=== PATIENT | male | born 1985 | race American Indian/Alaskan Native ===

== ENCOUNTER 2020-06-02 11:04 | Emergency (ER) | payer OTHER, SELFPAY ==
[2020-06-02 11:43] VITALS: BP 115/83; PULSE 83; RESP 14; O2SAT 99; BMI 23.5
[2020-06-02 12:34] VITALS: O2SAT 98
--- NOTE | 2020-06-02 12:40 | PC.NURSE ---
pt refusing manager monitoring, iv, labs, and iv medication. pt states why cant i just drink some charcoal and leave. 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
[2020-06-02] MEDS: Magnesium Hydrox/Alum Hydrox 30 ML ORAL.SUSP PO (12:46)
[2020-06-02] MEDS: Lidocaine HCl Viscous 2 % 15 ML SOLUTION 10 ML MUCOUS MEM (12:46)
--- NOTE | 2020-06-02 13:08 | ED_ITS ---
HPI - Abdominal Pain General Chief Complaint: Abdominal Pain Stated Complaint: VOMITING Time Seen by Provider: 06/02/20 12:30 Source: patient Limitations: no limitations History of Present Illness HPI narrative: 35-year-old male who denies significant past medical history presents today with complaint of upper abdominal burning like pain and nausea vomiting after he reports he drank coffee on empty stomach that had coffee- ground in it. States he does not regularly drink coffee so was unsure why it was so granular. He still developed cramping abdominal pain and vomited up afterwards to the point where had to stop his work for a day. States he checked his coffee afterwards and had coffee-grounds in it. And that is when he vomited up. Denies any recent illness. No diarrhea. No signs symptoms of bleeding. Occasional alcohol drinker. does not smoke. No prior history of gastric ulcers or GI bleed. MD elicited complaint: abdominal pain Location: epigastric Severity: moderate Quality: cramping Radiation: none Migration to: no migration Related Data Previous Rx's Medication Instructions Recorded omeprazole magnesium [Prilosec OTC] 20 mg PO BID #14 tab 06/02/20 ondansetron HCl [Zofran] 4 mg PO Q8H PRN #10 tab 06/02/20 Allergies Allergy/AdvReac Type Severity Reaction Status Date / Time No Known Allergies Allergy Unverified 05/18/20 15:43 [No Known Allergies*] Review of Systems Review of Systems Constitutional: No Weight loss, No Fever, No Chills, No Night Sweats, No Fatigue, No Malaise ENT/Mouth: No Hearing loss, No Ear Pain, No Nasal Congestion, No Sinus Pain, No Hoarseness, No sore throat, No Rhinorrhea, No Swallowing Difficulty Eyes: No Eye Pain, No Swelling, No Redness, No Foreign Body, No Discharge, No Vision Changes Cardiovascular: No Chest Pain, No SOB, No Dyspnea on Exertion, No Orthopnea, No Edema, No Palpitations Respiratory: No Cough, No Sputum, No Wheezing, No Smoke Exposure, No Dyspnea Gastrointestinal: + Nausea, + Vomiting, No Diarrhea, No Constipation, + cramping like abdominal Pain, No Hematochezia, No Melena Genitourinary: no irregular bleeding, No Dysuria, No Urinary Frequency, No Hematuria, No Urinary Incontinence, No Urgency, No Flank Pain, No Urinary Flow Changes, No Hesitancy Musculoskeletal: No joint pain, No Myalgias, No Joint Swelling Skin: No Skin Lesions, No rash Neuro: No Weakness, No Numbness, No Paresthesias, No Loss of Consciousness, No Dizziness, No Headache Psych: No Anxiety/Panic, No Depression, No SI/HI/AH/VH, No Social Issues, Heme/Lymph: No Bruising, No Bleeding,No Lymphadenopathy Endocrine: No Polyuria, No Polydipsia, No Temperature Intolerance Physical Exam Vital Signs and I&O and Narrative: Vital Signs and I&O: Vital Signs Pulse 83 06/02/20 11:43 Resp 14 06/02/20 11:43 BP 115/83 06/02/20 11:43 Pulse Ox 98 06/02/20 12:34 Intake & Output 06/01/20 06/02/20 06/02/20 18:59 06:59 18:59 Weight 83.007 kg Body Mass Index 23.5 Const: General: cooperative and healthy appearing; No acute distress or intoxicated appearing Nutritional Appearance: average body habitus Orientation/consciousness: patient oriented x3 HENMT: Head: Yes normal to inspection Ears: hearing grossly normal bilaterally Eyes: General: appearance normal, both eyes and all related structures Visual Serrato: normal visual serrato by confrontation Neck: Neck: Yes normal visual inspection, No positive Brudzinski's sign, No positive Kernig's sign and No tender Thyroid: Thyroid normal Chest: Chest palpation & inspection: normal inspection of the chest Resp: Effort & Inspection: normal respiratory effort Cardio: Jugular venous distension: no JVD GI: Inspection: Yes normal to inspection and No distended Percussion: Yes normal to percussion Auscultation: normal bowel sounds : General: Yes no CVA tenderness Back/Spine/Pelvis: Back: no CVA tenderness Skin: General skin exam: no rashes or lesions noted Neuro: General: patient oriented x3 Extrem: General: Yes normal to inspection MDM - Abdominal Pain MDM Narrative Medical decision making narrative: initially agreeable to blood work soon after left room states he does not really need any of the blood work or IV. States he feels fine just would like the stomach drink referring to GI cocktail. States he went to school the medical doctor within next complete. States he knows that his symptoms are primarily caused by the coffee and nothing else serious right now and would like the GI cocktail and be discharged home and will return if any concerns or worsening symptoms. Differential Diagnosis Differential diagnosis: Likely abdominal pain, diverticulitis, gastroenteritis and gastritis; Unlikely aortic dissection, acute appendicitis, bowel perforation, calculus of kidney, constipation, mesenteric ischemia, ovarian cyst, pancreatitis and peptic ulcer disease Differential diagnosis narrative:: Gastric ulcer, GI bleed Discharge Plan Discharge Clinical Impression: Abdominal pain Qualifiers: Abdominal location: epigastric Qualified Code(s): R10.13 - Epigastric pain Patient Disposition: Home, Self-Care Instructions: Acute Nausea and Vomiting (ED) Prescriptions: New ondansetron HCl [Zofran] 4 mg tablet 4 mg PO Q8H PRN (Reason: nausea and vomiting) Qty: 10 RF: 0 omeprazole magnesium [Prilosec OTC] 20 mg tablet,delayed release (DR/EC) 20 mg PO BID Qty: 14 RF: 0 Stand Alone Forms: Against Medical Advice PMFSH Past Medical History Medical History (Updated 06/02/20 @ 13:11 by Yasir Ashby NP) Inguinal hernia Surgical History (Updated 06/02/20 @ 11:57 by Dakota Draper) History of appendectomy Social History Social History Alcohol intake: current Alcohol intake frequency: a few times a week Alcohol type: wine and hard liquor Smoking Status: Current every day smoker Smoked in Last 30 Days: Yes Use of substances other than those prescribed or required for medical reasons: Yes Substance Use Type: Crack/Cocaine Substance Use Frequency: Chronic Longstanding Last Used Substance: Days (ago) Any prior treatment program specific to substance use: No Advance Directives: No Advance Directives Information Provided: Yes
== END 2020-06-02 13:46 | disposition left against medical advice (07) ==
PROVIDERS: Emergency Provider Emergency Medicine; PCP Nurse Practitioner Family
DX: R10.13 Epigastric pain (principal); R11.2 Nausea with vomiting, unspecified; F17.200 Nicotine dependence, unspecified, uncomplicated; F14.90 Cocaine use, unspecified, uncomplicated
CPT/HCPCS: 96360; 99284

== ENCOUNTER 2021-08-09 12:54 | Outpatient (REF) | payer OTHER, SELFPAY ==
[2021-08-09 13:19] LABS: COVID-19 Test Positive (Negative)
== END 2021-08-09 12:55 | disposition home or self-care (01) ==
LOC: HO.LAB 12:54
PROVIDERS: Visit Provider Internal Medicine
DX: Z20.822 Contact with and (suspected) exposure to COVID-19 (principal)
CPT/HCPCS: 36415; 87635; C9803

== ENCOUNTER 2021-09-27 11:52 | Outpatient (REF) | payer OTHER, SELFPAY ==
[2021-09-27 14:03] LABS: Alanine Aminotransferase 24 U/L (0-40); Albumin Level 4.7 g/dL (3.5-5.0); Alkaline Phosphatase 79 U/L (39-117); Anion Gap 11 (12-20); Aspartate Amino Transferase 22 U/L (5-37); Bilirubin Total 0.8 mg/dL (0.0-1.0); Blood Urea Nitrogen 12 mg/dL (9-16); Calcium 10.3 mg/dL (8.4-10.2); Carbon Dioxide 33 mmol/L (22-29); Chloride 99 mmol/L (96-108); Cholesterol 169 mg/dL; Estimated Glomerular Filt Rate > 60; Glucose Fasting 80 mg/dL (60-99); HDL Cholesterol 68 mg/dL; Potassium 4.7 mmol/L (3.3-5.1); Sodium 138 mmol/L (135-145); Total Protein 7.9 g/dL (6.5-8.0)
[2021-09-27 14:04] LABS: LDL Cholesterol Calculated 72 mg/dl; Triglycerides 149 mg/dL
[2021-09-27 14:24] LABS: TSH reflex Free T4 0.95 uIU/mL (0.32-4.0)
[2021-09-29 07:01] LABS: Transglutaminase IgA <1.0 U/mL
[2021-10-02 22:13] LABS: Endomysial IgA Antibody Negative (Negative)
== END 2021-09-27 11:53 | disposition home or self-care (01) ==
LOC: HO.HMGCLDS 11:52
PROVIDERS: Visit Provider Nurse Practitioner Family
DX: Z00.00 Encounter for general adult medical examination without abnormal findings (principal); R19.7 Diarrhea, unspecified
CPT/HCPCS: 36415; 80053; 80061; 84443; 86231; 86364

== ENCOUNTER 2021-09-28 15:18 | Outpatient (REF) | payer OTHER, SELFPAY ==
[2021-09-28 16:27] LABS: Appearance Urine CLEAR; Color Urine YELLOW; Glucose Urine UA NEG (NEG); Leukocyte Esterase Urine NEG (NEG); Nitrite Urine NEG (NEG); PH 5.5 (5.0-8.0); Specific Gravity - Urine >= 1.030 (1.005-1.025); UACC Culture Trigger NO; Urine Blood TRACE (NEG); Urine Ketones NEG (NEG); Urine Protein NEG (NEG-TRACE)
[2021-09-28 16:38] LABS: Bacteria Urine TRACE /LPF; RBC Urine 0-2 /HPF (0); Squamous Epithelial Cell Urine TRACE /LPF; WBC Urine 0 /HPF (0-4)
== END 2021-09-28 15:19 | disposition home or self-care (01) ==
LOC: HO.HMGCLNP 15:18
PROVIDERS: PCP Nurse Practitioner Family; Visit Provider Nurse Practitioner Family
DX: Z00.00 Encounter for general adult medical examination without abnormal findings (principal)
CPT/HCPCS: 81001

== ENCOUNTER 2021-10-12 14:23 | Outpatient (REF) | payer OTHER, SELFPAY ==
[2021-10-12 16:38] LABS: Urine Cytology See Pathology rpt
[2021-10-12 16:45] LABS: Appearance Urine CLOUDY; Color Urine YELLOW; Glucose Urine UA NEG (NEG); Leukocyte Esterase Urine NEG (NEG); Nitrite Urine NEG (NEG); PH 7.5 (5.0-8.0); Urine Blood NEG (NEG); Urine Ketones NEG (NEG); Urine Protein NEG (NEG-TRACE)
== END 2021-10-12 14:24 | disposition home or self-care (01) ==
LOC: HO.HMGCLDS 14:23
PROVIDERS: Visit Provider Nurse Practitioner Family
DX: Z00.00 Encounter for general adult medical examination without abnormal findings (principal); R80.9 Proteinuria, unspecified
CPT/HCPCS: 81003; 87086; 88112

== ENCOUNTER 2021-11-06 13:09 | Outpatient (REF) | payer OTHER, SELFPAY ==
--- NOTE | ~2021-11-06 | CT_ITS ---
EXAMINATION: CT ABDOMEN AND PELVIS WITHOUT CONTRAST CLINICAL INFORMATION: Proteinuria COMPARISON: None TECHNIQUE: Multidetector volumetric imaging was performed from the superior aspect of the liver through the pubic symphysis. Sagittal and coronal reformatted images were obtained on the technologist's workstation. This CT examination was performed using dose optimization techniques as appropriate, variously including the following: *Automated exposure control *Adjustment of mA and/or kV according to patient size (this includes techniques or standardized protocols for targeted exams where dose is matched to indication/reason for exam; i.e. extremities or head) *Use of iterative reconstruction technique DLP: 465 mGy-cm FINDINGS: LUNG BASES: The visualized lung bases are unremarkable. LIVER, GALLBLADDER, AND BILIARY TREE: The liver is normal in size, shape, and attenuation. No focal hepatic lesion or biliary ductal dilatation is present. The gallbladder is unremarkable with no evidence of radiopaque gallstones, gallbladder wall thickening, or obvious pericholecystic inflammatory changes. PANCREAS: Unremarkable. SPLEEN: Unremarkable. ADRENAL GLANDS: Unremarkable. KIDNEYS AND URETERS: There is a 3 mm stone in the lower pole of the right kidney. The kidneys are otherwise unremarkable. BLADDER: Not optimally distended. GASTROINTESTINAL TRACT: There is mild diverticulosis of the colon. The small and large bowel are otherwise unremarkable. The appendix is not seen. There are no inflammatory changes in the right lower quadrant.. ABDOMINAL WALL: No significant hernia is appreciated. LYMPH NODES: Normal. VASCULAR: Unremarkable. PELVIC VISCERA: Unremarkable. OSSEOUS STRUCTURES: Unremarkable. CT/CT abdomen pelvis wo con IMPRESSION: Small right renal stone. Mild diverticulosis of the colon. Fleischner guidelines were followed.
[2021-11-06] MEDS: Barium Sulfate Oral (Vanilla) 450 ML ORAL.SUSP 900 ML PO (15:35)
== END 2021-11-06 13:10 | disposition home or self-care (01) ==
LOC: HO.CT 13:09
PROVIDERS: PCP Nurse Practitioner Family; Visit Provider Nurse Practitioner Family
DX: R10.9 Unspecified abdominal pain (principal); R80.9 Proteinuria, unspecified
CPT/HCPCS: 74176

== ENCOUNTER 2021-12-12 10:41 | Emergency (ER) | payer OTHER, SELFPAY ==
[2021-12-12 10:55] VITALS: BP 114/82; PULSE 103; RESP 20; TEMP 36.6; O2SAT 96
[2021-12-12] MEDS: Lidocaine HCl Viscous 2 % 15 ML SOLUTION 5 ML MUCOUS MEM (13:41)
[2021-12-12 14:04] LABS: IDNOW Serial# 08D9AD1C; Influenza A Negative (Negative); Influenza B2 Negative (Negative); Strep A Nucleic Acid Negative (Negative)
[2021-12-12 14:05] LABS: COVID-19 Test Negative (Negative); IDNOW Serial# 55D5AD1C
--- NOTE | 2021-12-12 14:37 | ED.GENADULT ---
HPI - General Adult General Chief complaint: Extremity Problem Stated complaint: Facial & neck swelling/trouble swallowing Time Seen by Provider: 12/12/21 12:36 Source: patient Mode of arrival: ambulatory History of Present Illness HPI narrative: 36-year-old male with no significant past medical history presenting to the ED complaining of right-sided facial pain radiating to head and neck since yesterday. Admits to associated sore throat and painful swallowing. Denies facial swelling, inability to swallow, fever, ear drainage, hearing loss, cough, sick contacts, trauma Onset (ago): day(s) Related Data Previous Rx's Medication Instructions Recorded trazodone 150 mg tablet 150 mg PO BEDTIME 90 Days #90 tab 08/28/21 amoxicillin 875 mg-potassium 1 tab PO BID 7 Days #14 tab 12/12/21 clavulanate 125 mg tablet fluticasone propionate 50 2 spray INTRANASAL DAILY #16 g 12/12/21 mcg/actuation nasal spray,suspension (Flonase Allergy Relief) Allergies Allergy/AdvReac Type Severity Reaction Status Date / Time No Known Allergies Allergy Unverified 10/22/21 15:06 [No Known Allergies*] Review of Systems Review of Systems: Constitutional: No Fever, No Chills ENT/Mouth: No Ear Pain, No Nasal Congestion, + Sinus Pain, No Hoarseness, + sore throat, + Rhinorrhea, No Swallowing Difficulty Cardiovascular: No Chest Pain, No SOB Respiratory: No Cough, No Sputum, No Wheezing Gastrointestinal: No Nausea, No Vomiting, No Diarrhea, No Constipation, No Abdominal pain Genitourinary: No Dysuria, No Urinary Frequency, No Urgency, No Flank Pain Musculoskeletal: No joint pain, No Myalgias, No Joint Swelling Skin: No Skin Lesions, No rash Neuro: No Weakness, No Numbness, No Paresthesias Yes all other systems are reviewed and are negative [facility] Past Medical History Attestation statement: The following information was validated with the patient. Medical History Inguinal hernia Surgical History History of appendectomy Family History Family History Other Mental health disorder Substance use disorder Social History Social History Housing: House Alcohol intake: current Alcohol intake frequency: a few times a week Alcohol type: wine and hard liquor Patient Tobacco Use Status: Current everyday Tobacco user Cigarette Packs Per Day: 1 Substance Use Type: Crack/Cocaine Advance Directives: No Advance Directives Information Provided: No Current occupational status: employed Physical Exam ED Vital Signs: Vital Signs - 24 hr 12/12/21 10:55 Temperature 97.8 F Pulse Rate 103 H Respiratory Rate 20 Blood Pressure 114/82 Pulse Oximetry 96 BMI result Body Mass Index 0.2 Const General: cooperative, healthy appearing, no acute distress, alert, awake and Physically active Orientation/consciousness: patient oriented x3 Limitations: no limitations HENMT Other: + mild pre-auricular tenderness Head: Yes normal to inspection Ears: hearing grossly normal bilaterally, external ears normal, TM normal on the left, mastoids normal, periauricular adenopathy on the right and TM abnormal dull on the right and with loss of landmarks on the right General nose exam: Normal external nose present and Nasal discharge present Face and sinus: Yes normal facial exam, No crepitus and No edema Mouth: Normal oral and palatal mucosa present and no drooling Throat: Yes tonsils normal, Yes uvula midline, Yes posterior oropharynx abnormal (Mild posterior oropharyngeal erythema, no exudates), No uvula laterally displaced and No uvular edema Eyes General: appearance normal, both eyes and all related structures EOM: EOMs intact bilaterally Neck Neck: Yes normal visual inspection, Yes trachea midline, Yes supple, No anterior neck swelling and Yes lymphadenopathy (Right-sided submandibular) Resp Effort & Inspection: normal respiratory effort, no respiratory distress and no stridor Cardio Rate: regular rate Heart sounds: S1 normal heart sound present and S2 normal heart sound present GI Inspection: Yes normal to inspection Palpation (GI): Soft to palpation, nontender, no guarding and not rigid Skin Rashes: no rashes Wounds: no wounds Neuro General: patient oriented x3 Gait exam (Neuro): Normal gait present Extrem General: Yes normal to inspection Course Course Course Narrative: -rapid strep, COVID-19, and influenza negative. discussed worrisome signs and symptoms and strict return precautions with patient Medical Decision Making MDM Narrative Medical decision making narrative: 36-year-old male with no significant past medical history presenting to the ED complaining of right-sided facial pain radiating to head and neck since yesterday. 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 Concern for viral illness as well Plan: COVID-19 testing, rapid strep, influenza Medical Records Medical records reviewed: Yes I reviewed the patient's medical records. Lab Data Lab results reviewed: Yes I reviewed the patient's lab results. Labs: Lab Results 12/12/21 12/12/21 12/12/21 Range/Units 13:34 13:34 13:34 COVID-19 (CESAR) Negative (Negative) COVID-19 Clin Com See Note Influenza Type A ([facility]) Negative (Negative) Influenza Type B ([facility]) Negative (Negative) Influenza A & B Note See Note S. pyogenes GrpA [facility] Negative (Negative) Discharge Plan Discharge Clinical Impression: Otitis media Patient Disposition: Home, Self-Care Instructions: Ear Infection (ED) Additional Instructions: You tested negative for COVID-19, the flu, and strep throat You have an ear infection, Augmentin is an antibiotic please take as prescribed in addition Flonase is a nasal decongestant spray, use as needed/as prescribed Take Tylenol and Motrin as needed If symptoms persist or worsen, pain becomes unbearable, he developed facial swelling, or fever unresolved with Tylenol and Motrin please return to the ED Prescriptions: New fluticasone propionate [Flonase Allergy Relief] 50 mcg/actuation spray,suspension 2 spray intranasal DAILY Qty: 16 0RF Rx Instructions: administer into each nostril amoxicillin-pot clavulanate 875-125 mg tablet 1 tab PO BID 7 Days Qty: 14 0RF No Action trazodone 150 mg tablet 150 mg PO BEDTIME 90 Days Qty: 90 5RF Referrals: Sanya Zazueta, [employer]AUL[employer] ENGINEER-[facility] [Primary Care Provider] - 1 week (As needed)
== END 2021-12-12 14:49 | disposition home or self-care (01) ==
PROVIDERS: Physician Assistant; Emergency Provider Emergency Medicine; PCP Nurse Practitioner Family
DX: H66.91 Otitis media, unspecified, right ear (principal); F14.90 Cocaine use, unspecified, uncomplicated; Z20.822 Contact with and (suspected) exposure to COVID-19; Z79.899 Other long term (current) drug therapy
CPT/HCPCS: 87502; 87635; 87651; 99283

== ENCOUNTER 2022-02-14 12:26 | Outpatient (REF) | payer OTHER, SELFPAY ==
--- NOTE | ~2022-02-14 | XR_ITS ---
EXAMINATION: BILATERAL HAND X-RAY CLINICAL INFORMATION: Bilateral hand pain COMPARISON: Left finger x-ray August 2016 TECHNIQUE: 3 views of each hand FINDINGS: Left hand: Bone alignment is normal. No fracture or dislocation is seen. Joint spaces are normal. Soft tissues are normal. Right hand: Bone alignment is normal. No acute fracture or dislocation is seen. There is question of a well-corticated ossification seen in the dorsal wrist on the lateral view only questionable for changes related to old trauma. Joint spaces are normal. Soft tissues are normal. XR/XR hand RT min 3V IMPRESSION: Question old trauma to the right dorsal wrist. Otherwise unremarkable exam.
--- NOTE | ~2022-02-14 | XR_ITS ---
EXAMINATION: BILATERAL HAND X-RAY CLINICAL INFORMATION: Bilateral hand pain COMPARISON: Left finger x-ray August 2016 TECHNIQUE: 3 views of each hand FINDINGS: Left hand: Bone alignment is normal. No fracture or dislocation is seen. Joint spaces are normal. Soft tissues are normal. Right hand: Bone alignment is normal. No acute fracture or dislocation is seen. There is question of a well-corticated ossification seen in the dorsal wrist on the lateral view only questionable for changes related to old trauma. Joint spaces are normal. Soft tissues are normal. XR/XR hand LT min 3V IMPRESSION: Question old trauma to the right dorsal wrist. Otherwise unremarkable exam.
== END 2022-02-14 12:27 | disposition home or self-care (01) ==
LOC: HO.HMGCX 12:26
PROVIDERS: PCP Nurse Practitioner Family; Visit Provider Nurse Practitioner Family
DX: M79.641 Pain in right hand (principal); M79.642 Pain in left hand
CPT/HCPCS: 73130

== ENCOUNTER 2022-04-04 08:09 | Outpatient (REF) | payer OTHER, SELFPAY ==
--- NOTE | 2022-04-04 08:12 | EMG_ITS ---
Bilateral median and ulnar motor and sensory studies were performed, bilateral radial sensory studies were performed, bilateral median and lateral antecubital brachial sensory studies were performed, and paraspinal muscles were tested with a needle. IMPRESSION: This study is unremarkable with no evidence of entrapment neuropathy, plexopathy, or radiculopathy. MD STEFFANY Shaikh/JULIANN / [id number]
== END 2022-04-04 08:10 | disposition home or self-care (01) ==
LOC: HO.NEURO 08:09
PROVIDERS: Visit Provider Nurse Practitioner Family
DX: R20.0 Anesthesia of skin (principal)
CPT/HCPCS: 95886; 95913

== ENCOUNTER 2022-04-29 11:01 | Outpatient (REF) | payer OTHER, SELFPAY ==
--- NOTE | ~2022-04-29 | XR_ITS ---
EXAMINATION: XR WRIST, RIGHT CLINICAL INFORMATION: Unspecified sprain, initial encounter. COMPARISON: Radiograph of the right hand 02/14/2022. TECHNIQUE: PA, lateral, and oblique views of the right wrist. FINDINGS: No acute fracture or malalignment. Carpal rows are maintained. The scapholunate interval is within normal limits. No unexpected radiopaque foreign bodies or significant soft tissue abnormality. XR/XR wrist RT min 3V IMPRESSION: No acute fracture or subluxation. If a ligamentous/tendinous injury is suspected, correlation with an MR could be obtained if clinically pertinent.
== END 2022-04-29 11:02 | disposition home or self-care (01) ==
LOC: HO.HMGCX 11:01
PROVIDERS: PCP Nurse Practitioner Family; Visit Provider Internal Medicine
DX: S63.501A Unspecified sprain of right wrist, initial encounter (principal)
CPT/HCPCS: 73110

== ENCOUNTER → 2022-05-27 11:54 | Outpatient (BNVA) | payer OTHER, SELFPAY | PROVIDERS: PCP Nurse Practitioner Family; Visit Provider Nurse Practitioner Psychiatric/Mental Health | DX: F10.20 Alcohol dependence, uncomplicated (principal); F14.10 Cocaine abuse, uncomplicated; Z79.899 Other long term (current) drug therapy | CPT/HCPCS: 99202; 99212 ==

== ENCOUNTER → 2022-07-23 15:45 | Outpatient (BNVA) | payer OTHER, SELFPAY | PROVIDERS: PCP Nurse Practitioner Family; Visit Provider Nurse Practitioner Psychiatric/Mental Health | DX: F10.20 Alcohol dependence, uncomplicated (principal); F14.10 Cocaine abuse, uncomplicated; Z51.81 Encounter for therapeutic drug level monitoring; Z79.899 Other long term (current) drug therapy | CPT/HCPCS: 99212 ==

== ENCOUNTER → 2022-07-30 16:01 | Outpatient (BNVA) | payer OTHER, SELFPAY | PROVIDERS: PCP Nurse Practitioner Family; Visit Provider Nurse Practitioner Psychiatric/Mental Health | DX: F10.20 Alcohol dependence, uncomplicated (principal); F14.10 Cocaine abuse, uncomplicated | CPT/HCPCS: 99212 ==

== ENCOUNTER 2022-11-04 12:19 | Emergency (ER) | payer OTHER, SELFPAY ==
[2022-11-04 12:38] VITALS: BP 128/79; PULSE 101; RESP 16; TEMP 36.3; O2SAT 99; BMI 21.8
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
== END 2022-11-04 12:53 | disposition home or self-care (01) ==
PROVIDERS: Emergency Provider Emergency Medicine; PCP Nurse Practitioner Family
DX: Z04.1 Encounter for examination and observation following transport accident (principal); M62.830 Muscle spasm of back
CPT/HCPCS: 99282; 99283

== ENCOUNTER 2022-11-15 08:31 | Outpatient (REF) | payer OTHER, SELFPAY ==
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
== END 2022-11-15 08:32 | disposition home or self-care (01) ==
LOC: HO.HMGCX 08:31
PROVIDERS: Visit Provider Chiropractor
DX: M54.50 Low back pain, unspecified (principal)
CPT/HCPCS: 72110

== ENCOUNTER 2023-03-11 15:46 | Outpatient (AMB) | payer OTHER, SELFPAY ==
[2023-03-11 15:51] VITALS: BP 110/68; PULSE 106; O2SAT 96; BMI 23.3
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
== END 2023-03-11 16:31 | disposition home or self-care (01) ==
PROVIDERS: PCP Nurse Practitioner Family; Visit Provider Nurse Practitioner Family
DX: M54.16 Radiculopathy, lumbar region (principal); V89.2XXA Person injured in unspecified motor-vehicle accident, traffic, initial encounter
CPT/HCPCS: 99213

== ENCOUNTER 2023-06-10 15:00 | Outpatient (AMB) | payer OTHER, SELFPAY ==
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
[2023-06-10 15:05] VITALS: BP 118/82; PULSE 96; O2SAT 98
== END 2023-06-10 15:51 | disposition home or self-care (01) ==
PROVIDERS: PCP Nurse Practitioner Family; Visit Provider Nurse Practitioner Psychiatric/Mental Health
DX: F10.20 Alcohol dependence, uncomplicated (principal); F14.10 Cocaine abuse, uncomplicated
CPT/HCPCS: 99214

== ENCOUNTER → 2023-06-10 15:00 | Outpatient (BNVA) | payer OTHER, SELFPAY | PROVIDERS: PCP Nurse Practitioner Family; Visit Provider Nurse Practitioner Psychiatric/Mental Health | DX: F14.10 Cocaine abuse, uncomplicated (principal); F10.20 Alcohol dependence, uncomplicated | CPT/HCPCS: 99212 ==

== ENCOUNTER 2023-06-30 16:11 | Outpatient (AMB) | payer OTHER, SELFPAY ==
--- NOTE | 2023-06-30 16:18 | A.OFFVIS_ITS ---
Intake Vital Signs 06/30/23 16:25 BP 118/82 Blood Pressure Location Lt radial Position Sitting Pulse 64 Pulse Source Pulse Oximeter Pulse Oximetry (%) 98 Oxygen Delivery Method Room Air Intake Visit Reasons: mat visit Intake Note: the patient presents for a mat visit Mold Chipper Required: No Allergies No Known Allergies [No Known Allergies*] Allergy (Verified 06/30/23 16:18) Do you need a note to return to daycare/school/sports/work: No HPI mat visit HPI Details Pt presents for [facility] treatment and follow up. Only took the topamax twice, reports chest pain and shortness of breath each time he took it. Did not go to be seen or treated emergently for the chest pain. Is using 1 gram of cocaine every other day to every 2 days, and reports Sat last use. Reports he only drinks when he is using cocaine, states he drinks to level out . Was unable to fill vyvanse, stated he was able to get prior auth and will be picking up tomorrow. [facility] Medical History Inguinal hernia Surgical History History of appendectomy Family History Other Mental health disorder Substance use disorder Social History Housing: House Alcohol intake: current Alcohol intake frequency: a few times a week Alcohol type: wine and hard liquor Patient Tobacco Use Status: Current everyday Tobacco user Cigarettes Per Day: 10 e-Cigarette/Vaping Use: Never Used Second Hand Smoke Exposure: No Substance Use Type: Crack/Cocaine Current occupational status: employed Cognitive needs: No Hearing needs: No Vision needs: No Review of Systems Const Reports as per HPI and Reports no additional complaints Physical Exam Vital Signs: Last Vital Signs Pulse 64 06/30/23 16:25 BP 118/82 06/30/23 16:25 Pulse Ox 98 06/30/23 16:25 Oxygen Delivery Method Room Air 06/30/23 16:25 Const General: cooperative, healthy appearing and no acute distress Resp Effort & Inspection: normal respiratory effort Skin General skin exam: no rashes or lesions noted Psych Appearance: grossly normal Mental Status: mental status grossly normal Speech and movement: Pressured speech present Affect: Labile affect present Attitude: cooperative Assessment & Plan Assessment & Plan (1) Cocaine use disorder: Code(s): F14.10 - Cocaine abuse, uncomplicated Plan: Discontinue topamax. Trial vyvanse and follow up in 2 weeks. Encouraged to seek medical attention if further episodes of chest pain arise. risk reduction discussion Plan reviewed with POLO Brown (2) Alcohol use disorder, severe, dependence: Code(s): F10.20 - Alcohol dependence, uncomplicated Plan: Harm reduction discussed, pt encouraged to try alternating alcoholic beverages with water. Follow up 2 weeks. Coding Level of Care Code Est Pt Level 4 (53611) Diagnoses Cocaine use disorder F14.10 Alcohol use disorder, severe, dependence F10.20
[2023-06-30 16:25] VITALS: BP 118/82; PULSE 64; O2SAT 98
== END 2023-06-30 16:41 | disposition home or self-care (01) ==
PROVIDERS: PCP Nurse Practitioner Family; Visit Provider Nurse Practitioner Psychiatric/Mental Health
DX: F10.20 Alcohol dependence, uncomplicated (principal); F14.10 Cocaine abuse, uncomplicated
CPT/HCPCS: 99213

== ENCOUNTER → 2023-06-30 16:11 | Outpatient (BNVA) | payer OTHER, SELFPAY | PROVIDERS: PCP Nurse Practitioner Family; Visit Provider Nurse Practitioner Psychiatric/Mental Health | DX: F14.10 Cocaine abuse, uncomplicated (principal); F10.20 Alcohol dependence, uncomplicated | CPT/HCPCS: 99212 ==

== ENCOUNTER 2023-07-14 16:17 | Outpatient (AMB) | payer OTHER, SELFPAY ==
--- NOTE | 2023-07-14 16:18 | A.OFFVIS_ITS ---
Intake Vital Signs 07/14/23 16:22 BP 122/72 Blood Pressure Location Lt radial Position Sitting Pulse 70 Pulse Source Pulse Oximeter Pulse Oximetry (%) 97 Oxygen Delivery Method Room Air Intake Visit Reasons: mat visit Intake Note: the patient presents for a mat visit Director Of It Operations Required: No Allergies No Known Allergies [No Known Allergies*] Allergy (Verified 07/14/23 16:23) Do you need a note to return to daycare/school/sports/work: No HPI mat visit HPI Details Patient presents for follow up Has started to take Vyvanse--has decreased cocaine use since then Reduced drinking as well. Last use Friday. Has started to feel calmer since starting medication Seeing therapist weekly -Umesh CASTAÑEDA Medical History Inguinal hernia Surgical History History of appendectomy Family History Other Mental health disorder Substance use disorder Social History Housing: House Alcohol intake: current Alcohol intake frequency: a few times a week Alcohol type: wine and hard liquor Patient Tobacco Use Status: Current everyday Tobacco user Cigarettes Per Day: 10 e-Cigarette/Vaping Use: Never Used Second Hand Smoke Exposure: No Substance Use Type: Crack/Cocaine Current occupational status: employed Cognitive needs: No Hearing needs: No Vision needs: No Review of Systems Const Reports as per HPI Physical Exam Vital Signs: Last Vital Signs Pulse 70 07/14/23 16:22 BP 122/72 07/14/23 16:22 Pulse Ox 97 07/14/23 16:22 Oxygen Delivery Method Room Air 07/14/23 16:22 Const General: cooperative, healthy appearing and no acute distress Assessment & Plan Assessment & Plan (1) Alcohol use disorder, severe, dependence: Code(s): F10.20 - Alcohol dependence, uncomplicated Plan: * risk reduction discussion (2) Cocaine use disorder: Code(s): F14.10 - Cocaine abuse, uncomplicated (3) ADHD (attention deficit hyperactivity disorder), predominantly hyperactive impulsive type: Code(s): F90.1 - Attention-deficit hyperactivity disorder, predominantly hyperactive type Plan: * increase vyvanse to 40mg QD * follow up 2 weeks Medications: New lisdexamfetamine (Vyvanse) Partial Fill upon patient request. 40 mg PO QAM 21 caps 0RF Discontinued lisdexamfetamine Partial Fill upon patient request. Discontinued Reason: Doctor's Order 20 mg PO DAILY 14 caps 0RF topiramate Discontinued Reason: Patient no longer taking 50 mg (2 x 25 mg) PO DAILY 28 tabs 0RF Coding Level of Care Code Est Pt Level 4 (59958) Diagnoses Alcohol use disorder, severe, dependence F10.20 Cocaine use disorder F14.10 ADHD (attention deficit hyperactivity disorder), predominantly hyperactive impulsive type F90.1
[2023-07-14 16:22] VITALS: BP 122/72; PULSE 70; O2SAT 97
== END 2023-07-14 16:51 | disposition home or self-care (01) ==
PROVIDERS: PCP Nurse Practitioner Family; Visit Provider Nurse Practitioner Psychiatric/Mental Health
DX: F10.20 Alcohol dependence, uncomplicated (principal); F14.10 Cocaine abuse, uncomplicated; F90.1 Attention-deficit hyperactivity disorder, predominantly hyperactive type
CPT/HCPCS: 99214

== ENCOUNTER → 2023-07-14 16:17 | Outpatient (BNVA) | payer OTHER, SELFPAY | PROVIDERS: PCP Nurse Practitioner Family; Visit Provider Nurse Practitioner Psychiatric/Mental Health | DX: F10.20 Alcohol dependence, uncomplicated (principal); F14.10 Cocaine abuse, uncomplicated; F90.1 Attention-deficit hyperactivity disorder, predominantly hyperactive type | CPT/HCPCS: 99212 ==

== ENCOUNTER 2023-07-28 16:00 | Outpatient (AMB) | payer OTHER, SELFPAY ==
[2023-07-28 16:05] VITALS: BP 130/72; PULSE 99; O2SAT 98
--- NOTE | 2023-07-28 16:05 | A.OFFVIS_ITS ---
Intake Vital Signs 07/28/23 16:05 BP 130/72 Blood Pressure Location Lt radial Position Sitting Pulse 99 Pulse Source Pulse Oximeter Pulse Oximetry (%) 98 Oxygen Delivery Method Room Air Intake Visit Reasons: mat visit Intake Note: the patient presents for a mat vist Disaster Response Director Required: No Allergies No Known Allergies [No Known Allergies*] Allergy (Verified 07/28/23 16:06) HPI mat visit HPI Details Patient presents for follow up Currently prescribed Vyvanse 40mg QD for StUD. Patient reports decrease in cocaine use overall. Discussing several life stressors and how they have impacted his use, but feels that since starting the medication he feels calmer overall. Still very pressured when talking, but less hyperverbal and able to allow this bond underwriter to speak without frequently interrupting. He would like to continue at this dose for now and not increase yet. [facility] Medical History Inguinal hernia Surgical History History of appendectomy Family History Other Mental health disorder Substance use disorder Social History Housing: House Alcohol intake: current Alcohol intake frequency: a few times a week Alcohol type: wine and hard liquor Patient Tobacco Use Status: Current everyday Tobacco user Cigarettes Per Day: 10 e-Cigarette/Vaping Use: Never Used Second Hand Smoke Exposure: No Substance Use Type: Crack/Cocaine Current occupational status: employed Cognitive needs: No Hearing needs: No Vision needs: No Review of Systems Const Reports as per HPI Physical Exam Vital Signs: Last Vital Signs Pulse 99 07/28/23 16:05 BP 130/72 07/28/23 16:05 Pulse Ox 98 07/28/23 16:05 Oxygen Delivery Method Room Air 07/28/23 16:05 Const General: cooperative, healthy appearing and no acute distress Psych Appearance: well kempt Speech and movement: Clear speech present and Pressured speech present Affect: normal affect and Animated affect present Attitude: cooperative Thought process: Normal thought process present and Circumstantial thought process present Assessment & Plan Assessment & Plan (1) ADHD (attention deficit hyperactivity disorder), predominantly hyperactive impulsive type: Code(s): F90.1 - Attention-deficit hyperactivity disorder, predominantly hyperactive type Plan: * continue vyvanse at current dose * risk reduction discussion * follow up 2 weeks (2) Cocaine use disorder: Code(s): F14.10 - Cocaine abuse, uncomplicated (3) Alcohol use disorder, severe, dependence: Code(s): F10.20 - Alcohol dependence, uncomplicated Coding Level of Care Code Est Pt Level 4 (96898) Diagnoses ADHD (attention deficit hyperactivity disorder), predominantly hyperactive impulsive type F90.1 Cocaine use disorder F14.10 Alcohol use disorder, severe, dependence F10.20
== END 2023-07-28 16:42 | disposition home or self-care (01) ==
PROVIDERS: PCP Nurse Practitioner Family; Visit Provider Nurse Practitioner Psychiatric/Mental Health
DX: F14.10 Cocaine abuse, uncomplicated (principal); F10.20 Alcohol dependence, uncomplicated; F90.1 Attention-deficit hyperactivity disorder, predominantly hyperactive type
CPT/HCPCS: 99214

== ENCOUNTER → 2023-07-28 16:00 | Outpatient (BNVA) | payer OTHER, SELFPAY | PROVIDERS: PCP Nurse Practitioner Family; Visit Provider Nurse Practitioner Psychiatric/Mental Health | DX: F14.20 Cocaine dependence, uncomplicated (principal); F10.20 Alcohol dependence, uncomplicated; F17.210 Nicotine dependence, cigarettes, uncomplicated; F90.1 Attention-deficit hyperactivity disorder, predominantly hyperactive type; Z51.81 Encounter for therapeutic drug level monitoring; Z79.899 Other long term (current) drug therapy | CPT/HCPCS: 99212 ==

== ENCOUNTER 2023-08-11 16:04 | Outpatient (AMB) | payer OTHER, SELFPAY ==
--- NOTE | 2023-08-11 16:05 | MHC.AM.SUB ---
Intake Vital Signs 08/11/23 16:11 BP 122/78 Blood Pressure Location Lt radial Position Sitting Pulse 92 Pulse Source Pulse Oximeter Pulse Oximetry (%) 97 Oxygen Delivery Method Room Air Intake Visit Reasons: mat visit Intake Note: the patient presents for a mat visit Manager Child Required: No Allergies No Known Allergies [No Known Allergies*] Allergy (Verified 08/11/23 16:12) Do you need a note to return to daycare/school/sports/work: No HPI mat visit HPI Details Patient presents for [facility] treatment follow up 3 days per week of alcohol and cocaine use Amount he drinks has decreased as well. Other strategies to reduce cocaine use include not bringing entire supply home He reports that his friend have noted a change in his ability to handle situations without reacting Has been spending more time rollerblading, going to the gym August 19-September 02 spending time with sister [facility] Medical History Inguinal hernia Surgical History History of appendectomy Family History Other Mental health disorder Substance use disorder Social History Housing: House Alcohol intake: current Alcohol intake frequency: a few times a week Alcohol type: wine and hard liquor Patient Tobacco Use Status: Current everyday Tobacco user Cigarettes Per Day: 10 e-Cigarette/Vaping Use: Never Used Second Hand Smoke Exposure: No Substance Use Type: Crack/Cocaine Current occupational status: employed Cognitive needs: No Hearing needs: No Vision needs: No Review of Systems Const Reports as per HPI Physical Exam Vital Signs: Last Vital Signs Pulse 92 08/11/23 16:11 BP 122/78 08/11/23 16:11 Pulse Ox 97 08/11/23 16:11 Oxygen Delivery Method Room Air 08/11/23 16:11 Const General: cooperative, healthy appearing and no acute distress Psych Appearance: well kempt Speech and movement: Clear speech present and Pressured speech present (much improved ) Affect: normal affect and Animated affect present Attitude: cooperative Thought process: Normal thought process present and Circumstantial thought process present Assessment & Plan Assessment & Plan (1) ADHD (attention deficit hyperactivity disorder), predominantly hyperactive impulsive type: Code(s): F90.1 - Attention-deficit hyperactivity disorder, predominantly hyperactive type Plan: increase vyvanse to 50mg QD follow up 4 weeks (2) Alcohol use disorder, severe, dependence: Code(s): F10.20 - Alcohol dependence, uncomplicated Plan: risk reduction discussion (3) Cocaine use disorder: Code(s): F14.10 - Cocaine abuse, uncomplicated Plan: risk reduction discussion Medications: New lisdexamfetamine (Vyvanse) Partial Fill upon patient request. 50 mg PO DAILY 30 caps 0RF Discontinued lisdexamfetamine (Vyvanse) Partial Fill upon patient request. Discontinued Reason: Doctor's Order 40 mg PO QAM 21 caps 0RF Coding Level of Care Code Est Pt Level 4 (61640) Diagnoses ADHD (attention deficit hyperactivity disorder), predominantly hyperactive impulsive type F90.1 Alcohol use disorder, severe, dependence F10.20 Cocaine use disorder F14.10
[2023-08-11 16:11] VITALS: BP 122/78; PULSE 92; O2SAT 97
== END 2023-08-11 16:42 | disposition home or self-care (01) ==
PROVIDERS: PCP Nurse Practitioner Family; Visit Provider Nurse Practitioner Psychiatric/Mental Health
DX: F10.20 Alcohol dependence, uncomplicated (principal); F14.10 Cocaine abuse, uncomplicated; F90.1 Attention-deficit hyperactivity disorder, predominantly hyperactive type
CPT/HCPCS: 99214

== ENCOUNTER → 2023-08-11 16:04 | Outpatient (BNVA) | payer OTHER, SELFPAY | PROVIDERS: PCP Nurse Practitioner Family; Visit Provider Nurse Practitioner Psychiatric/Mental Health | DX: F14.10 Cocaine abuse, uncomplicated (principal); F10.20 Alcohol dependence, uncomplicated; F90.1 Attention-deficit hyperactivity disorder, predominantly hyperactive type | CPT/HCPCS: 99212 ==

== ENCOUNTER 2023-09-08 15:08 | Outpatient (AMB) | payer OTHER, SELFPAY ==
--- NOTE | 2023-09-08 15:10 | MHC.AM.SUB ---
Intake Vital Signs 09/08/23 15:14 BP 124/80 Blood Pressure Location Lt radial Position Sitting Pulse 101 H Pulse Source Pulse Oximeter Pulse Oximetry (%) 96 Oxygen Delivery Method Room Air Intake Visit Reasons: MAT Visit Intake Note: the patient presents for a mat visit Radiology Special Procedure Tech Required: No Allergies No Known Allergies [No Known Allergies*] Allergy (Verified 09/08/23 15:15) Do you need a note to return to daycare/school/sports/work: No HPI MAT Visit HPI Details Patient presents for [facility] treatment follow up Spent time with his sister over sad affect, somewhat guarded. Reporting he has been drinking and using cocaine alot over the past few days Not being with his family was very challenging during the holiday has also not been taking vyvanse regularly--he states that when he does, his cocaine use is much less. Reviewed restarting medication, therapy, and working to shift focus [facility] Medical History Inguinal hernia Surgical History History of appendectomy Family History Other Mental health disorder Substance use disorder Social History Housing: House Alcohol intake: current Alcohol intake frequency: a few times a week Alcohol type: wine and hard liquor Patient Tobacco Use Status: Current everyday Tobacco user Cigarettes Per Day: 10 e-Cigarette/Vaping Use: Never Used Second Hand Smoke Exposure: No Substance Use Type: Crack/Cocaine Current occupational status: employed Cognitive needs: No Hearing needs: No Vision needs: No Review of Systems Const Reports as per HPI Psych Reports depression and Reports difficulty concentrating Physical Exam Vital Signs: Last Vital Signs Pulse 101 H 09/08/23 15:14 BP 124/80 09/08/23 15:14 Pulse Ox 96 09/08/23 15:14 Oxygen Delivery Method Room Air 09/08/23 15:14 Const General: cooperative, healthy appearing and no acute distress Psych Appearance: well kempt Speech and movement: Clear speech present and Pressured speech present Affect: normal affect and Animated affect present Attitude: cooperative Thought process: Normal thought process present and Circumstantial thought process present Insight: Fair insight present (Psych) Judgement: Fair judgement present (Psych) Assessment & Plan Assessment & Plan (1) ADHD (attention deficit hyperactivity disorder), predominantly hyperactive impulsive type: Code(s): F90.1 - Attention-deficit hyperactivity disorder, predominantly hyperactive type Plan: restart vyvanse with regularity (2) Cocaine use disorder: Code(s): F14.10 - Cocaine abuse, uncomplicated Plan: risk reduction discussion (3) Alcohol use disorder, severe, dependence: Code(s): F10.20 - Alcohol dependence, uncomplicated Plan: risk reduction discussion follow up 2 weeks Medications: Refilled lisdexamfetamine (Vyvanse) Partial Fill upon patient request. 50 mg PO DAILY 30 caps 0RF Coding Level of Care Code Est Pt Level 4 (59722) Diagnoses ADHD (attention deficit hyperactivity disorder), predominantly hyperactive impulsive type F90.1 Cocaine use disorder F14.10 Alcohol use disorder, severe, dependence F10.20
[2023-09-08 15:14] VITALS: BP 124/80; PULSE 101; O2SAT 96
== END 2023-09-08 15:40 | disposition home or self-care (01) ==
PROVIDERS: PCP Nurse Practitioner Family; Visit Provider Nurse Practitioner Psychiatric/Mental Health
DX: F10.20 Alcohol dependence, uncomplicated (principal); F14.10 Cocaine abuse, uncomplicated; F90.1 Attention-deficit hyperactivity disorder, predominantly hyperactive type
CPT/HCPCS: 99214

== ENCOUNTER → 2023-09-08 15:08 | Outpatient (BNVA) | payer OTHER, SELFPAY | PROVIDERS: PCP Nurse Practitioner Family; Visit Provider Nurse Practitioner Psychiatric/Mental Health | DX: F90.1 Attention-deficit hyperactivity disorder, predominantly hyperactive type (principal); F10.20 Alcohol dependence, uncomplicated; F14.10 Cocaine abuse, uncomplicated | CPT/HCPCS: 99212 ==

== ENCOUNTER 2023-09-20 09:06 | Outpatient (AMB) | payer OTHER, SELFPAY ==
--- NOTE | 2023-09-20 09:09 | AM.OFFWIN_ITS ---
Intake Vital Signs 09/20/23 09:15 Height 6 ft 2 in BP 120/76 Blood Pressure Location Rt brachial Position Sitting Pulse 76 Pulse Source Pulse Oximeter Temp 98.1 F Temp Source Oral Pulse Oximetry (%) 98 Intake Visit Reasons: EST/had tick on him (lobby) Intake Note: pt is here for c.o had tick on him, and having cold feet, and body feels like its being crushed Patient Tobacco Use Status: Current everyday Tobacco user Allergies No Known Allergies [No Known Allergies*] Allergy (Verified 09/20/23 09:44) Medication List - Last Reconciled 09/20/23 by Mary Jo Ferrell CNP fluticasone propionate 50 mcg/actuation (Flonase Allergy Relief) 2 sprays intranasal DAILY lisdexamfetamine (Vyvanse) 50 mg PO DAILY trazodone 150 mg PO BEDTIME 90 days Do you need a note to return to daycare/school/sports/work: Yes HPI HPI Comments History of Present Illness Details 38-year-old male presents to walk-in [facility] complaining of having a tick on him two days ago, and yesterday he woke up with severe joint pain, diarrhea, nausea, and fatigue. He endorses the tick bit him in the stomach, he was able to effectively remove the entire tick. He denies fever, chills, cough, CP, SOB and bulls eye appearance on abdomen. He does report a hx of previous tick bites w/ associated joint pain, fatigue, diarrhea, and nausea in which he reports being treated with abx, and prednisone. He declines Lyme disease titer. [facility] Medical History Inguinal hernia Surgical History History of appendectomy Family History Other Mental health disorder Substance use disorder Social History Housing: House Alcohol intake: current Alcohol intake frequency: a few times a week Alcohol type: wine and hard liquor Patient Tobacco Use Status: Current everyday Tobacco user Cigarettes Per Day: 10 e-Cigarette/Vaping Use: Never Used Second Hand Smoke Exposure: No Substance Use Type: Crack/Cocaine Current occupational status: employed Cognitive needs: No Hearing needs: No Vision needs: No Review of Systems Const All systems reviewed & are unremarkable except as noted in HPI and below Physical Exam Vital Signs: Last Vital Signs Temp 98.1 F 09/20/23 09:15 Pulse 76 09/20/23 09:15 BP 120/76 09/20/23 09:15 Pulse Ox 98 09/20/23 09:15 Const General: healthy appearing and no acute distress Nutritional Appearance: well nourished Orientation/consciousness: patient oriented x3 Limitations: no limitations HEENT Head: Yes normal to inspection, Yes normocephalic and Yes atraumatic Ears: hearing grossly normal bilaterally and TM's normal bilaterally Mouth: moist mucous membranes Throat: Yes posterior oropharynx normal Eyes General: appearance normal, both eyes and all related structures Neck Neck: Yes normal visual inspection, Yes no lymphadenopathy and Yes supple Chest Chest palpation & inspection: normal inspection of the chest Resp Effort & Inspection: normal respiratory effort, no cough, no respiratory distress and not tachypneic Auscultation: clear to auscultation bilaterally, no rhonchi and no wheezes Cardio Rate: regular rate Rhythm: regular rhythm Heart sounds: S1 normal heart sound present and S2 normal heart sound present Peripheral pulses: Peripheral pulses 2+ throughout GI Inspection: Yes normal to inspection and Yes other (no bulls eye or skin irritation noted on abdomen) Palpation (GI): Soft to palpation and nontender Auscultation: normal bowel sounds General: Yes no CVA tenderness Back/Spine/Pelvis Back: no CVA tenderness Skin General skin exam: turgor normal Neuro General: patient oriented x3, gait normal, moves all extremities and no focal motor deficits Extrem General: Yes normal to inspection, Yes capillary refill normal, Yes no joint enlargement and Yes no clubbing, cyanosis or edema Psych Appearance: well kempt Mental Status: other (hyperactive) Speech and movement: Clear speech present and Restless speech present Attitude: cooperative Assessment & Plan Assessment & Plan (1) Tick bite: Code(s): W57.XXXA - Bitten or stung by nonvenomous insect and other nonvenomous arthropods, initial encounter Qualifiers: Encounter type: initial encounter Site of tick bite: abdominal wall Qualified Code(s): S30.861A - Insect bite (nonvenomous) of abdominal wall, initial encounter; W57.XXXA - Bitten or stung by nonvenomous insect and other nonvenomous arthropods, initial encounter Plan: 38-year-old male seen today in walk-in clinic for complaint of joint pain, diarrhea, nausea and fatigue after a recent tick bite. He does not want Lyme test performed as he is in a hurry, he endorses a hx of tick bites and symptoms of Lyme disease, and would like prophylactic treatment. Treated with doxycycline 100 mg po bid, and prednisone 20 mg po qd x 3 days for joint pain associated w/ tick bite. Encouraged to return to clinic with any unresolved or worsening symptoms (2) Joint pain due to Lyme disease: Code(s): A69.20 - Lyme disease, unspecified; M25.50 - Pain in unspecified joint Plan: Treated with doxycycline 100 mg po bid, and prednisone 20 mg po qd x 3 days for joint pain associated w/ tick bite. Encouraged to return to clinic with any unresolved or worsening symptoms Medications: New prednisone 20 mg PO DAILY 3 tabs 0RF A69.20 - Lyme disease, unspecified, M25.50 - Pain in unspecified joint doxycycline monohydrate 100 mg PO BID 20 caps 0RF A69.23 - Arthritis due to Lyme disease, W57.XXXA - Bitten or stung by nonvenomous insect and other nonvenomous arthropods, initial encounter Coding Level of Care Code Est Pt Level 3 (95960) Diagnoses Tick bite of abdominal wall, initial encounter S30.861A; W57.XXXA Encounter type: initial encounter Site of tick bite: abdominal wall Joint pain due to Lyme disease A69.20; M25.50
[2023-09-20 09:15] VITALS: BP 120/76; PULSE 76; TEMP 36.7; O2SAT 98
== END 2023-09-20 09:55 | disposition home or self-care (01) ==
PROVIDERS: PCP Nurse Practitioner Family; Visit Provider Nurse Practitioner Acute Care
DX: S30.861A Insect bite (nonvenomous) of abdominal wall, initial encounter (principal); W57.XXXA Bitten or stung by nonvenomous insect and other nonvenomous arthropods, initial encounter; A69.20 Lyme disease, unspecified; M25.50 Pain in unspecified joint
CPT/HCPCS: 99051; 99213

== ENCOUNTER 2023-09-23 15:54 | Outpatient (AMB) | payer OTHER, SELFPAY ==
[2023-09-23 16:01] VITALS: BP 130/82; PULSE 96; O2SAT 99
--- NOTE | 2023-09-23 16:01 | A.OFFVISCC_ITS ---
Intake Vital Signs 09/23/23 16:01 BP 130/82 Blood Pressure Location Lt radial Position Sitting Pulse 96 Pulse Source Pulse Oximeter Pulse Oximetry (%) 99 Oxygen Delivery Method Room Air Intake Visit Reasons: MAT Visit Intake Note: the patient presents for a mat visit Strategic Account Executive Required: No Allergies No Known Allergies [No Known Allergies*] Allergy (Verified 09/23/23 16:02) Do you need a note to return to daycare/school/sports/work: No HPI MAT Visit HPI Details Patient presents for [facility] treatment follow up Has significantly reduced his use over the last 2 weeks 5 times in 14 days Has been taking Vyvanse 50mg with regularity Feels it has been very helpful Discussed ongoing cardiac risk with cocaine use [facility] Medical History Inguinal hernia Surgical History History of appendectomy Family History Other Mental health disorder Substance use disorder Social History Housing: House Alcohol intake: current Alcohol intake frequency: a few times a week Alcohol type: wine and hard liquor Patient Tobacco Use Status: Current everyday Tobacco user Cigarettes Per Day: 10 e-Cigarette/Vaping Use: Never Used Second Hand Smoke Exposure: No Substance Use Type: Crack/Cocaine Current occupational status: employed Cognitive needs: No Hearing needs: No Vision needs: No Review of Systems Const Reports as per HPI Physical Exam Vital Signs: Last Vital Signs Pulse 96 09/23/23 16:01 BP 130/82 09/23/23 16:01 Pulse Ox 99 09/23/23 16:01 Oxygen Delivery Method Room Air 09/23/23 16:01 Const General: cooperative, healthy appearing and no acute distress Psych Appearance: well kempt Speech and movement: Clear speech present Affect: normal affect Attitude: cooperative Thought process: Normal thought process present and Circumstantial thought process present Insight: Fair insight present (Psych) Judgement: Fair judgement present (Psych) Assessment & Plan Assessment & Plan (1) ADHD (attention deficit hyperactivity disorder), predominantly hyperactive impulsive type: Code(s): F90.1 - Attention-deficit hyperactivity disorder, predominantly hyperactive type Plan: * continue vyvanse (2) Cocaine use disorder: Code(s): F14.10 - Cocaine abuse, uncomplicated Plan: * risk reduction discussion (3) Alcohol use disorder, severe, dependence: Code(s): F10.20 - Alcohol dependence, uncomplicated Plan: * risk reduction discussion * follow up 2 weeks Coding Level of Care Code Est Pt Level 4 (95731) Diagnoses ADHD (attention deficit hyperactivity disorder), predominantly hyperactive impulsive type F90.1 Cocaine use disorder F14.10 Alcohol use disorder, severe, dependence F10.20
== END 2023-09-23 16:32 | disposition home or self-care (01) ==
PROVIDERS: PCP Nurse Practitioner Family; Visit Provider Nurse Practitioner Psychiatric/Mental Health
DX: F14.10 Cocaine abuse, uncomplicated (principal); F10.20 Alcohol dependence, uncomplicated; F90.1 Attention-deficit hyperactivity disorder, predominantly hyperactive type
CPT/HCPCS: 99214

== ENCOUNTER → 2023-09-23 15:54 | Outpatient (BNVA) | payer OTHER, SELFPAY | PROVIDERS: PCP Nurse Practitioner Family; Visit Provider Nurse Practitioner Psychiatric/Mental Health | DX: F10.20 Alcohol dependence, uncomplicated (principal); F14.10 Cocaine abuse, uncomplicated; F90.1 Attention-deficit hyperactivity disorder, predominantly hyperactive type | CPT/HCPCS: 99212 ==

== ENCOUNTER 2023-10-13 16:06 | Outpatient (AMB) | payer OTHER, SELFPAY ==
--- NOTE | 2023-10-13 16:07 | A.OFFVISCC_ITS ---
Intake Vital Signs 10/13/23 16:12 BP 122/76 Blood Pressure Location Lt radial Position Sitting Pulse 100 Pulse Source Pulse Oximeter Pulse Oximetry (%) 96 Oxygen Delivery Method Room Air Intake Visit Reasons: MAT Visit Intake Note: the patient presents for a mat visit Can Patcher Required: No Allergies No Known Allergies [No Known Allergies*] Allergy (Verified 10/27/23 16:11) Do you need a note to return to daycare/school/sports/work: No HPI MAT Visit HPI Details Patient presents for [facility] treatment follow up tolerating Vyvanse with + results in terms of overall organization and decrease in stimulant use [facility] Medical History Inguinal hernia Surgical History History of appendectomy Family History Other Mental health disorder Substance use disorder Social History Housing: House Alcohol intake: current Alcohol intake frequency: a few times a week Alcohol type: wine and hard liquor Patient Tobacco Use Status: Current everyday Tobacco user Cigarettes Per Day: 10 e-Cigarette/Vaping Use: Never Used Second Hand Smoke Exposure: No Substance Use Type: Crack/Cocaine Current occupational status: employed Cognitive needs: No Hearing needs: No Vision needs: No Review of Systems Const Reports as per HPI and Reports no additional complaints Physical Exam Vital Signs: Last Vital Signs Pulse 100 10/13/23 16:12 BP 122/76 10/13/23 16:12 Pulse Ox 96 10/13/23 16:12 Oxygen Delivery Method Room Air 10/13/23 16:12 Const General: cooperative, healthy appearing and no acute distress Psych Appearance: well kempt Speech and movement: Clear speech present Affect: normal affect Attitude: cooperative Thought process: Normal thought process present and Circumstantial thought process present Insight: Fair insight present (Psych) Judgement: Fair judgement present (Psych) Assessment & Plan Assessment & Plan (1) ADHD (attention deficit hyperactivity disorder), predominantly hyperactive impulsive type: Code(s): F90.1 - Attention-deficit hyperactivity disorder, predominantly hyperactive type Plan: * continue vyvanse (2) Cocaine use disorder: Code(s): F14.10 - Cocaine abuse, uncomplicated Plan: * risk reduction discussion (3) Alcohol use disorder, severe, dependence: Code(s): F10.20 - Alcohol dependence, uncomplicated Plan: * risk reduction discussion * follow up 2 weeks Coding Level of Care Code Est Pt Level 4 (06593) Diagnoses ADHD (attention deficit hyperactivity disorder), predominantly hyperactive impulsive type F90.1 Cocaine use disorder F14.10 Alcohol use disorder, severe, dependence F10.20
[2023-10-13 16:12] VITALS: BP 122/76; PULSE 100; O2SAT 96
== END 2023-10-13 16:44 | disposition home or self-care (01) ==
PROVIDERS: PCP Nurse Practitioner Family; Visit Provider Nurse Practitioner Psychiatric/Mental Health
DX: F14.10 Cocaine abuse, uncomplicated (principal); F10.20 Alcohol dependence, uncomplicated; F90.1 Attention-deficit hyperactivity disorder, predominantly hyperactive type
CPT/HCPCS: 99214

== ENCOUNTER → 2023-10-13 16:06 | Outpatient (BNVA) | payer OTHER, SELFPAY | PROVIDERS: PCP Nurse Practitioner Family; Visit Provider Nurse Practitioner Psychiatric/Mental Health | DX: F90.1 Attention-deficit hyperactivity disorder, predominantly hyperactive type (principal); F14.10 Cocaine abuse, uncomplicated; F10.20 Alcohol dependence, uncomplicated | CPT/HCPCS: 99212 ==

== ENCOUNTER 2023-10-27 16:05 | Outpatient (AMB) | payer OTHER, SELFPAY ==
--- NOTE | 2023-10-27 16:09 | A.OFFVISCC_ITS ---
Intake Vital Signs 10/27/23 16:10 BP 132/84 Blood Pressure Location Lt radial Position Sitting Pulse 110 H Pulse Source Pulse Oximeter Pulse Oximetry (%) 97 Oxygen Delivery Method Room Air Comment had caffeine Intake Visit Reasons: mat visit Intake Note: the patient presents for a mat visit Practice Assistant Required: No Allergies No Known Allergies [No Known Allergies*] Allergy (Verified 10/27/23 16:11) Do you need a note to return to daycare/school/sports/work: No HPI mat visit HPI Details Patient presents for [facility] treatment follow up Still using cocaine once a week frustrated by this boredom most common trigger discussed strategies to address this --including painting which patient brought up [facility] Medical History Inguinal hernia Surgical History History of appendectomy Family History Other Mental health disorder Substance use disorder Social History Housing: House Alcohol intake: current Alcohol intake frequency: a few times a week Alcohol type: wine and hard liquor Patient Tobacco Use Status: Current everyday Tobacco user Cigarettes Per Day: 10 e-Cigarette/Vaping Use: Never Used Second Hand Smoke Exposure: No Substance Use Type: Crack/Cocaine Current occupational status: employed Cognitive needs: No Hearing needs: No Vision needs: No Review of Systems Const Reports as per HPI Physical Exam Vital Signs: Last Vital Signs Pulse 110 H 10/27/23 16:10 BP 132/84 10/27/23 16:10 Pulse Ox 97 10/27/23 16:10 Oxygen Delivery Method Room Air 10/27/23 16:10 Const General: cooperative, healthy appearing and no acute distress Psych Appearance: well kempt Speech and movement: Clear speech present Affect: normal affect Attitude: cooperative Thought process: Normal thought process present and Circumstantial thought process present Insight: Fair insight present (Psych) Judgement: Fair judgement present (Psych) Assessment & Plan Assessment & Plan (1) ADHD (attention deficit hyperactivity disorder), predominantly hyperactive impulsive type: Code(s): F90.1 - Attention-deficit hyperactivity disorder, predominantly hyperactive type Plan: * continue vyvanse (2) Cocaine use disorder: Code(s): F14.10 - Cocaine abuse, uncomplicated Plan: * risk reduction discussion (3) Alcohol use disorder, severe, dependence: Code(s): F10.20 - Alcohol dependence, uncomplicated Plan: * risk reduction discussion * follow up 2 weeks Coding Level of Care Code Est Pt Level 4 (19115) Diagnoses ADHD (attention deficit hyperactivity disorder), predominantly hyperactive impulsive type F90.1 Cocaine use disorder F14.10 Alcohol use disorder, severe, dependence F10.20
[2023-10-27 16:10] VITALS: BP 132/84; PULSE 110; O2SAT 97
== END 2023-10-27 16:47 | disposition home or self-care (01) ==
PROVIDERS: PCP Nurse Practitioner Family; Visit Provider Nurse Practitioner Psychiatric/Mental Health
DX: F14.10 Cocaine abuse, uncomplicated (principal); F10.20 Alcohol dependence, uncomplicated; F90.1 Attention-deficit hyperactivity disorder, predominantly hyperactive type
CPT/HCPCS: 99214

== ENCOUNTER → 2023-10-27 16:05 | Outpatient (BNVA) | payer OTHER, SELFPAY | PROVIDERS: PCP Nurse Practitioner Family; Visit Provider Nurse Practitioner Psychiatric/Mental Health | DX: F90.1 Attention-deficit hyperactivity disorder, predominantly hyperactive type (principal); F14.10 Cocaine abuse, uncomplicated; F10.20 Alcohol dependence, uncomplicated | CPT/HCPCS: 99212 ==

== ENCOUNTER 2023-11-10 15:42 | Outpatient (AMB) | payer OTHER, SELFPAY ==
--- NOTE | 2023-11-10 15:43 | A.OFFVISCC_ITS ---
Intake Vital Signs 11/10/23 15:49 BP 126/70 Blood Pressure Location Lt radial Position Sitting Pulse 70 Pulse Source Pulse Oximeter Pulse Oximetry (%) 97 Oxygen Delivery Method Room Air Intake Visit Reasons: mat visit Intake Note: the patient presents for a mat visit Teacher Resource Required: No Allergies No Known Allergies [No Known Allergies*] Allergy (Verified 11/10/23 15:50) HPI mat visit HPI Details Patient presents for StUD Reports challenging 2 weeks due to a lot of work Cocaine use 3 days during the week concerned about what is going to happen when restraining order ends--next month Wants to see his son Anxious about it Has not completed EKG Still tolerating Vyvanse and overall improvement of mood and daily functioning [facility] Medical History Inguinal hernia Surgical History History of appendectomy Family History Other Mental health disorder Substance use disorder Social History Housing: House Alcohol intake: current Alcohol intake frequency: a few times a week Alcohol type: wine and hard liquor Patient Tobacco Use Status: Current everyday Tobacco user Cigarettes Per Day: 10 e-Cigarette/Vaping Use: Never Used Second Hand Smoke Exposure: No Substance Use Type: Crack/Cocaine Current occupational status: employed Cognitive needs: No Hearing needs: No Vision needs: No Review of Systems Const Reports as per HPI and Reports no additional complaints Physical Exam Vital Signs: Last Vital Signs Pulse 70 11/10/23 15:49 BP 126/70 11/10/23 15:49 Pulse Ox 97 11/10/23 15:49 Oxygen Delivery Method Room Air 11/10/23 15:49 Const General: cooperative, healthy appearing and no acute distress Psych Appearance: well kempt Speech and movement: Clear speech present Affect: normal affect Attitude: cooperative Thought process: Normal thought process present and Circumstantial thought process present Insight: Fair insight present (Psych) Judgement: Fair judgement present (Psych) Assessment & Plan Assessment & Plan (1) ADHD (attention deficit hyperactivity disorder), predominantly hyperactive impulsive type: Code(s): F90.1 - Attention-deficit hyperactivity disorder, predominantly hyperactive type Plan: * continue vyvanse-refilled (2) Cocaine use disorder: Code(s): F14.10 - Cocaine abuse, uncomplicated Plan: * risk reduction discussion (3) Alcohol use disorder, severe, dependence: Code(s): F10.20 - Alcohol dependence, uncomplicated Plan: * risk reduction discussion * follow up 2 weeks * reminded about EKG Medications: Refilled lisdexamfetamine (Vyvanse) Partial Fill upon patient request. 50 mg PO DAILY 30 caps 0RF Coding Level of Care Code Est Pt Level 4 (06249) Diagnoses ADHD (attention deficit hyperactivity disorder), predominantly hyperactive impulsive type F90.1 Cocaine use disorder F14.10 Alcohol use disorder, severe, dependence F10.20
[2023-11-10 15:49] VITALS: BP 126/70; PULSE 70; O2SAT 97
== END 2023-11-10 16:24 | disposition home or self-care (01) ==
PROVIDERS: PCP Nurse Practitioner Family; Visit Provider Nurse Practitioner Psychiatric/Mental Health
DX: F14.10 Cocaine abuse, uncomplicated (principal); F10.20 Alcohol dependence, uncomplicated; F90.1 Attention-deficit hyperactivity disorder, predominantly hyperactive type
CPT/HCPCS: 99214

== ENCOUNTER → 2023-11-10 15:42 | Outpatient (BNVA) | payer OTHER, SELFPAY | PROVIDERS: PCP Nurse Practitioner Family; Visit Provider Nurse Practitioner Psychiatric/Mental Health | DX: F90.1 Attention-deficit hyperactivity disorder, predominantly hyperactive type (principal); F10.20 Alcohol dependence, uncomplicated; F14.10 Cocaine abuse, uncomplicated | CPT/HCPCS: 99212 ==

== ENCOUNTER → 2023-11-24 08:13 | Outpatient (REF) | payer OTHER, SELFPAY ==
--- NOTE | 2023-11-24 08:17 | ECG_ITS ---
Test Reason : f1590 Blood Pressure : / mmHG Vent. Rate : 104 BPM Atrial Rate : 104 BPM P-R Int : 132 ms QRS Dur : 090 ms QT Int : 354 ms P-R-T Axes : 078 076 061 degrees QTc Int : 465 ms Sinus tachycardia Otherwise normal ECG No previous ECGs available Referred By: Lara Patel Electronically Signed By:Anand Watters
== END ==
LOC: HO.CARD 08:13
PROVIDERS: PCP Nurse Practitioner Family; Visit Provider Nurse Practitioner Psychiatric/Mental Health
DX: F15.90 Other stimulant use, unspecified, uncomplicated (principal); Z79.899 Other long term (current) drug therapy
CPT/HCPCS: 93005

== ENCOUNTER → 2023-11-24 08:17 | Outpatient (BNV) | payer OTHER, SELFPAY | PROVIDERS: PCP Nurse Practitioner Family; Visit Provider Internal Medicine Cardiovascular Disease | DX: F15.90 Other stimulant use, unspecified, uncomplicated (principal) | CPT/HCPCS: 93010 ==

== ENCOUNTER 2023-12-08 15:31 | Outpatient (AMB) | payer OTHER, SELFPAY ==
--- NOTE | 2023-12-08 15:39 | MHC.AM.SUB ---
Intake Vital Signs 12/08/23 16:01 BP 120/70 Blood Pressure Location Rt radial Position Sitting Respiration 19 Pulse 88 Pulse Source Pulse Oximeter Pulse Oximetry (%) 98 Intake Visit Reasons: MAT Allergies No Known Allergies [No Known Allergies*] Allergy (Verified 11/10/23 15:50) HPI MAT HPI Details Patient presents for follow up Feeling down --reports he found out his is living in [place] EKG reviewed--tachycardia Celebrex-started for back pain Has not eaten drinking protein shakes Cocaine use when he learned of his moving to [facility] Medical History Inguinal hernia Surgical History History of appendectomy Family History Other Mental health disorder Substance use disorder Social History Housing: House Alcohol intake: current Alcohol intake frequency: a few times a week Alcohol type: wine and hard liquor Patient Tobacco Use Status: Current everyday Tobacco user Cigarettes Per Day: 10 e-Cigarette/Vaping Use: Never Used Second Hand Smoke Exposure: No Substance Use Type: Crack/Cocaine Current occupational status: employed Cognitive needs: No Hearing needs: No Vision needs: No Review of Systems Const Reports as per HPI Physical Exam Vital Signs: Last Vital Signs Pulse 88 12/08/23 16:01 Resp 19 12/08/23 16:01 BP 120/70 12/08/23 16:01 Pulse Ox 98 12/08/23 16:01 Const General: cooperative and no acute distress Psych Affect: Sad affect present and Anxious affect present Attitude: cooperative Thought process: Circumstantial thought process present Assessment & Plan Assessment & Plan (1) ADHD (attention deficit hyperactivity disorder), predominantly hyperactive impulsive type: Code(s): F90.1 - Attention-deficit hyperactivity disorder, predominantly hyperactive type Plan: continue vyvanse (2) Cocaine use disorder: Code(s): F14.10 - Cocaine abuse, uncomplicated Plan: risk reduction discussion (3) Alcohol use disorder, severe, dependence: Code(s): F10.20 - Alcohol dependence, uncomplicated Plan: risk reduction discussion follow up 2 weeks Coding Level of Care Code Est Pt Level 4 (13802) Diagnoses ADHD (attention deficit hyperactivity disorder), predominantly hyperactive impulsive type F90.1 Cocaine use disorder F14.10 Alcohol use disorder, severe, dependence F10.20
[2023-12-08 16:01] VITALS: BP 120/70; PULSE 88; RESP 19; O2SAT 98
== END 2023-12-08 16:45 | disposition home or self-care (01) ==
PROVIDERS: PCP Nurse Practitioner Family; Visit Provider Nurse Practitioner Psychiatric/Mental Health
DX: F14.10 Cocaine abuse, uncomplicated (principal); F10.20 Alcohol dependence, uncomplicated; F90.1 Attention-deficit hyperactivity disorder, predominantly hyperactive type
CPT/HCPCS: 99214

== ENCOUNTER → 2023-12-08 15:31 | Outpatient (BNVA) | payer OTHER, SELFPAY | PROVIDERS: PCP Nurse Practitioner Family; Visit Provider Nurse Practitioner Psychiatric/Mental Health | DX: F90.1 Attention-deficit hyperactivity disorder, predominantly hyperactive type (principal); F14.10 Cocaine abuse, uncomplicated; F10.20 Alcohol dependence, uncomplicated | CPT/HCPCS: 99212 ==

== ENCOUNTER 2023-12-16 11:26 | Emergency (ER) | payer OTHER, SELFPAY ==
[2023-12-16] VITALS (7 sets, daily range): BP systolic 121–133; BP diastolic 71–109; PULSE 88–107; RESP 16–18; TEMP 36.6–37.1; O2SAT 97–98; BMI 23.7
--- NOTE | ~2023-12-16 | CT_ITS ---
EXAMINATION: CT ABDOMEN AND PELVIS WITHOUT CONTRAST CLINICAL INFORMATION: Right flank pain COMPARISON: Previous CT of the abdomen and pelvis December 2021 TECHNIQUE: Multidetector volumetric imaging was performed from the superior aspect of the liver through the pubic symphysis. Sagittal and coronal reformatted images were obtained on the technologist's workstation. This CT examination was performed using dose optimization techniques as appropriate, variously including the following: *Automated exposure control *Adjustment of mA and/or kV according to patient size (this includes techniques or standardized protocols for targeted exams where dose is matched to indication/reason for exam; i.e. extremities or head) *Use of iterative reconstruction technique DLP: 569 mGy-cm FINDINGS: LUNG BASES: The visualized lung bases are unremarkable. LIVER, GALLBLADDER, AND BILIARY TREE: The liver is normal in size, shape, and attenuation. No focal hepatic lesion or biliary ductal dilatation is present. The gallbladder is unremarkable with no evidence of radiopaque gallstones, gallbladder wall thickening, or obvious pericholecystic inflammatory changes. PANCREAS: Unremarkable. SPLEEN: Unremarkable. ADRENAL GLANDS: Unremarkable. KIDNEYS AND URETERS: Moderate right hydronephrosis from a 4 mm right proximal ureteral stone. No renal stone seen. Normal left kidney. BLADDER: Not optimally distended. Difficult to exclude mild diffuse bladder wall thickening. GASTROINTESTINAL TRACT: Mild diverticulosis of the colon. No evidence of diverticulitis. The small and large bowel are otherwise unremarkable. The appendix is unremarkable. ABDOMINAL WALL: No significant hernia is appreciated. LYMPH NODES: Normal. VASCULAR: Unremarkable. PELVIC VISCERA: Unremarkable. OSSEOUS STRUCTURES: Degenerative disc disease at L5-S1. CT/CT abdomen pelvis wo IV con IMPRESSION: Moderate right hydronephrosis from a 4 mm right proximal ureteral stone. Fleischner guidelines were followed.
--- NOTE | 2023-12-16 11:39 | ED.GENADULT ---
HPI - General Adult General Chief complaint: Abdominal Pain Stated complaint: r side abd pain Time Seen by Provider: 12/16/23 16:52 Source: patient Mode of arrival: ambulatory Limitations: no limitations History of Present Illness HPI narrative: Patient is a 38-year-old male who presents emergency department for evaluation of right flank/right lower quadrant abdominal pain. He reports for the past month he has been having episodic pain in this area and jamarcus hematuria. Typically last a few days but has been described as mild. He endorses a history of nephrolithiasis, but has not previously required any procedural intervention. He attributed his symptoms to this. He has had CT scans outpatient he reports have noted nephrolithiasis by his PCP. He reports the pain becoming suddenly significantly more severe today while he was driving into work. He was unable to tolerate working presented to the ED for evaluation. He denies fevers, chills, nausea, vomiting, dysuria, constipation, diarrhea. Related Data Previous Rx's ?Medication ?Instructions ?Recorded fluticasone propionate 50 2 spray intranasal DAILY #48 grams 03/06/23 mcg/actuation nasal spray,suspension (Flonase Allergy Relief) trazodone 150 mg tablet 150 mg PO BEDTIME 90 days #90 tabs 09/08/23 lisdexamfetamine 50 mg capsule 50 mg PO DAILY #30 caps 11/10/23 (Vyvanse) oxycodone 5 mg tablet 5 mg PO Q6H PRN pain #14 tabs 12/16/23 prednisone 20 mg tablet 20 mg PO DAILY #3 tabs 12/16/23 tamsulosin 0.4 mg capsule 0.4 mg PO DAILY #7 caps 12/16/23 Allergies Allergy/AdvReac Type Severity Reaction Status Date / Time No Known Allergies Allergy Verified 12/16/23 11:40 [No Known Allergies*] Review of Systems Review of Systems: Yes all other systems are reviewed and are negative PMFSH Past Medical History Attestation statement: The following information was validated with the patient. Source: old records reviewed Medical History Inguinal hernia Surgical History History of appendectomy Family History Family History Other Mental health disorder Substance use disorder Social History Social History Housing: House Alcohol intake: current Alcohol intake frequency: a few times a week Alcohol type: wine and hard liquor Patient Tobacco Use Status: Current everyday Tobacco user Cigarettes Per Day: 10 Smoked in Last 30 Days: Yes e-Cigarette/Vaping Use: Never Used Second Hand Smoke Exposure: No Substance Use Type: Crack/Cocaine Advance Directives: No Advance Directives Information Provided: Yes Current occupational status: employed Cognitive needs: No Hearing needs: No Vision needs: No Physical Exam ED Vital Signs: Vital Signs - 24 hr 12/16/23 11:39 12/16/23 16:52 12/16/23 19:26 Temperature 97.9 F 98.7 F Pulse Rate 95 102 H Respiratory Rate 16 16 Blood Pressure 133/109 H 130/71 128/81 Pulse Oximetry 97 97 Oxygen Delivery Method Room Air Room Air 12/16/23 20:18 12/16/23 22:50 12/16/23 23:28 Temperature 98.1 F 98.2 F 98.1 F Pulse Rate 88 107 H 98 Respiratory Rate 16 16 18 Blood Pressure 128/73 121/71 130/81 Pulse Oximetry 98 97 98 Oxygen Delivery Method Room Air Room Air Room Air 12/16/23 23:41 Temperature 98.1 F Pulse Rate 98 Respiratory Rate 18 Blood Pressure 130/81 Pulse Oximetry 98 Oxygen Delivery Method Room Air BMI result Body Mass Index 23.7 Appearance: Alert.?Oriented to person, place and time. No acute distress.?Normal affect. Eyes: Pupils equal, round and reactive to light.? ENT: Pharynx normal.?? Neck: Normal inspection.? Neck supple.?? CVS: Heart sounds normal. Normal heart rate and rhythm.? Pulses normal.?? Respiratory: No respiratory distress.? Lung sounds clear to auscultation bilaterally?? Abdomen: Soft with right lower quadrant and right CVA tenderness on palpation. Normoactive bowel sounds. No pulsatile mass.?? Skin: Skin warm and dry.? Normal skin color.? Extremities: No lower extremity edema.? Neuro: Moves all extremities spontaneously. Sensation intact bilaterally. Ambulates with normal steady gait. Course Course Course Narrative: RME- 38 year old male presents for evaluation of right flank pain that started about 45 minutes ago. Plan for labs, UA, CT abdomen and pelvis without contrast. He has a history of kidney stones Reevaluation(s) Reevaluation #1: I consulted with Urology, Dr. Angelo Gay, she recommends the following plan of care; 2 additional L of IV normal saline, furosemide 10 mg IV to be administered after 1500 mL of normal saline had infused, lorazepam, in addition to Dilaudid for pain management. Pain is better controlled, to be discharged home with prednisone 20 mg daily for 3 days and Flomax and outpatient follow-up. Medications Administered Discontinued Medications Generic Name Dose Route Start Last Admin Trade Name Freq PRN Reason Stop Dose Admin Furosemide 10 mg 12/16/23 19:13 12/16/23 19:26 Furosemide 20 Mg/2 Ml Vial IVPUSH 12/16/23 19:14 10 mg ONCE ONE Administration Protocol Hydromorphone HCl 1 mg 12/16/23 19:13 12/16/23 19:24 Hydromorphone Hcl 1 Mg/Ml Syringe IVPUSH 12/16/23 19:14 1 mg ONCE ONE Administration Protocol Sodium Chloride 1,000 mls @ 999 mls/hr 12/16/23 17:15 12/16/23 19:10 Ns IV 12/16/23 18:15 Infused .Q1H1M CRICKET Infusion Sodium Chloride 1,000 mls @ 999 mls/hr 12/16/23 19:15 12/16/23 23:36 Ns IV 12/16/23 21:15 Infused .Q1H1M CRICKET Infusion Ketorolac Tromethamine 30 mg 12/16/23 17:10 12/16/23 17:47 Ketorolac Tromethamine 30 Mg/Ml Vial IVPUSH 12/16/23 17:11 30 mg ONCE ONE Administration Lorazepam 1 mg 12/16/23 19:13 12/16/23 19:28 Lorazepam 1 Mg Tablet PO 12/16/23 19:14 1 mg ONCE ONE Administration Morphine Sulfate 4 mg 12/16/23 17:58 12/16/23 18:21 Morphine Sulfate 4 Mg/Ml Cartridge IVPUSH 12/16/23 17:59 4 mg ONCE ONE Administration Protocol Nicotine Polacrilex 2 mg 12/16/23 21:56 12/16/23 22:16 Nicotine Polacrilex 2 Mg Gum BUCCAL 12/16/23 21:57 2 mg ONCE ONE Administration Ondansetron HCl 4 mg 12/16/23 17:58 12/16/23 18:20 Ondansetron Hcl 4 Mg/2 Ml Vial IVPUSH 12/16/23 17:59 4 mg ONCE ONE Administration Oxycodone HCl 5 mg 12/16/23 23:06 12/16/23 23:40 Oxycodone Hcl Immed Release 5 Mg Tablet PO 12/16/23 23:07 5 mg ONCE ONE Administration Tamsulosin HCl 0.4 mg 12/16/23 17:10 12/16/23 17:46 Tamsulosin Hcl 0.4 Mg Capsule PO 12/16/23 17:11 0.4 mg ONCE ONE Administration Medical Decision Making Medical Decision Making MDM Narrative: Patient is a 38-year-old male with past medical history of ADHD, Lyme disease, lumbar radiculopathy, history of polysubstance use disorder, nephrolithiasis presenting to emergency department for evaluation of right flank/abdominal pain as per HPI. He is notably tender on exam. I reviewed labs obtained prior to my assumption of care; no leukocytosis or anemia. No electrolyte derangement or ABBY. Transaminases are within normal range. Lipase normal. Urinalysis with microscopic hematuria, no evidence of infection. CT of the abdomen and pelvis revealing moderate hydronephrosis on the right with 4 mm right proximal ureteral stone. Patient was made aware of the findings. Will trial pain management in addition to tamsulosin, disposition pending re-evaluation, possible discharge home and outpatient follow-up with urology versus admission for pain control/possible procedural intervention. Differential Diagnosis Differential Diagnoses: The differential diagnosis associated with the presentation includes (Nephrolithiasis, obstructive ureteral calculi, hydronephrosis, pyelonephritis, urinary tract infection, appendicitis) Admission/Observation Consideration of admission/observation: Escalation of care including admission/observation considered (See narrative above and course narrative for further detail) Lab Data MDM Lab Attestation statement: I reviewed the patient's lab results. (See narrative above) 12/16/23 12:04 12/16/23 12:04 Labs: Lab Results 12/16/23 12/16/23 Range/Units 12:04 15:30 WBC 6.7 (4.8-10.8) X10*3/uL RBC 5.44 (4.60-5.80) X10*6/uL Hgb 15.9 (14.0-18.0) g/dl Hct 47.3 (42.0-52.0) % MCV 86.9 (80.0-98.0) fL MCH 29.2 (27.0-33.0) pg MCHC 33.6 (31.0-36.0) g/dl RDW 12.6 (11.0-16.0) % Plt Count 391 (160-400) X10*3/uL MPV 9.8 (9.4-12.4) fL Immature Gran % (Auto) 0.3 (0.0-0.4) % Neut % (Auto) 57.6 (45-73) % Lymph % (Auto) 25.2 (20-40) % [place] % (Auto) 11.9 H (2-11) % Eos % (Auto) 4.0 (0-4) % Baso % (Auto) 1.0 (0-2) % Lymph # (Auto) 1.7 (1.2-4.9) X10*3/uL [place] # (Auto) 0.8 (0.1-1.2) X10*3/uL Eos # (Auto) 0.3 (0.0-0.4) X10*3/uL Baso # (Auto) 0.1 (0.0-0.2) X10*3/uL Abs Immat Gran (auto) 0.02 (0.00-0.03) X10*3/uL Absolute Neuts (auto) 3.9 (2.0-8.3) x10*3/uL Absolute Nucleated RBC 0.000 (0.0-0.012) X10*3/uL Nucleated RBC % (auto) 0.0 (0.0-0.2) /100WBC Sodium 138 (135-145) mmol/L Potassium 3.9 (3.3-5.1) mmol/L Chloride 101 (96-108) mmol/L Carbon Dioxide 27 (22-29) mmol/L Anion Gap 14 (12-20) BUN 11 (9-16) mg/dL Creatinine 0.69 (0.5-1.4) mg/dL Estim Creat Clear Calc 168.7 Estimated GFR > 60 Random Glucose 98 (60-115) mg/dL Calcium 9.4 D (8.4-10.2) mg/dL Total Bilirubin 0.4 (0.0-1.0) mg/dL AST 26 (5-37) U/L ALT 29 (0-40) U/L Alkaline Phosphatase 92 (39-117) U/L Total Protein 7.4 (6.5-8.0) g/dL Albumin 4.3 (3.5-5.0) g/dL Lipase 22 (8-78) U/L Urine Color Yellow Urine Appearance Cloudy Urine pH 6.5 (5.0-9.0) Ur Specific [place] 1.020 (1.005-1.025) Urine Protein 30 (1+) H (Neg-Trace) mg/dL Urine Glucose (UA) Negative (Negative) mg/dL Urine Ketones Negative (Negative) mg/dL Urine Blood Large (3+) H (Negative) Urine Nitrite Negative (Negative) Ur Leukocyte Esterase Negative (Negative) Urine RBC >20 H (0-2) /HPF Urine WBC 0-5 (0-5) /HPF Ur Squamous Epith Cells 0-2 (0-2) /HPF Urine Bacteria None Seen (None Seen) Hyaline Casts 0-2 (0-2) /LPF Independent Interpretation I performed an independent interpretation of an: CT Scan (Right ureteral calculi) Radiology Impression Discussion of test interpretation with radiology: I have reviewed the radiologist's reading. Radiologist Impression: CT/CT abdomen pelvis wo IV con IMPRESSION: Moderate right hydronephrosis from a 4 mm right proximal ureteral stone. External Record Review External record reviewed: Outpatient record Prescription Management I considered prescription management with: Pain Medication Critical Care Time Critical Care Time Critical Care Time: Yes Total Critical Care Time: 50 Attestation: I personally attest to this critical care time spent taking care of the patient exclusive of all other billable procedures was approximately 50 minutes including initial evaluation of patient, ordering tests,CT interpretation, medical consultation, documentation, re-evaluation. Discharge Plan Discharge Clinical Impression: Calculus of right ureter, Hydronephrosis Patient Disposition: Home, Self-Care Instructions: Hydronephrosis (ED), Ureteral Stones (ED) Additional Instructions: Take prednisone 20 mg daily for 3 days. Take Flomax 0.4 mg daily. You can take Tylenol 500 mg, 2 tablets (1,000mg) every 4-6 hours as needed for pain, but not to exceed 3 doses daily (3,000mg).? For pain unrelieved by this you may take oxycodone. This is narcotic medication. Can be addictive. You should not drive, drink alcohol, or work while taking this medication. Contact the urology office 1st thing tomorrow morning to arrange for a follow-up visit. You may return back to emergency department any new or worsening symptoms or concerns. Prescriptions: New prednisone 20 mg tablet 20 mg PO DAILY Qty: 3 0RF oxycodone 5 mg tablet 5 mg PO Q6H PRN (Reason: pain) Qty: 14 0RF Rx Instructions: Partial Fill upon patient request. tamsulosin 0.4 mg capsule 0.4 mg PO DAILY Qty: 7 0RF No Action fluticasone propionate [Flonase Allergy Relief] 50 mcg/actuation spray,suspension 2 spray intranasal DAILY Qty: 48 1RF Rx Instructions: administer into each nostril trazodone 150 mg tablet 150 mg PO BEDTIME 90 Days Qty: 90 1RF lisdexamfetamine [Vyvanse] 50 mg capsule 50 mg PO DAILY Qty: 30 0RF Rx Instructions: Partial Fill upon patient request. Referrals: Sammy Muir MD [Physician] - Sanya Zazueta FNP-KRISTINE [Primary Care Provider] - Interventions: ED Discharge Assessment Last Done: 12/16/23 23:41 Discharge Date/Time: 12/16/23 23:45 Print Language: French
[2023-12-16 12:18] LABS: MANUAL DIFF FLAG NO
[2023-12-16 12:27] LABS: Basophils Absolute Auto 0.1 X10*3/uL (0.0-0.2); Eosinophils Absolute Auto 0.3 X10*3/uL (0.0-0.4); Hematocrit 47.3 % (42.0-52.0); Hemoglobin 15.9 g/dl (14.0-18.0); Imm Gran Abs Auto 0.02 X10*3/uL (0.00-0.03); Imm Gran Pct Auto 0.3 % (0.0-0.4); Lymphocytes Absolute Auto 1.7 X10*3/uL (1.2-4.9); Lymphocytes Percent Auto 25.2 % (20-40); Mean Corpuscular HGB Conc 33.6 g/dl (31.0-36.0); Mean Corpuscular Hemoglobin 29.2 pg (27.0-33.0); Mean Corpuscular Volume 86.9 fL (80.0-98.0); Mean Platelet Volume 9.8 fL (9.4-12.4); Monocytes Absolute Auto 0.8 X10*3/uL (0.1-1.2); Monocytes Percent Auto 11.9 % (2-11); Neutrophils Absolute Auto 3.9 x10*3/uL (2.0-8.3); Neutrophils Percent Auto 57.6 % (45-73); Platelet Count 391 X10*3/uL (160-400); Red Blood Count 5.44 X10*6/uL (4.60-5.80); Red Cell Distribution Width 12.6 % (11.0-16.0); White Blood Count 6.7 X10*3/uL (4.8-10.8)
[2023-12-16 13:22] LABS: Alanine Aminotransferase 29 U/L (0-40); Albumin Level 4.3 g/dL (3.5-5.0); Alkaline Phosphatase 92 U/L (39-117); Anion Gap 14 (12-20); Aspartate Amino Transferase 26 U/L (5-37); Bilirubin Total 0.4 mg/dL (0.0-1.0); Blood Urea Nitrogen 11 mg/dL (9-16); Calcium 9.4 mg/dL (8.4-10.2); Carbon Dioxide 27 mmol/L (22-29); Chloride 101 mmol/L (96-108); Creatinine Clr Calc Pharmacy 168.7; Estimated Glomerular Filt Rate > 60; Glucose Random 98 mg/dL (60-115); Lipase 22 U/L (8-78); Potassium 3.9 mmol/L (3.3-5.1); Sodium 138 mmol/L (135-145); Total Protein 7.4 g/dL (6.5-8.0)
[2023-12-16 15:50] LABS: Appearance Urine Cloudy; Color Urine Yellow; Glucose Urine UA Negative (Negative); Leukocyte Esterase Urine Negative (Negative); Nitrite Urine Negative (Negative); PH 6.5 (5.0-9.0); UMIC TRIGGER UACC YES; Urine Blood Large (3+) (Negative); Urine Ketones Negative (Negative); Urine Protein 30 (1+) mg/dL (Neg-Trace)
[2023-12-16 15:58] LABS: Bacteria Urine None Seen (None Seen); Hyaline Casts Urine 0-2 /LPF (0-2); RBC Urine >20 /HPF (0-2); Squamous Epithelial Cell Urine 0-2 /HPF (0-2); WBC Urine 0-5 /HPF (0-5)
[2023-12-16] MEDS: 0.9 % Sodium Chloride 1,000 ML 999 ML IV ×3 (17:44→22:17)
[2023-12-16] MEDS: Tamsulosin HCL 0.4 MG CAPSULE PO (17:46)
[2023-12-16] MEDS: Ketorolac Tromethamine 30 MG/ML VIAL IVPUSH (17:47)
[2023-12-16] MEDS: ondansetron HCL 4 MG/2 ML VIAL IVPUSH (18:20)
[2023-12-16] MEDS: Morphine Sulfate 4 MG/ML CARTRIDGE IVPUSH (18:21)
--- NOTE | 2023-12-16 19:14 | PC.NURSE ---
pt a&o x4, calm, and cooperative. 20G IV placed to LAC. fluids infusing and pt medicated per mar. pt resting quietly on stretcher in no apparent distress. rr even/unlabored. call carcamo within reach. plan of care ongoing.
[2023-12-16] MEDS: HYDROmorphone HCl 1 MG/ML SYRINGE IVPUSH (19:24)
[2023-12-16] MEDS: Furosemide 20 MG/2 ML VIAL 10 MG IVPUSH (19:26)
[2023-12-16] MEDS: LORazepam 1 MG TABLET PO (19:28)
[2023-12-16] MEDS: Nicotine Polacrilex 2 MG GUM BUCCAL (22:16)
--- NOTE | 2023-12-16 22:55 | MHC.EDTECH ---
ROUNDING AND VITALS DONE AT THIS TIME ,PATIENT HAD 2 HAM SANDWICH AND A ISMAEL GORDO FOR SNACK .
[2023-12-16] MEDS: oxyCODONE HCl Immed Release 5 MG TABLET PO (23:40)
== END 2023-12-16 23:45 | disposition home or self-care (01) ==
PROVIDERS: Physician Assistant; Emergency Provider Emergency Medicine; PCP Nurse Practitioner Family
DX: N13.2 Hydronephrosis with renal and ureteral calculous obstruction (principal)
CPT/HCPCS: 36415; 74176; 80053; 81001; 83690; 85025; 96361; 96374; 96375; 99285; J1170; J1885; J1940; J2270; J2405

== ENCOUNTER 2023-12-18 09:51 | Inpatient (IN) | payer OTHER, SELFPAY ==
--- NOTE | ~2023-12-18 | FL_ITS ---
EXAMINATION: XR FLUOROSCOPY WITH IMAGES CLINICAL INFORMATION: Cystoscopy COMPARISON: CT abdomen pelvis on 12/18/2023 TECHNIQUE: Fluoroscopy Supervised By: Dr. Muir. Fluoroscopy Time: 46.6 seconds. Cumulative Dose: 12.68 mGy. Images: 8. FINDINGS: Fluoroscopy performed during right ureteroscopy and retrograde stent placement. There is moderate hydronephrosis. FL/FL guidance in OR IMPRESSION: Fluoroscopy performed by the urology department. Please see operative report for additional information.
--- NOTE | ~2023-12-18 | CT_ITS ---
EXAMINATION: CT ABDOMEN AND PELVIS WITHOUT CONTRAST CLINICAL INFORMATION: Right lower quadrant pain COMPARISON: 12/16/2023 TECHNIQUE: Multidetector volumetric imaging was performed from the superior aspect of the liver through the pubic symphysis. Sagittal and coronal reformatted images were obtained on the technologist's workstation. This CT examination was performed using dose optimization techniques as appropriate, variously including the following: *Automated exposure control *Adjustment of mA and/or kV according to patient size (this includes techniques or standardized protocols for targeted exams where dose is matched to indication/reason for exam; i.e. extremities or head) *Use of iterative reconstruction technique DLP: 560 mGy-cm FINDINGS: LUNG BASES: Bibasilar atelectasis seen. LIVER, GALLBLADDER, AND BILIARY TREE: The liver is normal in size, shape, and attenuation. No focal hepatic lesion or biliary ductal dilatation is present. The gallbladder is unremarkable with no evidence of radiopaque gallstones, gallbladder wall thickening, or obvious pericholecystic inflammatory changes. PANCREAS: Unremarkable. SPLEEN: Unremarkable. ADRENAL GLANDS: Unremarkable. KIDNEYS AND URETERS: There is perinephric stranding surrounding right kidney and mild to moderate hydroureteronephrosis to the level of obstruction of proximal right ureter by 0.4 cm calculus and change in position since previous study mild hydronephrosis is worsening. There is no other calculi visualized bilaterally. BLADDER: Unremarkable. GASTROINTESTINAL TRACT: The small and large bowel are unremarkable. The appendix is not seen but there are no secondary signs of appendicitis. There no evidence of diverticulitis or diverticulosis. ABDOMINAL WALL: No significant hernia is appreciated. LYMPH NODES: Normal. VASCULAR: Unremarkable. PELVIC VISCERA: Unremarkable. OSSEOUS STRUCTURES: Unremarkable. CT/CT abdomen pelvis wo IV con IMPRESSION: Worsening of hydroureteronephrosis in the right kidney due to partial obstruction of proximal right ureter by 0.4 cm stone Fleischner guidelines were followed.
[2023-12-18 09:52] VITALS: BP 121/77; PULSE 113; RESP 20; TEMP 36.8; O2SAT 96; BMI 32.7
[2023-12-18] MEDS: ondansetron HCL 4 MG/2 ML VIAL IVPUSH (10:10)
[2023-12-18] MEDS: Ketorolac Tromethamine 15 MG/ML VIAL IVPUSH ×2 (10:10→11:56)
[2023-12-18] MEDS: Morphine Sulfate 4 MG/ML CARTRIDGE IVPUSH ×2 (10:10→11:10)
[2023-12-18] MEDS: 0.9 % Sodium Chloride 1,000 ML 999 ML IVCONT ×2 (10:16→11:14)
--- NOTE | 2023-12-18 10:26 | ED_ITS ---
HPI - General Adult General Chief complaint: General Medical Stated complaint: abd pain Time Seen by Provider: 12/18/23 10:03 Source: patient Mode of arrival: ambulatory Limitations: no limitations History of Present Illness HPI narrative: 38 yo male with longstanding history of recurrent kidney stones presents to the ER for evaluation of right flank pain and right lower abdominal pain that woke him from sleep at 6am. He was seen here on 12/15 for kidney stone - found to have moderate hydronephrosis w/ 4mm stone in the right proximal ureter. Reporting pain 10/10 with nausea, worse than his usual kidney stone pain. Has not urinated yet today. He reports history of several stones, none of which required intervention. No other medical problems. MD complaint: right flank pain Onset (ago): hour(s) (4.5) Location: back and abdomen Radiation: abdomen Severity: severe Severity scale (1-10): 10 Quality: stabbing Pain Consistency: constant Relieving factors: none Exacerbating factors: none Associated symptoms: nausea/vomiting Treatments prior to arrival: none Related Data Previous Rx's ?Medication ?Instructions ?Recorded fluticasone propionate 50 2 spray intranasal DAILY #48 grams 03/06/23 mcg/actuation nasal spray,suspension (Flonase Allergy Relief) trazodone 150 mg tablet 150 mg PO BEDTIME 90 days #90 tabs 09/08/23 lisdexamfetamine 50 mg capsule 50 mg PO DAILY #30 caps 11/10/23 (Vyvanse) oxycodone 5 mg tablet 5 mg PO Q6H PRN pain #14 tabs 12/16/23 prednisone 20 mg tablet 20 mg PO DAILY #3 tabs 12/16/23 tamsulosin 0.4 mg capsule 0.4 mg PO DAILY #7 caps 12/16/23 Allergies Allergy/AdvReac Type Severity Reaction Status Date / Time No Known Allergies Allergy Verified 12/18/23 09:54 [No Known Allergies*] Review of Systems 2 Review of Systems: Yes all other systems are reviewed and are negative [facility] Past Medical History Medical History Inguinal hernia Surgical History History of appendectomy Family History Family History Other Mental health disorder Substance use disorder Social History Social History Housing: House Alcohol intake: current Alcohol intake frequency: a few times a week Alcohol type: wine and hard liquor Patient Tobacco Use Status: Current everyday Tobacco user Cigarettes Per Day: 10 Smoked in Last 30 Days: Yes e-Cigarette/Vaping Use: Never Used Second Hand Smoke Exposure: No Use of substances other than those prescribed or required for medical reasons: Yes Substance Use Type: Crack/Cocaine Substance Use Frequency: Occasionally Advance Directives: No Advance Directives Information Provided: Yes Current occupational status: employed Cognitive needs: No Hearing needs: No Vision needs: No Physical Exam ED Vital Signs: Vital Signs - 24 hr 12/18/23 09:52 12/18/23 10:31 12/18/23 11:10 Temperature 98.2 F 97.9 F Pulse Rate 113 H 94 Respiratory Rate 20 14 20 Blood Pressure 121/77 135/65 Pulse Oximetry 96 93 Oxygen Delivery Method Room Air Nasal Cannula Oxygen Flow Rate 2 12/18/23 11:59 Temperature Pulse Rate 104 H Respiratory Rate 22 H Blood Pressure 125/75 Pulse Oximetry 97 Oxygen Delivery Method Room Air Oxygen Flow Rate BMI result Body Mass Index 32.7 Appearance: Alert. Oriented X3. uncomfortable and writhing on the bed Head: normocephalic, atraumatic. Eyes: Pupils equal, round and reactive to light. ENT: Pharynx normal. No tonsillar swelling or exudate. Neck: Normal inspection. Neck supple. CVS: Normal heart rate and rhythm. Pulses normal. Respiratory: No respiratory distress. Breath sounds normal. Abdomen: guarded and tender in the right lower quadrant +BS x4. +CVA tenderness on the right Skin: Skin warm and dry. Normal skin color. Normal skin turgor. No rashes. Extremities: No lower extremity edema. No joint swelling. Neuro/psych: Oriented X 3. No motor deficit. No sensory deficit. CN II-XII intact. Normal speech and cognition. Medications Administered Discontinued Medications Generic Name Dose Route Start Last Admin Trade Name Freq PRN Reason Stop Dose Admin Hydromorphone HCl 1 mg 12/18/23 11:50 12/18/23 11:55 Hydromorphone Hcl 1 Mg/Ml Syringe IVPUSH 12/18/23 11:51 1 mg ONCE ONE Administration Protocol Sodium Chloride 1,000 mls @ 999 mls/hr 12/18/23 10:15 12/18/23 11:13 Ns IVCONT 12/18/23 11:15 Infused .Q1H1M CRICKET Infusion Sodium Chloride 1,000 mls @ 999 mls/hr 12/18/23 11:00 12/18/23 11:14 Ns IVCONT 12/18/23 12:00 999 mls/hr .Q1H1M CRICKET Administration Ketorolac Tromethamine 15 mg 12/18/23 10:03 12/18/23 10:10 Ketorolac Tromethamine 15 Mg/Ml Vial IVPUSH 12/18/23 10:04 15 mg ONCE ONE Administration Ketorolac Tromethamine 15 mg 12/18/23 11:50 12/18/23 11:56 Ketorolac Tromethamine 15 Mg/Ml Vial IVPUSH 12/18/23 11:51 15 mg ONCE ONE Administration Morphine Sulfate 4 mg 12/18/23 10:03 12/18/23 10:10 Morphine Sulfate 4 Mg/Ml Cartridge IVPUSH 12/18/23 10:04 4 mg ONCE ONE Administration Protocol Morphine Sulfate 4 mg 12/18/23 10:54 12/18/23 11:10 Morphine Sulfate 4 Mg/Ml Cartridge IVPUSH 12/18/23 10:55 4 mg ONCE ONE Administration Protocol Ondansetron HCl 4 mg 12/18/23 10:03 12/18/23 10:10 Ondansetron Hcl 4 Mg/2 Ml Vial IVPUSH 12/18/23 10:04 4 mg ONCE ONE Administration Tamsulosin HCl 0.4 mg 12/18/23 10:54 12/18/23 11:09 Tamsulosin Hcl 0.4 Mg Capsule PO 12/18/23 10:55 0.4 mg ONCE ONE Administration Medical Decision Making Medical Decision Making [facility] Narrative: Year old male with known kidney stone in the proximal right ureter as of 12/18 presents to the ER for evaluation of worsening right flank pain. Had moderate hydronephrosis seen on CT scan 12/15. He is in extreme pain on arrival, writhing in the stretcher. His vital signs are stable. IV established and IV Toradol, IV morphine and Zofran were administered along with IV fluids. On re-evaluation patient still remains very uncomfortable. Another dose of IV morphine was given along with repeat dose of IV Toradol. Patient still has not urinated. Dr. Gay from Urology contacted about the patient. Patient is now requiring 3rd round of IV narcotics for pain control including Dilaudid. Will require admission for further management. Urology will admit. Empiric IV antibiotics and renal U/S ordered per request. Differential Diagnosis Differential Diagnoses: The differential diagnosis associated with the presentation includes ureteral stone w/ obstruction and worsening hydronephrosis, pyelonephritis Admission/Observation Consideration of admission/observation: Escalation of care including admission/observation considered Requires admission for urologic intervention Consult Healthcare Provider Management of the patient was discussed with: Data Entry Representative Dr. Gay - Urology Lab Data MDM Lab Attestation statement: I reviewed the patient's lab results. Mild leukocytosis, stable anemia, normal renal function 12/18/23 11:08 12/18/23 11:08 Labs: Lab Results 12/18/23 Range/Units 11:08 WBC 13.0 H (4.8-10.8) X10*3/uL RBC 4.57 L (4.60-5.80) X10*6/uL Hgb 13.5 L (14.0-18.0) g/dl Hct 39.8 L (42.0-52.0) % MCV 87.1 (80.0-98.0) fL MCH 29.5 (27.0-33.0) pg MCHC 33.9 (31.0-36.0) g/dl RDW 12.5 (11.0-16.0) % Plt Count 345 (160-400) X10*3/uL MPV 9.6 (9.4-12.4) fL Immature Gran % (Auto) 0.2 (0.0-0.4) % Neut % (Auto) 69.9 (45-73) % Lymph % (Auto) 17.1 L (20-40) % [place] % (Auto) 10.9 (2-11) % Eos % (Auto) 1.4 (0-4) % Baso % (Auto) 0.5 (0-2) % Lymph # (Auto) 2.2 (1.2-4.9) X10*3/uL [place] # (Auto) 1.4 H (0.1-1.2) X10*3/uL Eos # (Auto) 0.2 (0.0-0.4) X10*3/uL Baso # (Auto) 0.1 (0.0-0.2) X10*3/uL Abs Immat Gran (auto) 0.03 (0.00-0.03) X10*3/uL Absolute Neuts (auto) 9.1 H (2.0-8.3) x10*3/uL Absolute Nucleated RBC 0.000 (0.0-0.012) X10*3/uL Nucleated RBC % (auto) 0.0 (0.0-0.2) /100WBC Sodium 141 (135-145) mmol/L Potassium 4.1 (3.3-5.1) mmol/L Chloride 108 (96-108) mmol/L Carbon Dioxide 27 (22-29) mmol/L Anion Gap 10 L (12-20) BUN 9 (9-16) mg/dL Creatinine 0.71 (0.5-1.4) mg/dL Estim Creat Clear Calc 159.7 Estimated GFR > 60 Random Glucose 91 (60-115) mg/dL Calcium 8.5 D (8.4-10.2) mg/dL Total Bilirubin 0.3 (0.0-1.0) mg/dL AST 20 (5-37) U/L ALT 22 (0-40) U/L Alkaline Phosphatase 80 (39-117) U/L Total Protein 6.4 L (6.5-8.0) g/dL Albumin 3.8 (3.5-5.0) g/dL Independent Historian Clinical information obtained from an independent historian. History obtained from or confirmed by: Friend External Record Review External record reviewed: Outpatient record, Prior outpatient labs and Prior outpatient radiology Prescription Management I considered prescription management with: Pain Medication and Antibiotic Chronic Conditions Patient?s care impacted by: Other (recurrent kidney stones) Critical Care Time Critical Care Time Critical Care Time: Yes Total Critical Care Time: 66 Attestation: I have personally provided critical care time exclusive of time spent on separately billable procedures. Time includes review of lab data, radiology results, multiple bedside reassessments of pain, hemodynamic stability and mental status, discussion with consultants, and monitoring for potential decompensation. Intervention performed as documented. Discharge Plan Discharge Clinical Impression: Hydronephrosis with ureteral calculus Patient Disposition: Admitted As Inpatient Print Language: [place]an
[2023-12-18 10:31] VITALS: BP 135/65; PULSE 94; RESP 14; TEMP 36.6; O2SAT 93
[2023-12-18] MEDS: Tamsulosin HCL 0.4 MG CAPSULE PO (11:09)
[2023-12-18 11:10] VITALS: RESP 20
[2023-12-18 11:13] LABS: Basophils Absolute Auto 0.1 X10*3/uL (0.0-0.2); Basophils Percent Auto 0.5 % (0-2); Eosinophils Absolute Auto 0.2 X10*3/uL (0.0-0.4); Eosinophils Percent Auto 1.4 % (0-4); Hematocrit 39.8 % (42.0-52.0); Hemoglobin 13.5 g/dl (14.0-18.0); Imm Gran Abs Auto 0.03 X10*3/uL (0.00-0.03); Imm Gran Pct Auto 0.2 % (0.0-0.4); Lymphocytes Absolute Auto 2.2 X10*3/uL (1.2-4.9); Lymphocytes Percent Auto 17.1 % (20-40); MANUAL DIFF FLAG NO; Mean Corpuscular HGB Conc 33.9 g/dl (31.0-36.0); Mean Corpuscular Hemoglobin 29.5 pg (27.0-33.0); Mean Corpuscular Volume 87.1 fL (80.0-98.0); Mean Platelet Volume 9.6 fL (9.4-12.4); Monocytes Absolute Auto 1.4 X10*3/uL (0.1-1.2); Monocytes Percent Auto 10.9 % (2-11); Neutrophils Absolute Auto 9.1 x10*3/uL (2.0-8.3); Neutrophils Percent Auto 69.9 % (45-73); Platelet Count 345 X10*3/uL (160-400); Red Blood Count 4.57 X10*6/uL (4.60-5.80); Red Cell Distribution Width 12.5 % (11.0-16.0)
--- NOTE | 2023-12-18 11:15 | PC.NURSE ---
Pt reports being diagnosed with kidney stone on right side 2 days ago, reported he came to ED then. Pt was sent home with oxycodone, reported he did not feel like he needed it until middle of the night last night. Pt reports sever right sided pain from flank to RLQ ABD, 10/10, sharp and aching. Pt also report blood in urine, has been straining his urine and no stones have passed. Pt denies any fevers, cough, diarrhea, CP. Pt is alert and oriented, breathing slightly elevated, skin clammy. Pt noted to be in obvious pain, holding abdomen.
[2023-12-18 11:27] LABS: Alanine Aminotransferase 22 U/L (0-40); Albumin Level 3.8 g/dL (3.5-5.0); Alkaline Phosphatase 80 U/L (39-117); Anion Gap 10 (12-20); Aspartate Amino Transferase 20 U/L (5-37); Bilirubin Total 0.3 mg/dL (0.0-1.0); Blood Urea Nitrogen 9 mg/dL (9-16); Calcium 8.5 mg/dL (8.4-10.2); Carbon Dioxide 27 mmol/L (22-29); Chloride 108 mmol/L (96-108); Creatinine Clr Calc Pharmacy 159.7; Estimated Glomerular Filt Rate > 60; Glucose Random 91 mg/dL (60-115); Potassium 4.1 mmol/L (3.3-5.1); Sodium 141 mmol/L (135-145); Total Protein 6.4 g/dL (6.5-8.0)
[2023-12-18] MEDS: HYDROmorphone HCl 1 MG/ML SYRINGE IVPUSH (11:55)
[2023-12-18 11:59] VITALS: BP 125/75; PULSE 104; RESP 22; O2SAT 97
--- NOTE | 2023-12-18 12:27 | ECG_ITS ---
Test Reason : YOLANDA Blood Pressure : / mmHG Vent. Rate : 102 BPM Atrial Rate : 102 BPM P-R Int : 142 ms QRS Dur : 088 ms QT Int : 344 ms P-R-T Axes : 059 049 042 degrees QTc Int : 448 ms Sinus tachycardia Otherwise normal ECG When compared with ECG of 24-NOV-2023 08:20, No significant change was found Referred By: Sammy Muir Electronically Signed By:INA SIMPSON
--- NOTE | 2023-12-18 12:29 | P.HPGS_ITS ---
History of Present Illness History of Present Illness Date of Service: 12/19/23 Chief complaint: Right hydronephrosis, Right flank pain Narrative: Iron Wolff is a 38 year old male history of recurrent kidney stones presents to the ER for evaluation of right flank pain and right lower abdominal pain that woke him from sleep at 6am. He was seen here on 12/16/23 for kidney stone - found to have moderate hydronephrosis w/ 4mm stone in the right proximal ureter. He was stable and discharged with plan to fu with urology as an outpatient. He is reporting pain 10/10 with nausea, worse than his usual kidney stone pain. He reports history of several stones, none of which required intervention, he states he passed the stones. History of substance abuse disorder. Review of Systems Review of Systems: Yes all other systems are reviewed and are negative Constitutional: Constitutional: Reports no additional constitutional complaints Eyes: Eyes: Reports no additional eye complaints ENT: Reports system reviewed and no additional complaints, except as documente d Cardiovascular: Cardiovascular: Reports no additional cardiovascular complaints Respiratory: Respiratory: Reports no additional respiratory complaints Gastrointestinal: Gastrointestinal: Reports no additional gastrointestinal complaints Genitourinary: Genitourinary: Reports as per HPI Musculoskeletal: Musculoskeletal: Reports no additional musculoskeletal complaints Integumentary/Breasts: Skin/Breast: Reports system reviewed and no additional complaints, except as docu Neurologic: Reports system reviewed and no additional complaints, except as documented Psychiatric: Psychiatric: Reports no additional psychiatric complaints Endocrine: Endocrine: Reports no additional endocrine complaints Hematologic/Lymphatic: Hematologic/Lymphatic: Reports no additional hematologic/lymphatic complaints Allergic/Immunologic: Allergic/Immunologic: Reports no additional allergic/immunologic complaints [facility] Past Medical History Medical History Inguinal hernia Family History Family History Other Mental health disorder Substance use disorder Surgical History Surgical History History of appendectomy Social History Social History Housing: House Alcohol intake: current Alcohol intake frequency: a few times a week Alcohol type: wine and hard liquor Patient Tobacco Use Status: Current everyday Tobacco user Cigarettes Per Day: 10 Smoked in Last 30 Days: Yes e-Cigarette/Vaping Use: Never Used Second Hand Smoke Exposure: No Use of substances other than those prescribed or required for medical reasons: Yes Substance Use Type: Crack/Cocaine Substance Use Frequency: Occasionally Advance Directives: No Advance Directives Information Provided: Yes Nutrition Risks: No Nutritional Risk Current occupational status: employed Cognitive needs: No Hearing needs: No Vision needs: No Meds Allergies Allergy/AdvReac Type Severity Reaction Status Date / Time No Known Allergies Allergy Verified 12/18/23 09:54 [No Known Allergies*] Active Medications: Current Medications Acetaminophen (Acetaminophen 325 Mg Tablet) 650 mg PO Q6H PRN PRN Reason: Pain, Mild (Pain Scale 1-3) Hydromorphone HCl (Hydromorphone Hcl 1 Mg/Ml Syringe) 0.5 mg IVPUSH Q3H PRN; P rotocol PRN Reason: Pain, Severe (Pain Scale 7-10) Ceftriaxone Sodium 1 gm/ (Sodium Chloride) 50 mls @ 100 mls/hr IV ONCE ONE Stop: 12/18/23 12:53 Sodium Chloride (Ns) 1,000 mls @ 100 mls/hr IVCONT .Q10H [facility] Ketorolac Tromethamine (Ketorolac Tromethamine 30 Mg/Ml Vial) 15 mg IVPUSH Q6H [facility] Stop: 12/23/23 12:29 Naloxone HCl (Naloxone Hcl 0.4 Mg/Ml Vial) 0.1 mg IVPUSH Q2M PRN PRN Reason: Respiratory Rate < 10 Ondansetron HCl (Ondansetron Hcl 4 Mg/2 Ml Vial) 4 mg IVPUSH Q8H PRN PRN Reason: Nausea and Vomiting Oxycodone HCl (Oxycodone Hcl Immed Release 5 Mg Tablet) 5 mg PO Q6H PRN PRN Reason: Pain, Severe (Pain Scale 4-6 Sodium Chloride (0.9 % Sodium Chloride Flush 3 Ml Syringe) 3 ml IVFLUSH QSHIFT [facility] Home Medications ?Medication ?Instructions ?Recorded ?Confirmed ?Last Taken ?Type biotin 1 mg capsule 1 mg PO DAILY 12/18/23 12/18/23 12/17/23 History collagen,hydrolysate 500 mg-biotin 1 cap PO DAILY 12/18/23 12/18/23 12/17/23 History 800 mcg-ascorbic acid 50 mg capsule (Collagen 1500 Plus C) glutamine 500 mg tablet 500 mg PO DAILY 12/18/23 12/18/23 12/17/23 History [id number] 0.4 mg-calcium 162 1 tab PO DAILY 12/18/23 12/18/23 12/17/23 History mg-iron 18 [id number] tablet prednisone 20 mg tablet 20 mg PO DAILY 12/18/23 12/18/23 12/17/23 History pyridoxine (vitamin B6) 10 mg 10 mg PO DAILY 12/18/23 12/18/23 12/17/23 History tablet tamsulosin 0.4 mg capsule 0.4 mg PO DAILY 12/18/23 12/18/23 12/17/23 History trazodone 150 mg tablet 150 mg PO BEDTIME PRN Insomnia 12/18/23 12/18/23 12/17/23 History Physical Exam Vital Signs: Vital Signs: Last Vital Signs Temp 97.9 F 12/18/23 10:31 Pulse 104 H 12/18/23 11:59 Resp 22 H 12/18/23 11:59 BP 125/75 12/18/23 11:59 Pulse Ox 97 12/18/23 11:59 O2 Del Method Room Air 12/18/23 11:59 O2 Flow Rate 2 12/18/23 10:31 BMI result Body Mass Index 32.7 Const: General: healthy appearing, no acute distress and well developed Orientation/consciousness: patient oriented x3 HEENT: Head: Yes normocephalic and Yes atraumatic Eyes: Conjunctivae: conjunctivae normal Neck: Neck: Yes normal visual inspection Chest: Chest palpation & inspection: normal inspection of the chest Resp: Effort & Inspection: normal respiratory effort Cardio: Rate: regular rate GI: Inspection: Yes normal to inspection Palpation (GI): Soft to palpation and Tenderness to palpation present (GI) in the RLQ : General: Yes CVA tenderness (right) Back/Spine/Pelvis: Back: CVA tenderness (right) Neuro: General: patient oriented x3 Extrem: General: No pedal edema Psych: Appearance: grossly normal Affect: normal affect Results Results Labs: Short CBC 12/18/23 Range/Units 11:08 WBC 13.0 H (4.8-10.8) X10*3/uL Hgb 13.5 L (14.0-18.0) g/dl Hct 39.8 L (42.0-52.0) % Plt Count 345 (160-400) X10*3/uL BMP 12/18/23 11:08 Sodium 141 Potassium 4.1 Chloride 108 Carbon Dioxide 27 BUN 9 Creatinine 0.71 Calcium 8.5 D Liver Function 12/18/23 Range/Units 11:08 Total Bilirubin 0.3 (0.0-1.0) mg/dL AST 20 (5-37) U/L ALT 22 (0-40) U/L Alkaline Phosphatase 80 (39-117) U/L Albumin 3.8 (3.5-5.0) g/dL Abdomen CT scan report/results: report reviewed and image reviewed CT scan - pelvis: report reviewed and image reviewed Assessment and Plan (1) Hydronephrosis with ureteral calculus: Status: Acute (2) Cocaine use: Status: Acute Plan NPO IVF hydration, pain management Medicine consult for substance abuse, and cocaine use to manage possible withdrawal symptoms Surgical management when okay with anesthesia for Plan for Cystoscopy, right ureteroscopy, possible laser lithotripsy, possible ureteral stent. Quality Stroke Does the patient have a stroke diagnosis?: No VTE Prior VTE?: No VTE Risk Level:: Medical - low VTE Device Contraindication: Treatment Not Indicated VTE Drug Contraindication: Treatment Not Indicated Procedures Date of Service Date of Service: 12/19/23
[2023-12-18] MEDS: Ketorolac Tromethamine 30 MG/ML VIAL 15 MG IVPUSH ×2 (12:54→18:42)
[2023-12-18] MEDS: cefTRIAXone sodium 1 GM in 0.9 % Sodium Chloride 50 ML IV (12:55)
--- NOTE | 2023-12-18 12:58 | PC.NURSE ---
Verified with provider, no blood cultures needed before ABX.
--- NOTE | 2023-12-18 13:38 | PC.NURSE ---
Pt appears uncomfortable and restless, pain still 10/10. Pt reports last urination was some time last night, has no urge to urinate. Bladder scan done twice, 172 mL present in bladder. No palpable bladder noted, neg for distention.
--- NOTE | 2023-12-18 14:04 | PHA.MEDREC ---
Pharmacy Consult ? Medication Reconciliation Pharmacy has completed the medication reconciliation. Patient doesnt know doses but does also take beet root, b6, biotin, multivite, and preworkout
[2023-12-18] MEDS: 0.9 % Sodium Chloride 1,000 ML 100 ML IVCONT ×2 (14:05→23:41)
--- NOTE | 2023-12-18 14:11 | PC.NURSE ---
Pt reports feeling better than he did earlier, 5/10 pain at this time, appears less restless
[2023-12-18 14:24] LABS: Amphetamine Screen Urine POSITIVE (Not Detect); Barbiturates, Urine Not Detected (Not Detect); Benzodiazepines Screen Urine Not Detected (Not Detect); Buprenorphine Scr Not Detected (Not Detect); Cannabinoid Screen Urine POSITIVE (Not Detect); Cocaine Screen Urine POSITIVE (Not Detect); Fentanyl, urine Not Detected (Not Detect); Methadone Screen, Urine Not Detected (Not Detect); Opiate Screen Urine POSITIVE (Not Detect); Oxycodone Screen Urine Not Detected (Not Detect); Phencyclidine Screen Urine Not Detected (Not Detect)
[2023-12-18 14:55] VITALS: BP 121/72; PULSE 103; RESP 16; O2SAT 98
--- NOTE | 2023-12-18 15:40 | PC.NURSE ---
Report given to Leann WATERMAN in [facility].
[2023-12-18] MEDS: Nicotine 21 MG PATCH.TD24 TRANSDERMA (16:47)
--- NOTE | 2023-12-18 17:02 | P.CONIM_ITS ---
History of Present Illness Data of Consult Service Date: 12/18/23 Requesting physician: Sammy Muir Primary Care Provider: Unknown Physician HPI Reason for consult: Evaluate and manage for drug withdrawal This is a 30-year-old male who presents right flank pain found to right hydroureteronephrosis due to partial obstruction with proximal right ureter by 0.4 cm stone. He was admitted to the urological service in procedure was planned however his tox screen was positive for cocaine and thus procedure was postponed. The hospitalists were asked to see him in consultation for evaluation and management of drug withdrawal. Patient does not appear to be withdrawing at this time, he reports that he uses cocaine a few times a week, denies use of any intravenous drugs. Review of Systems 2 Review of Systems: Yes all other systems are reviewed and are negative Constitutional: Constitutional: Denies chills and Denies fever(s) Cardiovascular: Cardiovascular: Denies chest pain PMFSH Medical History Inguinal hernia Family History Other Mental health disorder Substance use disorder Surgical History History of appendectomy Social History Housing: House Alcohol intake: current Alcohol intake frequency: a few times a week Alcohol type: wine and hard liquor Patient Tobacco Use Status: Current everyday Tobacco user Cigarettes Per Day: 10 Smoked in Last 30 Days: Yes e-Cigarette/Vaping Use: Never Used Second Hand Smoke Exposure: No Use of substances other than those prescribed or required for medical reasons: Yes Substance Use Type: Crack/Cocaine Substance Use Frequency: Occasionally Advance Directives: No Advance Directives Information Provided: Yes Current occupational status: employed Cognitive needs: No Hearing needs: No Vision needs: No Meds Allergies Allergy/AdvReac Type Severity Reaction Status Date / Time No Known Allergies Allergy Verified 12/18/23 09:54 [No Known Allergies*] Active Medications: Current Medications Acetaminophen (Acetaminophen 325 Mg Tablet) 650 mg PO Q6H PRN PRN Reason: Pain, Mild (Pain Scale 1-3) Hydromorphone HCl (Hydromorphone Hcl 1 Mg/Ml Syringe) 0.5 mg IVPUSH Q3H PRN; Protocol PRN Reason: Pain, Severe (Pain Scale 7-10) Sodium Chloride (Ns) 1,000 mls @ 100 mls/hr IVCONT .Q10H [facility] Last Admin: 12/18/23 14:05 Dose: 100 mls/hr Ketorolac Tromethamine (Ketorolac Tromethamine 30 Mg/Ml Vial) 15 mg IVPUSH Q6H [facility] Stop: 12/23/23 12:29 Last Admin: 12/18/23 12:54 Dose: 15 mg Naloxone HCl (Naloxone Hcl 0.4 Mg/Ml Vial) 0.1 mg IVPUSH Q2M PRN PRN Reason: Respiratory Rate < 10 Ondansetron HCl (Ondansetron Hcl 4 Mg/2 Ml Vial) 4 mg IVPUSH Q8H PRN PRN Reason: Nausea and Vomiting Oxycodone HCl (Oxycodone Hcl Immed Release 5 Mg Tablet) 5 mg PO Q6H PRN PRN Reason: Pain, Severe (Pain Scale 4-6 Sodium Chloride (0.9 % Sodium Chloride Flush 3 Ml Syringe) 3 ml IVFLUSH QSHIFT [facility] Last Admin: 12/18/23 16:49 Dose: Not Given Physical Exam 2 Vital Signs and Narrative: Vital Signs: Last Vital Signs Temp 97.9 F 12/18/23 10:31 Pulse 103 H 12/18/23 14:55 Resp 16 12/18/23 14:55 BP 121/72 12/18/23 14:55 Pulse Ox 98 12/18/23 14:55 O2 Del Method Room Air 12/18/23 14:55 O2 Flow Rate 2 12/18/23 10:31 BMI result Body Mass Index 32.7 Const: Other: argumentative General: alert and awake Nutritional Appearance: average body habitus Orientation/consciousness: patient oriented x3 Resp: Effort & Inspection: normal respiratory effort, able to speak in complete sentences, no respiratory distress and no use of accessory muscles Cardio: Other: mild tachycardia GI: Inspection: No distended Palpation (GI): Soft to palpation and nontender Neuro: General: patient oriented x3, moves all extremities and CN's II-XI intact bilaterally Extrem: General: Yes no pedal edema Results Labs 12/18/23 11:08 12/18/23 11:08 Labs: Laboratory Results - last 24 hr 12/18/23 12/18/23 11:08 14:06 MCV 87.1 MCH 29.5 MCHC 33.9 RDW 12.5 Plt Count 345 MPV 9.6 Immature Gran % (Auto) 0.2 Neut % (Auto) 69.9 Lymph % (Auto) 17.1 L [place] % (Auto) 10.9 Eos % (Auto) 1.4 Baso % (Auto) 0.5 Lymph # (Auto) 2.2 [place] # (Auto) 1.4 H Eos # (Auto) 0.2 Baso # (Auto) 0.1 Abs Immat Gran (auto) 0.03 Absolute Neuts (auto) 9.1 H Absolute Nucleated RBC 0.000 Nucleated RBC % (auto) 0.0 Anion Gap 10 L Estim Creat Clear Calc 159.7 Estimated GFR > 60 Random Glucose 91 Calcium 8.5 D Total Bilirubin 0.3 AST 20 ALT 22 Alkaline Phosphatase 80 Total Protein 6.4 L Albumin 3.8 Urine Opiates Screen POSITIVE H Ur Buprenorphine Scrn Not Detected Ur Oxycodone Screen Not Detected Urine Methadone Screen Not Detected Urine Fentanyl Screen Not Detected Ur Barbiturates Screen Not Detected Ur Phencyclidine Scrn Not Detected Ur Amphetamines Screen POSITIVE H U Benzodiazepines Scrn Not Detected Urine Cocaine Screen POSITIVE H U Marijuana (THC) Screen POSITIVE H Imaging Radiologist's Impressions: Impressions Abdomen/Pelvis CT 12/18/23 13:10 IMPRESSION: Worsening of hydroureteronephrosis in the right kidney due to partial obstruction of proximal right ureter by 0.4 cm stone Fleischner guidelines were followed. Assessment and Plan (1) Hydronephrosis with ureteral calculus: Status: Acute (2) Stimulant use disorder: Status: Acute Plan This is a 38-year-old male with history of cocaine use disorder, alcohol use disorder admitted for right-sided obstructing stone Hydronephrosis with ureteral calculus Management as per Urological Service Polysubstance use/alcohol use disorder tox screen + for amphetamines, cocaine, marijuana, opiates No evidence of withdrawal at this time denies daily etoh use - monitor on ciwa takes Vyvanse at baseline anesthesia has requested EKG and trop due to cocaine positive - EKG sinus tach, trop pending tobacco use disorder NRT thank you for allowing us to participate in the care of this patient. we will follow along with you
[2023-12-18 17:49] LABS: Troponin-I High Sensitivity < 2.7 ng/L (<3.5-35.0)
[2023-12-18] MEDS: HYDROmorphone HCl 1 MG/ML SYRINGE 0.5 MG IVPUSH (19:44)
[2023-12-18] MEDS: Nicotine Polacrilex 2 MG GUM BUCCAL (20:36)
[2023-12-18] MEDS: Magnesium Hydrox/Alum Hydrox 30 ML ORAL.SUSP PO (21:36)
[2023-12-18 21:48] VITALS: BP 120/76; PULSE 99; RESP 18; TEMP 36.6; O2SAT 97
[2023-12-19] VITALS (11 sets, daily range): BP systolic 107–145; BP diastolic 72–98; PULSE 70–104; RESP 16–20; TEMP 36.5–36.9; O2SAT 95–100; BMI 28.9
[2023-12-19] MEDS: Ketorolac Tromethamine 30 MG/ML VIAL 15 MG IVPUSH ×4 (01:06→23:58)
[2023-12-19] MEDS: 0.9 % Sodium Chloride Flush 3 ML SYRINGE IVFLUSH ×2 (01:07→23:58)
[2023-12-19] MEDS: HYDROmorphone HCl 1 MG/ML SYRINGE 0.5 MG IVPUSH ×5 (01:26→18:42)
--- NOTE | 2023-12-19 05:27 | MHC.EDTECH ---
Assumed care at 0520
[2023-12-19 06:08] LABS: Appearance Urine Cloudy; Color Urine Yellow; Glucose Urine UA Negative (Negative); Leukocyte Esterase Urine Negative (Negative); Nitrite Urine Negative (Negative); PH 5.5 (5.0-9.0); UMIC TRIGGER UACC YES; Urine Blood Large (3+) (Negative); Urine Ketones Negative (Negative); Urine Protein Negative (Neg-Trace)
[2023-12-19 06:12] LABS: Bacteria Urine None Seen (None Seen); Squamous Epithelial Cell Urine 0-2 /HPF (0-2); WBC Urine 0-5 /HPF (0-5)
[2023-12-19] MEDS: 0.9 % Sodium Chloride 1,000 ML 100 ML IVCONT (08:42)
[2023-12-19] MEDS: Nicotine Polacrilex 2 MG GUM BUCCAL (08:58)
[2023-12-19] MEDS: Nicotine 21 MG PATCH.TD24 TRANSDERMA (08:59)
--- NOTE | 2023-12-19 10:33 | MHC.CM.PN ---
pt is independent has own ride hiome maldonado not need servies when dcd
--- NOTE | 2023-12-19 16:07 | PC.NURSE ---
Approximately 1550- patient transported to short stay surgery for scheduled procedure via wheelchair.
--- NOTE | 2023-12-19 16:15 | PC.NURSE ---
Patient arrived to [facility] with one PRN angio #20 right FA. Flushed well, asymptomatic.
--- NOTE | 2023-12-19 16:22 | MHC.SHP ---
Pre-Procedural Eval Section A - 24 Hr Update-Section A only Date of Service: 12/19/23 The patient is an INPATIENT: Yes The patient has been examined within 24 hours of the surgical procedure. The History & Physical has been completed within 30 days and I have reviewed it.: Yes Section B - Complete if H&P > 30 days Chief Complaint: Right hydronephrosis, Right flank pain Allergies: Allergies Allergy/AdvReac Type Severity Reaction Status Date / Time No Known Allergies Allergy Verified 12/19/23 16:02 [No Known Allergies*] Plan Diagnosis/Plan: Unchanged I have reviewed the history and physical and performed a pertinent physical examination on my patient. No changes have occurred unless specified. Plan for Cystoscopy, right ureteroscopy, laser lithotripsy, possible ureteral stent. Risks discussed included but not limited to, possible need to repeat procedure if stone is not completely fragmented, Irritative voiding symptoms, bladder spasms, urgency, blood in urine. Time Spent With Patient Time: Total time managing care of this patient today ____ minutes.
--- NOTE | 2023-12-19 16:25 | PC.NURSE ---
Anesthesia Dr. Hayes aware last UTOX positive for cocaine. May proceed with surgery at this time per him.
--- NOTE | 2023-12-19 16:31 | PC.NURSE ---
Up admission, pt c/o right flank pain. Medicated per emar. 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 Denied using opiates, stated he was given Oxycodone from the ED and never took it. Brought up Fentanyl, however denied he uses this street drug. Refusing camera in room, re: Positive Tox Screen. See Admission Assessment. Primary RN updated.
--- NOTE | 2023-12-19 16:43 | PM.EVENT ---
Event Note Date of Service: 12/19/23 Event Note: Addiction consult placed for patient with +UDS Patient is seen by this check writer salesperson via outpatient office at [facility] He is seen every 2 weeks for cocaine use disorder and ADHD Spoke to patient on the phone earlier today Will defer consult as patient is actively engaged in treatment Time Spent With Patient Time: Total time managing care of this patient today ____ minutes.
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
--- NOTE | 2023-12-19 17:39 | HO.PM.IMPN ---
Subjective Subjective Date of Service: 12/19/23 Interval History: seen and examined follow up for medical consult no overnight events reporting right flank pain no evidence of withdrawal Review of Systems Review of Systems: Yes all other systems are reviewed and are negative Constitutional Constitutional: Denies chills and Denies fever(s) Gastrointestinal Gastrointestinal: Reports abdominal pain Physical Exam Vital Signs: Vital Signs: Last Vital Signs Temp 98.5 F 12/19/23 16:10 Pulse 88 12/19/23 16:10 Resp 16 12/19/23 16:10 BP 126/75 12/19/23 16:10 Pulse Ox 99 12/19/23 16:10 O2 Del Method Room Air 12/19/23 16:10 O2 Flow Rate 2 12/18/23 10:31 BMI result Body Mass Index 28.9 Const: General: alert and awake Nutritional Appearance: average body habitus Orientation/consciousness: patient oriented x3 Resp: Effort & Inspection: normal respiratory effort, able to speak in complete sentences, no respiratory distress and no use of accessory muscles GI: Inspection: No distended Palpation (GI): Soft to palpation and nontender Neuro: General: patient oriented x3, moves all extremities and CN's II-XI intact bilaterally Extrem: General: Yes no pedal edema Objective Data Active Medications Acetaminophen (Acetaminophen 325 Mg Tablet) 650 mg PO Q6H PRN PRN Reason: Pain, Mild (Pain Scale 1-3) Acetaminophen (Acetaminophen 325 Mg Tablet) 650 mg PO ONCE PRN PRN Reason: Pain, Mild (Pain Scale 1-3) Stop: 12/19/23 20:44 Fentanyl (Fentanyl Citrate/Pf 100 Mcg/2 Ml Vial) 50 mcg IVPUSH Q5M PRN; Protocol PRN Reason: Pain, Severe (Pain Scale 7-10) Stop: 12/19/23 20:44 Fentanyl (Fentanyl Citrate/Pf 100 Mcg/2 Ml Vial) 50 mcg IVPUSH Q5M PRN; Protocol PRN Reason: Pain, Severe (Pain Scale 7-10) Stop: 12/19/23 23:26 Hydromorphone HCl (Hydromorphone Hcl 1 Mg/Ml Syringe) 0.5 mg IVPUSH Q3H PRN; Protocol PRN Reason: Pain, Severe (Pain Scale 7-10) Last Admin: 12/19/23 14:35 Dose: 0.5 mg Documented By: CHAYA Hydromorphone HCl (Hydromorphone Hcl 0.5 Mg/0.5 Ml Syringe) 0.5 mg IVPUSH Q5M PRN; Protocol PRN Reason: Pain, Severe (Pain Scale 7-10) Stop: 12/19/23 20:44 Sodium Chloride (Ns) 1,000 mls @ 100 mls/hr IVCONT .Q10H [facility] Last Admin: 12/19/23 08:42 Dose: 100 mls/hr Documented By: KADE Acetaminophen (Ofirmev) 1,000 mg in 100 mls @ 400 mls/hr IV ONCE ONE Stop: 12/19/23 17:39 Ketorolac Tromethamine (Ketorolac Tromethamine 30 Mg/Ml Vial) 15 mg IVPUSH Q6H [facility] Stop: 12/23/23 12:29 Last Admin: 12/19/23 11:30 Dose: 15 mg Documented By: KADE Naloxone HCl (Naloxone Hcl 0.4 Mg/Ml Vial) 0.1 mg IVPUSH Q2M PRN PRN Reason: Respiratory Rate < 10 Nicotine (Nicotine 21 Mg Patch.Td24) 21 mg TRANSDERMA DAILY [facility] Last Admin: 12/19/23 08:59 Dose: 21 mg Documented By: KADE Nicotine Polacrilex (Nicotine Polacrilex 2 Mg Gum) 2 mg BUCCAL Q2H PRN PRN Reason: Nicotine Cravings Last Admin: 12/19/23 08:58 Dose: 2 mg Documented By: KADE Ondansetron HCl (Ondansetron Hcl 4 Mg/2 Ml Vial) 4 mg IVPUSH Q8H PRN PRN Reason: Nausea and Vomiting Ondansetron HCl (Ondansetron Hcl 4 Mg/2 Ml Vial) 4 mg IVPUSH ONCE PRN PRN Reason: Nausea and Vomiting Stop: 12/19/23 23:26 Oxycodone HCl (Oxycodone Hcl Immed Release 5 Mg Tablet) 5 mg PO Q6H PRN PRN Reason: Pain, Severe (Pain Scale 4-6 Sodium Chloride (0.9 % Sodium Chloride Flush 3 Ml Syringe) 3 ml IVFLUSH QSHIFT [facility] Last Admin: 12/19/23 08:41 Dose: Not Given Documented By: KADE Non-Admin Reason: IV Running Labs 12/18/23 11:08 12/18/23 11:08 Labs: Laboratory Results - last 24 hr 12/18/23 12/19/23 11:08 05:59 Troponin I High Sens < 2.7 Urine Color Yellow Urine Appearance Cloudy Urine pH 5.5 Ur Specific [place] 1.020 Urine Protein Negative Urine Glucose (UA) Negative Urine Ketones Negative Urine Blood Large (3+) H Urine Nitrite Negative Ur Leukocyte Esterase Negative Urine RBC 6-10 H Urine WBC 0-5 Ur Squamous Epith Cells 0-2 Urine Bacteria None Seen Hyaline Casts 3-5 Assessment and Plan (1) Cocaine use: Status: Acute (2) Hydronephrosis with ureteral calculus: Status: Acute Plan This is a 38-year-old male with history of cocaine use disorder, alcohol use disorder admitted for right-sided obstructing stone Hydronephrosis with ureteral calculus Management as per Urological Service Polysubstance use/alcohol use disorder tox screen + for amphetamines, cocaine, marijuana, opiates No evidence of withdrawal at this time denies daily etoh use - ciwa low takes Vyvanse at baseline. follows outpatient in [facility] tobacco use disorder NRT thank you for allowing us to participate in the care of this patient. will sign off at this time. please feel free to call if any acute medical conditions arise Quality Stroke Does the patient have a stroke diagnosis?: No VTE Prior VTE?: No VTE Risk Level:: Medical - low VTE Device Contraindication: Treatment Not Indicated VTE Drug Contraindication: Treatment Not Indicated
--- NOTE | 2023-12-19 18:01 | P.OP_ITS ---
Operative Note Operative Note Date of Service: 12/19/23 Narrative: PreOperative Diagnosis:?? Right ureteral stone right hydronephrosis Post Operative Diagnosis:?? Right ureteral stone right hydronephrosis Procedure: - cystoscopy, right retrograde, right ureteroscopy, stent insertion, 6 Salvadorean by 26 cm Surgeon:?Dr Sammy Muir Anesthesia:? General Indications for procedure: Right ureteral stone with right hydronephrosis and flank pain. Procedure: After informed consent was verified the patient was brought to the operating placed on the OR table in supine position.? General Anesthesia was administered per protocol.? The patient was placed in lithotomy position, prepped and draped in the usual sterile fashion.? Safety pause time-out and side of surgery confirmed.? Antibiotics confirmed. 2% lidocaine jelly 10 mL was passed transurethrally. A 22 Salvadorean cystoscope was inserted transurethrally, the bulbous urethra was within normal limits. The prostatic urethra was nonobstructive. The bladder was visualized.? Both ureteric orifices were in normal position. An open-ended ureteral catheter was passed into the right ureteral orifice and a retrograde examination was performed. There was a filling defect in the mid to proximal right ureter and dilatation of the proximal ureter and renal pelvis and calyces. A guidewire was passed through the ureteral catheter into the kidney. The balloon dilator size 12 fr by 4 cm was passed over the guide-wire the balloon was inflated to 8 mmHg and the intramural ureter was dilated for 45 seconds. The balloon was deflated and removed. After removing the balloon dilator the semi-rigid ureteroscope was passed transurethrally with a 2nd guidewire through the ureteroscope this was passed to the upper 3rd of the mid ureter, there was narrowing with thickening of the ureter just distal to the stone which could be seen on fluoroscopic monitoring. The ureteroscope was unable to be passed beyond this juncture. The ureteroscope was removed leaving the guidewire in place. The cystoscope was passed over the safety guidewire. A? six Salvadorean by 26 cm stent was placed into the ureter as the stent was passed up into the ureter, the stone moved more proximally. Once the stent was in the renal pelvis the guidewire was removed. The bladder was emptied.? The rigid cystoscope was removed. ? The patient tolerated the procedure well and was brought to the recovery room in stable condition. Complications: None Drains: Ureteral stent as dictated above
[2023-12-19] MEDS: hydrOXYzine HCL 25 MG TABLET PO (18:43)
[2023-12-19] MEDS: HYDROmorphone HCl 2 MG/ML VIAL 1.5 MG IVPUSH (21:39)
[2023-12-19] MEDS: Tamsulosin HCL 0.4 MG CAPSULE PO (21:42)
[2023-12-19] MEDS: Phenazopyridine HCL 200 MG TABLET PO (21:42)
--- NOTE | 2023-12-19 22:36 | P.DS_ITS ---
DS: Providers Provider Date of Service: 12/20/23 Date of admission: 12/18/23 12:21 Date of discharge: 12/20/23 Primary care physician: Unknown Physician Admitting clinician: Sammy Muir Attending physician on admission: Sammy Muir Consults: 12/18/23 16:13 Consult to Hospitalist Routine Comment: Consulting Provider: Hospitalist Reason For Exam: Evaluate and manage for drug withdrawal 12/19/23 14:38 Addiction Medicine Routine Consulting Provider: Addiction Covering Reason for consultation: + Tox Attending physician on discharge: Sammy Muir Discharging clinician: Sammy Muir DS: Diagnosis Discharge Diagnosis (1) Hydronephrosis with ureteral calculus: Status: Acute DS: Summary Hospital Course Hospital Course: Iron is a 38 year old male admitted with complaints of right flank pain. CT imaging noted 4 mm proximal ureteral stone with hydronephrosis. He underwent right ureteroscopy, right ureteral stent placement. Status at Discharge Cognitive/behavioral status at discharge: stable Functional status at discharge: independent ambulation Overall status at discharge: patient is progressing back to baseline Time Attestation Discharge Coordination Time (in mins): 35 minutes Quality: Safe Use of Opioids Does Pt have an Active Cancer Diagnosis on the Problem List?: No Quality: Stroke Does the patient have a stroke diagnosis?: No Physical Exam Vital Signs: Vital Signs: Last Vital Signs Temp 98.1 F 12/19/23 20:18 Pulse 102 H 12/19/23 20:18 Resp 20 12/19/23 20:18 BP 139/79 12/19/23 20:18 Pulse Ox 96 12/19/23 20:18 O2 Del Method Room Air 12/19/23 20:18 O2 Flow Rate 2 12/18/23 10:31 BMI result Body Mass Index 28.9 DS: Data Data Completed and Pending Labs on day of discharge: Laboratory Results - last 24 hr 12/19/23 05:59 Urine Color Yellow Urine Appearance Cloudy Urine pH 5.5 Ur Specific [place] 1.020 Urine Protein Negative Urine Glucose (UA) Negative Urine Ketones Negative Urine Blood Large (3+) H Urine Nitrite Negative Ur Leukocyte Esterase Negative Urine RBC 6-10 H Urine WBC 0-5 Ur Squamous Epith Cells 0-2 Urine Bacteria None Seen Hyaline Casts 3-[address] scan - abdomen: Radiologist's impression: ITS Impressions Abdomen/Pelvis CT 12/18/23 13:10 IMPRESSION: Worsening of hydroureteronephrosis in the right kidney due to partial obstruction of proximal right ureter by 0.4 cm stone Fleischner guidelines were followed. Discharge Plan Discharge Anticipated Discharge Date/Time: 12/20/23 09:30 Patient Disposition: Home, Self-Care Discharge Diagnosis: right ureteral stone, hydronephrosis Referrals: Physician,Unknown J [Primary Care Provider] - 1 Week Discharge Medications: New phenazopyridine [Pyridium] 200 mg tablet 200 mg PO Q8H Qty: 30 0RF Rx Instructions: take with food hydromorphone [Dilaudid] 2 mg tablet 2 mg PO Q6H PRN (Reason: pain (scale score 7-10)) Qty: 10 0RF Rx Instructions: Partial Fill upon patient request. lorazepam 0.5 mg tablet 0.5 mg PO BID Qty: 6 0RF hydroxyzine HCl 25 mg tablet 25 mg PO BEDTIME Qty: 20 0RF oxybutynin chloride 5 mg tablet extended release 24hr 5 mg PO QAM Qty: 20 0RF tamsulosin [Flomax] 0.4 mg capsule 0.4 mg PO BEDTIME Qty: 20 0RF Continued tamsulosin 0.4 mg capsule 0.4 mg PO DAILY trazodone 150 mg tablet 150 mg PO BEDTIME PRN (Reason: Insomnia) glutamine 500 mg Tablet 500 mg PO DAILY [id number]-Iz-yjpbeka-lutein 0.4-162-18 mg Tablet 1 tab PO DAILY biotin 1 mg Capsule 1 mg PO DAILY pyridoxine (vitamin B6) 10 mg Tablet 10 mg PO DAILY Collagen 1500 Plus C 500 mg-800 mcg- 50 mg Capsule 1 cap PO DAILY lisdexamfetamine [Vyvanse] 50 mg capsule 50 mg PO DAILY Qty: 30 0RF Rx Instructions: Partial Fill upon patient request. Discontinued prednisone 20 mg tablet 20 mg PO DAILY Patient Comments: only completed one day of the 3 day course on 12/16; has two more days to complete Discharge Orders: Discharge Order (Routine); Ordered 12/20/23 Ordered By: Sammy Muir Diet: Advance to usual diet Activity on Discharge: As tolerated Stand Alone Forms: Patient Portal Discharge page Print Language: [place] Irish Care Plan Goals: Follow up with Urology Health Concerns: Drink 6-8 eight ounce glasses of water, limit caffeine intake Plan of Treatment: Urology staff will call for follow up. Use OTC tylenol 500 mg every 8 hours. Do not use NSAID's, including Motrin, advil, alleve or aspirin, these can be blood thinners and increase bleeding. Assessment: Stable
--- NOTE | 2023-12-20 01:50 | PC.NURSE ---
Addendum entered by Kandis Quesada RN 12/20/23 03:56: Around 4am, pt requested to resumed IVF, NSS at100 ml /hr restarted. Original Note: Pt was seen at start of shift in the room alert and oriented, very upset,he was asked what particularly he needs, he was agitated and frustrated about the procedure that was just done, conversing in high- toned voiced to staffs, saw him on his street clothes and verbalizing he didn't agree to the procedure that was done to him wanting to leave soon to go to another facility for treatment, he endorsed to have frequent bathroom trips voiding with bladder spasm, penile pain , he was offered pain meds but pt desired to speak to nursing home management supervisor and MD, nursing home management supervisor was made aware, Dr. Cobos was also made aware, Dr. Muir was notified, spoke to Dr. Gay on the phone, went back to pt and instructed Dr. Gay's recommendation that pt can be discharge if he wants to and prescriptions be given to pt, pt still unhappy and unsatisfied, at this juncture, pt wants to be referred to another hospital, repaged Dr. Cobos to come see pt and came, Dr. Gay called back for updates and briefed about the conversation with pt,Dr. Gay spoke to pt on the phone, at this time pt agreed to get the pain medicine, Dilaudid 1.5 mg iv given, pt verbalized some relief, ice pack provided, rest of meds given, pt agreed to stay overnight, pt encouraged increase fluid intact, pt refused IVF.
[2023-12-20] MEDS: HYDROmorphone HCl 1 MG/ML SYRINGE IVPUSH ×3 (03:46→14:51)
[2023-12-20] MEDS: 0.9 % Sodium Chloride 1,000 ML 100 ML IVCONT ×2 (03:56→12:12)
[2023-12-20 04:00] VITALS: BP 123/82; PULSE 98; RESP 16; TEMP 36.4; O2SAT 97
[2023-12-20] MEDS: Ketorolac Tromethamine 30 MG/ML VIAL 15 MG IVPUSH ×2 (06:11→12:14)
[2023-12-20 07:21] VITALS: BP 118/68; PULSE 55; RESP 16; TEMP 36.6; O2SAT 97
[2023-12-20] MEDS: Phenazopyridine HCL 200 MG TABLET PO ×2 (09:12→12:12)
[2023-12-20] MEDS: Nicotine 21 MG PATCH.TD24 TRANSDERMA (09:12)
[2023-12-20] MEDS: hydrOXYzine HCL 25 MG TABLET PO (09:13)
[2023-12-20] MEDS: LORazepam 0.5 MG TABLET PO (09:22)
[2023-12-20] MEDS: Nicotine Polacrilex 2 MG GUM BUCCAL (09:22)
[2023-12-20] MEDS: Docusate Sodium 100 MG CAPSULE PO (09:22)
[2023-12-20] MEDS: polyethylene glycoL 3350 17 GM POWD.PACK PO (09:25)
--- NOTE | 2023-12-20 14:34 | MHC.CM.PN ---
DC PLAN IS HOME - SELF CARE. RN AWARE PATIENT ABLE TO ARRANGE FOR TRANSPORTATION HOME.
--- NOTE | 2023-12-21 19:29 | HO.POSTANES ---
Post Anesthesia Evaluation Post Anesthesia Evaluation Date of Service: 12/19/23 Anesthesia: General LMA Mental Status: Awake Pain Control: Satisfactory Nausea/Vomiting: None Hydration: Adequate Anesthesia-Related Issues: No Anes. Related Issues
== END 2023-12-20 15:26 | disposition home or self-care (01) | DRG 465 ==
LOC: HO.ED 13:14 → HO.EDOVER 21:16 → HO.S3 12-19 13:51
PROVIDERS: Anesthesiology; Physician Assistant; Admitting Provider Urology; Emergency Provider Emergency Medicine; Visit Provider Urology
PROC: 0TJ98ZZ Inspection of Ureter, Via Natural or Artificial Opening Endoscopic (ICD-10-PCS; CPT 52351; principal; 2023-12-19 16:30)
DX: N13.2 Hydronephrosis with renal and ureteral calculous obstruction (principal); F10.90 Alcohol use, unspecified, uncomplicated; F90.9 Attention-deficit hyperactivity disorder, unspecified type; F19.90 Other psychoactive substance use, unspecified, uncomplicated; F14.90 Cocaine use, unspecified, uncomplicated; F17.210 Nicotine dependence, cigarettes, uncomplicated; Z71.6 Tobacco abuse counseling; Z87.442 Personal history of urinary calculi; Z79.899 Other long term (current) drug therapy
CPT/HCPCS: 36415; 74176; 80053; 80307; 81001; 84484; 85025; 93005; 99285; C1726; C1769; C2617; J0690; J0696; J1100; J1170; J1885; J2250; J2270; J2405; J2704; J3010; Q9967

== ENCOUNTER → 2023-12-18 10:42 | Outpatient (BNV) | payer OTHER, SELFPAY | PROVIDERS: Emergency Provider Emergency Medicine; Visit Provider Physician Assistant Medical | DX: F14.90 Cocaine use, unspecified, uncomplicated (principal); N13.2 Hydronephrosis with renal and ureteral calculous obstruction | CPT/HCPCS: 99222; 99232 ==

== ENCOUNTER 2023-12-18 12:21 | Outpatient (BNV) | payer OTHER, SELFPAY | END 2023-12-18 12:27 | PROVIDERS: Admitting Provider Urology; Emergency Provider Emergency Medicine; Visit Provider Internal Medicine | DX: R00.0 Tachycardia, unspecified (principal) | CPT/HCPCS: 93010 ==

== ENCOUNTER → 2023-12-18 12:21 | Outpatient (BNV) | payer OTHER, SELFPAY | PROVIDERS: Admitting Provider Urology; Emergency Provider Emergency Medicine; Visit Provider Urology | DX: N13.2 Hydronephrosis with renal and ureteral calculous obstruction (principal) | CPT/HCPCS: 52332; 74420; 99222; 99239 ==

== ENCOUNTER 2023-12-24 16:10 | Outpatient (AMB) | payer OTHER, SELFPAY ==
--- NOTE | 2023-12-24 16:13 | A.OFFVISCC_ITS ---
Vital Signs 12/24/23 16:14 BP 138/76 Blood Pressure Location Lt brachial Position Sitting Pulse 120 H Pulse Source Pulse Oximeter Pulse Oximetry (%) 96 Oxygen Delivery Method Room Air Intake Visit Reasons: MAT Visit Allergies No Known Allergies [No Known Allergies*] Allergy (Verified 12/24/23 16:14) HPI HPI MAT Visit: Details: Patient presents for follow up Reporting recent admission for kidney stones--reporting discomfort related to having stent in place Irritable affect, reporting increase in cocaine use due to discomfort Discussed possible disadvantages to ongoing cocaine use with acute health issues [facility] Medical History (Updated 12/29/23 @ 14:10 by Jessa Son, [place]) Back pain ADHD Cocaine use Stimulant use disorder Inguinal hernia Surgical History (Updated 12/29/23 @ 14:07 by Jessa Son RN) Hx of cystoscopy H/O hernia repair Status post ligament repair History of appendectomy Family History Other Mental health disorder Substance use disorder Social History Household Members: None Housing: House Do you presently have visiting nurse or other home services: No Alcohol intake: current Alcohol intake frequency: a few times a week Alcohol type: wine and hard liquor Patient Tobacco Use Status: Current everyday Tobacco user Tobacco use type: Cigarette Cigarettes Per Day: 10 Years Smoked: 20 e-Cigarette/Vaping Use: Never Used Second Hand Smoke Exposure: No Use of substances other than those prescribed or required for medical reasons: Yes Substance Use Type: Amphetamines, Crack/Cocaine, Marijuana and Opiates Substance Use Frequency: Occasionally Advance Directives Information Provided: No Advance Directives on File: No service: No Current occupational status: employed Cognitive needs: No Hearing needs: No Vision needs: No Review of Systems Const Reports as per HPI, Reports difficulty sleeping, Reports malaise and Reports poor appetite Physical Exam Vital Signs: Last Vital Signs Pulse 120 H 12/24/23 16:14 BP 138/76 12/24/23 16:14 Pulse Ox 96 12/24/23 16:14 Oxygen Delivery Method Room Air 12/24/23 16:14 Const General: cooperative, healthy appearing and no acute distress Psych Appearance: well kempt Speech and movement: Clear speech present Affect: Irritable affect present Attitude: cooperative Thought process: Circumstantial thought process present Insight: Fair insight present (Psych) Judgement: Fair judgement present (Psych) Assessment & Plan Assessment & Plan (1) Cocaine use disorder: Code(s): F14.10 - Cocaine abuse, uncomplicated Category: Medical Plan: * risk reduction discussion * follow up 2 weeks
[2023-12-24 16:14] VITALS: BP 138/76; PULSE 120; O2SAT 96
== END 2023-12-24 16:58 | disposition home or self-care (01) ==
PROVIDERS: PCP Nurse Practitioner Family; Visit Provider Nurse Practitioner Psychiatric/Mental Health
DX: F14.10 Cocaine abuse, uncomplicated (principal)
CPT/HCPCS: 99213

== ENCOUNTER → 2023-12-24 16:10 | Outpatient (BNVA) | payer OTHER, SELFPAY | PROVIDERS: PCP Nurse Practitioner Family; Visit Provider Nurse Practitioner Psychiatric/Mental Health | DX: F14.10 Cocaine abuse, uncomplicated (principal) | CPT/HCPCS: 99212 ==

== ENCOUNTER 2023-12-31 09:05 | Day surgery (SDC) | payer OTHER, SELFPAY ==
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
--- NOTE | ~2023-12-31 | XR_ITS ---
EXAMINATION: XR ABDOMEN KUB CLINICAL INDICATION: Kidney stones COMPARISON: CT abdomen pelvis 12/18/2023 TECHNIQUE: AP view of the abdomen. FINDINGS: Right-sided ureteral stent is observed, with proximal limb overlying the right renal pelvis and lower lumbar bladder. There appears to be a small nephrolith in the right mid kidney at 2.9 mm. No evidence for stones along the course of the stent, within the bladder. Bowel gas pattern normal. XR/XR KUB IMPRESSION: Small stone seen, overlying the right renal pelvis adjacent to the proximal limb of the stent.
[2023-12-31 10:56] VITALS: BMI 23.9
[2023-12-31 11:16] VITALS: BP 107/68; PULSE 82; RESP 18; TEMP 36.6; O2SAT 97
[2023-12-31] MEDS: Lactated Ringers 1,000 ML 100 ML IVCONT (11:27)
[2023-12-31] MEDS: Lactated Ringers 500 ML 999 ML IV (11:28)
[2023-12-31 13:45] LABS: Amphetamine Screen Urine POSITIVE (Not Detect); Barbiturates, Urine Not Detected (Not Detect); Benzodiazepines Screen Urine Not Detected (Not Detect); Buprenorphine Scr Not Detected (Not Detect); Cannabinoid Screen Urine Not Detected (Not Detect); Cocaine Screen Urine POSITIVE (Not Detect); Fentanyl, urine Not Detected (Not Detect); Methadone Screen, Urine Not Detected (Not Detect); Opiate Screen Urine Not Detected (Not Detect); Oxycodone Screen Urine Positive (Not Detect); Phencyclidine Screen Urine Not Detected (Not Detect)
--- NOTE | 2023-12-31 14:15 | PC.NURSE ---
Dr. Rebolledohi aware of urine tox screen and deferred to Dr. Mills who is covering in room. He is aware and will proceed with case.
--- NOTE | 2023-12-31 14:24 | MHC.SHP ---
Pre-Procedural Eval Section A - 24 Hr Update-Section A only Date of Service: 12/31/23 The patient is an INPATIENT: No The patient has been examined within 24 hours of the surgical procedure. The History & Physical has been completed within 30 days and I have reviewed it.: Yes Section B - Complete if H&P > 30 days Chief Complaint: Hydronephrosis renal calculous stent present Allergies: Allergies Allergy/AdvReac Type Severity Reaction Status Date / Time No Known Allergies Allergy Verified 12/31/23 11:11 [No Known Allergies*] Plan Diagnosis/Plan: Unchanged I have reviewed the history and physical and performed a pertinent physical examination on my patient. No changes have occurred unless specified. Cysto/ right ureteral stent removal. Right ESWL. Discussed risks to include but not limited to, blood in the urine, bruising to the skin, kidney hematoma, possible need for another procedure if a stone fragment obstructs the ureter while passing, possible need to repeat procedure if stone is not completely fragmented. Time Spent With Patient Time: Total time managing care of this patient today ____ minutes.
--- NOTE | 2023-12-31 15:05 | W.PM.OPN ---
Operative Note Operative Note Date of Service: 12/31/23 Narrative: PreOperative Diagnosis:? ? Right Renal stone Post Operative Diagnosis:?? Right Renal stone Procedure:?Cystoscopy, right stent removal, Right ESWL Surgeon:?Dr Sammy Muir Anesthesia:?General Indications for procedure: The patient understands there is a risk of bruising or hematoma to the kidney, infection, and stone migration following the procedure and subsequent intervention may be required.? - Imaging 4 x 5 mm stone right kidney near proximal curl of the stent. Procedure: After informed consent was verified the patient was brought to the operating placed on the OR table in supine position.? General Anesthesia was administered per protocol.? Safety time out was performed. The genitalia was prepped, 2 % lidocaine jelly was placed transurethrally. The disposable flexible cystoscope was inserted transurethrally, the bulbous urethra was within normal limits. The prostatic urethra was nonobstructive. The distal end of ureteral stent visualized. The grasping forceps were used and the stent was removed without difficulty. Imaging was displayed in the room and laterality confirmed. ESWL was performed.?The stone was visualized on both fluoroscopy and ultrasound.? Shockwave lithotripsy was performed, with a maximum rate of 120 hertz. After the first 300 shocks a pause for 3 minutes was completed.? A total of 2500 shocks, the last 500 shocks a maximum power of 20 with a maximum rate of 120 hertz.? Some fragmentation of the stone was appreciated. The patient tolerated the procedure well and was transferred to the recovery area upon completion. Complications: None
[2023-12-31 15:12] VITALS: BP 110/79; PULSE 69; RESP 16; TEMP 36.5; O2SAT 97
[2023-12-31 15:17] VITALS: BP 112/70; PULSE 86; RESP 20; O2SAT 97
[2023-12-31 15:22] VITALS: BP 113/73; PULSE 82; RESP 20; O2SAT 98
[2023-12-31 15:27] VITALS: BP 112/67; PULSE 74; RESP 20; O2SAT 98
[2023-12-31] MEDS: Phenazopyridine HCL 200 MG TABLET PO (15:27)
[2023-12-31 15:42] VITALS: BP 120/67; PULSE 69; RESP 20; TEMP 36.3; O2SAT 99
== END 2023-12-31 15:48 | disposition home or self-care (01) ==
PROVIDERS: Nurse Practitioner; Visit Provider Urology
PROC: (CPT 50590; principal; 2023-12-31 11:10)
DX: N13.2 Hydronephrosis with renal and ureteral calculous obstruction (principal); Z96.0 Presence of urogenital implants; Z87.442 Personal history of urinary calculi; F90.9 Attention-deficit hyperactivity disorder, unspecified type; Z79.899 Other long term (current) drug therapy; F14.90 Cocaine use, unspecified, uncomplicated; F15.90 Other stimulant use, unspecified, uncomplicated; F11.90 Opioid use, unspecified, uncomplicated; F17.210 Nicotine dependence, cigarettes, uncomplicated; Z98.890 Other specified postprocedural states
CPT/HCPCS: 50590; 52310; 74018; 80307; J0131; J0690; J1940; J2704; J3010

== ENCOUNTER → 2023-12-31 09:05 | Outpatient (BNV) | payer OTHER, SELFPAY | PROVIDERS: Visit Provider Urology | DX: N20.0 Calculus of kidney (principal); Z96.0 Presence of urogenital implants | CPT/HCPCS: 50590; 52310 ==

== ENCOUNTER 2024-01-16 14:20 | Outpatient (AMB) | payer OTHER, SELFPAY ==
--- NOTE | 2024-01-16 14:31 | A.OFFVISCC_ITS ---
Intake Visit Reasons: MAT Allergies No Known Allergies [No Known Allergies*] Allergy (Verified 12/31/23 11:11) HPI HPI MAT: Details: Patient presents for follow up Recently had lithotrypsy reports he did not drink or use cocaine while recovering, but recently restarted again brighter affect than previous visit, working a lot discussed making time for activities he enjoys --not associated with drinking PFSH Medical History (Updated 12/29/23 @ 14:10 by Jessa Son, RN) Back pain ADHD Cocaine use Stimulant use disorder Inguinal hernia Surgical History (Updated 12/29/23 @ 14:07 by Jessa Son, [place]) Hx of cystoscopy H/O hernia repair Status post ligament repair History of appendectomy Family History Other Mental health disorder Substance use disorder Social History Household Members: None Housing: House Do you presently have visiting nurse or other home services: No Alcohol intake: current Alcohol intake frequency: a few times a week Alcohol type: wine and hard liquor Patient Tobacco Use Status: Current everyday Tobacco user Tobacco use type: Cigarette Cigarettes Per Day: 10 Years Smoked: 20 e-Cigarette/Vaping Use: Never Used Second Hand Smoke Exposure: No Substance Use Type: Amphetamines, Crack/Cocaine, Marijuana and Opiates service: No Current occupational status: employed Cognitive needs: No Hearing needs: No Vision needs: No Review of Systems Const Reports as per HPI and Reports no additional complaints Physical Exam Const General: cooperative and healthy appearing Nutritional Appearance: average body habitus Orientation/consciousness: patient oriented x3 Neuro General: patient oriented x3 Psych Appearance: grossly normal Speech and movement: Clear speech present Affect: normal affect and Animated affect present Attitude: cooperative Thought process: Circumstantial thought process present Thought content: Normal thought content present Insight: Fair insight present (Psych) Judgement: Fair judgement present (Psych) Assessment & Plan Assessment & Plan (1) Alcohol use disorder, severe, dependence: Code(s): F10.20 - Alcohol dependence, uncomplicated Category: Medical Plan: * risk reduction discussion * follow up 3 weeks (2) Cocaine use disorder: Code(s): F14.10 - Cocaine abuse, uncomplicated Category: Medical Plan: * risk reduction discussion Medications: Refilled lisdexamfetamine (Vyvanse) Partial Fill upon patient request. 50 mg PO DAILY 30 caps 0RF
== END 2024-01-16 15:04 | disposition home or self-care (01) ==
PROVIDERS: Visit Provider Nurse Practitioner Psychiatric/Mental Health
DX: F10.20 Alcohol dependence, uncomplicated (principal); F14.10 Cocaine abuse, uncomplicated
CPT/HCPCS: 99214

== ENCOUNTER → 2024-01-16 14:20 | Outpatient (BNVA) | payer OTHER, SELFPAY | PROVIDERS: Visit Provider Nurse Practitioner Psychiatric/Mental Health | DX: F10.20 Alcohol dependence, uncomplicated (principal); F14.10 Cocaine abuse, uncomplicated | CPT/HCPCS: 99212 ==

== ENCOUNTER 2024-02-10 09:01 | Outpatient (REF) | payer OTHER, SELFPAY ==
--- NOTE | ~2024-02-10 | US_ITS ---
EXAMINATION: US RETROPERITONEAL LIMITED (RENAL ONLY) CLINICAL INFORMATION: Hydronephrosis, flank pain. COMPARISON: X-ray abdomen KUB 12/31/2023. CT abdomen and pelvis 12/18/2023. TECHNIQUE: Real-time imaging of the kidneys. FINDINGS: RIGHT KIDNEY: 11.3 x 4.8 x 4.9 cm (SAG x AP x TRV). The kidney is normal in size, contour, and echogenicity. Renal cortical thickness is normal. No calculi or focal parenchymal lesions. No hydronephrosis. Linear calcifications are seen suggestive of vascular calcifications. LEFT KIDNEY: 12.1 x 6.1 x 6.1 cm (SAG x AP x TRV). The kidney is normal in size, contour, and echogenicity. Renal cortical thickness is normal. No calculi or focal parenchymal lesions. No hydronephrosis. US/US renal BI IMPRESSION: No hydronephrosis.
== END 2024-02-10 09:02 | disposition home or self-care (01) ==
LOC: HO.HMGCX 09:01
PROVIDERS: PCP Nurse Practitioner Family; Visit Provider Urology
DX: N13.2 Hydronephrosis with renal and ureteral calculous obstruction (principal); R31.9 Hematuria, unspecified; R10.9 Unspecified abdominal pain
CPT/HCPCS: 76775

== ENCOUNTER 2024-02-18 15:15 | Outpatient (AMB) | payer OTHER, SELFPAY ==
[2024-02-18 15:47] VITALS: BP 120/70; PULSE 88; RESP 19; O2SAT 98
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
== END 2024-02-18 16:26 | disposition home or self-care (01) ==
PROVIDERS: Visit Provider Nurse Practitioner Psychiatric/Mental Health
DX: F14.10 Cocaine abuse, uncomplicated (principal)
CPT/HCPCS: 99214

== ENCOUNTER → 2024-02-18 15:15 | Outpatient (BNVA) | payer OTHER, SELFPAY | PROVIDERS: Visit Provider Nurse Practitioner Psychiatric/Mental Health | DX: F14.10 Cocaine abuse, uncomplicated (principal) | CPT/HCPCS: 99212 ==

== ENCOUNTER 2024-04-01 01:42 | Emergency (ER) | payer OTHER, SELFPAY ==
[2024-04-01 01:46] VITALS: BP 109/68; BP 114/74; PULSE 84; PULSE 86; RESP 16; TEMP 36.4; O2SAT 97; O2SAT 98; BMI 24.5
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
--- NOTE | 2024-04-01 02:57 | PC.NURSE ---
per pt ready to be d/c. pt came out of room and stated his emergency contact needs to be called as his phone is . then stated hes going to leave and does not want the sling/d.c paperwork. pt ambulatory with steady gait.
[2024-04-01 02:59] VITALS: BP 109/68; PULSE 86; RESP 16; TEMP 36.4; O2SAT 97
== END 2024-04-01 02:59 | disposition home or self-care (01) ==
PROVIDERS: Emergency Provider Emergency Medicine; PCP Nurse Practitioner Family
DX: Z04.1 Encounter for examination and observation following transport accident (principal); M79.601 Pain in right arm; R20.0 Anesthesia of skin; F17.210 Nicotine dependence, cigarettes, uncomplicated; F14.10 Cocaine abuse, uncomplicated; F10.20 Alcohol dependence, uncomplicated; Y90.9 Presence of alcohol in blood, level not specified; Z79.899 Other long term (current) drug therapy
CPT/HCPCS: 99282

== ENCOUNTER 2024-04-02 10:15 | Outpatient (AMB) | payer OTHER, SELFPAY ==
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
== END 2024-04-02 11:10 | disposition home or self-care (01) ==
PROVIDERS: Visit Provider Nurse Practitioner Psychiatric/Mental Health
DX: F14.10 Cocaine abuse, uncomplicated (principal); F90.1 Attention-deficit hyperactivity disorder, predominantly hyperactive type
CPT/HCPCS: 99214

== ENCOUNTER → 2024-04-02 10:15 | Outpatient (BNVA) | payer OTHER, SELFPAY | PROVIDERS: Visit Provider Nurse Practitioner Psychiatric/Mental Health | DX: F14.10 Cocaine abuse, uncomplicated (principal); F90.1 Attention-deficit hyperactivity disorder, predominantly hyperactive type | CPT/HCPCS: 99212 ==

== ENCOUNTER 2024-04-05 14:41 | Outpatient (AMB) | payer OTHER, SELFPAY ==
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
[2024-04-05 14:43] VITALS: BP 120/82; PULSE 98; O2SAT 98; BMI 24.1
== END 2024-04-05 16:43 | disposition home or self-care (01) ==
PROVIDERS: Visit Provider Nurse Practitioner Family
DX: R20.0 Anesthesia of skin (principal); M79.639 Pain in unspecified forearm; R29.898 Other symptoms and signs involving the musculoskeletal system; S90.00XA Contusion of unspecified ankle, initial encounter; S90.30XA Contusion of unspecified foot, initial encounter; M25.531 Pain in right wrist
CPT/HCPCS: 99214

== ENCOUNTER 2024-04-07 12:15 | Outpatient (REF) | payer OTHER, SELFPAY ==
--- NOTE | ~2024-04-07 | XR_ITS ---
EXAMINATION: XR FOREARM, RIGHT X-ray right hand, wrist CLINICAL INFORMATION: Injury COMPARISON: None available. TECHNIQUE: AP and lateral views of the right forearm were obtained. Hand/wrist 4 views FINDINGS: Hand/wrist: Bony alignment is anatomic. Carpal row alignment is maintained. No visible acute fracture or dislocation. Joint spaces are maintained. No erosions. No abnormal soft tissue calcification. Forearm: No evidence of acute fracture or malalignment. Elbow and wrist articulations is maintained. No abnormal soft tissue calcification. XR/XR hand wrist RT IMPRESSION: No radiographic evidence of acute fracture. If symptoms persist, consider follow-up radiographs.
--- NOTE | ~2024-04-07 | XR_ITS ---
EXAMINATION: XR FOREARM, RIGHT X-ray right hand, wrist CLINICAL INFORMATION: Injury COMPARISON: None available. TECHNIQUE: AP and lateral views of the right forearm were obtained. Hand/wrist 4 views FINDINGS: Hand/wrist: Bony alignment is anatomic. Carpal row alignment is maintained. No visible acute fracture or dislocation. Joint spaces are maintained. No erosions. No abnormal soft tissue calcification. Forearm: No evidence of acute fracture or malalignment. Elbow and wrist articulations is maintained. No abnormal soft tissue calcification. XR/XR forearm RT 2V IMPRESSION: No radiographic evidence of acute fracture. If symptoms persist, consider follow-up radiographs.
--- NOTE | ~2024-04-07 | XR_ITS ---
EXAMINATION: XR HAND/WRIST, LEFT CLINICAL INFORMATION: Pain, injury COMPARISON: None TECHNIQUE: Four views of the left hand and wrist. FINDINGS: No visible acute fracture or dislocation. Alignment is anatomic. Joint spaces are maintained. No erosions or soft tissue calcifications. XR/XR hand wrist LT IMPRESSION: No radiographic evidence of acute fracture. .
== END 2024-04-07 12:16 | disposition home or self-care (01) ==
LOC: HO.HMGCX 12:15
PROVIDERS: PCP Nurse Practitioner Family; Visit Provider Nurse Practitioner Family
DX: R29.898 Other symptoms and signs involving the musculoskeletal system (principal); M79.631 Pain in right forearm; M25.531 Pain in right wrist; M25.532 Pain in left wrist
CPT/HCPCS: 73090; 73110; 73130

== ENCOUNTER 2024-04-19 13:16 | Outpatient (AMB) | payer OTHER, SELFPAY ==
[2024-04-19 13:43] VITALS: BP 120/60; PULSE 95; O2SAT 98
--- NOTE | 2024-04-19 13:43 | MHC.AM.SUB ---
Vital Signs 04/19/24 13:43 BP 120/60 Blood Pressure Location Lt brachial Position Sitting Pulse 95 Pulse Source Pulse Oximeter Pulse Oximetry (%) 98 Intake Visit Reasons: mat visit Allergies No Known Allergies [No Known Allergies*] Allergy (Verified 04/28/24 08:24) HPI HPI mat visit: Details: Patient presents for follow up Used cocaine over the weekend MRI 04/28 of arm/hand traveling to [facility] in [facility] Medical History Back pain ADHD Cocaine use Stimulant use disorder Inguinal hernia Surgical History Hx of cystoscopy H/O hernia repair Status post ligament repair History of appendectomy Family History Other Mental health disorder Substance use disorder Social History Household Members: None Housing: House Do you presently have visiting nurse or other home services: No Alcohol intake: current Alcohol intake frequency: a few times a week Alcohol type: wine and hard liquor Patient Tobacco Use Status: Current everyday Tobacco user Tobacco use type: Cigarette Cigarettes Per Day: 10 Years Smoked: 20 e-Cigarette/Vaping Use: Never Used Second Hand Smoke Exposure: No Substance Use Type: Amphetamines, Crack/Cocaine, Marijuana and Opiates service: No Current occupational status: employed Cognitive needs: No Hearing needs: No Vision needs: No Review of Systems Const Reports as per HPI and Reports no additional complaints Physical Exam Vital Signs: Last Vital Signs Pulse 95 04/19/24 13:43 BP 120/60 04/19/24 13:43 Pulse Ox 98 04/19/24 13:43 Const General: cooperative and healthy appearing Nutritional Appearance: average body habitus Psych Appearance: grossly normal Speech and movement: Clear speech present Affect: Animated affect present Assessment & Plan Assessment & Plan (1) ADHD (attention deficit hyperactivity disorder), predominantly hyperactive impulsive type: Code(s): F90.1 - Attention-deficit hyperactivity disorder, predominantly hyperactive type Category: Medical Plan: continue vyvanse at current dose follow up 2 weeks with RN (2) Alcohol use disorder, severe, dependence: Code(s): F10.20 - Alcohol dependence, uncomplicated Category: Medical Plan: relapse prevention discussion
== END 2024-04-19 14:14 | disposition home or self-care (01) ==
PROVIDERS: Visit Provider Nurse Practitioner Psychiatric/Mental Health
DX: F10.20 Alcohol dependence, uncomplicated (principal); F90.1 Attention-deficit hyperactivity disorder, predominantly hyperactive type
CPT/HCPCS: 99214

== ENCOUNTER → 2024-04-19 13:16 | Outpatient (BNVA) | payer OTHER, SELFPAY | PROVIDERS: Visit Provider Nurse Practitioner Psychiatric/Mental Health | DX: F10.20 Alcohol dependence, uncomplicated (principal); F90.1 Attention-deficit hyperactivity disorder, predominantly hyperactive type; F14.90 Cocaine use, unspecified, uncomplicated; F17.210 Nicotine dependence, cigarettes, uncomplicated | CPT/HCPCS: 99212 ==

== ENCOUNTER 2024-04-28 08:18 | Outpatient (AMB) | payer OTHER, SELFPAY ==
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
== END 2024-04-28 08:59 | disposition home or self-care (01) ==
PROVIDERS: PCP Nurse Practitioner Family
DX: M25.531 Pain in right wrist (principal); R29.898 Other symptoms and signs involving the musculoskeletal system; M77.8 Other enthesopathies, not elsewhere classified; R20.0 Anesthesia of skin; R20.2 Paresthesia of skin
CPT/HCPCS: 99203

== ENCOUNTER → 2024-04-28 08:18 | Outpatient (BNVA) | payer OTHER, SELFPAY | PROVIDERS: PCP Nurse Practitioner Family | DX: M25.531 Pain in right wrist (principal); M77.8 Other enthesopathies, not elsewhere classified; R29.898 Other symptoms and signs involving the musculoskeletal system; R20.0 Anesthesia of skin; R20.2 Paresthesia of skin | CPT/HCPCS: 99202 ==

== ENCOUNTER 2024-05-06 08:14 | Emergency (ER) | payer OTHER, SELFPAY ==
--- NOTE | 2024-05-06 | ECG_ITS ---
Test Reason : chest pain Blood Pressure : / mmHG Vent. Rate : 094 BPM Atrial Rate : 094 BPM P-R Int : 132 ms QRS Dur : 086 ms QT Int : 348 ms P-R-T Axes : 069 062 065 degrees QTc Int : 435 ms Normal sinus rhythm Normal ECG When compared with ECG of 18-DEC-2023 14:51, No significant change was found Referred By: Generic ED Physician Electronically Signed By:BARBRA LANDRY
--- NOTE | ~2024-05-06 | CT_ITS ---
EXAMINATION: CTA CHEST CLINICAL INFORMATION: Cocaine use with chest pain and question of aortic dissection COMPARISON: None TECHNIQUE: Multidetector volumetric CT imaging of the chest was obtained both before as well as after the administration of 70 mL of Omnipaque 300 intravenous contrast without immediate adverse reactions. Axial MIP volume rendering provided. Sagittal and coronal reformatted images were obtained. Additional 2-D coronal and sagittal reformatted images and axial 3-D maximum intensity projection MIP images are generated on the CT workstation. This CT examination was performed using dose optimization techniques as appropriate, variously including the following: *Automated exposure control *Adjustment of mA and/or kV according to patient size (this includes techniques or standardized protocols for targeted exams where dose is matched to indication/reason for exam; i.e. extremities or head) *Use of iterative reconstruction technique DLP: 289 mGy-cm VASCULAR FINDINGS: The thoracic aorta appears normal without evidence of aneurysm, dissection or intramural hematoma. A three-vessel branching pattern of the arch is seen. Great vessel origins are obscured by artifact produced by dense contrast in the innominate vein. All visualized portion of the abdominal aorta is unremarkable as are the celiac SMA and left renal artery origins. Although not carried out for evaluation of the pulmonary arteries they are well seen and no pulmonary emboli are detected. NONVASCULAR FINDINGS: LUNGS: Calcified granuloma is seen in the left lower lobe. A few tiny micronodules are present with the largest measuring 3 mm in the right lower lobe (see saved quijano images). The lungs are otherwise clear with no evidence of inflammation or concerning nodules. MEDIASTINUM: The mediastinum is normal. CORONARY ARTERY CALCIFICATION: Absent PLEURA: There is no pleural effusion. No pleural mass or thickening. AXILLA: No lymphadenopathy. UPPER ABDOMEN: Unremarkable. OSSEOUS STRUCTURES: Unremarkable. CT/CT angio chest aorta IMPRESSION: 1. No evidence of aortic dissection or any other acute aortic syndrome. 2. No evidence of pulmonary emboli. 3. Incidental note made of calcified granuloma, a few tiny micronodules, all less than 4 mm in size. No follow-up is needed. Fleischner guidelines were followed. Electronically signed by: Jacky Xiao MD 05/06/2024 09:14 AM EDT
[2024-05-06 08:20] VITALS: BP 120/78; PULSE 102; RESP 22; TEMP 36.6; O2SAT 91; BMI 22.4
[2024-05-06 08:31] LABS: MANUAL DIFF FLAG NO
[2024-05-06 08:38] LABS: Basophils Absolute Auto 0.1 X10*3/uL (0.0-0.2); Basophils Percent Auto 0.8 % (0-2); Eosinophils Absolute Auto 0.3 X10*3/uL (0.0-0.4); Hemoglobin 15.4 g/dl (14.0-18.0); Imm Gran Abs Auto 0.02 X10*3/uL (0.00-0.03); Imm Gran Pct Auto 0.3 % (0.0-0.4); Lymphocytes Absolute Auto 2.2 X10*3/uL (1.2-4.9); Lymphocytes Percent Auto 28.7 % (20-40); Mean Corpuscular HGB Conc 34.2 g/dl (31.0-36.0); Mean Corpuscular Hemoglobin 29.3 pg (27.0-33.0); Mean Corpuscular Volume 85.6 fL (80.0-98.0); Monocytes Absolute Auto 0.8 X10*3/uL (0.1-1.2); Monocytes Percent Auto 10.8 % (2-11); Neutrophils Absolute Auto 4.3 x10*3/uL (2.0-8.3); Neutrophils Percent Auto 55.4 % (45-73); Platelet Count 369 X10*3/uL (160-400); Red Blood Count 5.26 X10*6/uL (4.60-5.80); Red Cell Distribution Width 13.1 % (11.0-16.0); White Blood Count 7.8 X10*3/uL (4.8-10.8)
[2024-05-06 08:40] LABS: INTERNATIONAL NORM RATIO 0.9 (0.9-1.1); Prothrombin Time 11.3 SEC (11.1-13.3)
[2024-05-06 08:43] VITALS: BP 113/71; BP 118/76
[2024-05-06] MEDS: iohexoL 350 MG/ML 100 ML INFUS..BTL IV (08:50)
[2024-05-06 08:55] LABS: Alanine Aminotransferase 34 U/L (0-40); Albumin Level 4.5 g/dL (3.5-5.0); Alkaline Phosphatase 90 U/L (39-117); Anion Gap 10 (12-20); Aspartate Amino Transferase 30 U/L (5-37); Bilirubin Total 0.6 mg/dL (0.0-1.0); Blood Urea Nitrogen 13 mg/dL (9-16); Calcium 9.6 mg/dL (8.4-10.2); Carbon Dioxide 29 mmol/L (22-29); Chloride 103 mmol/L (96-108); Creatinine Clr Calc Pharmacy 124.7; Estimated Glomerular Filt Rate > 60; Glucose Random 88 mg/dL (60-115); Magnesium 2.2 mg/dL (1.6-2.6); Potassium 4.5 mmol/L (3.3-5.1); Sodium 137 mmol/L (135-145); Total Protein 7.4 g/dL (6.5-8.0)
--- NOTE | 2024-05-06 09:01 | ED_ITS ---
HPI - Chest Pain General Chief Complaint: Chest Pain Stated Complaint: CP Time Seen by Provider: 05/06/24 08:23 Source: patient and old records reviewed Mode of arrival: ambulatory Limitations: no limitations History of Present Illness ED Provider: HARSHAD VELIZ narrative: 38 yo male with PMH of kidney stones, ADHD, cocaine use disorder, ETOH abuse, follows in comprehensive care clinic here with c/o using cocaine all day yesterday until 930pm went to bed then woke up with severe central chest pain no radiation to the back. He felt weak, vomited x 2. He states he feels terrible and never wants to do cocaine again. He has never had this before. He denies IVDA he only snorts. He thinks his esophagus is on fire. Prior to yesterday no fevers, chills, cough, URI symptoms. MD complaint: chest pain Onset (ago): hour(s) (several) Timing of current episode: constant Prior episodes: Yes Onset: during rest Pain location: substernal Pain radiation: none Severity: severe Quality: crushing Relieving factors: nothing Exacerbating factors: nothing Context: other (snorted cocaine yesterday) Associated symptoms: nausea, vomiting and dyspnea Treatment prior to arrival: none Related Data Home Medications ?Medication ?Instructions ?Recorded ?Confirmed biotin 1 mg capsule 1 mg PO DAILY 12/18/23 04/05/24 collagen,hydrolysate 500 mg-biotin 1 cap PO DAILY 12/18/23 04/05/24 800 mcg-ascorbic acid 50 mg capsule (Collagen 1500 Plus C) glutamine 500 mg tablet 500 mg PO DAILY 12/18/23 04/05/24 [id number] 0.4 mg-calcium 162 1 tab PO DAILY 12/18/23 04/05/24 mg-iron 18 [id number]-dscumba-hdglgw tablet Previous Rx's ?Medication ?Instructions ?Recorded lisdexamfetamine 50 mg capsule 50 mg PO DAILY #30 caps 04/02/24 (Vyvanse) trazodone 150 mg tablet 150 mg PO BEDTIME #90 tabs 04/15/24 omeprazole 20 mg capsule,delayed 20 mg PO DAILY #10 caps 05/06/24 release ondansetron 4 mg disintegrating 4 mg PO Q8H PRN nausea and 05/06/24 tablet vomiting #20 tabs Allergies Allergy/AdvReac Type Severity Reaction Status Date / Time No Known Allergies Allergy Verified 05/06/24 08:22 [No Known Allergies*] Review of Systems 2 Review of Systems: Constitutional : No Weight loss, No Fever, No Chills ENT/Mouth : No sore throat, No Rhinorrhea Eyes: No Eye Pain, No Swelling Cardiovascular : pos Chest Pain, pos SOB, no Dyspnea on Exertion, No Orthopnea, No Edema, No Palpitations Respiratory : No Cough, No Sputum Gastrointestinal : pos Nausea, pos Vomiting, No Diarrhea, No abdominal Pain, No Hematochezia, No Melena Genitourinary : No Dysuria, No Urinary Frequency Musculoskeletal : No joint pain, No Myalgias, No Joint Swelling Skin : No Skin Lesions, No rash Neuro : No Weakness, No Numbness, No Dizziness, No Headache Psych : No Anxiety/Panic, No Depression All other systems reviewed and are negative [facility] Past Medical History Attestation statement: The following information was validated with the patient. Source: old records reviewed Medical History Back pain ADHD Cocaine use Stimulant use disorder Inguinal hernia Surgical History Hx of cystoscopy H/O hernia repair Status post ligament repair History of appendectomy Family History Family History Other Mental health disorder Substance use disorder Social History Social History Household Members: None Housing: House Do you presently have visiting nurse or other home services: No Alcohol intake: current Alcohol intake frequency: a few times a week Alcohol type: wine and hard liquor Patient Tobacco Use Status: Current everyday Tobacco user Tobacco use type: Cigarette Cigarettes Per Day: 10 Years Smoked: 20 e-Cigarette/Vaping Use: Never Used Second Hand Smoke Exposure: No Substance Use Type: Amphetamines, Crack/Cocaine, Marijuana and Opiates Advance Directives: No Advance Directives Information Provided: No Do you have a plan to hurt others: No Plan service: No Current occupational status: employed Cognitive needs: No Hearing needs: No Vision needs: No Physical Exam 2 Vital Signs: Vital Signs: Last Vital Signs Temp 99.4 F 05/06/24 13:40 Pulse 65 05/06/24 13:40 Resp 13 05/06/24 13:40 BP 109/73 05/06/24 13:40 Pulse Ox 97 05/06/24 13:40 O2 Del Method Room Air 05/06/24 13:40 BMI result Body Mass Index 22.4 Appearance: Alert. Oriented X3. anxious, mild acute distress. Eyes: Pupils equal, round and reactive to light. ENT: Pharynx normal. Neck: Normal inspection. Neck supple. CVS: Normal heart rate and rhythm. Pulses normal. Respiratory: No respiratory distress. Breath sounds normal. Abdomen: Soft and nontender. Skin: Skin warm and clammy pale skin color. Normal skin turgor. Extremities: No lower extremity edema. No calf ttp Neuro: Oriented X 3. No motor deficit. No sensory deficit. Medications Administered Discontinued Medications Generic Name Dose Route Start Last Admin Trade Name Freq PRN Reason Stop Dose Admin Al Hydroxide/Mg Hydroxide 15 ml 05/06/24 09:58 05/06/24 10:12 Magnesium Hydrox/Alum Hydrox 30 Ml Oral.Susp PO 05/06/24 09:59 15 ml ONCE ONE Administration Lactated Ringer's 1,000 mls @ 999 mls/hr 05/06/24 09:17 05/06/24 10:21 Lr IV 05/06/24 10:17 Infused .Q1H1M ONE Infusion Iohexol 100 ml 05/06/24 08:50 05/06/24 08:50 Iohexol 350 Mg/Ml 100 Ml Infus..Btl IV 05/06/24 08:51 70 ml ONCE ONE Administration Lidocaine HCl 15 ml 05/06/24 09:58 05/06/24 10:12 Lidocaine Hcl Viscous 2 % 15 Ml Solution MUCOUS MEM 05/06/24 09:59 15 ml ONCE ONE Administration Lorazepam 1 mg 05/06/24 08:37 05/06/24 09:04 Lorazepam 2 Mg/Ml Vial IVPUSH 05/06/24 08:38 1 mg STAT STA Administration Lorazepam 1 mg 05/06/24 09:58 05/06/24 10:12 Lorazepam 2 Mg/Ml Vial IVPUSH 05/06/24 09:59 1 mg ONCE ONE Administration Ondansetron HCl 4 mg 05/06/24 08:37 05/06/24 09:05 Ondansetron Hcl 4 Mg/2 Ml Vial IVPUSH 05/06/24 08:38 4 mg ONCE ONE Administration Procedures EJ/Peripheral Line Arm R: Time Out Performed: Yes Skin Cleansed in Sterile Fashion: Yes Size (gauge): 18 IV Secured and Dressing Applied: Yes Patient Tolerated Procedure: well and no complications Medical Decision Making Medical Decision Making [facility] Narrative: 63 yo female with PMH of lupus, HTN, DM, hypothyroidism, mild ascending aorta dilations 3.7 on ECHO in December 2023, stress test in 2023 here with c/o chest pain and nausea / vomiting dyspnea starting this AM after snorting cocaine all day yesterday - on arrival no STEMI on ekg, sent over for STAT CTA for dissection, IVF, IV ativan ordered, labs, troponin x 2 ordered - could be pneumonitis, dissection, coronary vasospasm, VTE. Differential Diagnosis Differential Diagnoses: The differential diagnosis associated with the presentation includes dissection, coronary vasospasm, chest pain, pneumonitis, VTE Admission/Observation Consideration of admission/observation: Escalation of care including admission/observation considered CTA - negative for pneumonia, pneumomediastinum, VTE, dissection negative trops eating food stable for DC Lab Data [facility] Lab Attestation statement: I reviewed the patient's lab results. 05/06/24 08:26 05/06/24 08:26 Labs: Lab Results 05/06/24 05/06/24 05/06/24 Range/Units 08:26 09:03 09:06 WBC 7.8 (4.8-10.8) X10*3/uL RBC 5.26 (4.60-5.80) X10*6/uL Hgb 15.4 (14.0-18.0) g/dl Hct 45.0 (42.0-52.0) % MCV 85.6 (80.0-98.0) fL MCH 29.3 (27.0-33.0) pg MCHC 34.2 (31.0-36.0) g/dl RDW 13.1 (11.0-16.0) % Plt Count 369 (160-400) X10*3/uL MPV 10.0 (9.4-12.4) fL Immature Gran % (Auto) 0.3 (0.0-0.4) % Neut % (Auto) 55.4 (45-73) % Lymph % (Auto) 28.7 (20-40) % [place] % (Auto) 10.8 (2-11) % Eos % (Auto) 4.0 (0-4) % Baso % (Auto) 0.8 (0-2) % Lymph # (Auto) 2.2 (1.2-4.9) X10*3/uL [place] # (Auto) 0.8 (0.1-1.2) X10*3/uL Eos # (Auto) 0.3 (0.0-0.4) X10*3/uL Baso # (Auto) 0.1 (0.0-0.2) X10*3/uL Abs Immat Gran (auto) 0.02 (0.00-0.03) X10*3/uL Absolute Neuts (auto) 4.3 (2.0-8.3) x10*3/uL Absolute Nucleated RBC 0.000 (0.0-0.012) X10*3/uL Nucleated RBC % (auto) 0.0 (0.0-0.2) /100WBC PT 11.3 (11.1-13.3) SEC INR 0.9 (0.9-1.1) Sodium 137 (135-145) mmol/L Potassium 4.5 (3.3-5.1) mmol/L Chloride 103 (96-108) mmol/L Carbon Dioxide 29 (22-29) mmol/L Anion Gap 10 L (12-20) BUN 13 (9-16) mg/dL Creatinine 0.85 (0.5-1.4) mg/dL Estim Creat Clear Calc 124.7 Estimated GFR > 60 Random Glucose 88 (60-115) mg/dL Lactic Acid 1.4 (0.5-2.0) mmol/L Calcium 9.6 D (8.4-10.2) mg/dL Magnesium 2.2 (1.6-2.6) mg/dL Total Bilirubin 0.6 (0.0-1.0) mg/dL AST 30 (5-37) U/L ALT 34 (0-40) U/L Alkaline Phosphatase 90 (39-117) U/L Troponin I High Sens < 2.7 (<3.5-35.0) ng/L B-Natriuretic Peptide 10 (<100) pg/mL Total Protein 7.4 (6.5-8.0) g/dL Albumin 4.5 (3.5-5.0) g/dL Lipase 21 (8-78) U/L Ethyl Alcohol < 10 mg/dL Influenza Type A (PCR) NEGATIVE (Negative) Influenza Type B (PCR) NEGATIVE (Negative) RSV RNA Qual (PCR) NEGATIVE (Negative) SARS-CoV-2 RNA (RT-PCR) NEGATIVE (Negative) 05/06/24 Range/Units 10:47 WBC (4.8-10.8) X10*3/uL RBC (4.60-5.80) X10*6/uL Hgb (14.0-18.0) g/dl Hct (42.0-52.0) % MCV (80.0-98.0) fL MCH (27.0-33.0) pg MCHC (31.0-36.0) g/dl RDW (11.0-16.0) % Plt Count (160-400) X10*3/uL MPV (9.4-12.4) fL Immature Gran % (Auto) (0.0-0.4) % Neut % (Auto) (45-73) % Lymph % (Auto) (20-40) % [place] % (Auto) (2-11) % Eos % (Auto) (0-4) % Baso % (Auto) (0-2) % Lymph # (Auto) (1.2-4.9) X10*3/uL [place] # (Auto) (0.1-1.2) X10*3/uL Eos # (Auto) (0.0-0.4) X10*3/uL Baso # (Auto) (0.0-0.2) X10*3/uL Abs Immat Gran (auto) (0.00-0.03) X10*3/uL Absolute Neuts (auto) (2.0-8.3) x10*3/uL Absolute Nucleated RBC (0.0-0.012) X10*3/uL Nucleated RBC % (auto) (0.0-0.2) /100WBC PT (11.1-13.3) SEC INR (0.9-1.1) Sodium (135-145) mmol/L Potassium (3.3-5.1) mmol/L Chloride (96-108) mmol/L Carbon Dioxide (22-29) mmol/L Anion Gap (12-20) BUN (9-16) mg/dL Creatinine (0.5-1.4) mg/dL Estim Creat Clear Calc Estimated GFR Random Glucose (60-115) mg/dL Lactic Acid (0.5-2.0) mmol/L Calcium (8.4-10.2) mg/dL Magnesium (1.6-2.6) mg/dL Total Bilirubin (0.0-1.0) mg/dL AST (5-37) U/L ALT (0-40) U/L Alkaline Phosphatase (39-117) U/L Troponin I High Sens < 2.7 (<3.5-35.0) ng/L B-Natriuretic Peptide (<100) pg/mL Total Protein (6.5-8.0) g/dL Albumin (3.5-5.0) g/dL Lipase (8-78) U/L Ethyl Alcohol mg/dL Influenza Type A (PCR) (Negative) Influenza Type B (PCR) (Negative) RSV RNA Qual (PCR) (Negative) SARS-CoV-2 RNA (RT-PCR) (Negative) Independent Interpretation I performed an independent interpretation of an: EKG and CT Scan (no VTE, PE, pneumonia) Interpretation: Rate: 94 Rhythm: NSR [place]: normal Normal P waves. Normal TOMAS. Normal QRS complex. ST T wave : no LISA, inverted t waves aVL qTC: 435 prior studies: no acute ischemia The study has been interpreted contemporaneously by me. . Radiology Impression Discussion of test interpretation with radiology: I have reviewed the radiologist's reading. External Record Review External record reviewed: Outpatient record Prescription Management I considered prescription management with: Other Critical Care Time Critical Care Time Critical Care Time: Yes Total Critical Care Time: 60 Attestation: stat CTA from waiting room, IV ativan x 2 for symptoms control, repeat labs I attest to this time spent taking care of the patient Discharge Plan Discharge Clinical Impression: Atypical chest pain, Cocaine abuse Patient Disposition: Home, Self-Care Instructions: Chest Pain (ED), Cocaine Abuse (ED) Additional Instructions: your labs, EKG and troponin negative x 2, your CT scan of chest no pneumonia, dissection of aorta or concerning findings. please stop using cocaine return for any worsening symptoms or concerns take the medications for the next 1 week for your stomach/esophagus follow up with your doctor CT/CT angio chest aorta IMPRESSION: 1. No evidence of aortic dissection or any other acute aortic syndrome. 2. No evidence of pulmonary emboli. 3. Incidental note made of calcified granuloma, a few tiny micronodules, all less than 4 mm in size. No follow-up is needed. Prescriptions: New ondansetron 4 mg tablet,disintegrating 4 mg PO Q8H PRN (Reason: nausea and vomiting) Qty: 20 0RF omeprazole 20 mg capsule,delayed release(DR/EC) 20 mg PO DAILY Qty: 10 0RF No Action trazodone 150 mg tablet 150 mg PO BEDTIME Qty: 90 1RF glutamine 500 mg Tablet 500 mg PO DAILY ka-xyp-EU-Uc-Ur-umpykwk-lutein 0.4-162-18 mg Tablet 1 tab PO DAILY biotin 1 mg Capsule 1 mg PO DAILY Collagen 1500 Plus C 500 mg-800 mcg- 50 mg Capsule 1 cap PO DAILY lisdexamfetamine [Vyvanse] 50 mg capsule 50 mg PO DAILY Qty: 30 0RF Rx Instructions: Partial Fill upon patient request. Stand Alone Forms: Work/School Release Interventions: ED Discharge Assessment Last Done: 05/06/24 13:40 Discharge Date/Time: 05/06/24 13:41 Print Language: Congolese
[2024-05-06 09:04] LABS: Troponin-I High Sensitivity < 2.7 ng/L (<3.5-35.0)
[2024-05-06] MEDS: LORazepam 2 MG/ML VIAL 1 MG IVPUSH ×2 (09:04→10:12)
[2024-05-06] MEDS: ondansetron HCL 4 MG/2 ML VIAL IVPUSH (09:05)
[2024-05-06 09:11] LABS: Influenza A PCR NEGATIVE (Negative); Influenza B PCR NEGATIVE (Negative); Resp Syncy Virus RNA Qual PCR NEGATIVE (Negative); SARS COV2 PCR INHOUSE NEGATIVE (Negative)
[2024-05-06 09:17] LABS: Lactic Acid 1.4 mmol/L (0.5-2.0)
[2024-05-06] MEDS: Lactated Ringers 1,000 ML 999 ML IV (09:30)
[2024-05-06 09:38] LABS: Ethanol < 10 mg/dL
[2024-05-06 09:40] LABS: B Type Natriuretic Peptide 10 pg/mL (<100)
[2024-05-06 09:52] LABS: Lipase 21 U/L (8-78)
[2024-05-06] MEDS: Lidocaine HCl Viscous 2 % 15 ML SOLUTION MUCOUS MEM (10:12)
[2024-05-06] MEDS: Magnesium Hydrox/Alum Hydrox 30 ML ORAL.SUSP 15 ML PO (10:12)
[2024-05-06 10:48] VITALS: BP 119/71; PULSE 66; RESP 17; TEMP 36.4; O2SAT 97
[2024-05-06 11:21] LABS: Troponin-I High Sensitivity < 2.7 ng/L (<3.5-35.0)
[2024-05-06 12:19] VITALS: BP 109/73; PULSE 65; RESP 13; TEMP 37.4; O2SAT 97
[2024-05-06 13:40] VITALS: BP 109/73; PULSE 65; RESP 13; TEMP 37.4; O2SAT 97
== END 2024-05-06 13:41 | disposition home or self-care (01) ==
PROVIDERS: Emergency Provider Emergency Medicine; PCP Nurse Practitioner Family
DX: R07.89 Other chest pain (principal); F14.10 Cocaine abuse, uncomplicated; Z03.818 Encounter for observation for suspected exposure to other biological agents ruled out; R06.02 Shortness of breath; F90.9 Attention-deficit hyperactivity disorder, unspecified type; F10.10 Alcohol abuse, uncomplicated; Y90.0 Blood alcohol level of less than 20 mg/100 ml; F17.210 Nicotine dependence, cigarettes, uncomplicated; Z79.899 Other long term (current) drug therapy
CPT/HCPCS: 0241U; 36410; 36415; 71275; 80053; 80307; 83605; 83690; 83735; 83880; 84484; 85025; 85610; 87040; 93005; 96361; 96374; 96375; 96376; 99284; 99285; J2060; J2405; J7120; Q9967

== ENCOUNTER 2024-05-08 10:14 | Outpatient (AMB) | payer OTHER, SELFPAY ==
--- NOTE | 2024-05-08 11:38 | MHC.OFFWIV ---
Intake Vital Signs 05/08/24 11:39 Height 6 ft 2 in Weight 186 lb BMI 23.9 BP 104/64 Blood Pressure Location Lt brachial Position Sitting Pulse 84 Pulse Source Pulse Oximeter Temp 98.0 F Temp Source Oral Pulse Oximetry (%) 96 Oxygen Delivery Method Room Air Intake Visit Reasons: EP LT ankle injury Intake Note: Pt is here today c/o Lt ankle pain due to a fall while walking x1week Patient Tobacco Use Status: Current everyday Tobacco user Allergies No Known Allergies [No Known Allergies*] Allergy (Verified 05/08/24 12:07) Medication List - Last Reconciled 05/08/24 by Ivonne Camacho, PHOTOLITHOGRAPHIC STRIPPER-BC biotin 1 mg PO DAILY vspvwrcz-olihif-nehjbffq acid 500 mg-800 mcg- 50 mg (Collagen 1500 Plus C) 1 cap PO DAILY glutamine 500 mg PO DAILY lisdexamfetamine (Vyvanse) 50 mg PO DAILY ns-oho-MC-Dd-Yp-ajkiwzx-lutein 0.4-162-18 mg 1 tab PO DAILY omeprazole 20 mg PO DAILY ondansetron 4 mg PO Q8H PRN trazodone 150 mg PO BEDTIME HPI HPI Comments History of Present Illness Details 38-year-old male here today with complaints left lower leg pain after a fall that he suffered 1 week ago. He reports that he had a painful lump on the front of his lower extremity on the left side. He was using ice and Motrin without relief. He is able to bear weight. However the area is painful when he touches it. He has not had any medical treatment for this prior to today Plan: Xray ordered. He will need to get this done, as it was not done in the office today. Recommend supportive care such as OTC analgesics, heat and ice. Consider Ortho referral if + findings on Xray which is not done at this time. This note is constructed using voice recognition software. While every effort has been made to ensure accuracy in sports book board attendant, still errors may have been included Sometimes, these errors may affect the content or meaning of the given sentence . PFSH Medical History Back pain ADHD Cocaine use Stimulant use disorder Inguinal hernia Surgical History Hx of cystoscopy H/O hernia repair Status post ligament repair History of appendectomy Family History Other Mental health disorder Substance use disorder Social History Household Members: None Housing: House Do you presently have visiting nurse or other home services: No Alcohol intake: current Alcohol intake frequency: a few times a week Alcohol type: wine and hard liquor Patient Tobacco Use Status: Current everyday Tobacco user Tobacco use type: Cigarette Cigarettes Per Day: 10 Years Smoked: 20 e-Cigarette/Vaping Use: Never Used Second Hand Smoke Exposure: No Substance Use Type: Amphetamines, Crack/Cocaine, Marijuana and Opiates service: No Current occupational status: employed Cognitive needs: No Hearing needs: No Vision needs: No Physical Exam Vital Signs: Last Vital Signs Temp 98.0 F 05/08/24 11:39 Pulse 84 05/08/24 11:39 BP 104/64 05/08/24 11:39 Pulse Ox 96 05/08/24 11:39 Oxygen Delivery Method Room Air 05/08/24 11:39 BMI result Body Mass Index 23.9 Skin Full body images: 1. Pain with palpation over her anterior left lower extremity, proximal to the ankle joint. There is resolving ecchymosis and a little bit of localized edema. Otherwise the left lower extremity is neurovascularly intact. He has full range of motion of the ankle. Normal strength and tone. Assessment & Plan Assessment & Plan (1) Fall: Code(s): W19.XXXA - Unspecified fall, initial encounter Qualifiers: Encounter type: initial encounter Qualified Code(s): W19.XXXA - Unspecified fall, initial encounter (2) Left leg pain: Code(s): M79.605 - Pain in left leg (3) Left ankle pain: Code(s): M25.572 - Pain in left ankle and joints of left foot Qualifiers: Chronicity: acute Qualified Code(s): M25.572 - Pain in left ankle and joints of left foot Plan: . Plan . Orders: Orders XR ankle LT 2V Today M25.572 - Pain in left ankle and joints of left foot, M79.605 - Pain in left leg, W19.XXXA - Unspecified fall, initial encounter XR tibia fibula LT 2V Today M25.572 - Pain in left ankle and joints of left foot, M79.605 - Pain in left leg, W19.XXXA - Unspecified fall, initial encounter Coding Level of Care Code Est Pt Level 3 (72260) Diagnoses Fall, initial encounter W19.XXXA Encounter type: initial encounter Left leg pain M79.605 Acute left ankle pain M25.572 Chronicity: acute
[2024-05-08 11:39] VITALS: BP 104/64; PULSE 84; TEMP 36.7; O2SAT 96; BMI 23.9
== END 2024-05-08 14:01 | disposition home or self-care (01) ==
PROVIDERS: PCP Nurse Practitioner Family; Visit Provider Nurse Practitioner Family
DX: M25.572 Pain in left ankle and joints of left foot (principal); M79.605 Pain in left leg; W19.XXXA Unspecified fall, initial encounter
CPT/HCPCS: 99051; 99213

== ENCOUNTER 2024-05-08 14:39 | Outpatient (REF) | payer OTHER, SELFPAY ==
--- NOTE | ~2024-05-08 | XR_ITS ---
EXAMINATION: XR ANKLE, LEFT CLINICAL INFORMATION: Fall COMPARISON: None available. TECHNIQUE: AP, lateral, and mortise views of the left ankle. FINDINGS: No fracture. Alignment is anatomic. No erosions. Joint spaces are maintained. Soft tissues are normal. XR/XR ankle LT min 3V IMPRESSION: Normal left ankle. Electronically signed by: Rafaela Veloz MD 05/09/2024 09:42 AM EDT
--- NOTE | ~2024-05-08 | XR_ITS ---
EXAMINATION: XR TIBIA AND FIBULA, LEFT CLINICAL INFORMATION: Fall COMPARISON: None available. TECHNIQUE: AP and lateral views of the left tibia and fibula were obtained. FINDINGS: The bones and soft tissues are normal. No fracture. No osseous lesions. XR/XR tibia fibula LT 2V IMPRESSION: Normal left tibia and fibula. Electronically signed by: Rafaela Veloz MD 05/09/2024 09:41 AM EDT
== END 2024-05-08 14:40 | disposition home or self-care (01) ==
LOC: HO.HMGCX 14:39
PROVIDERS: PCP Nurse Practitioner Family; Visit Provider Nurse Practitioner Family
DX: M79.605 Pain in left leg (principal); M25.572 Pain in left ankle and joints of left foot; W19.XXXD Unspecified fall, subsequent encounter
CPT/HCPCS: 73590; 73610

== ENCOUNTER 2024-05-10 15:43 | Outpatient (AMB) | payer OTHER, SELFPAY ==
--- NOTE | 2024-05-10 15:55 | A.OFFVISCC_ITS ---
Intake Visit Reasons: MAT Office Allergies No Known Allergies [No Known Allergies*] Allergy (Verified 05/08/24 12:07) HPI HPI MAT Office: Details: Patient presents for follow up for cocaine use disorder Recently in ED for chest pain --cardiac work up completed without finding started omeprazole and zofran Cocaine use still decreasing--using cocaine once per week for the last 3 weeks Has been taking vyvanse and that helps with urges, however he feels that it is no longer effective in the afternoon. PFSH Medical History Back pain ADHD Cocaine use Stimulant use disorder Inguinal hernia Surgical History Hx of cystoscopy H/O hernia repair Status post ligament repair History of appendectomy Family History Other Mental health disorder Substance use disorder Social History Household Members: None Housing: House Do you presently have visiting nurse or other home services: No Alcohol intake: current Alcohol intake frequency: a few times a week Alcohol type: wine and hard liquor Patient Tobacco Use Status: Current everyday Tobacco user Tobacco use type: Cigarette Cigarettes Per Day: 10 Years Smoked: 20 e-Cigarette/Vaping Use: Never Used Second Hand Smoke Exposure: No Substance Use Type: Amphetamines, Crack/Cocaine, Marijuana and Opiates service: No Current occupational status: employed Cognitive needs: No Hearing needs: No Vision needs: No Review of Systems Const Reports as per HPI and Reports no additional complaints Physical Exam Const General: cooperative, healthy appearing, no acute distress (much less animated than normal ) and well groomed Assessment & Plan Assessment & Plan (1) Cocaine use disorder: Code(s): F14.10 - Cocaine abuse, uncomplicated Category: Medical Plan: * risk reduction discussion (2) ADHD (attention deficit hyperactivity disorder), predominantly hyperactive impulsive type: Code(s): F90.1 - Attention-deficit hyperactivity disorder, predominantly hyperactive type Category: Medical Plan: * added 10mg vyvanse to take in the afternoon Medications: New lisdexamfetamine (Vyvanse) in addition to 50mg daily 10 mg PO DAILY 30 caps 0RF
== END 2024-05-10 16:13 | disposition home or self-care (01) ==
PROVIDERS: Visit Provider Nurse Practitioner Psychiatric/Mental Health
DX: F14.10 Cocaine abuse, uncomplicated (principal); F90.1 Attention-deficit hyperactivity disorder, predominantly hyperactive type
CPT/HCPCS: 99214

== ENCOUNTER → 2024-05-10 15:43 | Outpatient (BNVA) | payer OTHER, SELFPAY | PROVIDERS: Visit Provider Nurse Practitioner Psychiatric/Mental Health | DX: F14.10 Cocaine abuse, uncomplicated (principal); F17.210 Nicotine dependence, cigarettes, uncomplicated; F90.1 Attention-deficit hyperactivity disorder, predominantly hyperactive type; Z51.81 Encounter for therapeutic drug level monitoring | CPT/HCPCS: 99212 ==

== ENCOUNTER 2024-05-16 14:30 | Outpatient (REF) | payer OTHER, SELFPAY ==
--- NOTE | ~2024-05-16 | MR_ITS ---
EXAMINATION: MR ANKLE WITHOUT CONTRAST, RIGHT MR FOOT WITHOUT CONTRAST, RIGHT CLINICAL INFORMATION: Contusion of foot. COMPARISON: None available. TECHNIQUE: MRI of the ankle was performed using routine sequences on a high-field scanner. FINDINGS: RIGHT ANKLE: BONES/JOINTS: Normal. LIGAMENTS: Mild thickening of the anterior talofibular ligament compatible with old partial tear. The remaining ligaments are intact. NEUROVASCULAR STRUCTURES/TARSAL TUNNEL: Normal. SINUS TARSI: Normal. MUSCLES/TENDONS: Normal. PLANTAR FASCIA: Normal. SUBCUTANEOUS SOFT TISSUES: Normal. RIGHT FOOT: BONES/JOINTS: Normal. LIGAMENTS/CAPSULE: Normal. NEUROVASCULAR STRUCTURES: Normal. DISTAL PLANTAR FASCIA: Normal. MUSCLES/TENDONS: Normal. SUBCUTANEOUS SOFT TISSUES: Normal. MR/MR ankle RT wo con IMPRESSION: RIGHT ANKLE: 1. No acute abnormality. No fracture. 2. Old partial tear of the anterior talofibular ligament. RIGHT FOOT: Normal. No fracture. Electronically signed by: Rony Her MD 05/18/2024 11:11 AM EDT
--- NOTE | ~2024-05-16 | MR_ITS ---
EXAMINATION: MR ANKLE WITHOUT CONTRAST, RIGHT MR FOOT WITHOUT CONTRAST, RIGHT CLINICAL INFORMATION: Contusion of foot. COMPARISON: None available. TECHNIQUE: MRI of the ankle was performed using routine sequences on a high-field scanner. FINDINGS: RIGHT ANKLE: BONES/JOINTS: Normal. LIGAMENTS: Mild thickening of the anterior talofibular ligament compatible with old partial tear. The remaining ligaments are intact. NEUROVASCULAR STRUCTURES/TARSAL TUNNEL: Normal. SINUS TARSI: Normal. MUSCLES/TENDONS: Normal. PLANTAR FASCIA: Normal. SUBCUTANEOUS SOFT TISSUES: Normal. RIGHT FOOT: BONES/JOINTS: Normal. LIGAMENTS/CAPSULE: Normal. NEUROVASCULAR STRUCTURES: Normal. DISTAL PLANTAR FASCIA: Normal. MUSCLES/TENDONS: Normal. SUBCUTANEOUS SOFT TISSUES: Normal. MR/MR foot RT wo con IMPRESSION: RIGHT ANKLE: 1. No acute abnormality. No fracture. 2. Old partial tear of the anterior talofibular ligament. RIGHT FOOT: Normal. No fracture. Electronically signed by: Rony Her MD 05/18/2024 11:11 AM EDT
== END 2024-05-16 14:31 | disposition home or self-care (01) ==
LOC: HO.MRI 14:30
PROVIDERS: PCP Nurse Practitioner Family; Visit Provider Nurse Practitioner Family
DX: S90.31XD Contusion of right foot, subsequent encounter (principal); S90.01XD Contusion of right ankle, subsequent encounter
CPT/HCPCS: 73718; 73721

== ENCOUNTER 2024-05-24 14:34 | Outpatient (AMB) | payer OTHER, SELFPAY ==
--- NOTE | 2024-05-24 14:45 | A.OFFVISCC_ITS ---
Intake Visit Reasons: MAT Office Allergies No Known Allergies [No Known Allergies*] Allergy (Verified 05/08/24 12:07) HPI HPI MAT Office: Details: Patient presents for follow up Has not started using second dose of vyvanse sleep is poor -- minimal drinking or cocaine use--one day a week he reports feels awful after reviewed impact of cocaine patrick on mood and mood lability PFSH Medical History Back pain ADHD Cocaine use Stimulant use disorder Inguinal hernia Surgical History Hx of cystoscopy H/O hernia repair Status post ligament repair History of appendectomy Family History Other Mental health disorder Substance use disorder Social History Household Members: None Housing: House Do you presently have visiting nurse or other home services: No Alcohol intake: current Alcohol intake frequency: a few times a week Alcohol type: wine and hard liquor Patient Tobacco Use Status: Current everyday Tobacco user Tobacco use type: Cigarette Cigarettes Per Day: 10 Years Smoked: 20 e-Cigarette/Vaping Use: Never Used Second Hand Smoke Exposure: No Substance Use Type: Amphetamines, Crack/Cocaine, Marijuana and Opiates service: No Current occupational status: employed Cognitive needs: No Hearing needs: No Vision needs: No Review of Systems Const Reports as per HPI Physical Exam Const General: cooperative, healthy appearing and no acute distress Nutritional Appearance: average body habitus Orientation/consciousness: patient oriented x3 Limitations: no limitations Neuro General: patient oriented x3 Psych Appearance: well kempt Speech and movement: Clear speech present and Pressured speech present Affect: Animated affect present Attitude: cooperative Thought process: Circumstantial thought process present Assessment & Plan Assessment & Plan (1) Cocaine use disorder: Code(s): F14.10 - Cocaine abuse, uncomplicated Category: Medical Plan: * no change to current regimen * risk reduction discussion * follow up 2 weeks Medications: Refilled lisdexamfetamine (Vyvanse) Partial Fill upon patient request. 50 mg PO DAILY 30 caps 0RF
== END 2024-05-24 15:44 | disposition home or self-care (01) ==
PROVIDERS: Visit Provider Nurse Practitioner Psychiatric/Mental Health
DX: F14.10 Cocaine abuse, uncomplicated (principal)
CPT/HCPCS: 99214

== ENCOUNTER → 2024-05-24 14:34 | Outpatient (BNVA) | payer OTHER, SELFPAY | PROVIDERS: Visit Provider Nurse Practitioner Psychiatric/Mental Health | DX: F14.10 Cocaine abuse, uncomplicated (principal) | CPT/HCPCS: 99212 ==

== ENCOUNTER 2024-07-07 15:57 | Outpatient (AMB) | payer OTHER, SELFPAY ==
--- NOTE | 2024-07-07 16:02 | A.OFFVISCC_ITS ---
Intake Visit Reasons: MAT Office Allergies No Known Allergies [No Known Allergies*] Allergy (Verified 05/08/24 12:07) HPI HPI MAT Office: Details: Patient presents for follow up Last appt end of May Reports he was incarcerated for 33 days Released on Friday Has not taken Vyvanse Reporting anxiety--some cocaine and alcohol use over the weekend Review of Systems Const Reports as per HPI and Reports difficulty sleeping Physical Exam Const General: cooperative, healthy appearing, alert and anxious Assessment & Plan Assessment & Plan (1) Cocaine use disorder: Code(s): F14.10 - Cocaine abuse, uncomplicated Category: Medical Plan: * risk reduction discussion * patient does not take vyvanse if he uses cocaine (2) ADHD (attention deficit hyperactivity disorder), predominantly hyperactive impulsive type: Code(s): F90.1 - Attention-deficit hyperactivity disorder, predominantly hyperactive type Category: Medical Plan: * refilled vyvanse * follow up 2 weeks Medications: Refilled lisdexamfetamine (Vyvanse) in addition to 50mg daily 10 mg PO DAILY 30 caps 0RF lisdexamfetamine (Vyvanse) Partial Fill upon patient request. 50 mg PO DAILY 30 caps 0RF PFSH Medical History Back pain ADHD Cocaine use Stimulant use disorder Inguinal hernia Surgical History Hx of cystoscopy H/O hernia repair Status post ligament repair History of appendectomy Family History Other Mental health disorder Substance use disorder Social History Household Members: None Housing: House Do you presently have visiting nurse or other home services: No Alcohol intake: current Alcohol intake frequency: a few times a week Alcohol type: wine and hard liquor Patient Tobacco Use Status: Current everyday Tobacco user Tobacco use type: Cigarette Cigarettes Per Day: 10 Years Smoked: 20 e-Cigarette/Vaping Use: Never Used Second Hand Smoke Exposure: No Substance Use Type: Amphetamines, Crack/Cocaine, Marijuana and Opiates service: No Current occupational status: employed Cognitive needs: No Hearing needs: No Vision needs: No
== END 2024-07-07 16:45 | disposition home or self-care (01) ==
LOC: HO.HCC 15:57
PROVIDERS: Visit Provider Nurse Practitioner Psychiatric/Mental Health
DX: F14.10 Cocaine abuse, uncomplicated (principal); F90.1 Attention-deficit hyperactivity disorder, predominantly hyperactive type
CPT/HCPCS: 99214

== ENCOUNTER → 2024-07-07 15:57 | Outpatient (BNVA) | payer OTHER, SELFPAY | PROVIDERS: Visit Provider Nurse Practitioner Psychiatric/Mental Health | DX: F14.10 Cocaine abuse, uncomplicated (principal); F90.1 Attention-deficit hyperactivity disorder, predominantly hyperactive type; Z51.81 Encounter for therapeutic drug level monitoring; Z79.899 Other long term (current) drug therapy | CPT/HCPCS: 99212 ==

== ENCOUNTER 2024-07-19 14:34 | Outpatient (AMB) | payer OTHER, SELFPAY ==
--- NOTE | 2024-07-19 14:38 | A.OFFVISCC_ITS ---
Intake Visit Reasons: MAT Office Allergies No Known Allergies [No Known Allergies*] Allergy (Verified 05/08/24 12:07) HPI HPI MAT Office: Details: Patient presents for follow up moved into other apt still working Restarted vyvanse --continues to find it helpful with regards to focus and decreased cocaine use no concerns at this time Review of Systems Const Reports as per HPI Physical Exam Const General: cooperative, healthy appearing and alert Nutritional Appearance: average body habitus Orientation/consciousness: patient oriented x3 Limitations: no limitations Neuro General: patient oriented x3 Psych Appearance: well kempt Speech and movement: Clear speech present and Pressured speech present Affect: Animated affect present Attitude: cooperative Thought process: Circumstantial thought process present Thought content: Normal thought content present Insight: Fair insight present (Psych) Judgement: Fair judgement present (Psych) Assessment & Plan Assessment & Plan (1) ADHD (attention deficit hyperactivity disorder), predominantly hyperactive impulsive type: Code(s): F90.1 - Attention-deficit hyperactivity disorder, predominantly hyperactive type Category: Medical Plan: * continue vyvanse as prescribed (2) Cocaine use disorder: Code(s): F14.10 - Cocaine abuse, uncomplicated Category: Medical Plan: * risk reduction discussion (3) Alcohol use disorder, severe, dependence: Code(s): F10.20 - Alcohol dependence, uncomplicated Category: Medical Plan: * risk reduction discussion [facility] Medical History Back pain ADHD Cocaine use Stimulant use disorder Inguinal hernia Surgical History Hx of cystoscopy H/O hernia repair Status post ligament repair History of appendectomy Family History Other Mental health disorder Substance use disorder Social History Household Members: None Housing: House Do you presently have visiting nurse or other home services: No Alcohol intake: current Alcohol intake frequency: a few times a week Alcohol type: wine and hard liquor Patient Tobacco Use Status: Current everyday Tobacco user Tobacco use type: Cigarette Cigarettes Per Day: 10 Years Smoked: 20 e-Cigarette/Vaping Use: Never Used Second Hand Smoke Exposure: No Substance Use Type: Amphetamines, Crack/Cocaine, Marijuana and Opiates service: No Current occupational status: employed Cognitive needs: No Hearing needs: No Vision needs: No
== END 2024-07-19 14:57 | disposition home or self-care (01) ==
PROVIDERS: Visit Provider Nurse Practitioner Psychiatric/Mental Health
DX: F14.10 Cocaine abuse, uncomplicated (principal); F10.20 Alcohol dependence, uncomplicated; F90.1 Attention-deficit hyperactivity disorder, predominantly hyperactive type
CPT/HCPCS: 99214

== ENCOUNTER → 2024-07-19 14:34 | Outpatient (BNVA) | payer OTHER, SELFPAY | PROVIDERS: Visit Provider Nurse Practitioner Psychiatric/Mental Health | DX: F90.1 Attention-deficit hyperactivity disorder, predominantly hyperactive type (principal); F14.10 Cocaine abuse, uncomplicated; F10.20 Alcohol dependence, uncomplicated | CPT/HCPCS: 99212 ==

== ENCOUNTER 2024-08-02 14:57 | Outpatient (AMB) | payer OTHER, SELFPAY ==
--- NOTE | 2024-08-02 15:04 | MHC.AM.SUB ---
Intake Visit Reasons: MAT office Allergies No Known Allergies [No Known Allergies*] Allergy (Verified 05/08/24 12:07) HPI HPI MAT office: Details: Patient presents for follow up StUD and AUD Not sleeping much --due to working Has been using 3 days per week --- binging Reports feeling more anxious and on edge since his arrest--afraid he is going to be arrested again for no reason Downtime is challenging for him Discussed self care and structure--beneficial in the past Review of Systems Const Reports as per HPI and Reports difficulty sleeping Psych Reports anxiety and Reports difficulty concentrating Physical Exam Const General: cooperative Assessment & Plan Assessment & Plan (1) Cocaine use disorder: Code(s): F14.10 - Cocaine abuse, uncomplicated Category: Medical Plan: risk reduction discussion safety planning (2) ADHD (attention deficit hyperactivity disorder), predominantly hyperactive impulsive type: Code(s): F90.1 - Attention-deficit hyperactivity disorder, predominantly hyperactive type Category: Medical Plan: continue vyvanse [facility] Medical History Back pain ADHD Cocaine use Stimulant use disorder Inguinal hernia Surgical History Hx of cystoscopy H/O hernia repair Status post ligament repair History of appendectomy Family History Other Mental health disorder Substance use disorder Social History Household Members: None Housing: House Do you presently have visiting nurse or other home services: No Alcohol intake: current Alcohol intake frequency: a few times a week Alcohol type: wine and hard liquor Patient Tobacco Use Status: Current everyday Tobacco user Tobacco use type: Cigarette Cigarettes Per Day: 10 Years Smoked: 20 e-Cigarette/Vaping Use: Never Used Second Hand Smoke Exposure: No Substance Use Type: Amphetamines, Crack/Cocaine, Marijuana and Opiates service: No Current occupational status: employed Cognitive needs: No Hearing needs: No Vision needs: No
== END 2024-08-02 15:49 | disposition home or self-care (01) ==
PROVIDERS: Visit Provider Nurse Practitioner Psychiatric/Mental Health
DX: F14.10 Cocaine abuse, uncomplicated (principal); F90.1 Attention-deficit hyperactivity disorder, predominantly hyperactive type
CPT/HCPCS: 99214

== ENCOUNTER → 2024-08-02 14:57 | Outpatient (BNVA) | payer OTHER, SELFPAY | PROVIDERS: Visit Provider Nurse Practitioner Psychiatric/Mental Health | DX: F10.20 Alcohol dependence, uncomplicated (principal); F14.20 Cocaine dependence, uncomplicated; F15.20 Other stimulant dependence, uncomplicated; F90.1 Attention-deficit hyperactivity disorder, predominantly hyperactive type; Z79.899 Other long term (current) drug therapy | CPT/HCPCS: 99212 ==

== ENCOUNTER 2024-08-16 15:16 | Outpatient (AMB) | payer OTHER, SELFPAY ==
--- NOTE | 2024-08-16 15:20 | A.OFFVISCC_ITS ---
Intake Visit Reasons: MAT office Allergies No Known Allergies [No Known Allergies*] Allergy (Verified 05/08/24 12:07) HPI HPI MAT office: Details: Patient presents for follow up Regarding substance use has been using less --patrick as he has a drug text upcoming Friday and Friday used cocaine Discussed making plans to travel potentially in September, as a way to have something to look forward to Being around people and keeping busy lessens the amount of use Risk reduction discussion around this and overall goals Review of Systems Const Reports as per HPI Physical Exam Const General: cooperative and healthy appearing Nutritional Appearance: average body habitus Orientation/consciousness: patient oriented x3 Neuro General: patient oriented x3 Psych Speech and movement: Clear speech present and Pressured speech present Affect: normal affect and Animated affect present Attitude: cooperative Assessment & Plan Assessment & Plan (1) Cocaine use disorder: Code(s): F14.10 - Cocaine abuse, uncomplicated Category: Medical Plan: * risk reduction discussion * follow up 2 weeks (2) ADHD (attention deficit hyperactivity disorder), predominantly hyperactive impulsive type: Code(s): F90.1 - Attention-deficit hyperactivity disorder, predominantly hyperactive type Category: Medical Plan: * continue vyvanse [facility] Medical History Back pain ADHD Cocaine use Stimulant use disorder Inguinal hernia Surgical History Hx of cystoscopy H/O hernia repair Status post ligament repair History of appendectomy Family History Other Mental health disorder Substance use disorder Social History Household Members: None Housing: House Do you presently have visiting nurse or other home services: No Alcohol intake: current Alcohol intake frequency: a few times a week Alcohol type: wine and hard liquor Patient Tobacco Use Status: Current everyday Tobacco user Tobacco use type: Cigarette Cigarettes Per Day: 10 Years Smoked: 20 e-Cigarette/Vaping Use: Never Used Second Hand Smoke Exposure: No Substance Use Type: Amphetamines, Crack/Cocaine, Marijuana and Opiates service: No Current occupational status: employed Cognitive needs: No Hearing needs: No Vision needs: No
== END 2024-08-16 15:58 | disposition home or self-care (01) ==
PROVIDERS: Visit Provider Nurse Practitioner Psychiatric/Mental Health
DX: F14.10 Cocaine abuse, uncomplicated (principal); F90.1 Attention-deficit hyperactivity disorder, predominantly hyperactive type
CPT/HCPCS: 99214

== ENCOUNTER → 2024-08-16 15:16 | Outpatient (BNVA) | payer OTHER, SELFPAY | PROVIDERS: Visit Provider Nurse Practitioner Psychiatric/Mental Health | DX: F14.10 Cocaine abuse, uncomplicated (principal); F90.1 Attention-deficit hyperactivity disorder, predominantly hyperactive type | CPT/HCPCS: 99212 ==

== ENCOUNTER 2024-09-08 16:18 | Outpatient (AMB) | payer OTHER, SELFPAY ==
--- NOTE | 2024-09-08 16:38 | A.OFFVISCC_ITS ---
Intake Visit Reasons: MAT office Allergies No Known Allergies [No Known Allergies*] Allergy (Verified 05/08/24 12:07) HPI HPI MAT office: Details: Patient presents for [facility] treatment follow up Court ordered AA 2x/week --tested positive for alcohol at probation Has not been drinking since [place] mike Cocaine 3x since New Years Uses less cocaine -when no alcohol not sleeping well, still overall anxious Self care revisited--he was considering traveling to [place] Review of Systems Const Reports as per HPI and Reports no additional complaints Physical Exam Const General: cooperative and healthy appearing Nutritional Appearance: average body habitus Orientation/consciousness: patient oriented x3 Neuro General: patient oriented x3 Psych Speech and movement: Clear speech present and Pressured speech present Affect: normal affect and Animated affect present Attitude: cooperative [facility] Medical History Back pain ADHD Cocaine use Stimulant use disorder Inguinal hernia Surgical History Hx of cystoscopy H/O hernia repair Status post ligament repair History of appendectomy Family History Other Mental health disorder Substance use disorder Social History Household Members: None Housing: House Do you presently have visiting nurse or other home services: No Alcohol intake: current Alcohol intake frequency: a few times a week Alcohol type: wine and hard liquor Patient Tobacco Use Status: Current everyday Tobacco user Tobacco use type: Cigarette Cigarettes Per Day: 10 Years Smoked: 20 e-Cigarette/Vaping Use: Never Used Second Hand Smoke Exposure: No Substance Use Type: Amphetamines, Crack/Cocaine, Marijuana and Opiates service: No Current occupational status: employed Cognitive needs: No Hearing needs: No Vision needs: No Assessment & Plan Assessment & Plan (1) Alcohol use disorder, severe, dependence: Code(s): F10.20 - Alcohol dependence, uncomplicated Category: Medical Plan: * risk reduciton discussion (2) Cocaine use disorder: Code(s): F14.10 - Cocaine abuse, uncomplicated Category: Medical Plan: * risk reduction discussion (3) ADHD (attention deficit hyperactivity disorder), predominantly hyperactive impulsive type: Code(s): F90.1 - Attention-deficit hyperactivity disorder, predominantly hyperactive type Category: Medical Plan: * refilled vyvanse Medications: Refilled lisdexamfetamine (Vyvanse) Partial Fill upon patient request. 50 mg PO DAILY 30 caps 0RF
== END 2024-09-08 17:02 | disposition home or self-care (01) ==
PROVIDERS: Visit Provider Nurse Practitioner Psychiatric/Mental Health
DX: F10.20 Alcohol dependence, uncomplicated (principal); F14.10 Cocaine abuse, uncomplicated; F90.1 Attention-deficit hyperactivity disorder, predominantly hyperactive type
CPT/HCPCS: 99214

== ENCOUNTER → 2024-09-08 16:18 | Outpatient (BNVA) | payer OTHER, SELFPAY | PROVIDERS: Visit Provider Nurse Practitioner Psychiatric/Mental Health | DX: F10.20 Alcohol dependence, uncomplicated (principal); F14.10 Cocaine abuse, uncomplicated; F90.1 Attention-deficit hyperactivity disorder, predominantly hyperactive type | CPT/HCPCS: 99212 ==

== ENCOUNTER 2024-09-20 19:48 | Emergency (ER) | payer OTHER, SELFPAY ==
[2024-09-20 20:05] VITALS: BP 113/76; PULSE 102; RESP 20; TEMP 36; O2SAT 96; BMI 24.1
--- NOTE | 2024-09-20 20:10 | ED_ITS ---
HPI - General Adult General Chief complaint: ETOH/Substance Use Stated complaint: withdrawals Time Seen by Provider: 09/20/24 22:23 Source: patient and old records reviewed Mode of arrival: ambulatory Limitations: no limitations History of Present Illness ED Provider: HARSHAD VELIZ narrative: 39 yo male with PMH of ADHD, cocaine abuse, alcohol use disorder. follow with elaine jade here with c/o taking high dose librium at detox just left yesterday states he feels shaky and tired and weird with nausea/vomiting. Reports he lied about alcohol use but it was cocaine and they gave him all these medications. States he feels anxious and not well. No trauma, no SI. Does not want detox again just wants to feel better. complaint: shaky Onset (ago): day(s) (1) Radiation: non-radiation Severity: moderate Relieving factors: none Exacerbating factors: other Associated symptoms: loss of appetite, malaise and nausea/vomiting Treatments prior to arrival: none Related Data Home Medications ?Medication ?Instructions ?Recorded ?Confirmed biotin 1 mg capsule 1 mg PO DAILY 12/18/23 05/08/24 collagen,hydrolysate 500 mg-biotin 1 cap PO DAILY 12/18/23 05/08/24 800 mcg-ascorbic acid 50 mg capsule (Collagen 1500 Plus C) glutamine 500 mg tablet 500 mg PO DAILY 12/18/23 05/08/24 [id number] 0.4 mg-calcium 162 1 tab PO DAILY 12/18/23 05/08/24 mg-iron 18 [id number]-bhqgur tablet Previous Rx's ?Medication ?Instructions ?Recorded trazodone 150 mg tablet 150 mg PO BEDTIME #90 tabs 04/15/24 omeprazole 20 mg capsule,delayed 20 mg PO DAILY #10 caps 05/06/24 release ondansetron 4 mg disintegrating 4 mg PO Q8H PRN nausea and 05/06/24 tablet vomiting #20 tabs lisdexamfetamine 10 mg capsule 10 mg PO DAILY #30 caps 07/07/24 (Vyvanse) lisdexamfetamine 50 mg capsule 50 mg PO DAILY #30 caps 09/08/24 (Vyvanse) ondansetron 4 mg disintegrating 4 mg PO Q8H PRN nausea and 09/21/24 tablet vomiting #20 tabs Allergies Allergy/AdvReac Type Severity Reaction Status Date / Time No Known Allergies Allergy Verified 09/20/24 20:11 [No Known Allergies*] Review of Systems 2 Review of Systems: Constitutional : No Fever, No Chills, No Fatigue ENT/Mouth : No sore throat, No Rhinorrhea Eyes: No Eye Pain, No Swelling, No Redness Cardiovascular : No Chest Pain, No SOB, No Dyspnea on Exertion Respiratory : No Cough, No Sputum Gastrointestinal : pos Nausea, pos Vomiting, No Diarrhea, No abdominal Pain Genitourinary : No Dysuria, No Urinary Frequency, No Hematuria, Musculoskeletal : No joint pain, No Myalgias, No Joint Swelling Skin : No Skin Lesions, No rash Neuro : No Weakness, No Numbness, No Dizziness, positive Headache Psych : pos Anxiety/Panic, No Depression All other systems reviewed and are negative [facility] Past Medical History Attestation statement: The following information was validated with the patient. Source: old records reviewed Medical History Back pain ADHD Cocaine use Stimulant use disorder Inguinal hernia Surgical History Hx of cystoscopy H/O hernia repair Status post ligament repair History of appendectomy Family History Family History Other Mental health disorder Substance use disorder Social History Social History Household Members: None Housing: House Do you presently have visiting nurse or other home services: No Alcohol intake: current Alcohol intake frequency: a few times a week Alcohol type: wine and hard liquor Patient Tobacco Use Status: Current everyday Tobacco user Tobacco use type: Cigarette Cigarettes Per Day: 10 Years Smoked: 20 Smoked in Last 30 Days: Yes e-Cigarette/Vaping Use: Never Used Second Hand Smoke Exposure: No Use of substances other than those prescribed or required for medical reasons: Yes Substance Use Type: Crack/Cocaine Advance Directives: No Advance Directives Information Provided: No service: No Current occupational status: employed Cognitive needs: No Hearing needs: No Vision needs: No Physical Exam ED Vital Signs: Vital Signs - 24 hr 09/20/24 20:05 09/20/24 22:48 09/21/24 00:56 Temperature 96.8 F 98.2 F 98.2 F Pulse Rate 102 H 90 90 Respiratory Rate 20 16 16 Blood Pressure 113/76 122/78 122/78 Pulse Oximetry 96 97 97 Oxygen Delivery Method Room Air Room Air Room Air BMI result Body Mass Index 24.1 Appearance: Alert. Oriented X3. No acute distress. shaky and anxious Eyes: Pupils equal, round and reactive to light. ENT: Pharynx normal. Neck: Normal inspection. Neck supple. CVS: tachycardic heart rate and rhythm. Pulses normal. Respiratory: No respiratory distress. Breath sounds normal. Abdomen: Soft and non-tender. Skin: Skin warm and dry. Normal skin color. Normal skin turgor. Extremities: No lower extremity edema. Neuro: Oriented X 3. No motor deficit. No sensory deficit. CN2-12 intact slight tremors Course Course Course Narrative: This is an RME: Additional HPI, ROS, PE not included below will be deferred to primary provider. RME assessment and note performed by: Ciera Mcgee PA-C This is a [id number] who presents to the ER with a complaint of withdrawal. Recent inpatient detox in [place] for etoh and cocaine use and was placed on librium. Reports that he last received librium yesterday. Plan: labs, ekg, further ER eval needed. Reevaluation(s) Reevaluation #1: he refuses tamiflu Medications Administered Discontinued Medications Generic Name Dose Route Start Last Admin Trade Name Freq PRN Reason Stop Dose Admin Lactated Ringer's 1,000 mls @ 999 mls/hr 09/20/24 22:47 09/21/24 00:56 Lr IV 09/20/24 23:47 Infused .Q1H1M ONE Infusion Lorazepam 1 mg 09/20/24 22:47 09/20/24 23:01 Lorazepam 2 Mg/Ml Vial IVPUSH 09/20/24 22:48 1 mg STAT STA Administration Ondansetron HCl 4 mg 09/20/24 22:47 09/20/24 23:01 Ondansetron Hcl 4 Mg/2 Ml Vial IVPUSH 09/20/24 22:48 4 mg ONCE ONE Administration Medical Decision Making Medical Decision Making MDM Narrative: 39 yo male with PMH of ADHD, cocaine abuse, alcohol use disorder here with c/o shakes and withdrawals, he states he wasn't drinking alcohol and feels like he is coming off his librium at this time will obtain basic labs, IVF, IV ativan, repeat assessment. At this time could also be viral syndrome will test for flu covid rsv given no prior librium use and only 3 days I have really low suspicion for withdrawal from it. Differential Diagnosis Differential Diagnoses: The differential diagnosis associated with the presentation includes withdrawal substance abuse disorder, viral syndrome such as covid/flu Admission/Observation Consideration of admission/observation: Escalation of care including admission/observation considered patient feeling much better VS stable, tolerating PO Lab Data [facility] Lab Attestation statement: I reviewed the patient's lab results. 09/20/24 21:35 09/20/24 21:35 Labs: Lab Results 09/20/24 09/20/24 Range/Units 21:35 23:09 WBC 6.0 (4.8-10.8) X10*3/uL RBC 5.38 (4.60-5.80) X10*6/uL Hgb 15.7 (14.0-18.0) g/dl Hct 47.9 (42.0-52.0) % MCV 89.0 (80.0-98.0) fL MCH 29.2 (27.0-33.0) pg MCHC 32.8 (31.0-36.0) g/dl RDW 12.7 (11.0-16.0) % Plt Count 312 (160-400) X10*3/uL MPV 10.3 (9.4-12.4) fL Immature Gran % (Auto) 0.3 (0.0-0.4) % Neut % (Auto) 62.9 (45-73) % Lymph % (Auto) 14.5 L (20-40) % [place] % (Auto) 17.7 H (2-11) % Eos % (Auto) 3.8 (0-4) % Baso % (Auto) 0.8 (0-2) % Lymph # (Auto) 0.9 L (1.2-4.9) X10*3/uL [place] # (Auto) 1.1 (0.1-1.2) X10*3/uL Eos # (Auto) 0.2 (0.0-0.4) X10*3/uL Baso # (Auto) 0.1 (0.0-0.2) X10*3/uL Abs Immat Gran (auto) 0.02 (0.00-0.03) X10*3/uL Absolute Neuts (auto) 3.8 (2.0-8.3) x10*3/uL Absolute Nucleated RBC 0.000 (0.0-0.012) X10*3/uL Nucleated RBC % (auto) 0.0 (0.0-0.2) /100WBC Sodium 141 (135-145) mmol/L Potassium 4.5 (3.3-5.1) mmol/L Chloride 103 (96-108) mmol/L Carbon Dioxide 28 (22-29) mmol/L Anion Gap 15 (12-20) BUN 11 (9-16) mg/dL Creatinine 0.76 (0.5-1.4) mg/dL Estim Creat Clear Calc 151.7 Estimated GFR > 60 Random Glucose 106 (60-115) mg/dL Calcium 8.8 D (8.4-10.2) mg/dL Magnesium 2.1 (1.6-2.6) mg/dL Total Bilirubin 0.3 (0.0-1.0) mg/dL Direct Bilirubin 0.1 (0.0-0.5) mg/dL AST 53 H (5-37) U/L ALT 85 H (0-40) U/L Alkaline Phosphatase 104 (39-117) U/L Troponin I High Sens < 2.7 (<3.5-35.0) ng/L Total Protein 7.9 (6.5-8.0) g/dL Albumin 4.5 (3.5-5.0) g/dL Ethyl Alcohol < 10 mg/dL Influenza Type A (PCR) POSITIVE A (Negative) Influenza Type B (PCR) NEGATIVE (Negative) RSV RNA Qual (PCR) NEGATIVE (Negative) SARS-CoV-2 RNA (RT-PCR) NEGATIVE (Negative) Independent Interpretation I performed an independent interpretation of an: EKG Interpretation: Rate: 94 Rhythm: NSR [place]ell: normal Normal P waves. Normal TOMAS. Normal QRS complex. ST T wave : normal no LISA qTC: 427 prior studies: no acute ischemia The study has been interpreted contemporaneously by me. . External Record Review External record reviewed: Outpatient record Prescription Management I considered prescription management with: Antiviral (he refuses) and Other Discharge Plan Discharge Clinical Impression: Influenza A Patient Disposition: Home, Self-Care Instructions: Influenza (ED) Additional Instructions: + for flu A labs otherwise stable slight bump in liver panel - likely due to virus take tylenol and motrin as needed for pain suspect symptoms based off influenza Prescriptions: New ondansetron 4 mg tablet,disintegrating 4 mg PO Q8H PRN (Reason: nausea and vomiting) Qty: 20 0RF No Action trazodone 150 mg tablet 150 mg PO BEDTIME Qty: 90 1RF glutamine 500 mg Tablet 500 mg PO DAILY gd-[id number]-KT-Jt-Cg-doeqkom-lutein 0.4-162-18 mg Tablet 1 tab PO DAILY biotin 1 mg Capsule 1 mg PO DAILY Collagen 1500 Plus C 500 mg-800 mcg- 50 mg Capsule 1 cap PO DAILY ondansetron 4 mg tablet,disintegrating 4 mg PO Q8H PRN (Reason: nausea and vomiting) Qty: 20 0RF omeprazole 20 mg capsule,delayed release(DR/EC) 20 mg PO DAILY Qty: 10 0RF lisdexamfetamine [Vyvanse] 10 mg capsule 10 mg PO DAILY Qty: 30 0RF Rx Instructions: in addition to 50mg daily lisdexamfetamine [Vyvanse] 50 mg capsule 50 mg PO DAILY Qty: 30 0RF Rx Instructions: Partial Fill upon patient request. Interventions: ED Discharge Assessment Last Done: 09/21/24 00:56 Discharge Date/Time: 09/21/24 01:00 Print Language: [place]
--- NOTE | 2024-09-20 20:15 | ECG_ITS ---
Test Reason : SOB Blood Pressure : */* mmHG Vent. Rate : 94 BPM Atrial Rate : 94 BPM P-R Int : 124 ms QRS Dur : 86 ms QT Int : 342 ms P-R-T Axes : 66 57 43 degrees QTcB Int : 427 ms Normal sinus rhythm Normal ECG When compared with ECG of 06-May-2024 08:14, No significant change was found Referred By: Ciera Mcgee Electronically Signed By: PILAR HART MD
[2024-09-20 21:40] LABS: MANUAL DIFF FLAG NO
[2024-09-20 21:55] LABS: Alanine Aminotransferase 85 U/L (0-40); Albumin Level 4.5 g/dL (3.5-5.0); Alkaline Phosphatase 104 U/L (39-117); Anion Gap 15 (12-20); Aspartate Amino Transferase 53 U/L (5-37); Bilirubin Direct 0.1 mg/dL (0.0-0.5); Bilirubin Total 0.3 mg/dL (0.0-1.0); Blood Urea Nitrogen 11 mg/dL (9-16); Calcium 8.8 mg/dL (8.4-10.2); Carbon Dioxide 28 mmol/L (22-29); Chloride 103 mmol/L (96-108); Creatinine Clr Calc Pharmacy 151.7; Estimated Glomerular Filt Rate > 60; Ethanol < 10 mg/dL; Glucose Random 106 mg/dL (60-115); Magnesium 2.1 mg/dL (1.6-2.6); Potassium 4.5 mmol/L (3.3-5.1); Sodium 141 mmol/L (135-145); Total Protein 7.9 g/dL (6.5-8.0)
[2024-09-20 21:57] LABS: Basophils Absolute Auto 0.1 X10*3/uL (0.0-0.2); Basophils Percent Auto 0.8 % (0-2); Eosinophils Absolute Auto 0.2 X10*3/uL (0.0-0.4); Eosinophils Percent Auto 3.8 % (0-4); Hematocrit 47.9 % (42.0-52.0); Hemoglobin 15.7 g/dl (14.0-18.0); Imm Gran Abs Auto 0.02 X10*3/uL (0.00-0.03); Imm Gran Pct Auto 0.3 % (0.0-0.4); Lymphocytes Absolute Auto 0.9 X10*3/uL (1.2-4.9); Lymphocytes Percent Auto 14.5 % (20-40); Mean Corpuscular HGB Conc 32.8 g/dl (31.0-36.0); Mean Corpuscular Hemoglobin 29.2 pg (27.0-33.0); Mean Platelet Volume 10.3 fL (9.4-12.4); Monocytes Absolute Auto 1.1 X10*3/uL (0.1-1.2); Monocytes Percent Auto 17.7 % (2-11); Neutrophils Absolute Auto 3.8 x10*3/uL (2.0-8.3); Neutrophils Percent Auto 62.9 % (45-73); Platelet Count 312 X10*3/uL (160-400); Red Blood Count 5.38 X10*6/uL (4.60-5.80); Red Cell Distribution Width 12.7 % (11.0-16.0)
[2024-09-20 22:02] LABS: Troponin-I High Sensitivity < 2.7 ng/L (<3.5-35.0)
[2024-09-20 22:48] VITALS: BP 122/78; PULSE 90; RESP 16; TEMP 36.8; O2SAT 97
--- NOTE | 2024-09-20 22:49 | MHC.EDTECH ---
Patient came in from the waiting area,changed into hospital attire,vitals taken,attempted to get a urine sample,patient stated I cant give a urine right now , T/W made the RN aware
[2024-09-20] MEDS: LORazepam 2 MG/ML VIAL 1 MG IVPUSH (23:01)
[2024-09-20] MEDS: ondansetron HCL 4 MG/2 ML VIAL IVPUSH (23:01)
[2024-09-20] MEDS: Lactated Ringers 1,000 ML 999 ML IV (23:02)
--- NOTE | 2024-09-20 23:10 | MHC.EDTECH ---
Sars/Flu/RSV obtained and sent to lab
[2024-09-20 23:53] LABS: Influenza A PCR POSITIVE (Negative); Influenza B PCR NEGATIVE (Negative); Resp Syncy Virus RNA Qual PCR NEGATIVE (Negative); SARS COV2 PCR INHOUSE NEGATIVE (Negative)
[2024-09-21 00:56] VITALS: BP 122/78; PULSE 90; RESP 16; TEMP 36.8; O2SAT 97
[2024-09-21 00:58] VITALS: PULSE 90
== END 2024-09-21 01:00 | disposition home or self-care (01) ==
PROVIDERS: Physician Assistant Medical; Emergency Provider Emergency Medicine; PCP Nurse Practitioner Family
DX: J10.1 Influenza due to other identified influenza virus with other respiratory manifestations (principal); R06.02 Shortness of breath; R11.2 Nausea with vomiting, unspecified; Z03.818 Encounter for observation for suspected exposure to other biological agents ruled out
CPT/HCPCS: 0241U; 36415; 80048; 80076; 80307; 83735; 84484; 85025; 93005; 96361; 96374; 96375; 99285; J2060; J2405; J7120

== ENCOUNTER → 2024-09-20 20:15 | Outpatient (BNV) | payer OTHER, SELFPAY | PROVIDERS: Emergency Provider Emergency Medicine; PCP Nurse Practitioner Family; Visit Provider Internal Medicine Cardiovascular Disease | DX: R06.02 Shortness of breath (principal) | CPT/HCPCS: 93010 ==

== ENCOUNTER 2024-09-24 07:17 | Emergency (ER) | payer OTHER, SELFPAY ==
--- NOTE | ~2024-09-24 | XR_ITS ---
EXAMINATION: XR CHEST CLINICAL INFORMATION: cough, fever COMPARISON: 04/06/2018. TECHNIQUE: Frontal view of the chest was obtained. FINDINGS: No significant abnormality is noted involving the heart, lungs, mediastinum, bony thorax or soft tissues. XR/XR chest 1V IMPRESSION: Normal chest. Electronically signed by: Colt Valera MD 09/24/2024 08:20 AM [facility]
--- NOTE | ~2024-09-24 | US_ITS ---
EXAMINATION: US ABDOMEN LIMITED HISTORY: RUQ pain TECHNIQUE: Real-time grayscale ultrasound imaging of the right upper quadrant was performed and images were reviewed. COMPARISON: Correlation is made with an unenhanced CT of the abdomen and pelvis dated 12/18/2023. FINDINGS: Liver: The liver is normal in size, but demonstrates increased echotexture, consistent with steatosis. There is a 6 x 7 x 6 mm echogenic focus in the right lobe which may represent a hemangioma. No intrahepatic biliary ductal dilatation is identified. There is normal hepatopedal flow in the portal vein. Gallbladder and biliary tree: The gallbladder is unremarkable, without evidence of calculi, wall thickening, or pericholecystic fluid. There is no sonographic Shaver sign. The common bile duct is normal in caliber measuring 2 mm. Right Kidney: The right kidney measures 12.2 cm in length and demonstrates mildly lobulated contours. The right kidney is otherwise unremarkable, without evidence of masses, hydronephrosis, or calculi. Pancreas: The pancreatic head, neck, and body are unremarkable. The pancreatic tail is obscured by bowel gas. Abdominal aorta and inferior vena cava: The visualized portions of the abdominal aorta and inferior vena cava are normal in caliber. There is no free fluid in the right upper quadrant. US/US abdomen limited IMPRESSION: Hepatic steatosis. 6 x 7 x 6 mm echogenic focus in the right lobe which may represent hemangioma. Follow-up is suggested. Electronically signed by: Bandar Goodwin MD 09/24/2024 12:54 PM [facility]
[2024-09-24 07:41] VITALS: BP 118/85; PULSE 84; RESP 16; TEMP 36.9; O2SAT 98; BMI 24.5
--- NOTE | 2024-09-24 08:27 | ED.NAVMDI ---
HPI - Nausea/Vomiting/Diarrhea General Chief complaint: Nausea/Vomiting/Diarrhea Stated complaint: vomiting Time Seen by Provider: 09/24/24 07:56 Source: patient and old records reviewed Mode of arrival: ambulatory Limitations: no limitations History of Present Illness ED Provider: HARSHAD VELIZ Narrative: 39 yo male with PMH of ADHD, chronic back pain, cocaine use disorder seen here about 4 days ago and dx with flu A he was sent home with zofran and he has been using it. He feels the flu body aches are gone but his stomach still hurts. He notes he felt better yesterday and tried to advance to solids - he ate soup and then tried a small portin of general tsos afterwards he felt bloated sick and vomited a significant amount at the end he noted brb x 1. This AM he still has burning in the throat and feels something is stuck. He is not on blood thinners has never had EGD and has never vomited blood MD elicited complaint: nausea, vomiting and abdominal pain Onset (ago): day(s) (4) Description of vomiting: watery and blood-streaked Associated nausea: Yes Associated abdominal pain: Yes Location of pain: epigastric Pain consistency: intermittent Severity: moderate Quality: other (burning) Exacerbating factors: eating Relieving factors: none Context: other (recent flu) Associated symptoms: fever/chills, loss of appetite, malaise and nausea/vomiting Related Data Home Medications ?Medication ?Instructions ?Recorded ?Confirmed biotin 1 mg capsule 1 mg PO DAILY 12/18/23 05/08/24 collagen,hydrolysate 500 mg-biotin 1 cap PO DAILY 12/18/23 05/08/24 800 mcg-ascorbic acid 50 mg capsule (Collagen 1500 Plus C) glutamine 500 mg tablet 500 mg PO DAILY 12/18/23 05/08/24 [id number] 0.4 mg-calcium 162 1 tab PO DAILY 12/18/23 05/08/24 mg-iron 18 dn-[id number]-[id number] tablet Previous Rx's ?Medication ?Instructions ?Recorded trazodone 150 mg tablet 150 mg PO BEDTIME #90 tabs 04/15/24 omeprazole 20 mg capsule,delayed 20 mg PO DAILY #10 caps 05/06/24 release ondansetron 4 mg disintegrating 4 mg PO Q8H PRN nausea and 09/05/24 tablet vomiting #20 tabs lisdexamfetamine 10 mg capsule 10 mg PO DAILY #30 caps 07/07/24 (Vyvanse) lisdexamfetamine 50 mg capsule 50 mg PO DAILY #30 caps 09/08/24 (Vyvanse) ondansetron 4 mg disintegrating 4 mg PO Q8H PRN nausea and 09/21/24 tablet vomiting #20 tabs metoclopramide HCl 10 mg tablet 10 mg PO Q8H PRN nausea and 09/24/24 (Reglan) vomiting #20 tabs omeprazole 40 mg capsule,delayed 40 mg PO BID #60 caps 09/24/24 release sucralfate 100 mg/mL oral 10 ml PO BID 10 days #200 mL 09/24/24 suspension (Carafate) Allergies Allergy/AdvReac Type Severity Reaction Status Date / Time No Known Allergies Allergy Verified 09/24/24 07:43 [No Known Allergies*] Review of Systems Review of Systems: Constitutional : No Weight loss, No Fever, No Chills ENT/Mouth : No sore throat, No Rhinorrhea Eyes: No Swelling, No Redness Cardiovascular : No Chest Pain, No SOB, NoEdema Respiratory : No Cough, No Sputum, No Wheezing Gastrointestinal : Positive Nausea, Positive Vomiting, no Diarrhea, positive abdominal Pain, No Hematochezia, No Melena Genitourinary : No Dysuria, No Urinary Frequency, No Hematuria, No Urgency Musculoskeletal : No joint pain, No Myalgias, No Joint Swelling Skin : No Skin Lesions, No rash Neuro : No Weakness, No Numbness, No Dizziness, No Headache Psych : No Anxiety/Panic, No Depression All other systems reviewed and are negative. Gastrointestinal: Gastrointestinal: Reports nausea PMFSH Past Medical History Attestation statement: The following information was validated with the patient. Source: old records reviewed Medical History Back pain ADHD Cocaine use Stimulant use disorder Inguinal hernia Surgical History Hx of cystoscopy H/O hernia repair Status post ligament repair History of appendectomy Family History Family History Other Mental health disorder Substance use disorder Social History Social History (Reviewed 09/24/24 @ 08:43 by EFRAIN Whalen Household Members: None Housing: House Do you presently have visiting nurse or other home services: No Alcohol intake: former Patient Tobacco Use Status: Current everyday Tobacco user Tobacco use type: Cigarette Cigarettes Per Day: 10 Years Smoked: 20 Smoked in Last 30 Days: Yes e-Cigarette/Vaping Use: Never Used Second Hand Smoke Exposure: No Use of substances other than those prescribed or required for medical reasons: Yes Substance Use Type: Crack/Cocaine Substance Use Frequency: Monthly Advance Directives: No Advance Directives Information Provided: Yes Do you have a plan to hurt others: No Plan service: No Current occupational status: employed Cognitive needs: No Hearing needs: No Vision needs: No Physical Exam Vital Signs: Vital Signs: Last Vital Signs Temp 97.9 F 09/24/24 12:45 Pulse 66 09/24/24 12:45 Resp 14 09/24/24 12:45 BP 117/71 09/24/24 12:45 Pulse Ox 97 09/24/24 12:45 O2 Del Method Room Air 09/24/24 12:45 BMI result Body Mass Index 24.5 Appearance: Alert. Oriented X3. No acute distress. Eyes: Pupils equal, round and reactive to light. ENT: Pharynx normal. Neck: Normal inspection. Neck supple. CVS: Normal heart rate and rhythm. Pulses normal. Respiratory: No respiratory distress. Breath sounds normal. Abdomen: Soft and nontender. Skin: Skin warm and dry. Normal skin color. Normal skin turgor. Extremities: No lower extremity edema. No calf ttp Neuro: Oriented X 3. No motor deficit. No sensory deficit. CN2-12 intact Medications Administered Discontinued Medications Generic Name Dose Route Start Last Admin Trade Name Freq PRN Reason Stop Dose Admin Al Hydroxide/Mg Hydroxide 15 ml 09/24/24 13:18 09/24/24 13:56 Magnesium Hydrox/Alum Hydrox 30 Ml Oral.Susp PO 09/24/24 13:19 15 ml ONCE ONE Administration Diphenhydramine HCl 25 mg 09/24/24 07:56 09/24/24 08:33 Diphenhydramine Hcl 50 Mg/Ml Vial IVPUSH 09/24/24 07:57 25 mg ONCE ONE Administration Lactated Ringer's 1,000 mls @ 999 mls/hr 09/24/24 07:56 09/24/24 09:53 Lr IV 09/24/24 08:56 Infused .Q1H1M ONE Infusion Lidocaine HCl 15 ml 09/24/24 13:18 09/24/24 13:56 Lidocaine Hcl Viscous 2 % 15 Ml Solution MUCOUS MEM 09/24/24 13:19 15 ml ONCE ONE Administration Metoclopramide HCl 10 mg 09/24/24 07:56 09/24/24 08:33 Metoclopramide Hcl 10 Mg/2 Ml Vial IVPUSH 09/24/24 07:57 10 mg ONCE ONE Administration Morphine Sulfate 4 mg 09/24/24 11:48 09/24/24 12:27 Morphine Sulfate 4 Mg/Ml Cartridge IVPUSH 09/24/24 11:49 4 mg ONCE ONE Administration Protocol Pantoprazole Sodium 40 mg 09/24/24 07:56 09/24/24 08:33 Pantoprazole Sodium 40 Mg/10 Ml Vial IVPUSH 09/24/24 07:57 40 mg ONCE ONE Administration Sucralfate 1 gm 09/24/24 13:18 09/24/24 13:56 Sucralfate Oral Suspension 1 Gm/10 Ml Oral.Susp PO 09/24/24 13:19 1 gm ONCE ONE Administration Medical Decision Making Medical Decision Making MDM Narrative: 39 yo male with PMH of ADHD, chronic back pain, cocaine use disorder seen here about 4 days ago and dx with flu A now here with initial improvement but now c/o n/v and vomited blood after sig emesis. At this time he reports hx of GERD he has overall benign exam I suspect MW tear vs gastritis. Basic labs, IVF, IV protonix. Will likely repeat CBC while he is monitored here. Differential Diagnosis Differential Diagnoses: The differential diagnosis associated with the presentation includes gastritis, MW tear, n/v, dehydration, substance abuse Admission/Observation Consideration of admission/observation: Escalation of care including admission/observation considered repeat CBC normal at this time no vomiting/diarrhea he feels better after medications. stable for DC on PPI BID, carafate and GI referral number he notes his GERD symptoms are not bad Lab Data [facility] Lab Attestation statement: I reviewed the patient's lab results. 09/24/24 11:08 09/24/24 08:25 Labs: Lab Results 09/24/24 09/24/24 09/24/24 Range/Units 08:25 10:45 11:08 WBC 4.3 L 4.8 (4.8-10.8) X10*3/uL RBC 5.06 4.99 (4.60-5.80) X10*6/uL Hgb 14.9 14.5 (14.0-18.0) g/dl Hct 44.2 43.6 (42.0-52.0) % MCV 87.4 87.4 (80.0-98.0) fL MCH 29.4 29.1 (27.0-33.0) pg MCHC 33.7 33.3 (31.0-36.0) g/dl RDW 12.5 12.3 (11.0-16.0) % Plt Count 259 256 (160-400) X10*3/uL MPV 10.4 10.3 (9.4-12.4) fL Immature Gran % (Auto) 0.2 (0.0-0.4) % Neut % (Auto) 37.2 L (45-73) % Lymph % (Auto) 41.2 H (20-40) % [place]ole % (Auto) 17.7 H (2-11) % Eos % (Auto) 3.2 (0-4) % Baso % (Auto) 0.5 (0-2) % Lymph # (Auto) 1.8 (1.2-4.9) X10*3/uL [place]ole # (Auto) 0.8 (0.1-1.2) X10*3/uL Eos # (Auto) 0.1 (0.0-0.4) X10*3/uL Baso # (Auto) 0.0 (0.0-0.2) X10*3/uL Abs Immat Gran (auto) 0.01 (0.00-0.03) X10*3/uL Absolute Neuts (auto) 1.6 L (2.0-8.3) x10*3/uL Absolute Nucleated RBC 0.000 0.000 (0.0-0.012) X10*3/uL Nucleated RBC % (auto) 0.0 0.0 (0.0-0.2) /100WBC Sodium 142 (135-145) mmol/L Potassium 4.5 (3.3-5.1) mmol/L Chloride 104 (96-108) mmol/L Carbon Dioxide 32 H (22-29) mmol/L Anion Gap 11 L (12-20) BUN 10 (9-16) mg/dL Creatinine 0.71 (0.5-1.4) mg/dL Estim Creat Clear Calc 162.4 Estimated GFR > 60 Fasting Glucose 104 H (60-99) mg/dL Calcium 9.0 (8.4-10.2) mg/dL Total Bilirubin 0.4 (0.0-1.0) mg/dL Direct Bilirubin 0.2 (0.0-0.5) mg/dL AST 30 (5-37) U/L ALT 35 (0-40) U/L Alkaline Phosphatase 86 (39-117) U/L Total Protein 7.2 (6.5-8.0) g/dL Albumin 4.1 (3.5-5.0) g/dL Lipase 15 (8-78) U/L Urine Color Yellow Urine Appearance Clear Urine pH 8.5 (5.0-9.0) Ur Specific [place] 1.010 (1.005-1.025) Urine Protein Negative (Neg-Trace) mg/dL Urine Glucose (UA) Negative (Negative) mg/dL Urine Ketones Negative (Negative) mg/dL Urine Blood Negative (Negative) Urine Nitrite Negative (Negative) Ur Leukocyte Esterase Negative (Negative) Urine RBC 0-2 (0-2) /HPF Urine WBC 0-5 (0-5) /HPF Ur Squamous Epith Cells 0-2 (0-2) /HPF Urine Bacteria None Seen (None Seen) Hyaline Casts 0-2 (0-2) /LPF Urine Opiates Screen Not Detected (Not Detect) Ur Buprenorphine Scrn Not Detected (Not Detect) ng/mL Ur Oxycodone Screen Not Detected (Not Detect) ng/mL Urine Methadone Screen Not Detected (Not Detect) ng/mL Urine Fentanyl Screen Not Detected (Not Detect) Ur Barbiturates Screen Not Detected (Not Detect) Ur Phencyclidine Scrn Not Detected (Not Detect) Ur Amphetamines Screen Not Detected (Not Detect) U Benzodiazepines Scrn POSITIVE H (Not Detect) Urine Cocaine Screen POSITIVE H (Not Detect) U Marijuana (THC) Screen Not Detected (Not Detect) Ethyl Alcohol < 10 mg/dL Independent Interpretation I performed an independent interpretation of an: Ultrasound (normal gallbladder) Radiology Impression Discussion of test interpretation with radiology: I have reviewed the radiologist's reading. External Record Review External record reviewed: Outpatient record Prescription Management I considered prescription management with: Other Discharge Plan Discharge Clinical Impression: Patricia-Freedman tear Gastritis Qualifiers: Gastritis type: unspecified gastritis Chronicity: acute Gastritis bleeding: with bleeding Qualified Code(s): K29.01 - Acute gastritis with bleeding Nausea & vomiting Qualifiers: Vomiting type: unspecified Qualified Code(s): R11.2 - Nausea with vomiting, unspecified Patient Disposition: Home, Self-Care Instructions: Gastritis (ED), Acute Nausea and Vomiting (ED), Patricia-Freedman Syndrome (ED) Additional Instructions: tylenol is okay but AVOID motrin, naprosyn, aleve return for inability to eat or drink or any other concerns next dose of carafate at dinner next antacid dose at bedtime call GI doctor Friday for appointment Prescriptions: New metoclopramide HCl [Reglan] 10 mg tablet 10 mg PO Q8H PRN (Reason: nausea and vomiting) Qty: 20 0RF omeprazole 40 mg capsule,delayed release(DR/EC) 40 mg PO BID Qty: 60 0RF sucralfate [Carafate] 100 mg/mL suspension 10 ml PO BID 10 Days Qty: 200 0RF No Action trazodone 150 mg tablet 150 mg PO BEDTIME Qty: 90 1RF glutamine 500 mg Tablet 500 mg PO DAILY [id number]-LQ-Hc-Gn-uonndzz-lutein 0.4-162-18 mg Tablet 1 tab PO DAILY biotin 1 mg Capsule 1 mg PO DAILY Collagen 1500 Plus C 500 mg-800 mcg- 50 mg Capsule 1 cap PO DAILY ondansetron 4 mg tablet,disintegrating 4 mg PO Q8H PRN (Reason: nausea and vomiting) Qty: 20 0RF omeprazole 20 mg capsule,delayed release(DR/EC) 20 mg PO DAILY Qty: 10 0RF ondansetron 4 mg tablet,disintegrating 4 mg PO Q8H PRN (Reason: nausea and vomiting) Qty: 20 0RF lisdexamfetamine [Vyvanse] 10 mg capsule 10 mg PO DAILY Qty: 30 0RF Rx Instructions: in addition to 50mg daily lisdexamfetamine [Vyvanse] 50 mg capsule 50 mg PO DAILY Qty: 30 0RF Rx Instructions: Partial Fill upon patient request. Referrals: [facility] [place] [facility] [Provider Group] Stand Alone Forms: Work/School Release Print Language: Citizen Of [place]
[2024-09-24 08:28] LABS: MANUAL DIFF FLAG NO
[2024-09-24 08:30] LABS: Basophils Percent Auto 0.5 % (0-2); Eosinophils Absolute Auto 0.1 X10*3/uL (0.0-0.4); Eosinophils Percent Auto 3.2 % (0-4); Hematocrit 44.2 % (42.0-52.0); Hemoglobin 14.9 g/dl (14.0-18.0); Imm Gran Abs Auto 0.01 X10*3/uL (0.00-0.03); Imm Gran Pct Auto 0.2 % (0.0-0.4); Lymphocytes Absolute Auto 1.8 X10*3/uL (1.2-4.9); Lymphocytes Percent Auto 41.2 % (20-40); Mean Corpuscular HGB Conc 33.7 g/dl (31.0-36.0); Mean Corpuscular Hemoglobin 29.4 pg (27.0-33.0); Mean Corpuscular Volume 87.4 fL (80.0-98.0); Mean Platelet Volume 10.4 fL (9.4-12.4); Monocytes Absolute Auto 0.8 X10*3/uL (0.1-1.2); Monocytes Percent Auto 17.7 % (2-11); Neutrophils Absolute Auto 1.6 x10*3/uL (2.0-8.3); Neutrophils Percent Auto 37.2 % (45-73); Platelet Count 259 X10*3/uL (160-400); Red Blood Count 5.06 X10*6/uL (4.60-5.80); Red Cell Distribution Width 12.5 % (11.0-16.0); White Blood Count 4.3 X10*3/uL (4.8-10.8)
[2024-09-24] MEDS: Pantoprazole Sodium 40 MG/10 ML VIAL IVPUSH (08:33)
[2024-09-24] MEDS: Metoclopramide HCl 10 MG/2 ML VIAL IVPUSH (08:33)
[2024-09-24] MEDS: diphenhydrAMINE HCL 50 MG/ML VIAL 25 MG IVPUSH (08:33)
[2024-09-24] MEDS: Lactated Ringers 1,000 ML 999 ML IV (08:34)
[2024-09-24 08:43] LABS: Anion Gap 11 (12-20); Blood Urea Nitrogen 10 mg/dL (9-16); Carbon Dioxide 32 mmol/L (22-29); Chloride 104 mmol/L (96-108); Creatinine Clr Calc Pharmacy 162.4; Estimated Glomerular Filt Rate > 60; Glucose Fasting 104 mg/dL (60-99); Lipase 15 U/L (8-78); Potassium 4.5 mmol/L (3.3-5.1); Sodium 142 mmol/L (135-145)
[2024-09-24 08:47] LABS: Alanine Aminotransferase 35 U/L (0-40); Albumin Level 4.1 g/dL (3.5-5.0); Aspartate Amino Transferase 30 U/L (5-37); Bilirubin Direct 0.2 mg/dL (0.0-0.5); Bilirubin Total 0.4 mg/dL (0.0-1.0); Ethanol < 10 mg/dL; Total Protein 7.2 g/dL (6.5-8.0)
--- NOTE | 2024-09-24 09:11 | MHC.EDTECH ---
Patient aware urine sample is needed. Urinal at bedside.
[2024-09-24 10:37] VITALS: BP 109/72; PULSE 66; RESP 16; TEMP 36.7; O2SAT 98
[2024-09-24 10:53] LABS: Appearance Urine Clear; Color Urine Yellow; Glucose Urine UA Negative (Negative); Leukocyte Esterase Urine Negative (Negative); Nitrite Urine Negative (Negative); PH 8.5 (5.0-9.0); Urine Blood Negative (Negative); Urine Ketones Negative (Negative); Urine Protein Negative (Neg-Trace)
[2024-09-24 10:55] LABS: Bacteria Urine None Seen (None Seen); Hyaline Casts Urine 0-2 /LPF (0-2); RBC Urine 0-2 /HPF (0-2); Squamous Epithelial Cell Urine 0-2 /HPF (0-2); WBC Urine 0-5 /HPF (0-5)
[2024-09-24 11:03] LABS: Amphetamine Screen Urine Not Detected (Not Detect); Barbiturates, Urine Not Detected (Not Detect); Benzodiazepines Screen Urine POSITIVE (Not Detect); Buprenorphine Scr Not Detected (Not Detect); Cannabinoid Screen Urine Not Detected (Not Detect); Cocaine Screen Urine POSITIVE (Not Detect); Fentanyl, urine Not Detected (Not Detect); Methadone Screen, Urine Not Detected (Not Detect); Opiate Screen Urine Not Detected (Not Detect); Oxycodone Screen Urine Not Detected (Not Detect); Phencyclidine Screen Urine Not Detected (Not Detect)
[2024-09-24 11:16] LABS: Hematocrit 43.6 % (42.0-52.0); Hemoglobin 14.5 g/dl (14.0-18.0); Mean Corpuscular HGB Conc 33.3 g/dl (31.0-36.0); Mean Corpuscular Hemoglobin 29.1 pg (27.0-33.0); Mean Corpuscular Volume 87.4 fL (80.0-98.0); Mean Platelet Volume 10.3 fL (9.4-12.4); Platelet Count 256 X10*3/uL (160-400); Red Blood Count 4.99 X10*6/uL (4.60-5.80); Red Cell Distribution Width 12.3 % (11.0-16.0); White Blood Count 4.8 X10*3/uL (4.8-10.8)
--- NOTE | 2024-09-24 11:39 | MHC.EDTECH ---
PO trial with saltines and gingerale. Patient agreeable and currently eating a saltine.
[2024-09-24] MEDS: Morphine Sulfate 4 MG/ML CARTRIDGE IVPUSH (12:27)
[2024-09-24 12:45] VITALS: BP 117/71; PULSE 66; RESP 14; TEMP 36.6; O2SAT 97
[2024-09-24] MEDS: Magnesium Hydrox/Alum Hydrox 30 ML ORAL.SUSP 15 ML PO (13:56)
[2024-09-24] MEDS: Lidocaine HCl Viscous 2 % 15 ML SOLUTION MUCOUS MEM (13:56)
[2024-09-24] MEDS: Sucralfate Oral Suspension 1 GM/10 ML ORAL.SUSP PO (13:56)
[2024-09-24 14:08] LABS: Alkaline Phosphatase 86 U/L (39-117)
[2024-09-24 14:39] VITALS: BP 113/62; PULSE 67; RESP 16; TEMP 36.6; O2SAT 95
[2024-09-24 14:54] VITALS: BP 113/62; PULSE 67; RESP 16; TEMP 36.6; O2SAT 95
== END 2024-09-24 14:55 | disposition home or self-care (01) ==
PROVIDERS: Emergency Provider Emergency Medicine; PCP Nurse Practitioner Family
DX: K22.6 Gastro-esophageal laceration-hemorrhage syndrome (principal); K29.01 Acute gastritis with bleeding; R11.2 Nausea with vomiting, unspecified; M79.10 Myalgia, unspecified site; R10.11 Right upper quadrant pain; R50.9 Fever, unspecified; R05.9 Cough, unspecified; Z51.81 Encounter for therapeutic drug level monitoring; Z79.899 Other long term (current) drug therapy
CPT/HCPCS: 36415; 71045; 76705; 80048; 80076; 80307; 81001; 83690; 85025; 85027; 96361; 96374; 96375; 99284; J1200; J2270; J2470; J2765; J7120

== ENCOUNTER → 2024-09-24 07:56 | Outpatient (BNV) | payer OTHER, SELFPAY | PROVIDERS: Emergency Provider Emergency Medicine; PCP Nurse Practitioner Family; Visit Provider Radiology Diagnostic Radiology | DX: R10.11 Right upper quadrant pain (principal); R05.9 Cough, unspecified | CPT/HCPCS: 71045; 76705 ==

== ENCOUNTER 2024-09-27 15:53 | Outpatient (AMB) | payer OTHER, SELFPAY ==
--- NOTE | 2024-09-27 16:17 | A.OFFVISCC_ITS ---
Intake Visit Reasons: MAT Office- Walk in Allergies No Known Allergies [No Known Allergies*] Allergy (Verified 09/24/24 07:43) HPI HPI MAT Office- Walk in: Details: Patient presents as a walk in for follow up Recently in detox for cocaine use in ED last week with Flu A and Patricia busch tear Started omeprazole and carafate Has been attending AA several days per week--is enjoying it Reports cocaine use 2x in the last 2 weeks Review of Systems Const Reports as per HPI Psych Reports anxiety and Reports difficulty concentrating Physical Exam Const General: cooperative and healthy appearing Nutritional Appearance: average body habitus Orientation/consciousness: patient oriented x3 Neuro General: patient oriented x3 Psych Speech and movement: Clear speech present and Pressured speech present Affect: normal affect and Animated affect present Attitude: cooperative [facility], [facility] Medical History Back pain ADHD Cocaine use Stimulant use disorder Inguinal hernia Surgical History Hx of cystoscopy H/O hernia repair Status post ligament repair History of appendectomy Family History Other Mental health disorder Substance use disorder Social History Household Members: None Housing: House Do you presently have visiting nurse or other home services: No Alcohol intake: former Patient Tobacco Use Status: Current everyday Tobacco user Tobacco use type: Cigarette Cigarettes Per Day: 10 Years Smoked: 20 e-Cigarette/Vaping Use: Never Used Second Hand Smoke Exposure: No Substance Use Type: Crack/Cocaine service: No Current occupational status: employed Cognitive needs: No Hearing needs: No Vision needs: No Assessment & Plan Assessment & Plan (1) Alcohol use disorder, severe, dependence: Code(s): F10.20 - Alcohol dependence, uncomplicated Category: Medical Plan: * risk reduciton discussion (2) Cocaine use disorder: Code(s): F14.10 - Cocaine abuse, uncomplicated Category: Medical Plan: * risk reduction discussion (3) ADHD (attention deficit hyperactivity disorder), predominantly hyperactive impulsive type: Code(s): F90.1 - Attention-deficit hyperactivity disorder, predominantly hyperactive type Category: Medical Plan: * refilled vyvanse
--- OUTSIDE RECORDS SUMMARY | 2024-09-27 19:40 | XMS_ITS | Clinical Summary ---
Author Organization [facility] [employer] [facility] lin Address [address] [place] [address] Care Team Providers Care Ict Business Development Manager Name Role Phone No, Pcp OPTIC FIBRE DRAWER Primary Care Provider Unavailabl e Allergies No known active allergies Medications NEXIUM 40 mg capsule TAKE ONE CAPSULE BY MOUTH EVERY DAY 3 09/09/2016 Active Social History Tobacco Use Types Packs/Day Years Used Date Smoking Tobacco: Every Day Cigarettes Tobacco Cessation:Ready to Q uit: No Sex and Gender Information Value Date Recorded Sex Assigned at Not on file Legal Sex Male 9:49 AM EDT Gender Identity Not on file Sexual Orientation Not on file Last Filed Vital Signs Vital Sign Reading Time Taken Comments Blood Pressure 122/78 11/16/2016 10:27 AM EDT Pulse 84 11/16/2016 10:27 AM EDT Temperature - - Respiratory Rate 12 11/16/2016 10:27 AM EDT Oxygen Saturation 98% 11/16/2016 10:27 AM EDT Inhaled Oxygen Concentration - - Weight 89.4 kg (197 lb) 11/16/2016 10:27 AM EDT Height 185.4 cm (6' 1 ) 11/16/2016 10:27 AM EDT Body Mass Index 25.99 11/16/2016 10:27 AM EDT Plan of Treatment Health Maintenance Due Date Last Done Comments Depression: Screening Annual ly using PHQ-2/9 in Adults 18 yrs or above (or HM Modifier)([facility]) 2003 Hepatitis C Virus Infection in Adolescents and Adults: Screening (or Modifier) ([facility]) 2003 SDOH Screening Reminder: Beverly kelly for all adults ([facility]) 2003 Tobacco Smoking Cessation: i n Adults excluding Women: Behavioral and Pharmacotherapy Interventions ([facility]) 2003 DTaP/Tdap/Td Vaccines ([facility]) (1 - Tdap) 2004 Lipid Screening: Every 5 yrs for Men aged 35+ (or HM Modifier) ([facility]) 2021 Flu Vaccination: Yearly for ages 18mos through 64 years (or Modifier)([facility]) 04/01/2024 COVID-19 Vaccine Screening: Initial Series and Booster Status ([facility]) (2023- season) 2024 Zoster/Shingles Vaccine Seri es Screening: Adults aged 18+ yrs (or HM Modifiers)([facility]) (1 of 2) 2035 Pneumococcal Vaccination Scr eening: Pts 0-19 & 19-64 yrs of age ([facility]) Aged Out No longer eligible based on patient's age to complete this topic Medical Devices Not on file Care Teams Ict Business Development Manager Relationship Specialty Start Date End Date No, Pcp, OPTIC FIBRE DRAWER N/A Do not use PCP - General 05/31/20
== END 2024-09-27 16:42 | disposition home or self-care (01) ==
LOC: HO.HCC 15:53
PROVIDERS: PCP Nurse Practitioner Family; Visit Provider Nurse Practitioner Psychiatric/Mental Health
DX: F10.20 Alcohol dependence, uncomplicated (principal); F14.10 Cocaine abuse, uncomplicated; F90.1 Attention-deficit hyperactivity disorder, predominantly hyperactive type
CPT/HCPCS: 99214

== ENCOUNTER → 2024-09-27 15:53 | Outpatient (BNVA) | payer OTHER, SELFPAY | PROVIDERS: PCP Nurse Practitioner Family; Visit Provider Nurse Practitioner Psychiatric/Mental Health | DX: F10.20 Alcohol dependence, uncomplicated (principal); F14.10 Cocaine abuse, uncomplicated; F90.1 Attention-deficit hyperactivity disorder, predominantly hyperactive type; Z51.81 Encounter for therapeutic drug level monitoring; Z79.899 Other long term (current) drug therapy | CPT/HCPCS: 99212 ==

== ENCOUNTER → 2024-10-06 08:12 | Outpatient (BNVA) | payer OTHER, SELFPAY | PROVIDERS: PCP Nurse Practitioner Family; Visit Provider Nurse Practitioner Family | DX: Z00.00 Encounter for general adult medical examination without abnormal findings (principal); M25.531 Pain in right wrist | CPT/HCPCS: 99395 ==

== ENCOUNTER 2024-10-08 06:36 | Outpatient (REF) | payer OTHER, SELFPAY ==
[2024-10-08 10:36] LABS: MANUAL DIFF FLAG NO
[2024-10-08 10:42] LABS: Basophils Absolute Auto 0.1 X10*3/uL (0.0-0.2); Basophils Percent Auto 0.9 % (0-2); Eosinophils Absolute Auto 0.3 X10*3/uL (0.0-0.4); Eosinophils Percent Auto 4.1 % (0-4); Hematocrit 44.7 % (42.0-52.0); Hemoglobin 14.8 g/dl (14.0-18.0); Imm Gran Abs Auto 0.02 X10*3/uL (0.00-0.03); Imm Gran Pct Auto 0.3 % (0.0-0.4); Lymphocytes Absolute Auto 2.8 X10*3/uL (1.2-4.9); Lymphocytes Percent Auto 40.8 % (20-40); Mean Corpuscular HGB Conc 33.1 g/dl (31.0-36.0); Mean Corpuscular Hemoglobin 28.8 pg (27.0-33.0); Mean Corpuscular Volume 87.1 fL (80.0-98.0); Mean Platelet Volume 11.1 fL (9.4-12.4); Monocytes Absolute Auto 0.7 X10*3/uL (0.1-1.2); Monocytes Percent Auto 9.6 % (2-11); Neutrophils Percent Auto 44.3 % (45-73); Platelet Count 360 X10*3/uL (160-400); Red Blood Count 5.13 X10*6/uL (4.60-5.80); White Blood Count 6.8 X10*3/uL (4.8-10.8)
[2024-10-08 10:57] LABS: Appearance Urine Turbid; Color Urine Dark Yellow; Glucose Urine UA Negative (Negative); Leukocyte Esterase Urine Negative (Negative); Nitrite Urine Negative (Negative); PH 5.5 (5.0-9.0); Specific Gravity - Urine 1.025 (1.005-1.025); Urine Blood Negative (Negative); Urine Ketones Negative (Negative); Urine Protein Negative (Neg-Trace)
[2024-10-08 11:38] LABS: Alanine Aminotransferase 25 U/L (0-40); Albumin Level 4.2 g/dL (3.5-5.0); Alkaline Phosphatase 75 U/L (39-117); Anion Gap 9 (12-20); Aspartate Amino Transferase 27 U/L (5-37); Bilirubin Total 0.6 mg/dL (0.0-1.0); Blood Urea Nitrogen 14 mg/dL (9-16); Calcium 9.5 mg/dL (8.4-10.2); Carbon Dioxide 28 mmol/L (22-29); Chloride 104 mmol/L (96-108); Cholesterol 148 mg/dL (<200); Estimated Glomerular Filt Rate > 60; Glucose Fasting 91 mg/dL (60-99); HDL Cholesterol 39 mg/dL (>40); LDL Cholesterol Calculated 83 mg/dL (<100); Potassium 3.4 mmol/L (3.3-5.1); Sodium 138 mmol/L (135-145); Total Protein 7.4 g/dL (6.5-8.0); Triglycerides 132 mg/dL (<150)
[2024-10-08 11:42] LABS: TSH reflex Free T4 1.56 uIU/mL (0.32-4.0)
== END 2024-10-08 06:37 | disposition home or self-care (01) ==
LOC: HO.HMGCLDS 06:36
PROVIDERS: PCP Nurse Practitioner Family; Visit Provider Nurse Practitioner Family
DX: Z00.00 Encounter for general adult medical examination without abnormal findings (principal)
CPT/HCPCS: 36415; 80053; 80061; 81003; 84443; 85025

== ENCOUNTER 2024-10-13 09:57 | Inpatient (IN) | payer OTHER, SELFPAY ==
[2024-10-13] VITALS (22 sets, daily range): BP systolic 78–107; BP diastolic 41–65; PULSE 84–124; RESP 13–21; TEMP 36.9–37.3; O2SAT 90–99; BMI 25.0
--- NOTE | ~2024-10-13 | CT_ITS ---
EXAMINATION: CT ABDOMEN AND PELVIS WITH CONTRAST CLINICAL INFORMATION: Diarrhea, fever, vomiting, weight loss. COMPARISON: 12/18/2023, 11/06/2021. TECHNIQUE: Multidetector volumetric images were obtained from the superior aspect of the liver through the pubic symphysis following administration 85 mL of Omnipaque 350 intravenous contrast. Sagittal and coronal reformatted images were obtained on the technologist's workstation. Oral contrast: No This CT examination was performed using dose optimization techniques as appropriate, variously including the following: *Automated exposure control *Adjustment of mA and/or kV according to patient size (this includes techniques or standardized protocols for targeted exams where dose is matched to indication/reason for exam; i.e. extremities or head) *Use of iterative reconstruction technique FINDINGS: LUNG BASES: Lung bases are clear. The heart size is normal. There is a small type I hiatus hernia. LIVER, GALLBLADDER, AND BILIARY TREE: Liver is normal in size and shape. Questionable minimal steatosis. No suspicious focal hepatic lesion or biliary ductal dilatation is present. Small 5 mm focus of enhancement in segment 8 medially is consistent with a small flash filling hemangioma. The gallbladder is unremarkable with no evidence of radiopaque gallstones, gallbladder wall thickening, or obvious pericholecystic inflammatory changes. PANCREAS: Unremarkable. SPLEEN: Unremarkable. ADRENAL GLANDS: Unremarkable. KIDNEYS AND URETERS: The kidneys are normal in size, shape, and attenuation. No hydronephrosis, hydroureter, or calculi seen. No perinephric stranding. BLADDER: Decompressed. No gross abnormality. GASTROINTESTINAL TRACT: -Mild wall thickening of the descending and sigmoid colon is present, with apparent rectal sparing. In addition, the remainder of the colon demonstrates submucosal fat deposition, which can coincide with inflammatory bowel disease. There are a few scattered left colonic diverticula. No gross pericolonic inflammation present. -The small bowel is normal in caliber and course. No abnormal dilatation or wall thickening. No definite terminal ileal abnormality. -Small type I hiatus hernia. -The stomach is normal. The duodenum appears normal. -There is no evidence of appendicitis. ABDOMINAL WALL: No significant hernia is appreciated. LYMPH NODES: No enlarged lymph nodes by size criteria. VASCULAR: Unremarkable. PELVIC VISCERA: The prostate and seminal vesicles are unremarkable. OSSEOUS STRUCTURES: Normal without evidence of suspicious lesion. SI joints are normal. There is mild disc degeneration L5-S1. CT/CT abdomen pelvis w IV con IMPRESSION: 1. Mild perceived wall thickening of the distal and sigmoid colon with rectal sparing. In addition, the remainder of the colon demonstrates mild submucosal fat deposition, which can be seen in conjunction with inflammatory bowel disease. Grossly no pericolonic inflammation seen. Would correlate for signs and symptoms of colitis/inflammatory bowel disease. 2. A few scattered colonic diverticula. 3. Small type I hiatus hernia. Electronically signed by: Colt Valera MD 10/13/2024 12:16 PM [facility]
--- NOTE | ~2024-10-13 | XR_ITS ---
EXAMINATION: XR CHEST CLINICAL INFORMATION: cough COMPARISON: September 24, 2024 TECHNIQUE: Frontal view of the chest was obtained. FINDINGS: No hyperinflation. Bilateral apical lung scarring. No consolidation, pleural effusion or pneumothorax. Cardiomediastinal silhouette size is normal. Multilevel thoracic spondylosis. XR/XR chest 1V IMPRESSION: No acute airspace disease. Electronically signed by: Jorden More MD 10/13/2024 11:45 AM [facility]
--- NOTE | 2024-10-13 10:29 | ECG_ITS ---
Test Reason : vomiting Blood Pressure : */* mmHG Vent. Rate : 104 BPM Atrial Rate : 104 BPM P-R Int : 130 ms QRS Dur : 84 ms QT Int : 370 ms P-R-T Axes : 43 48 37 degrees QTcB Int : 486 ms Sinus tachycardia Otherwise normal ECG When compared with ECG of 20-Sep-2024 21:31, QT has lengthened Referred By: Comfort Pedersen Electronically Signed By: PILAR HART MD
[2024-10-13] MEDS: Lactated Ringers 1,000 ML 999 ML IV ×3 (10:56→11:27)
--- NOTE | 2024-10-13 10:57 | ED.NAVMDI ---
HPI - Nausea/Vomiting/Diarrhea General Chief complaint: Nausea/Vomiting/Diarrhea Stated complaint: Multiple Complaints Time Seen by Provider: 10/13/24 10:29 Source: patient and old records reviewed Mode of arrival: ambulatory Limitations: no limitations History of Present Illness ED Provider: HARSHAD VELIZ Narrative: 39 yo male with PMH of ADHD, chronic back pain, cocaine use disorder here with c/o recurrent bouts of vomiting, epigastric pain, now with diarrhea and incontinence of stool - he has not been able to see a GI doctor. Last time he was seen was in September and he was started on carafate which helped but last two days he has been very sick. Negative ultrasound at that time. He rarely drinks and is not using drugs. He reports no GIB symptoms. He has had a cough as well. He tries to drink but vomits. No travel, no recent abx use. He takes no NSAIDs. MD elicited complaint: nausea, vomiting, diarrhea and abdominal pain Onset (ago): month(s) Description of vomiting: watery Description of diarrhea: watery Associated nausea: Yes Associated abdominal pain: Yes Location of pain: epigastric Radiation: epigastric Pain consistency: constant Severity: moderate Quality: aching Exacerbating factors: eating Relieving factors: none Associated symptoms: fever/chills, loss of appetite, malaise, nausea/vomiting, weakness and fecal incontinence Treatment prior to arrival: other OTC medicine Related Data Home Medications ?Medication ?Instructions ?Recorded ?Confirmed collagen,hydrolysate 500 mg-biotin 1 cap PO DAILY 12/18/23 10/13/24 800 mcg-ascorbic acid 50 mg capsule (Collagen 1500 Plus C) [id number] 0.4 mg-calcium 162 1 tab PO DAILY 12/18/23 10/13/24 mg-iron 18 on-qjpmeto-rdyquy tablet omeprazole 40 mg capsule,delayed 40 mg PO BID@0630,1630 10/13/24 10/13/24 release trazodone 150 mg tablet 150 mg PO BEDTIME PRN Sleep 10/13/24 10/13/24 Previous Rx's ?Medication ?Instructions ?Recorded ondansetron 4 mg disintegrating 4 mg PO Q8H PRN nausea and 09/21/24 tablet vomiting #20 tabs lisdexamfetamine 10 mg capsule 10 mg PO DAILY #30 caps 09/27/24 (Vyvanse) lisdexamfetamine 50 mg capsule 50 mg PO DAILY #30 caps 09/27/24 (Vyvanse) betamethasone dipropionate 0.05 % 1 appl topical BID PRN skin 10/06/24 topical cream irritation #45 grams Allergies Allergy/AdvReac Type Severity Reaction Status Date / Time No Known Allergies Allergy Verified 10/13/24 10:09 [No Known Allergies*] Review of Systems Review of Systems: Constitutional : No Weight loss, No Fever, pos Chills ENT/Mouth : No sore throat, No Rhinorrhea Eyes: No Swelling, No Redness Cardiovascular : No Chest Pain, No SOB, NoEdema Respiratory : No Cough, No Sputum, No Wheezing Gastrointestinal : Positive Nausea, Positive Vomiting, positive Diarrhea, positive abdominal Pain, No Hematochezia, No Melena Genitourinary : No Dysuria, No Urinary Frequency, No Hematuria, No Urgency Musculoskeletal : No joint pain, No Myalgias, No Joint Swelling Skin : No Skin Lesions, No rash Neuro : No Weakness, No Numbness, No Dizziness, No Headache All other systems reviewed and are negative. Gastrointestinal: Gastrointestinal: Reports nausea PMFSH Past Medical History Attestation statement: The following information was validated with the patient. Source: old records reviewed Medical History Back pain ADHD Cocaine use Stimulant use disorder Inguinal hernia Surgical History Hx of cystoscopy H/O hernia repair Status post ligament repair History of appendectomy Family History Family History (Reviewed 10/06/24 @ 08:[address] [facility] [place]) Other Mental health disorder Substance use disorder Social History Social History Household Members: None Housing: House Do you presently have visiting nurse or other home services: No Alcohol intake: former Patient Tobacco Use Status: Current everyday Tobacco user Tobacco use type: Cigarette Cigarettes Per Day: 10 Years Smoked: 20 e-Cigarette/Vaping Use: Never Used Second Hand Smoke Exposure: No Substance Use Type: Crack/Cocaine Advance Directives: No Advance Directives Information Provided: Yes Do you have a plan to hurt others: No Plan service: No Current occupational status: employed Cognitive needs: No Hearing needs: No Vision needs: Yes Physical Exam Vital Signs: Vital Signs: Last Vital Signs Temp 98.7 F 10/13/24 10:05 Pulse 89 10/13/24 15:26 Resp 16 10/13/24 15:26 BP 102/61 10/13/24 15:26 Pulse Ox 97 10/13/24 15:26 O2 Del Method Room Air 10/13/24 15:26 O2 Flow Rate 2 10/13/24 13:06 BMI result Body Mass Index 25.0 Appearance: Alert. Oriented X3. No acute distress. Eyes: Pupils equal, round and reactive to light. ENT: Pharynx very dry MM Neck: Normal inspection. Neck supple. CVS: Normal heart rate and rhythm. Pulses normal. Respiratory: No respiratory distress. Breath sounds normal. Abdomen: Soft and moderate epigastric ttp neg welch's sign Skin: Skin warm and dry. Normal skin color. Normal skin turgor. Extremities: No lower extremity edema. No calf ttp Neuro: Oriented X 3. No motor deficit. No sensory deficit. CN2-12 intact Course Course Course Narrative: on oxymask very sleepy after compazine - he has received IVF and will continue on rate his BP is responding easily woken sats > 92% pupils are not pinpoint added on IV flagyl for colitis Reevaluation(s) Reevaluation #1: focused exam for sepsis performed at 3pm Reevaluation #2: 409pm patient does not have septic shock BP 102/61 responded to IVF resuscitation Medications Administered Generic Name Dose Route Start Last Admin Trade Name Freq PRN Reason Stop Dose Admin Lactated Ringer's 1,000 mls @ 100 mls/hr 10/13/24 14:00 10/13/24 15:07 Lr IVCONT 100 mls/hr .Q10H CRICKET Administration Discontinued Medications Generic Name Dose Route Start Last Admin Trade Name Freq PRN Reason Stop Dose Admin Ceftriaxone Sodium 1 gm 10/13/24 10:53 10/13/24 11:02 Ceftriaxone Sodium 1 Gm Vial IVPUSH 10/13/24 10:54 1 gm ONCE ONE Administration Magnesium Sulfate 2 gm in 50 mls @ 25 mls/hr 10/13/24 10:29 10/13/24 12:40 Magnesium Sulfate/H2o IV 10/13/24 12:28 Infused ONCE ONE Infusion Lactated Ringer's 1,000 mls @ 999 mls/hr 10/13/24 10:29 10/13/24 11:57 Lr IV 10/13/24 11:29 Infused .Q1H1M ONE Infusion Lactated Ringer's 1,000 mls @ 999 mls/hr 10/13/24 10:30 10/13/24 11:57 Lr IV 10/13/24 11:30 Infused .Q1H1M ONE Infusion Lactated Ringer's 1,000 mls @ 999 mls/hr 10/13/24 10:51 10/13/24 12:28 Lr IV 10/13/24 11:51 Infused .Q1H1M ONE Infusion Acetaminophen 1,000 mg in 100 mls @ 400 mls/hr 10/13/24 10:53 10/13/24 11:17 Ofirmev IV 10/13/24 11:07 Infused ONCE ONE Infusion Metronidazole 500 mg in 100 mls @ 100 mls/hr 10/13/24 13:54 10/13/24 15:01 Flagyl IV 10/13/24 14:53 100 mls/hr ONCE ONE Administration Iohexol 100 ml 10/13/24 11:52 10/13/24 11:52 Iohexol 350 Mg/Ml 100 Ml Infus..Btl IV 10/13/24 11:53 85 ml ONCE ONE Administration Pantoprazole Sodium 40 mg 10/13/24 10:29 10/13/24 11:03 Pantoprazole Sodium 40 Mg/10 Ml Vial IVPUSH 10/13/24 10:30 40 mg ONCE ONE Administration Prochlorperazine Edisylate 10 mg 10/13/24 10:51 10/13/24 11:03 Prochlorperazine Edisylate 10 Mg/2 Ml Vial IVPUSH 10/13/24 10:52 10 mg ONCE ONE Administration Medical Decision Making Medical Decision Making MDM Narrative: 39 yo male with PMH of ADHD, chronic back pain, cocaine use disorder here with c/o epigastric pain, n/v/d and not feeling well for 2 days he has tachycardia, softer BPs and oral temp 99.5 at this time I am going to order 3L of IVF, qtc is 486 I will order magnesium, labs, cultures, lactic acid and start on compazine and protonix. Given the diarrhea I have ordered CT scan for possible colitis and ordered stool studies along with empiric ceftriaxone. Could be colitis, viral syndrome, ABBY, dehydration, infectious diarrhea. Differential Diagnosis Differential Diagnoses: The differential diagnosis associated with the presentation includes colitis, viral syndrome, ABBY, dehydration, infectious diarrhea. Admission/Observation Consideration of admission/observation: Escalation of care including admission/observation considered given n/v diarrhea colitis and low BPs will admit for further work up Consult Healthcare Provider Management of the patient was discussed with: Hospitalist (will admit) Lab Data MDM Lab Attestation statement: I reviewed the patient's lab results. 10/13/24 11:06 10/13/24 10:58 Labs: Lab Results 10/13/24 10/13/24 10/13/24 Range/Units 10:58 10:59 11:06 WBC 13.6 H (4.8-10.8) X10*3/uL RBC 5.43 (4.60-5.80) X10*6/uL Hgb 15.6 (14.0-18.0) g/dl Hct 46.4 (42.0-52.0) % MCV 85.5 (80.0-98.0) fL MCH 28.7 (27.0-33.0) pg MCHC 33.6 (31.0-36.0) g/dl RDW 12.0 (11.0-16.0) % Plt Count 352 (160-400) X10*3/uL MPV 10.2 (9.4-12.4) fL Immature Gran % (Auto) 0.5 H (0.0-0.4) % Neut % (Auto) 89.4 H (45-73) % Lymph % (Auto) 4.0 L (20-40) % [place] % (Auto) 4.9 (2-11) % Eos % (Auto) 1.0 (0-4) % Baso % (Auto) 0.2 (0-2) % Lymph # (Auto) 0.6 L (1.2-4.9) X10*3/uL [place] # (Auto) 0.7 (0.1-1.2) X10*3/uL Eos # (Auto) 0.1 (0.0-0.4) X10*3/uL Baso # (Auto) 0.0 (0.0-0.2) X10*3/uL Abs Immat Gran (auto) 0.07 H (0.00-0.03) X10*3/uL Absolute Neuts (auto) 12.2 H (2.0-8.3) x10*3/uL Absolute Nucleated RBC 0.000 (0.0-0.012) X10*3/uL Nucleated RBC % (auto) 0.0 (0.0-0.2) /100WBC Sodium 137 (135-145) mmol/L Potassium 3.9 (3.3-5.1) mmol/L Chloride 98 (96-108) mmol/L Carbon Dioxide 27 (22-29) mmol/L Anion Gap 16 (12-20) BUN 22 H (9-16) mg/dL Creatinine 0.85 (0.5-1.4) mg/dL Estim Creat Clear Calc 135.6 Estimated GFR > 60 Random Glucose 102 (60-115) mg/dL Lactic Acid 1.3 (0.5-2.0) mmol/L Calcium 9.5 (8.4-10.2) mg/dL Magnesium 1.8 (1.6-2.6) mg/dL Total Bilirubin 1.2 H (0.0-1.0) mg/dL Direct Bilirubin 0.3 (0.0-0.5) mg/dL AST 29 (5-37) U/L ALT 34 (0-40) U/L Alkaline Phosphatase 92 (39-117) U/L Total Protein 8.5 H (6.5-8.0) g/dL Albumin 4.6 (3.5-5.0) g/dL Lipase 15 (8-78) U/L Urine Color Urine Appearance Urine pH (5.0-9.0) Ur Specific [place] (1.005-1.025) Urine Protein (Neg-Trace) mg/dL Urine Glucose (UA) (Negative) mg/dL Urine Ketones (Negative) mg/dL Urine Blood (Negative) Urine Nitrite (Negative) Ur Leukocyte Esterase (Negative) Urine Opiates Screen (Not Detect) Ur Buprenorphine Scrn (Not Detect) ng/mL Ur Oxycodone Screen (Not Detect) ng/mL Urine Methadone Screen (Not Detect) ng/mL Urine Fentanyl Screen (Not Detect) Ur Barbiturates Screen (Not Detect) Ur Phencyclidine Scrn (Not Detect) Ur Amphetamines Screen (Not Detect) U Benzodiazepines Scrn (Not Detect) Urine Cocaine Screen (Not Detect) U Marijuana (THC) Screen (Not Detect) Ethyl Alcohol < 10 mg/dL 10/13/24 Range/Units 15:08 WBC (4.8-10.8) X10*3/uL RBC (4.60-5.80) X10*6/uL Hgb (14.0-18.0) g/dl Hct (42.0-52.0) % MCV (80.0-98.0) fL MCH (27.0-33.0) pg MCHC (31.0-36.0) g/dl RDW (11.0-16.0) % Plt Count (160-400) X10*3/uL MPV (9.4-12.4) fL Immature Gran % (Auto) (0.0-0.4) % Neut % (Auto) (45-73) % Lymph % (Auto) (20-40) % [place] % (Auto) (2-11) % Eos % (Auto) (0-4) % Baso % (Auto) (0-2) % Lymph # (Auto) (1.2-4.9) X10*3/uL [place] # (Auto) (0.1-1.2) X10*3/uL Eos # (Auto) (0.0-0.4) X10*3/uL Baso # (Auto) (0.0-0.2) X10*3/uL Abs Immat Gran (auto) (0.00-0.03) X10*3/uL Absolute Neuts (auto) (2.0-8.3) x10*3/uL Absolute Nucleated RBC (0.0-0.012) X10*3/uL Nucleated RBC % (auto) (0.0-0.2) /100WBC Sodium (135-145) mmol/L Potassium (3.3-5.1) mmol/L Chloride (96-108) mmol/L Carbon Dioxide (22-29) mmol/L Anion Gap (12-20) BUN (9-16) mg/dL Creatinine (0.5-1.4) mg/dL Estim Creat Clear Calc Estimated GFR Random Glucose (60-115) mg/dL Lactic Acid (0.5-2.0) mmol/L Calcium (8.4-10.2) mg/dL Magnesium (1.6-2.6) mg/dL Total Bilirubin (0.0-1.0) mg/dL Direct Bilirubin (0.0-0.5) mg/dL AST (5-37) U/L ALT (0-40) U/L Alkaline Phosphatase (39-117) U/L Total Protein (6.5-8.0) g/dL Albumin (3.5-5.0) g/dL Lipase (8-78) U/L Urine Color Yellow Urine Appearance Clear Urine pH 8.0 (5.0-9.0) Ur Specific [place] >= 1.030 H (1.005-1.025) Urine Protein Negative (Neg-Trace) mg/dL Urine Glucose (UA) Negative (Negative) mg/dL Urine Ketones Negative (Negative) mg/dL Urine Blood Negative (Negative) Urine Nitrite Negative (Negative) Ur Leukocyte Esterase Negative (Negative) Urine Opiates Screen Not Detected (Not Detect) Ur Buprenorphine Scrn Not Detected (Not Detect) ng/mL Ur Oxycodone Screen Not Detected (Not Detect) ng/mL Urine Methadone Screen Not Detected (Not Detect) ng/mL Urine Fentanyl Screen Not Detected (Not Detect) Ur Barbiturates Screen Not Detected (Not Detect) Ur Phencyclidine Scrn Not Detected (Not Detect) Ur Amphetamines Screen Not Detected (Not Detect) U Benzodiazepines Scrn Not Detected (Not Detect) Urine Cocaine Screen POSITIVE H (Not Detect) U Marijuana (THC) Screen Not Detected (Not Detect) Ethyl Alcohol mg/dL Independent Interpretation I performed an independent interpretation of an: EKG and CT Scan (colitis) Interpretation: Rate: 104 Rhythm: sinus tachycardia [place]: normal Normal P waves. Normal TOMAS. Normal QRS complex. ST T wave : no LISA, nonspecific ST T wave changes ant leads but suspect artifact qTC: 486 prior studies: no acute ischemia The study has been interpreted contemporaneously by me. . Radiology Impression Discussion of test interpretation with radiology: I have reviewed the radiologist's reading. External Record Review External record reviewed: Outpatient record and Prior outpatient radiology Critical Care Time Critical Care Time Critical Care Time: Yes Total Critical Care Time: 60 Attestation: IVF x 3L, IV magnesium, review of records, admission I attest to this time spent taking care of the patient Discharge Plan Discharge Clinical Impression: Colitis, Nausea vomiting and diarrhea Patient Disposition: Admitted As Inpatient Print Language: Wallisian
[2024-10-13] MEDS: cefTRIAXone sodium 1 GM VIAL IVPUSH (11:02)
[2024-10-13] MEDS: Magnesium Sulfate/H2O 2 GM/50 ML PIGGYBACK IV (11:02)
[2024-10-13] MEDS: Acetaminophen 1,000 MG/100 ML PIGGYBACK 400 MG IV (11:02)
[2024-10-13] MEDS: Pantoprazole Sodium 40 MG/10 ML VIAL IVPUSH (11:03)
[2024-10-13] MEDS: Prochlorperazine Edisylate 10 MG/2 ML VIAL IVPUSH (11:03)
[2024-10-13 11:09] LABS: MANUAL DIFF FLAG NO
[2024-10-13 11:15] LABS: Basophils Percent Auto 0.2 % (0-2); Eosinophils Absolute Auto 0.1 X10*3/uL (0.0-0.4); Hematocrit 46.4 % (42.0-52.0); Hemoglobin 15.6 g/dl (14.0-18.0); Imm Gran Abs Auto 0.07 X10*3/uL (0.00-0.03); Imm Gran Pct Auto 0.5 % (0.0-0.4); Lymphocytes Absolute Auto 0.6 X10*3/uL (1.2-4.9); Mean Corpuscular HGB Conc 33.6 g/dl (31.0-36.0); Mean Corpuscular Hemoglobin 28.7 pg (27.0-33.0); Mean Corpuscular Volume 85.5 fL (80.0-98.0); Mean Platelet Volume 10.2 fL (9.4-12.4); Monocytes Absolute Auto 0.7 X10*3/uL (0.1-1.2); Monocytes Percent Auto 4.9 % (2-11); Neutrophils Absolute Auto 12.2 x10*3/uL (2.0-8.3); Neutrophils Percent Auto 89.4 % (45-73); Platelet Count 352 X10*3/uL (160-400); Red Blood Count 5.43 X10*6/uL (4.60-5.80); White Blood Count 13.6 X10*3/uL (4.8-10.8)
[2024-10-13 11:29] LABS: Alanine Aminotransferase 34 U/L (0-40); Albumin Level 4.6 g/dL (3.5-5.0); Alkaline Phosphatase 92 U/L (39-117); Anion Gap 16 (12-20); Aspartate Amino Transferase 29 U/L (5-37); Bilirubin Direct 0.3 mg/dL (0.0-0.5); Bilirubin Total 1.2 mg/dL (0.0-1.0); Blood Urea Nitrogen 22 mg/dL (9-16); Calcium 9.5 mg/dL (8.4-10.2); Carbon Dioxide 27 mmol/L (22-29); Chloride 98 mmol/L (96-108); Creatinine Clr Calc Pharmacy 135.6; Estimated Glomerular Filt Rate > 60; Ethanol < 10 mg/dL; Glucose Random 102 mg/dL (60-115); Lipase 15 U/L (8-78); Magnesium 1.8 mg/dL (1.6-2.6); Potassium 3.9 mmol/L (3.3-5.1); Sodium 137 mmol/L (135-145); Total Protein 8.5 g/dL (6.5-8.0)
[2024-10-13 11:36] LABS: Lactic Acid 1.3 mmol/L (0.5-2.0)
[2024-10-13] MEDS: iohexoL 350 MG/ML 100 ML INFUS..BTL IV (11:52)
[2024-10-13] MEDS: metroNIDAZOLE/NS 500 MG/100 ML PIGGYBACK 100 MG IV ×2 (15:01→22:52)
[2024-10-13] MEDS: Lactated Ringers 1,000 ML 100 ML IVCONT (15:07)
[2024-10-13 15:16] LABS: Appearance Urine Clear; Color Urine Yellow; Glucose Urine UA Negative (Negative); Leukocyte Esterase Urine Negative (Negative); Nitrite Urine Negative (Negative); Specific Gravity - Urine >= 1.030 (1.005-1.025); Urine Blood Negative (Negative); Urine Ketones Negative (Negative); Urine Protein Negative (Neg-Trace)
--- NOTE | 2024-10-13 15:23 | P.HPHOSP_ITS ---
History of Present Illness Date of Service: 10/13/24 Attending physician on admission: [facility] Chief Complaint: Abdominal pain Pt is a 39-year-old male with a PMH significant for?chronic back pain, ADHD, and cocaine use disorder who presents to the ED with?intractable nausea, vomiting, diarrhea times 2-3 days. Pt reports has had intermittent episodes of N/V/D for the past few months. This is patient's 3rd presentation to the ED in the past month for similar symptoms. Also reports subjective fever and chills, as well as lethargy and generalized weakness. Has been experiencing epigastric pain associated with nausea, vomiting, and cough. Has not been able to tolerate solid foods since vomiting started, those attempted to drink water and protein shakes. Denies chest pain/pressure, palpitations. No hematochezia or melena. Has been unable to see GI outpatient yet. Pt with long hx of heavy cocaine use, reports has cut back drastically the past year and is now using around once weekly, last used yesterday. Reports only dirnks alcohol when uses cocaine. In the ED pt was tachycardic up to 112, tachypneic up to 21, and hypotension as low as 78/44. Labs were significant for leukocytosis 13.6, and T bili mildly elevated at 1.2, otherwise grossly unremarkable. Stable H&H. No electrolyte abnormalities. Renal function WNL. Lactic acid WNL. Hepatic function WNL. UA negative for UTI. Tox screen positive for cocaine. CXR showed no acute airspace disease. CT?of abdomen and pelvis concerning for colitis vs inflammatory bowel disease. EKG demonstrated sinus tachycardia of 104 without evidence of significant ST elevations or depressions. Pt was treated with Mag sulfate, acetaminophen, Protonix, IVF, Compazine, ceftriaxone, and metronidazole. Pt will be admitted to the hospital for treatment and further evaluation of intractable nausea, vomiting, and diarrhea in the setting of colitis vs IBD. Review of Systems 2 Review of Systems: Negative except for that which is stated in the [facility] Medical History Back pain ADHD Cocaine use Stimulant use disorder Inguinal hernia Family History Other Mental health disorder Substance use disorder Surgical History Hx of cystoscopy H/O hernia repair Status post ligament repair History of appendectomy Social History Household Members: None Housing: House Do you presently have visiting nurse or other home services: No Alcohol intake: current Alcohol intake frequency: a few times a week Alcohol type: wine and hard liquor Patient Tobacco Use Status: Current everyday Tobacco user Tobacco use type: Cigarette Cigarettes Per Day: 10 Years Smoked: 20 Smoked in Last 30 Days: No e-Cigarette/Vaping Use: Never Used Second Hand Smoke Exposure: No Use of substances other than those prescribed or required for medical reasons: Yes Substance Use Type: Crack/Cocaine Advance Directives: No Advance Directives Information Provided: Yes Do you have a plan to hurt others: No Plan service: No Current occupational status: employed Cognitive needs: No Hearing needs: No Vision needs: Yes Meds Allergies Allergy/AdvReac Type Severity Reaction Status Date / Time No Known Allergies Allergy Verified 10/13/24 10:09 [No Known Allergies*] Active Medications: Current Medications Lactated Ringer's (Lr) 1,000 mls @ 100 mls/hr IVCONT .Q10H CRICKET Last Admin: 10/13/24 15:07 Dose: 100 mls/hr Home Medications ?Medication ?Instructions ?Recorded ?Confirmed ?Last Taken ?Type collagen,hydrolysate 500 mg-biotin 1 cap PO DAILY 12/18/23 10/13/24 12/17/23 History 800 mcg-ascorbic acid 50 mg capsule (Collagen 1500 Plus C) xdynxrwa-ugh-LZ 0.4 mg-calcium 162 1 tab PO DAILY 12/18/23 10/13/24 12/17/23 History mg-iron 18 ei-tbzxsdj-wtntpy tablet omeprazole 40 mg capsule,delayed 40 mg PO BID@0630,1630 10/13/24 10/13/24 Unknown History release trazodone 150 mg tablet 150 mg PO BEDTIME PRN Sleep 10/13/24 10/13/24 Unknown History Physical Exam 2 Vital Signs and Narrative: Vital Signs: Last Vital Signs Temp 98.7 F 10/13/24 10:05 Pulse 98 10/13/24 13:57 Resp 17 10/13/24 13:57 BP 94/51 L 10/13/24 13:57 Pulse Ox 90 L 10/13/24 13:57 O2 Del Method Nasal Cannula 10/13/24 13:57 O2 Flow Rate 2 10/13/24 13:06 BMI result Body Mass Index 25.0 General: AOx3, no acute distress Resp: CTA bilaterally CVS: S1, S2, regularl rate, tachycardic GI: +BS, with epigastric tenderness Skin: Warm, dry Neuro: Cranial nerves II-XII grossly intact bilaterally. Motor grossly intact bilaterally Extremities: No edema Psych: Appropriate affect Results Labs 10/14/24 05:12 10/14/24 05:13 Labs: Laboratory Results - last 24 hr 10/13/24 10/13/24 10/13/24 10:58 10:59 11:06 MCV 85.5 MCH 28.7 MCHC 33.6 RDW 12.0 Plt Count 352 MPV 10.2 Immature Gran % (Auto) 0.5 H Neut % (Auto) 89.4 H Lymph % (Auto) 4.0 L [place] % (Auto) 4.9 Eos % (Auto) 1.0 Baso % (Auto) 0.2 Lymph # (Auto) 0.6 L [place] # (Auto) 0.7 Eos # (Auto) 0.1 Baso # (Auto) 0.0 Abs Immat Gran (auto) 0.07 H Absolute Neuts (auto) 12.2 H Absolute Nucleated RBC 0.000 Nucleated RBC % (auto) 0.0 Anion Gap 16 Estim Creat Clear Calc 135.6 Estimated GFR > 60 Random Glucose 102 Lactic Acid 1.3 Calcium 9.5 Magnesium 1.8 Total Bilirubin 1.2 H Direct Bilirubin 0.3 AST 29 ALT 34 Alkaline Phosphatase 92 Total Protein 8.5 H Albumin 4.6 Lipase 15 Urine Color Urine Appearance Urine pH Ur Specific [place] Urine Protein Urine Glucose (UA) Urine Ketones Urine Blood Urine Nitrite Ur Leukocyte Esterase Ethyl Alcohol < 10 10/13/24 15:08 MCV MCH MCHC RDW Plt Count MPV Immature Gran % (Auto) Neut % (Auto) Lymph % (Auto) [place] % (Auto) Eos % (Auto) Baso % (Auto) Lymph # (Auto) [place] # (Auto) Eos # (Auto) Baso # (Auto) Abs Immat Gran (auto) Absolute Neuts (auto) Absolute Nucleated RBC Nucleated RBC % (auto) Anion Gap Estim Creat Clear Calc Estimated GFR Random Glucose Lactic Acid Calcium Magnesium Total Bilirubin Direct Bilirubin AST ALT Alkaline Phosphatase Total Protein Albumin Lipase Urine Color Yellow Urine Appearance Clear Urine pH 8.0 Ur Specific [place] >= 1.030 H Urine Protein Negative Urine Glucose (UA) Negative Urine Ketones Negative Urine Blood Negative Urine Nitrite Negative Ur Leukocyte Esterase Negative Ethyl Alcohol Imaging Radiologist's Impressions: Impressions Chest X-Ray 10/13/24 11:23 IMPRESSION: No acute airspace disease. Electronically signed by: Jorden More MD 10/13/2024 11:45 AM EST RP Abdomen/Pelvis CT 10/13/24 11:47 IMPRESSION: 1. Mild perceived wall thickening of the distal and sigmoid colon with rectal sparing. In addition, the remainder of the colon demonstrates mild submucosal fat deposition, which can be seen in conjunction with inflammatory bowel disease. Grossly no pericolonic inflammation seen. Would correlate for signs and symptoms of colitis/inflammatory bowel disease. 2. A few scattered colonic diverticula. 3. Small type I hiatus hernia. Electronically signed by: Colt Valera MD 10/13/2024 12:16 PM EST RP Assessment and Plan (1) Nausea vomiting and diarrhea: Status: Acute Plan Pt is a 39-year-old male with a PMH significant for?chronic back pain, ADHD, and cocaine use disorder who presents to the ED with?intractable nausea, vomiting, diarrhea times 2-3 days. Pt will be admitted to the hospital for treatment and further evaluation of intractable nausea, vomiting, and diarrhea in the setting of colitis vs IBD. Intractable nausea, vomiting, diarrhea CT of abdomen/pelvis concerning for colitis vs IBD Current symptoms include epigastric abdominal pain associated with vomiting, ongoing x2-3 days Has been experiencing intermittent episodes for the past few months, multiple ED presentations for similar symptoms, unable to see GI outpatient Pt meets SIRS criteria with tachycardia, tachypnea, and leukocytosis; lactic acid WNL Pt received IVF and started on broad-spectrum antibiotics in the ED Will empirically cover for possible bacterial colitis with ceftriaxone and Flagyl, started 10/13/2024 Protonix 40 IV daily, antiemetics Check GI panel, C diff GI consult Clear liquid diet Follow BMP Cocaine use disorder Last used yesterday Reports he uses around once a week Addiction medicine consult Full Code Attending:?Dr. Mlapah DVT Prophylaxis: Pneumatic compression due to possible EGD or colonoscopy Pt will require a hospitalization of at least two nights for treatment of?intractable nausea, vomiting, diarrhea concerning for colitis vs IBD. Pt requires empiric treatment IV antibiotics, IV antiemetics, and specialist consultation with GI for possible scoping. Quality Stroke Does the patient have a stroke diagnosis?: No VTE Prior VTE?: No VTE Risk Level:: Medical - moderate - high VTE Device Contraindication: N/A - Device Ordered VTE Drug Contraindication: Treatment Not Indicated
[2024-10-13 15:26] LABS: Amphetamine Screen Urine Not Detected (Not Detect); Barbiturates, Urine Not Detected (Not Detect); Benzodiazepines Screen Urine Not Detected (Not Detect); Buprenorphine Scr Not Detected (Not Detect); Cannabinoid Screen Urine Not Detected (Not Detect); Cocaine Screen Urine POSITIVE (Not Detect); Fentanyl, urine Not Detected (Not Detect); Methadone Screen, Urine Not Detected (Not Detect); Opiate Screen Urine Not Detected (Not Detect); Oxycodone Screen Urine Not Detected (Not Detect); Phencyclidine Screen Urine Not Detected (Not Detect)
--- NOTE | 2024-10-13 15:58 | PHA.MEDREC ---
Addendum entered by Dany Martin 10/13/24 16:33: reviewed Original Note: Pharmacy Consult ? Medication Reconciliation Pharmacy has completed the medication reconciliation. Spoke with patient and he confirmed his medications. He states he has not started taking the Baclofen 10mg tab yet. He confirmed he stopped taking the Metoclopramide 10mg tab due to not finding any relief from it. He confirmed he has some of the Ondansetron 4mg tab but states he has not been able to take them that much due to having a hard time opening the package. He states he took some medications this morning but was not sure at the time which ones he took at this time.
[2024-10-14] MEDS: Lactated Ringers 1,000 ML 100 ML IVCONT (00:12)
[2024-10-14 03:09] VITALS: RESP 20
[2024-10-14 03:56] VITALS: BP 99/53; PULSE 89; RESP 20
[2024-10-14 06:01] LABS: Anion Gap 11 (12-20); Blood Urea Nitrogen 9 mg/dL (9-16); Calcium 8.3 mg/dL (8.4-10.2); Carbon Dioxide 25 mmol/L (22-29); Chloride 106 mmol/L (96-108); Estimated Glomerular Filt Rate > 60; Glucose Random 95 mg/dL (60-115); Potassium 3.6 mmol/L (3.3-5.1); Sodium 138 mmol/L (135-145)
[2024-10-14 06:06] VITALS: BP 100/66; PULSE 91; RESP 20; TEMP 36.4; O2SAT 96
[2024-10-14 06:14] LABS: Hematocrit 41.5 % (42.0-52.0); Hemoglobin 13.7 g/dl (14.0-18.0); Mean Corpuscular Hemoglobin 28.8 pg (27.0-33.0); Mean Corpuscular Volume 87.2 fL (80.0-98.0); Platelet Count 265 X10*3/uL (160-400); Red Blood Count 4.76 X10*6/uL (4.60-5.80); Red Cell Distribution Width 12.2 % (11.0-16.0)
[2024-10-14] MEDS: Pantoprazole Sodium 40 MG/10 ML VIAL IVPUSH (06:20)
[2024-10-14] MEDS: metroNIDAZOLE/NS 500 MG/100 ML PIGGYBACK 100 MG IV (06:20)
[2024-10-14 07:27] LABS: CDiff Gene PCR NEGATIVE (Negative)
--- NOTE | 2024-10-14 08:14 | P.PNIM_ITS ---
Subjective Subjective Date of Service: 10/14/24 Physical Exam 2 Vital Signs: Vital Signs: Last Vital Signs Temp 97.5 F 10/14/24 06:06 Pulse 91 10/14/24 06:06 Resp 20 10/14/24 06:06 BP 100/66 10/14/24 06:06 Pulse Ox 96 10/14/24 06:06 O2 Del Method Room Air 10/14/24 06:06 O2 Flow Rate 2 10/13/24 13:06 BMI result Body Mass Index 25.0 Objective Data Active Medications Acetaminophen (Acetaminophen 325 Mg Tablet) 650 mg PO Q6H PRN PRN Reason: Pain, Mild 1-3,fever,headache Calcium Carbonate (Calcium Carbonate 750 Mg Tab.Chew) 750 mg PO Q4H PRN PRN Reason: Heartburn Ceftriaxone Sodium (Ceftriaxone Sodium 1 Gm Vial) 1 gm IVPUSH Q24H [facility] Lactated Ringer's (Lr) 1,000 mls @ 100 mls/hr IVCONT .Q10H [facility] Last Admin: 10/14/24 00:12 Dose: 100 mls/hr Documented By: YARA Metronidazole (Flagyl) 500 mg in 100 mls @ 100 mls/hr IV Q8H [facility] Last Infusion: 10/14/24 07:20 Dose: Infused Documented By: CUCA Magnesium Hydroxide (Milk Of Magnesia 30 Ml Oral.Susp) 30 ml PO DAILY PRN PRN Reason: Constipation Melatonin (Melatonin 3 Mg Tablet) 6 mg PO BEDTIME PRN PRN Reason: Insomnia Multivitamins/Vitamin C (Multivitamin Tablet) 1 tab PO DAILY [facility] Last Admin: 10/14/24 07:35 Dose: Not Given Documented By: CUCA Non-Admin Reason: Nausea Ondansetron HCl (Ondansetron Hcl 4 Mg/2 Ml Vial) 4 mg IVPUSH Q8H PRN PRN Reason: Nausea and Vomiting Pantoprazole Sodium (Pantoprazole Sodium 40 Mg/10 Ml Vial) 40 mg IVPUSH DAILY@0630 [facility] Last Admin: 10/14/24 06:20 Dose: 40 mg Documented By: YARA Sodium Chloride (0.9 % Sodium Chloride Flush 3 Ml Syringe) 3 ml IVFLUSH QSHIFT [facility] Last Admin: 10/14/24 07:35 Dose: Not Given Documented By: CUCA Non-Admin Reason: IV Running Trazodone HCl (Trazodone Hcl 50 Mg Tablet) 150 mg PO BEDTIME PRN PRN Reason: Sleep Labs 10/14/24 05:12 10/14/24 05:13 Labs: Laboratory Results - last 24 hr 10/13/24 10/13/24 10/13/24 10:58 10:59 11:06 MCV 85.5 MCH 28.7 MCHC 33.6 RDW 12.0 Plt Count 352 MPV 10.2 Immature Gran % (Auto) 0.5 H Neut % (Auto) 89.4 H Lymph % (Auto) 4.0 L [place] % (Auto) 4.9 Eos % (Auto) 1.0 Baso % (Auto) 0.2 Lymph # (Auto) 0.6 L [place] # (Auto) 0.7 Eos # (Auto) 0.1 Baso # (Auto) 0.0 Abs Immat Gran (auto) 0.07 H Absolute Neuts (auto) 12.2 H Absolute Nucleated RBC 0.000 Nucleated RBC % (auto) 0.0 Anion Gap 16 Estim Creat Clear Calc 135.6 Estimated GFR > 60 Random Glucose 102 Lactic Acid 1.3 Calcium 9.5 Magnesium 1.8 Total Bilirubin 1.2 H Direct Bilirubin 0.3 AST 29 ALT 34 Alkaline Phosphatase 92 Total Protein 8.5 H Albumin 4.6 Lipase 15 Urine Color Urine Appearance Urine pH Ur Specific [place] Urine Protein Urine Glucose (UA) Urine Ketones Urine Blood Urine Nitrite Ur Leukocyte Esterase Urine Opiates Screen Ur Buprenorphine Scrn Ur Oxycodone Screen Urine Methadone Screen Urine Fentanyl Screen Ur Barbiturates Screen Ur Phencyclidine Scrn Ur Amphetamines Screen U Benzodiazepines Scrn Urine Cocaine Screen U Marijuana (THC) Screen Ethyl Alcohol < 10 C. difficile Tox B Gene 10/13/24 10/14/24 10/14/24 15:08 05:12 05:13 MCV 87.2 MCH 28.8 MCHC 33.0 RDW 12.2 Plt Count 265 MPV 11.0 Immature Gran % (Auto) Neut % (Auto) Lymph % (Auto) [place] % (Auto) Eos % (Auto) Baso % (Auto) Lymph # (Auto) [place] # (Auto) Eos # (Auto) Baso # (Auto) Abs Immat Gran (auto) Absolute Neuts (auto) Absolute Nucleated RBC 0.000 Nucleated RBC % (auto) 0.0 Anion Gap 11 L Estim Creat Clear Calc 189.0 Estimated GFR > 60 Random Glucose 95 Lactic Acid Calcium 8.3 L D Magnesium Total Bilirubin Direct Bilirubin AST ALT Alkaline Phosphatase Total Protein Albumin Lipase Urine Color Yellow Urine Appearance Clear Urine pH 8.0 Ur Specific [place] >= 1.030 H Urine Protein Negative Urine Glucose (UA) Negative Urine Ketones Negative Urine Blood Negative Urine Nitrite Negative Ur Leukocyte Esterase Negative Urine Opiates Screen Not Detected Ur Buprenorphine Scrn Not Detected Ur Oxycodone Screen Not Detected Urine Methadone Screen Not Detected Urine Fentanyl Screen Not Detected Ur Barbiturates Screen Not Detected Ur Phencyclidine Scrn Not Detected Ur Amphetamines Screen Not Detected U Benzodiazepines Scrn Not Detected Urine Cocaine Screen POSITIVE H U Marijuana (THC) Screen Not Detected Ethyl Alcohol C. difficile Tox B Gene 10/14/24 06:27 MCV MCH MCHC RDW Plt Count MPV Immature Gran % (Auto) Neut % (Auto) Lymph % (Auto) [place] % (Auto) Eos % (Auto) Baso % (Auto) Lymph # (Auto) [place] # (Auto) Eos # (Auto) Baso # (Auto) Abs Immat Gran (auto) Absolute Neuts (auto) Absolute Nucleated RBC Nucleated RBC % (auto) Anion Gap Estim Creat Clear Calc Estimated GFR Random Glucose Lactic Acid Calcium Magnesium Total Bilirubin Direct Bilirubin AST ALT Alkaline Phosphatase Total Protein Albumin Lipase Urine Color Urine Appearance Urine pH Ur Specific [place] Urine Protein Urine Glucose (UA) Urine Ketones Urine Blood Urine Nitrite Ur Leukocyte Esterase Urine Opiates Screen Ur Buprenorphine Scrn Ur Oxycodone Screen Urine Methadone Screen Urine Fentanyl Screen Ur Barbiturates Screen Ur Phencyclidine Scrn Ur Amphetamines Screen U Benzodiazepines Scrn Urine Cocaine Screen U Marijuana (THC) Screen Ethyl Alcohol C. difficile Tox B Gene NEGATIVE Assessment and Plan Plan Pt is a 39-year-old male with a PMH significant for?chronic back pain, ADHD, and cocaine use disorder who presents to the ED with?intractable nausea, vomiting, diarrhea times 2-3 days. Pt will be admitted to the hospital for treatment and further evaluation of intractable nausea, vomiting, and diarrhea in the setting of colitis vs IBD. Intractable nausea, vomiting, diarrhea CT of abdomen/pelvis concerning for colitis vs IBD Current symptoms include epigastric abdominal pain associated with vomiting, ongoing x2-3 days Has been experiencing intermittent episodes for the past few months, multiple ED presentations for similar symptoms, unable to see GI outpatient Pt meets SIRS criteria with tachycardia, tachypnea, and leukocytosis; lactic acid WNL Pt received IVF and started on broad-spectrum antibiotics in the ED Will empirically cover for possible bacterial colitis with ceftriaxone and Flagyl, started 10/13/2024 Protonix 40 IV daily, antiemetics Check GI panel, C diff GI consult Clear liquid diet Follow BMP Cocaine use disorder Last used yesterday Reports he uses around once a week Addiction medicine consult Full Code Attending:?Dr. Gibson DVT Prophylaxis: Pneumatic compression due to possible EGD or colonoscopy Pt will require a hospitalization of at least two nights for treatment of?intractable nausea, vomiting, diarrhea concerning for colitis vs IBD. Pt requires empiric treatment IV antibiotics, IV antiemetics, and specialist consultation with GI for possible scoping Quality Stroke Does the patient have a stroke diagnosis?: No VTE Prior VTE?: No VTE Risk Level:: Medical - moderate - high VTE Device Contraindication: N/A - Device Ordered VTE Drug Contraindication: Treatment Not Indicated
--- NOTE | 2024-10-14 08:24 | PC.NURSE ---
Pt tolerated CL diet this am without any N/V, diarrhea continues. Pt indpt to the BR.
--- NOTE | 2024-10-14 09:27 | PC.NURSE ---
Dietary called for regular diet breakfast tray.
--- NOTE | 2024-10-14 09:30 | MHC.CM.PN ---
Pt lives alone, is functionally independent, no home health services or DME. PCP confirmed: Sanya Zazueta. He will complete a HCP here and it will be added to chart. He can arrange a ride home at [place], DCP: home, self care. CM to follow for DC needs.
[2024-10-14] MEDS: cefTRIAXone sodium 1 GM VIAL IVPUSH (10:12)
--- NOTE | 2024-10-14 10:37 | CONS_ITS ---
DATE OF SERVICE: 10/14/2024 REFERRING PHYSICIAN: BIGG Toscano REASON FOR CONSULTATION: Nausea and vomiting, and abnormal CT scan of the colon. HISTORY OF PRESENT ILLNESS: The patient is a 39-year-old man, who was admitted to the hospital after presenting to the emergency room yesterday with complaints of nausea and vomiting with some associated diarrhea. Symptoms were present for about 2 to 3 days prior to admission and he had been unable to keep food down. He has had a history of nausea and vomiting as an outpatient and had several evaluations in the emergency room as well. He has been prescribed a proton pump inhibitor and reports being compliant with that. He does recall eating at a fast food facility 2 days prior to admission and questions whether he developed some food poisoning symptoms from this. He was evaluated in the emergency department with laboratory studies and imaging, which are reviewed. Chemistries are fairly unremarkable. CT scanning is interpreted as showing a possible wall thickening of the left colon. PAST MEDICAL HISTORY: 1. Substance abuse with cocaine. 2. ADHD. 3. Back pain. 4. Nephrolithiasis. PAST SURGICAL HISTORY: Cystoscopy, left inguinal herniorrhaphy, and appendectomy. CURRENT MEDICATIONS: List is reviewed in the chart. ALLERGIES: THERE ARE NONE REPORTED. FAMILY HISTORY: This is reviewed with the patient and is noncontributory. SOCIAL HISTORY: He smokes 1-1/2 to 1 pack of cigarettes per day. He states he uses alcohol when he uses cocaine, but he has been trying to cut down. REVIEW OF SYSTEMS: SKIN: No pruritus. HEENT: Negative. CARDIOPULMONARY: No shortness of breath or chest pain. GASTROINTESTINAL: As above. GENITOURINARY: Negative. NEUROPSYCHIATRIC: Negative. PHYSICAL EXAMINATION: GENERAL: A pleasant male, lying comfortably in bed. VITAL SIGNS: Reviewed in the electronic medical record and are stable. SKIN: Anicteric. HEENT: No scleral icterus. NECK: Without lymphadenopathy or thyromegaly. LUNGS: Clear. HEART: Regular rate and rhythm. S1, S2. No murmur. ABDOMEN: Soft without focal masses or tenderness. Bowel sounds are present. No organomegaly is noted. EXTREMITIES: Without edema. LABORATORY DATA AND IMAGING STUDIES: Reviewed as above. IMPRESSION: Recurrent nausea and vomiting. He has a history of gastroesophageal reflux disease and has been on various proton pump inhibitors and he could have erosive esophagitis due to his recent symptoms. At this time, he shows no signs of bleeding. I agreed with treating him on a proton pump inhibitor and advancing his diet as tolerated. He has not vomited since yesterday. He should undergo outpatient endoscopy evaluation because of his recurrent symptoms and history of reflux. This will be arranged through my office. He can be discharged when stable. The findings on his CT scan regarding the colon seem minimal and could be related to a viral gastroenteritis as well as upper GI symptoms. Stool testing is pending and this will be followed up as an outpatient. I do not think he needs colonoscopy at this time. Thanks for asking me to see him. I will follow him in the hospital as needed. MD KRISTINE Perdomo/JULIANN / [phone] MTDD
[2024-10-14 10:58] VITALS: BP 104/63; PULSE 78; RESP 16; TEMP 36.9; O2SAT 98
[2024-10-14 11:32] LABS: Adenovirus F 40/41 Not Detected (Not Detect.); Astrovirus Not Detected (Not Detect.); Campylobacter Not Detected (Not Detect.); Cryptosporidium Not Detected (Not Detect.); Cyclospora cayetanensis Not Detected (Not Detect.); E. coli EAEC Not Detected (Not Detect.); E. coli EPEC Not Detected (Not Detect.); E. coli ETEC Not Detected (Not Detect.); E. coli STEC Not Detected (Not Detect.); Entamoeba histolytica Not Detected (Not Detect.); Giardia lamblia Not Detected (Not Detect.); Plesiomonas shigelloides Not Detected (Not Detect.); Rotavirus A Not Detected (Not Detect.); Salmonella Not Detected (Not Detect.); Sapovirus Not Detected (Not Detect.); Shigella sp./EIEC Not Detected (Not Detect.); Vibrio Not Detected (Not Detect.); Vibrio Cholerae Not Detected (Not Detect.); Yersinia enterocolitica Not Detected (Not Detect.)
--- NOTE | 2024-10-14 11:38 | P.DS_ITS ---
DS: Providers Provider Date of Service: 10/14/24 Date of admission: 10/13/24 16:18 Date of discharge: 10/14/24 Primary care physician: TELMA Hernandez Consults: 10/13/24 16:23 Consult to Gastroenterology Routine Consulting Provider: Salomon Fulton Reason for consultation: Intractable N/V, CT showing Colitis vs IBD 10/13/24 16:48 Addiction Medicine Routine Consulting Provider: Addiction Covering Reason for consultation: Cocaine use disorder DS: Diagnosis Discharge Diagnosis (1) Nausea vomiting and diarrhea: Status: Acute DS: Summary Hospital Course Hospital Course: admission hpi Chief Complaint: Abdominal pain Pt is a 39-year-old male with a PMH significant for?chronic back pain, ADHD, and cocaine use disorder who presents to the ED with?intractable nausea, vomiting, diarrhea times 2-3 days. Pt reports has had intermittent episodes of N/V/D for the past few months. This is patient's 3rd presentation to the ED in the past month for similar symptoms. Also reports subjective fever and chills, as well as lethargy and generalized weakness. Has been experiencing epigastric pain associated with nausea, vomiting, and cough. Has not been able to tolerate solid foods since vomiting started, those attempted to drink water and protein shakes. Denies chest pain/pressure, palpitations. No hematochezia or melena. Has been unable to see GI outpatient yet. Pt with long hx of heavy cocaine use, reports has cut back drastically the past year and is now using around once weekly, last used yesterday. Reports only dirnks alcohol when uses cocaine. In the ED pt was tachycardic up to 112, tachypneic up to 21, and hypotension as low as 78/44. Labs were significant for leukocytosis 13.6, and T bili mildly elevated at 1.2, otherwise grossly unremarkable. Stable H&H. No electrolyte abnormalities. Renal function WNL. Lactic acid WNL. Hepatic function WNL. UA negative for UTI. Tox screen positive for cocaine. CXR showed no acute airspace disease. CT?of abdomen and pelvis concerning for colitis vs inflammatory bowel disease. EKG demonstrated sinus tachycardia of 104 without evidence of significant ST elevations or depressions. Pt was treated with Mag sulfate, acetaminophen, Protonix, IVF, Compazine, ceftriaxone, and metronidazole. Pt will be admitted to the hospital for treatment and further evaluation of intractable nausea, vomiting, and diarrhea in the setting of colitis vs IBD. hospital course: Patient presented with abdominal pain and diarrhea with leukocytosis of 13K. CT of the abdomen and pelvis showed findings suspicious for colitis versus IBD. He was treated with IV fluids and antibiotics for presumed colitis. C. difficile toxin was negative, and the GI panel is pending. He has been evaluated by GI, his diet has been advanced, and he will have outpatient GI follow-up. WBC has returned to normal. Stool panel showed noroviru Time Attestation Discharge Coordination Time (in mins): 40 Quality: Safe Use of Opioids Does Pt have an Active Cancer Diagnosis on the Problem List?: No Quality: Stroke Does the patient have a stroke diagnosis?: No Physical Exam Vital Signs: Vital Signs: Last Vital Signs Temp 98.4 F 10/14/24 10:58 Pulse 78 10/14/24 10:58 Resp 16 10/14/24 10:58 BP 104/63 10/14/24 10:58 Pulse Ox 98 10/14/24 10:58 O2 Del Method Room Air 10/14/24 10:58 O2 Flow Rate 2 10/13/24 13:06 BMI result Body Mass Index 25.0 DS: Data Data Completed and Pending Completed studies during hospitalization [Text1]: Procedures Dilation of Right Ureter with Intraluminal Device, Via Natural or Artificial Opening Endoscopic (12/18/23) Fluoroscopy of Right Kidney, Ureter and Bladder (12/18/23) Labs on day of discharge: Laboratory Results - last 24 hr 10/13/24 10/14/24 10/14/24 15:08 05:12 05:13 WBC 5.0 RBC 4.76 Hgb 13.7 L Hct 41.5 L MCV 87.2 MCH 28.8 MCHC 33.0 RDW 12.2 Plt Count 265 MPV 11.0 Absolute Nucleated RBC 0.000 Nucleated RBC % (auto) 0.0 Sodium 138 Potassium 3.6 Chloride 106 Carbon Dioxide 25 Anion Gap 11 L BUN 9 Creatinine 0.61 Estim Creat Clear Calc 189.0 Estimated GFR > 60 Random Glucose 95 Calcium 8.3 L D Urine Color Yellow Urine Appearance Clear Urine pH 8.0 Ur Specific [place] >= 1.030 H Urine Protein Negative Urine Glucose (UA) Negative Urine Ketones Negative Urine Blood Negative Urine Nitrite Negative Ur Leukocyte Esterase Negative Urine Opiates Screen Not Detected Ur Buprenorphine Scrn Not Detected Ur Oxycodone Screen Not Detected Urine Methadone Screen Not Detected Urine Fentanyl Screen Not Detected Ur Barbiturates Screen Not Detected Ur Phencyclidine Scrn Not Detected Ur Amphetamines Screen Not Detected U Benzodiazepines Scrn Not Detected Urine Cocaine Screen POSITIVE H U Marijuana (THC) Screen Not Detected C. difficile Tox B Gene 10/14/24 06:27 WBC RBC Hgb Hct MCV MCH MCHC RDW Plt Count MPV Absolute Nucleated RBC Nucleated RBC % (auto) Sodium Potassium Chloride Carbon Dioxide Anion Gap BUN Creatinine Estim Creat Clear Calc Estimated GFR Random Glucose Calcium Urine Color Urine Appearance Urine pH Ur Specific [place] Urine Protein Urine Glucose (UA) Urine Ketones Urine Blood Urine Nitrite Ur Leukocyte Esterase Urine Opiates Screen Ur Buprenorphine Scrn Ur Oxycodone Screen Urine Methadone Screen Urine Fentanyl Screen Ur Barbiturates Screen Ur Phencyclidine Scrn Ur Amphetamines Screen U Benzodiazepines Scrn Urine Cocaine Screen U Marijuana (THC) Screen C. difficile Tox B Gene NEGATIVE Discharge Plan Discharge Anticipated Discharge Date/Time: 10/14/24 11:39 Patient Disposition: Home, Self-Care Discharge Diagnosis: Colitis, gastrointeritis Referrals: Salomon Fulton MD [Physician] - 2 Weeks Sanya Zazueta FNP- [Primary Care Provider] - 1 Week Discharge Medications: Continued lisdexamfetamine [Vyvanse] 50 mg capsule 50 mg PO DAILY Qty: 30 0RF Rx Instructions: Partial Fill upon patient request. lisdexamfetamine [Vyvanse] 10 mg capsule 10 mg PO DAILY Qty: 30 0RF Rx Instructions: in addition to 50mg daily betamethasone dipropionate 0.05 % cream 1 appl topical BID PRN (Reason: skin irritation) Qty: 45 0RF [id number] 0.4-162-18 mg Tablet 1 tab PO DAILY Collagen 1500 Plus C 500 mg-800 mcg- 50 mg Capsule 1 cap PO DAILY ondansetron 4 mg tablet,disintegrating 4 mg PO Q8H PRN (Reason: nausea and vomiting) Qty: 20 0RF trazodone 150 mg tablet 150 mg PO BEDTIME PRN (Reason: Sleep) omeprazole 40 mg capsule,delayed release(DR/EC) 40 mg PO BID@0630,1630 Discharge Orders: Discharge Order (Routine); Ordered 10/14/24 Ordered By: Marcos Gibson Diet: Advance to usual diet Activity on Discharge: As tolerated Stand Alone Forms: Patient Portal Discharge page Print Language: Trin[place] Care Plan Goals: recovery from colitis, gastroenteritis Health Concerns: diarrhea, colitis Plan of Treatment: take Ceftin and flagyl follow up with your doctor in a week follow up with Dr. Fulton Assessment: see above Discharge Date/Time: 10/14/24 14:41
[2024-10-14 11:48] LABS: Norovirus GI/GII Detected (Not Detect.)
[2024-10-14 14:09] VITALS: BP 114/71; PULSE 80; RESP 16; O2SAT 99
== END 2024-10-14 14:41 | disposition home or self-care (01) | DRG 249 ==
LOC: HO.ED 14:05 → HO.EDOVER 16:40
PROVIDERS: Admitting Provider Student in an Organized Health Care Education/Training Program; Emergency Provider Emergency Medicine; PCP Nurse Practitioner Family; Visit Provider Internal Medicine
DX: A08.11 Acute gastroenteropathy due to Norwalk agent (principal); F14.90 Cocaine use, unspecified, uncomplicated; F17.210 Nicotine dependence, cigarettes, uncomplicated; F90.9 Attention-deficit hyperactivity disorder, unspecified type; Z71.6 Tobacco abuse counseling; Z79.899 Other long term (current) drug therapy
CPT/HCPCS: 36415; 71045; 74177; 80048; 80076; 80307; 81003; 83605; 83690; 83735; 85025; 85027; 87040; 87493; 87507; 93005; 99285; J0131; J0696; J0737; J1836; J2470; J3475; J7120; Q9967

== ENCOUNTER → 2024-10-13 10:29 | Outpatient (BNV) | payer OTHER, SELFPAY | PROVIDERS: Emergency Provider Emergency Medicine; PCP Nurse Practitioner Family; Visit Provider Internal Medicine Cardiovascular Disease | DX: R00.0 Tachycardia, unspecified (principal) | CPT/HCPCS: 93010 ==

== ENCOUNTER → 2024-10-13 11:23 | Outpatient (BNV) | payer OTHER, SELFPAY | PROVIDERS: Emergency Provider Emergency Medicine; PCP Nurse Practitioner Family; Visit Provider Radiology Diagnostic Radiology | DX: K57.30 Diverticulosis of large intestine without perforation or abscess without bleeding (principal); K44.9 Diaphragmatic hernia without obstruction or gangrene; R05.9 Cough, unspecified | CPT/HCPCS: 71045; 74177 ==

== ENCOUNTER → 2024-10-13 16:18 | Outpatient (BNV) | payer OTHER, SELFPAY | PROVIDERS: Admitting Provider Student in an Organized Health Care Education/Training Program; Emergency Provider Emergency Medicine; PCP Nurse Practitioner Family; Visit Provider Student in an Organized Health Care Education/Training Program | DX: R11.2 Nausea with vomiting, unspecified (principal); R19.7 Diarrhea, unspecified | CPT/HCPCS: 99223; 99239 ==

== ENCOUNTER → 2024-10-19 10:54 | Day surgery (SDC) | payer OTHER, SELFPAY ==
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
[2024-10-19 11:31] VITALS: BMI 23.9
[2024-10-19 11:36] VITALS: BP 116/65; PULSE 67; RESP 16; TEMP 36.4; O2SAT 98
[2024-10-19] MEDS: Lactated Ringers 1,000 ML 100 ML IVCONT (11:52)
[2024-10-19 11:53] LABS: Amphetamine Screen Urine Not Detected (Not Detect); Barbiturates, Urine Not Detected (Not Detect); Benzodiazepines Screen Urine Not Detected (Not Detect); Buprenorphine Scr Not Detected (Not Detect); Cannabinoid Screen Urine Not Detected (Not Detect); Cocaine Screen Urine POSITIVE (Not Detect); Fentanyl, urine Not Detected (Not Detect); Methadone Screen, Urine Not Detected (Not Detect); Opiate Screen Urine Not Detected (Not Detect); Oxycodone Screen Urine Not Detected (Not Detect); Phencyclidine Screen Urine Not Detected (Not Detect)
--- NOTE | 2024-10-19 12:04 | MHC.SHP ---
Pre-Procedural Eval Section A - 24 Hr Update-Section A only Date of Service: 10/19/24 The patient is an INPATIENT: No Changes since office visit: No Cold of Flu in the past 2 weeks, No New Medical Problems, No Changes in Medication and No Patient answered all questions The patient has been examined within 24 hours of the surgical procedure. The History & Physical has been completed within 30 days and I have reviewed it.: Yes Section B - Complete if H&P > 30 days Chief Complaint: Gastro-esophageal reflux disease without esophagit Allergies: Allergies Allergy/AdvReac Type Severity Reaction Status Date / Time No Known Allergies Allergy Verified 10/13/24 10:09 [No Known Allergies*] Plan I have reviewed the history and physical and performed a pertinent physical examination on my patient. No changes have occurred unless specified. Time Spent With Patient Time: Total time managing care of this patient today ____ minutes.
--- NOTE | 2024-10-19 12:33 | PC.NURSE ---
Patient in preop. UTOX positive for cocaine. Dr. Mendoza and Dr. Fulton made aware. Case cancelled, postponed until tomorrow pending repeat utox.
== END ==
LOC: HO.SSS 10:56
PROVIDERS: Nurse Practitioner; PCP Nurse Practitioner Family; Visit Provider Internal Medicine Gastroenterology
DX: K21.9 Gastro-esophageal reflux disease without esophagitis (principal); Z53.09 Procedure and treatment not carried out because of other contraindication; R82.5 Elevated urine levels of drugs, medicaments and biological substances
CPT/HCPCS: 80307

== ENCOUNTER 2024-10-20 13:38 | Day surgery (SDC) | payer OTHER, SELFPAY ==
--- OUTSIDE RECORDS SUMMARY | 2024-10-19 13:35 | XMS_ITS ---
Author Organization [facility] Address [address] [place] [phone] Care Team Providers Care Balancing Machine Operator Name Role Phone VERA DOYLE Primary Care Provider Darrion Fulton Jr, Salomon Reynolds REASON FOR VISIT EGD PROBLEMS Problem Type ICD Code Onset Dates Problem Status W/U Status Risk SNOMED Code Notes Problem Gastroesophageal reflux disease, unspecified whether esophagitis present (K21.9) Active confirmed 237419368 Problem Nausea and vomiting, unspecified vomiting type (R11.2) Active confirmed [id number] Encounters Encounter Location Date Provider Diagnosis [facility] [address] [place] [phone] 10/14/2024 Salomon Fulton Jr Gastroesophageal reflux disease, unspecified whether esophagitis present K21.9 and Nausea and vomiting, unspecified vomiting type R11.2 ASSESSMENTS Encounter Date Diagnosis Assessment Notes Treatment Notes Treatment Clinical Notes 10/14/2024 Gastroesophageal ref lux disease, unspecified whether esophagitis present (ICD-10 - K21.9) 10/14/2024 Nausea and vomiting, unspecified vomiting type (ICD-10 - R11.2) PLAN OF TREATMENT Future Test Test Name Order Date UPPER GI ENDOSCOPY 10/14/2024 Next Appt Details Provider Name:Salomon stevens Jr, 10/20/2024 01:00:00 PM, [address] [place] [address] , [place], [place], [phone],
--- OUTSIDE RECORDS SUMMARY | 2024-10-19 13:36 | XMS_ITS ---
Author Organization [facility] Address [address] [place] [phone] Care Team Providers Care Carder Blankets Name Role Phone VERA DOYLE Primary Care Provider Darrion Fulton Jr, Salomon Unavailable REASON FOR VISIT GERD Encounters Encounter Location Date Provider Diagnosis [facility] [place] [address] [place] [phone] 10/19/2024 Salomon Fulton Jr PLAN OF TREATMENT Next Appt Details Provider Name:Salomon stevens Jr, 10/20/2024 01:00:00 PM, [address] [place] [address], [phone],
--- OUTSIDE RECORDS SUMMARY | 2024-10-19 13:36 | XMS_ITS | Patient Health Record ---
Author Organization [facility] Address [address] [place] [address] Care Team Providers Care Filter Assembler Name Role Phone VERA DOYLE Primary Care Provider Darrion Fulton JrSalomon Unavailable [phone] RESULTS Component Value Reference Range Notes Drug Screen Urine (Not yet r eviewed by provider) Interpretation: Performing Lab:[facility], [address] [facility], [place] [address] Notes/Report: Opiate Screen Urine Not Detected Not Detect Opiate cut-off is 300 ng/mL. Positive results are unconfirmed and should not be used for non-medical purposes. Barbiturates, Urine Not Detected Not Detect Barbiturate cut-off is 200 ng/mL. Positive results are unconfirmed and should not be used for non-medical purposes. Phencyclidine Screen Urine Not Detected Not Detect Phencyclidine cut-off is 25 ng/mL. Positive results are unconfirmed and should not be used for non-medical purposes. Amphetamine Screen Urine Not Detected Not Detect Amphetamine cut-off is 1000 ng/mL. Positive results are unconfirmed and should not be used for non-medical purposes. Benzodiazepines Screen Urine Not Detected Not Detect Benzodiazepine cut-off is 200 ng/mL. Positive results are unconfirmed and should not be used for non-medical purposes. Cocaine Screen Urine POSITIVE Not Detect Cocaine cut-off is 300 ng/mL. Positive results are unconfirmed and should not be used for non-medical purposes. Cannabinoid Screen Urine Not Detected Not Detect Cannabinoid cut-off is 50 ng/mL. Positive results are unconfirmed and should not be used for non-medical purposes. Methadone Screen, Urine Not Detected Not Detect ng/mL Methadone cut-off is 300 ng/mL. Positive results are unconfirmed and should not be used for non-medical purposes. Fentanyl, urine Not Detected Not Detect Fentanyl cut-off is 1 ng/mL. Positive results are unconfirmed and should not be used for non-medical purposes. Oxycodone Screen Urine Not Detected Not Detect ng/mL Oxycodone cut-off is 100 ng/mL. Positive results are unconfirmed and should not be used for non-medical purposes. Buprenorphine Scr Not Detected Not Detect ng/mL Buprenorphine cut-off is 5 ng/mL. Positive results are unconfirmed and should not be used for non-medical purposes. REASON FOR REFERRAL No Information SOCIAL HISTORY Sex Assigned At : Social History Observation Description Sex Assigned At Unknown PROBLEMS Problem Type ICD Code Onset Dates Problem Status W/U Status Risk SNOMED Code Notes Problem Gastroesophageal reflux disease, unspecified whether esophagitis present (K21.9) Active confirmed 624461920 Problem Nausea and vomiting, unspecified vomiting type (R11.2) Active confirmed [id number] Encounters Encounter Location Date Provider Diagnosis [facility] [place] [address] [place] [phone] 10/19/2024 Salomon Fulton Jr [facility] [address] [place] [address] 10/14/2024 Salomon Fulton Jr Gastroesophageal reflux disease, unspecified whether esophagitis present K21.9 and Nausea and vomiting, unspecified vomiting type R11.2 ASSESSMENTS Encounter Date Diagnosis Assessment Notes Treatment Notes Treatment Clinical Notes 10/14/2024 Gastroesophageal ref lux disease, unspecified whether esophagitis present (ICD-10 - K21.9) 10/14/2024 Nausea and vomiting, unspecified vomiting type (ICD-10 - R11.2) PLAN OF TREATMENT Pending Test Test Name Order Date Drug Screen Urine 10/19/2024 Future Test Test Name Order Date UPPER GI ENDOSCOPY 10/14/2024 Next Appt Details Provider Name:Salomon stevens Jr, 10/20/2024 01:00:00 PM, [address] [place] [address] , [place], [place], [phone], Insurance Providers Payer Name Payer Address Payer Phone Subscriber Number Group Number Insured Name Patient Relationship to Insured Coverage Start Date Coverage End Date [facility] [address] [address] [place], [place] [id number] ROSE PARMAR Self - patient is the insured
[2024-10-20 13:52] VITALS: BP 102/66; PULSE 78; RESP 16; TEMP 36.6; O2SAT 98
[2024-10-20 14:02] VITALS: BMI 23.7
[2024-10-20 14:15] LABS: Amphetamine Screen Urine Not Detected (Not Detect); Barbiturates, Urine Not Detected (Not Detect); Benzodiazepines Screen Urine Not Detected (Not Detect); Buprenorphine Scr Not Detected (Not Detect); Cannabinoid Screen Urine Not Detected (Not Detect); Cocaine Screen Urine POSITIVE (Not Detect); Fentanyl, urine Not Detected (Not Detect); Methadone Screen, Urine Not Detected (Not Detect); Opiate Screen Urine Not Detected (Not Detect); Oxycodone Screen Urine Not Detected (Not Detect); Phencyclidine Screen Urine Not Detected (Not Detect)
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
--- NOTE | 2024-10-20 16:00 | MHC.SHP ---
Pre-Procedural Eval Section A - 24 Hr Update-Section A only Date of Service: 10/20/24 The patient is an INPATIENT: No Changes since office visit: No Cold of Flu in the past 2 weeks, No New Medical Problems, No Changes in Medication and No Patient answered all questions The patient has been examined within 24 hours of the surgical procedure. The History & Physical has been completed within 30 days and I have reviewed it.: Yes Section B - Complete if H&P > 30 days Chief Complaint: gerd Allergies: Allergies Allergy/AdvReac Type Severity Reaction Status Date / Time No Known Allergies Allergy Verified 10/20/24 14:02 [No Known Allergies*] Plan I have reviewed the history and physical and performed a pertinent physical examination on my patient. No changes have occurred unless specified. Time Spent With Patient Time: Total time managing care of this patient today ____ minutes.
--- NOTE | 2024-10-20 16:02 | PC.NURSE ---
Patient in preop. Utox positive for cocaine. Dr. Agarwal made aware. Dr. Fulton made aware. Okay to proceed per Dr. Agarwal. Patient aware of risks, discussion with Dr. Agarwal.
--- NOTE | 2024-10-20 16:23 | PM.OP ---
Brief Operative Note Date of Service: 10/20/24 Pre-op diagnosis: gerd Post-op diagnosis: same Procedure: egd Surgeon: Salomon Fulton MD Anesthesia: MAC Was an Director Chemistry used for this Procedure?: No Estimated blood loss (mL): 2 Pathology: other Condition: stable Disposition: PACU
[2024-10-20 16:25] VITALS: BP 83/37; PULSE 77; RESP 17; TEMP 36.4; O2SAT 95
[2024-10-20 16:40] VITALS: BP 114/56; PULSE 76; RESP 20; TEMP 36.5; O2SAT 99
--- NOTE | 2024-10-20 21:28 | OP_ITS ---
DATE OF SERVICE: 10/20/2024 SURGEON: Salomon Fulton MD INDICATIONS: Gastroesophageal reflux disease with severe nausea and vomiting. PREOPERATIVE DIAGNOSIS: POSTOPERATIVE DIAGNOSIS: PROCEDURE PERFORMED: Upper endoscopy with biopsy. ESTIMATED BLOOD LOSS: COMPLICATIONS: ANESTHESIA: Monitored anesthesia care. ASSISTANTS: SPECIMENS: DESCRIPTION OF PROCEDURE: A history and physical was performed. The risks and benefits of the procedure were explained to the patient, and informed consent was obtained. The patient was placed in the left lateral decubitus position. The Olympus video gastroscope was introduced into the esophagus, stomach, and duodenum. Examination was performed. The scope was removed. He tolerated the procedure well and was returned to the recovery area in stable condition. FINDINGS: Esophagus: The esophagus showed erosions in the body and distal esophagus consistent with erosive esophagitis. There was an 8 cm to 10 cm segment suspicious for possible Gutiérrez esophagus without raised lesions or ulcerated areas. Biopsies were obtained from the abnormal mucosa. Stomach: The stomach showed no evidence of masses, ulcers, or polyps. Duodenum: The bulb and 2nd portion were normal. Antral biopsies were obtained to rule out H pylori. IMPRESSION: Erosive esophagitis. RECOMMENDATION: Follow up the biopsy results. MD KRISTINE Perdomo/JULIANN / [id number]
== END 2024-10-20 16:56 | disposition home or self-care (01) ==
PROVIDERS: Anesthesiology; PCP Nurse Practitioner Family; Visit Provider Internal Medicine Gastroenterology
PROC: 0DJ08ZZ Inspection of Upper Intestinal Tract, Via Natural or Artificial Opening Endoscopic (ICD-10-PCS; CPT 43235; principal; 2024-10-20 14:30)
DX: K21.9 Gastro-esophageal reflux disease without esophagitis (principal); K20.80 Other esophagitis without bleeding; R11.2 Nausea with vomiting, unspecified; M54.9 Dorsalgia, unspecified; F90.9 Attention-deficit hyperactivity disorder, unspecified type; F14.10 Cocaine abuse, uncomplicated; F10.90 Alcohol use, unspecified, uncomplicated; F17.210 Nicotine dependence, cigarettes, uncomplicated; Z98.890 Other specified postprocedural states; Z79.899 Other long term (current) drug therapy
CPT/HCPCS: 43239; 80307; 88305; 88313; 88342; J2003; J2704

== ENCOUNTER 2024-12-02 10:35 | Outpatient (REF) | payer OTHER, SELFPAY ==
--- NOTE | ~2024-12-02 | XR_ITS ---
EXAMINATION: XR RIBS 3 VIEWS MINIMUM WITH CHEST LEFT HISTORY: S20.212A - Contusion of left front wall of thorax, initial encounter COMPARISON: Comparison is made with the prior examination of the chest dated 10/13/2024. FINDINGS: A single PA view of the chest and 4 views of the left ribs are submitted. The lungs are expanded and clear. There is no pleural effusion, pneumothorax, or pulmonary vascular congestion. The heart is normal in size. There are nondisplaced fractures of the 8th through 10th ribs. XR/XR ribs LT min 3V w CXR1V IMPRESSION: Nondisplaced fractures of the left 8th through 10th ribs. Electronically signed by: Bandar Goodwin MD 12/02/2024 12:20 PM EDT
== END 2024-12-02 10:36 | disposition home or self-care (01) ==
LOC: HO.HMGCX 10:35
PROVIDERS: PCP Nurse Practitioner Family; Visit Provider Nurse Practitioner Family
DX: S22.42XA Multiple fractures of ribs, left side, initial encounter for closed fracture (principal); S20.212A Contusion of left front wall of thorax, initial encounter
CPT/HCPCS: 71101; 99212

== ENCOUNTER 2024-12-02 10:35 | Outpatient (AMB) | payer OTHER, SELFPAY ==
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
[2024-12-02 10:37] VITALS: BP 140/80; PULSE 102; O2SAT 95
--- OUTSIDE RECORDS SUMMARY | 2024-12-02 11:43 | XMS_ITS ---
Author Organization [facility] Address [address] [place] [phone] Care Team Providers Care Chair Inspector Name Role Phone HALAXEL VERA Primary Care Provider Darrion Fulton Jr, Salomon Reynolds [phone] REASON FOR VISIT path Encounters Encounter Location Date Provider Diagnosis [facility] [address] [place] [phone] 10/26/2024 Salomon Fulton Jr Plan Of Treatment No Information Progress Notes * TEVIN BENITEZOB:09/1984 (39 yo M)Acc No.[id number]:10/26/2024 Patient:?PIPER BENITEZ :1985???Age:39 Y???Sex:Male Address:[address] [place] [address] * true * Date:? Generated for Domingo paredes/Kim/eTransmitting on:?12/02/2024 11:43 AM EDT
--- OUTSIDE RECORDS SUMMARY | 2024-12-02 11:44 | XMS_ITS ---
Author Organization [facility] Address [address] [place] [address] Care Team Providers Care Bench Assembly Inspector Name Role Phone VERA DOYLE Primary Care Provider Darrion Fulton Jr, Salomon Reynolds [phone] REASON FOR VISIT GERD Encounters Encounter Location Date Provider Diagnosis [facility] [place] [address] [place] [phone] 10/19/2024 Salomon Fulton Jr Plan Of Treatment No Information Progress Notes * TEVIN BENITEZOB:09/1984 (39 yo M)Acc No.[id number]:10/19/2024 EGD/MAC Patient:?PIPER BENITEZ N Provider:?Salomon Fulton MD :1985???Age:39 Y???Sex:Male Everett e:10/19/2024 Address:[address] [place], [place] [id number] Pcp:VERA DOYLE Subjective: * Chief Complaints: * ???1. GERD. * Medical History:? Objective: * Vitals:? Assessment: Plan: * Treatment: * * The named appointment provid er may or may not be the originator of this progress note, and it is not deemed complete until electronically signed by the appointment provider. Sign off status: Pending * Provider:?Salomon Fulton MD Date:?0 10/19/2024 Generated for Domingo paredes/Kim/eTgemasmitting on:?12/02/2024 11:43 AM EDT
--- OUTSIDE RECORDS SUMMARY | 2024-12-02 11:44 | XMS_ITS ---
Author Organization [facility] Address [address] [place] [address] Care Team Providers Care Casket Upholsterer Name Role Phone VERA DOYLE Primary Care Provider Salomon Heredia Jr [phone] REASON FOR VISIT GERD Problems Problem Type SNOMED Code ICD Code Onset Dates Problem Status W/U Status Risk Notes Problem Erosive esophagitis (00848554) Erosive esophagitis (K22.10) Active confirmed Encounters Encounter Location Date Provider Diagnosis [facility] Outpatient [address] [place], [place] [phone] 10/20/2024 Salomon Fulton Jr Erosive esophagitis K22.10 Assessments Encounter Date Diagnosis (ICD Code) Assessment Notes Treatment Notes Treatment Clinical Notes Section Notes 10/20/2024 Erosive esophagitis (ICD-10 - K22.10) Plan Of Treatment No Information Progress Notes * TEVIN BENITEZOB:09/1984 (39 yo M)Acc No.[id number]:10/20/2024 EGD/MAC Patient:?GRISELDASURAJJODEEDOMENIC Olivas Provider:?Salomon Fulton MD :1985???Age:39 Y???Sex:Male Everett e:10/20/2024 Address:[address] [place], [place] [phone] Pcp:VERA DOYLE Subjective: * Chief Complaints: * ???1. GERD. * Medical History:? Objective: * Vitals:? Assessment: * Assessment: 1.?Erosive esophagitis - K22 .10 (Primary)??? Plan: * Treatment: * Procedure Codes:?16358 UPPER GI ENDOSCOPY, BIOPSY * * The named appointment provid er may or may not be the originator of this progress note, and it is not deemed complete until electronically signed by the appointment provider. Sign off status: Pending * Provider:?Salomon Fulton MD Date:?0 10/20/2024 Generated for Domingo paredes/Kim/Rhiannon on:?12/02/2024 11:43 AM EDT
--- OUTSIDE RECORDS SUMMARY | 2024-12-02 11:44 | XMS_ITS | Patient Health Record ---
Author Organization [facility] Address [address] [place] [address] Care Team Providers Care Information Technology Technician Name Role Phone VERA ZAZUETA Primary Care Provider Darrion Fulton JrSalomon Unavailable Results Component Value Reference Range Notes Drug Screen Urine Reviewed date:10/20/2024 08:01:53 AM Interpretation: Performing Lab:[facility], [address] [place] [phone] Notes/Report: Opiate Screen Urine Not Detected Not [...] should not be used for non-medical purposes. Drug Screen Urine Reviewed date:10/21/2024 07:53:31 AM Interpretation: Performing Lab:[facility], [address] [place] [phone] Notes/Report: Opiate Screen Urine Not Detected Not [...] should not be used for non-medical purposes. Pathology Reviewed date:10/26/2024 09:28:34 PM Interpretation: Performing Lab:[facility], [address] [place] [address], [place] [address] Notes/Report: -- ---- Name: Rose Benitez Age/Sex: 39/M : 1985 Unit#: [id number] Attend Dr: Salomon Fulton MD Re10/20/24 Status : [facility] Location: [facility] Disch: -- ---- SPEC : [id number] RECD: 10/21/24 STATUS: CONNER GIBBS NUM: [id number] TERESA: 10/20/24-[address] [facility] [address]: Salomon Fulton MD ENTERED: 10/21/24-05 02 SP TYPE: Surgical OTHR DR: Vera Zazueta [facility] ORDERED: HE Stain/6, Gross Micro L4/3, IHC, Special st. 2/3, H. pylori, AB/PAS/3 Diagnosis A. Stomach, antrum, biopsy: Antral-type mucosa with mild chronic inactive inflammation; no Helicobacter organisms seen. B. EG junction, biopsy: - Cardiofundic-type mucosa with moderate chronic active erosive inflammation; no intestinal metaplasi a seen. - No squamous epithelium identified. C. Esophagus, 28 cm, biopsy: - Cardiac-type mucos a with moderate chronic, focally active, inflammation; no intestinal metaplasi a seen. - Active esophagitis (maximum eosinophil count 1 per high powered field). Clinical History Pre-Op Dx: GERD Post-Op Dx: Erosive esophagitis Microscopic Description A-C. Microscopic sections examined. No metaplastic changes are seen, supported by AB/PAS stains (A, B or C); no Helicobacter organisms are seen, supported by H. pylori immunostain (A). Material Received A. Antral bx B. EG junction bx C. Esophagus 28 bx Gross Description Received in three parts. Part A: Received in formalin labeled ?antral bx? are 2 fontanez rectangular tissue fragments measuring 0.3 and 0. 5 cm, submitted in toto in a cassette labeled A. Part B: Received in formalin labeled ?EG junction are 4 gresham-fontanez irregular tissue fragments each measuring 0.3 cm, submitted in toto a labeled B. Part C: Received in formalin labeled ?esophagus bx 28 are 6 gresham-fontanez irregular and rectangular tissue fragments ranging from minute to 0.3 cm, submitted in toto in a cassette CONTINUED ON NEXT PAGE -- ---- Name: Rose Benitez Age/Sex: 39/M : 1985 Unit#: [id number] Attend Dr: Salomon Fulton MD Re10/20/24 Status : [facility] Location: [facility] Disch: -- ---- SPEC : [id number] RECD: 10/21/24 STATUS: CONNER GIBBS NUM: [id number] TERESA: 10/20/24-[address] [facility] [address]: Salomon Fulton MD ENTERED: 10/21/24-05 02 SP TYPE: Surgical OTHR DR: Vera Zazueta [facility] ORDERED: HE Stain/6, Gross Micro L4/3, IHC, Special st. 2/3, H. pylori, AB/PAS/3 Gross Description (Continued) labeled Phan EDWARDS Special studies ordered and performed: Immunostain for H. pylori on A; AB/PAS stains on A, B and C Copies To: Salomon Fulton MD [facility] [address] [place], [place] [phone] Vera Zazueta [facility], [address] [phone] -- ---- Signed (signature on file) Boogie Weinberg MD 10/25/24 1053 -- ---- END OF REPORT Reason For Referral No Information Problems Problem Type SNOMED Code ICD Code Onset Dates Problem Status W/U Status Risk Notes Problem Erosive esophagitis (63932490) Erosive esophagitis (K22.10) Active confirmed Problem [id number] Gastroesophageal reflux disease, unspecified whether esophagitis present (K21.9) Active confirmed Problem 19863906 Nausea and vomiting, unspecified vomiting type (R11.2) Active confirmed Encounters Encounter Location Date Provider Diagnosis [facility] Outpatient [address] [place], [place] [phone] 10/20/2024 Salomon Fulton Jr Erosive esophagitis K22.10 [facility] [address] [place] [phone] 10/14/2024 Salomon Fulton Jr Gastroesophageal reflux disease, unspecified whether esophagitis present K21.9 and Nausea and vomiting, unspecified vomiting type R11.2 [facility] [address] [place] [phone] 10/26/2024 Salomon Fulton Jr Assessments Encounter Date Diagnosis (ICD Code) Assessment Notes Treatment Notes Treatment Clinical Notes Section Notes 10/20/2024 Erosive esophagitis (ICD-10 - K22.10) 10/14/2024 Gastroesophageal reflux disease, unspecified whether esophagitis present (ICD-10 - K21.9) 10/14/2024 Nausea and vomiting, unspecified vomiting type (ICD-10 - R11.2) Plan Of Treatment Future Test Test Name Order Date UPPER GI ENDOSCOPY 10/14/2024 Insurance Providers Payer Name Payer Address Payer Phone Subscriber Number Group Number Insured Name Patient Relationship to Insured Coverage Start Date Coverage End Date [facility] [employer] [facility] [address] [address] [place], [place] [id number] ROSE PARMAR Self - patient is the insured
== END 2024-12-02 11:46 | disposition home or self-care (01) ==
PROVIDERS: PCP Nurse Practitioner Family; Visit Provider Nurse Practitioner Family
DX: S20.212A Contusion of left front wall of thorax, initial encounter (principal)

== ENCOUNTER → 2024-12-02 11:33 | Outpatient (BNV) | payer OTHER, SELFPAY | PROVIDERS: PCP Nurse Practitioner Family; Visit Provider Radiology Diagnostic Radiology | DX: S20.212A Contusion of left front wall of thorax, initial encounter (principal) | CPT/HCPCS: 71101 ==

== ENCOUNTER 2024-12-03 20:26 | Emergency (ER) | payer OTHER, SELFPAY ==
[2024-12-03 20:52] VITALS: BP 131/66; PULSE 103; RESP 18; TEMP 36.6; O2SAT 98; BMI 23.0
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
--- OUTSIDE RECORDS SUMMARY | 2024-12-03 23:44 | XMS_ITS ---
Author Organization [facility] Address [address] [place] [phone] Care Team Providers Care Hydroelectric Component Machinist Name Role Phone VERA DOYLE Primary Care Provider Salomon Heredia Jr REASON FOR VISIT GERD Problems Problem Type SNOMED Code ICD Code Onset Dates Problem Status W/U Status Risk Notes Problem Erosive esophagitis (12104223) Erosive esophagitis (K22.10) Active confirmed Encounters Encounter Location Date Provider Diagnosis [facility] Outpatient [address] [place], [place] [phone] 10/20/2024 Salomon Fulton Jr Erosive esophagitis K22.10 Assessments Encounter Date Diagnosis (ICD Code) Assessment Notes Treatment Notes Treatment Clinical Notes Section Notes 10/20/2024 Erosive esophagitis (ICD-10 - K22.10) Plan Of Treatment No Information Progress Notes * TEVIN BENITEZOB:09/1984 (39 yo M)Acc No.[id number]:10/20/2024 EGD/MAC Patient:?GRISELDASURAJJODEEDOMENIC Olivas Provider:?Salomon Fulton MD :1985???Age:39 Y???Sex:Male Everett e:10/20/2024 Address:[address] [place], [place] [phone] Pcp:VERA DOYLE Subjective: * Chief Complaints: * ???1. GERD. * Medical History:? Objective: * Vitals:? Assessment: * Assessment: 1.?Erosive esophagitis - K22 .10 (Primary)??? Plan: * Treatment: * Procedure Codes:?77297 UPPER GI ENDOSCOPY, BIOPSY * * The named appointment provid er may or may not be the originator of this progress note, and it is not deemed complete until electronically signed by the appointment provider. Sign off status: Pending * Provider:?Salomon Fulton MD Date:?0 10/20/2024 Generated for Domingo paredes/Kim/Rhiannon on:?12/03/2024 11:44 PM EDT
--- OUTSIDE RECORDS SUMMARY | 2024-12-03 23:44 | XMS_ITS ---
Author Organization [facility] Address [address] [place] [address] Care Team Providers Care Mechanical Design Engineer Facilities Name Role Phone HALAXEL VERA Primary Care Provider Darrion Fulton Jr, Salomon Reynolds [phone] REASON FOR VISIT path Encounters Encounter Location Date Provider Diagnosis [facility] [address] [place] [phone] 10/26/2024 Salomon Fulton Jr Plan Of Treatment No Information Progress Notes * TEVIN BENITEZOB:09/1984 (39 yo M)Acc No.[id number]:10/26/2024 Patient:?PIPER BENITEZ :1985???Age:39 Y???Sex:Male Address:[address] [place] [phone] * true * Date:? Generated for Domingo paredes/Kim/eTransmitting on:?12/03/2024 11:44 PM EDT
--- OUTSIDE RECORDS SUMMARY | 2024-12-03 23:44 | XMS_ITS | Patient Health Record ---
Author Organization [facility] Address [address] [place] [address] Care Team Providers Care Lace Pinner Name Role Phone VERA ZAZUETA Primary Care Provider Darrion Fulton JrSalomon Unavailable [phone] Results Component Value Reference Range Notes Drug Screen Urine Reviewed date:10/20/2024 08:01:53 AM Interpretation: Performing Lab:[facility], [address] [place] [phone] Notes/Report: Opiate Screen Urine Not Detected Not [...] Urine Reviewed date:10/21/2024 07:53:31 AM Interpretation: Performing Lab:[facility], [address] [place] [phone] Notes/Report: Opiate Screen Urine Not Detected Not [...] Pathology Reviewed date:10/26/2024 09:28:34 PM Interpretation: Performing Lab:[facility], [address] [place] [address], [place] [address] Notes/Report: -- ---- Name: Rose Benitez Age/Sex: 39/M : 1985 Unit#: [id number] Attend Dr: Salomon Fulton MD Re10/20/24 Status : [facility] Location: [facility] Disch: -- ---- SPEC : [id number] RECD: 10/21/24 STATUS: CONNER GIBBS NUM: [id number] TERESA: 10/20/24-[address] [facility] [address]: Salomon Fulton MD ENTERED: 10/21/24-05 02 SP TYPE: Surgical OTHR DR: Vera Zazueta [facility] ORDERED: HE Stain/6, Gross Micro L4/3, IHC, [...] Rose Benitez Age/Sex: 39/M : 1985 Unit#: [id number] Attend Dr: Salomon Fulton MD Re10/20/24 Status : [facility] Location: [facility] Disch: -- ---- SPEC : [id number] RECD: 10/21/24 STATUS: CONNER GIBBS NUM: [id number] TERESA: 10/20/24-1616 [facility] [address]: Salomon Fulton MD ENTERED: 10/21/24-05 02 SP TYPE: Surgical OTHR DR: Vera Zazueta [facility] ORDERED: HE Stain/6, Gross Micro L4/3, IHC, Special st. 2/3, H. pylori, AB/PAS/3 Gross Description (Continued) labeled Phan EDWARDS Special studies ordered and performed: Immunostain for H. pylori on A; AB/PAS stains on A, B and C Copies To: Salomon Fulton MD [facility] [address] [place], [place] [phone] Vera Zazueta [facility], [address] [phone] -- ---- Signed (signature on file) Boogie Weinberg MD 10/25/24 1053 -- ---- END OF REPORT Reason For Referral No Information Problems Problem Type SNOMED Code ICD Code Onset Dates Problem Status W/U Status Risk Notes Problem Erosive esophagitis (86420674) Erosive esophagitis (K22.10) Active confirmed Problem 603170333 Gastroesophageal reflux disease, unspecified whether esophagitis present (K21.9) Active confirmed Problem 72587721 Nausea and vomiting, unspecified vomiting type (R11.2) Active confirmed Encounters Encounter Location Date Provider Diagnosis [facility] [place] [address] [place], [place] [phone] 10/20/2024 Salomon Fulton Jr Erosive esophagitis K22.10 [facility] [address] [place] [address] 10/14/2024 Salomon Fulton Jr Gastroesophageal reflux disease, unspecified whether esophagitis present K21.9 and Nausea and vomiting, unspecified vomiting type R11.2 [facility] [address] [place] [phone] 10/26/2024 Salomon Fulton Jr Assessments Encounter Date [...] Insured Coverage Start Date Coverage End Date [facility] [employer] [facility] [address] [address] [place], [place] [id number] ROSE PARMAR Self - patient is the insured
--- OUTSIDE RECORDS SUMMARY | 2024-12-03 23:45 | XMS_ITS ---
Author Organization [facility] Address [address] [place] [address] Care Team Providers Care Accounts Receivable Assistant Name Role Phone VERA DOYLE Primary Care Provider Darrion Fulton Jr, Salomon Reynolds REASON FOR VISIT GERD Encounters Encounter Location Date Provider Diagnosis [facility] Outpatient [address] [place] [phone] 10/19/2024 Salomon Fulton Jr Plan Of Treatment No Information Progress Notes * TEVIN BENITEZOB:09/1984 (39 yo M)Acc No.[id number]:10/19/2024 EGD/MAC Patient:?PIPER BENITEZ N Provider:?Salomon Fulton MD :1985???Age:39 Y???Sex:Male Everett e:10/19/2024 Address:[address] [place], [place] [phone] Pcp:VERA DOYLE Subjective: * Chief Complaints: * [...] MD Date:?0 10/19/2024 Generated for Domingo paredes/Kim/eTgemasmitting on:?12/03/2024 11:44 PM EDT
== END 2024-12-03 23:45 | disposition left against medical advice (07) ==
LOC: HO.ED 23:42
PROVIDERS: Emergency Provider Emergency Medicine
DX: S22.42XA Multiple fractures of ribs, left side, initial encounter for closed fracture (principal); R07.81 Pleurodynia; V03.90XA Pedestrian on foot injured in collision with car, pick-up truck or van, unspecified whether traffic or nontraffic accident, initial encounter; Y93.9 Activity, unspecified; Y92.89 Other specified places as the place of occurrence of the external cause; Y99.8 Other external cause status; Z79.899 Other long term (current) drug therapy
CPT/HCPCS: 99281; 99283

== ENCOUNTER 2024-12-06 10:32 | Outpatient (AMB) | payer OTHER, SELFPAY ==
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
[2024-12-06 11:01] VITALS: BP 130/90; PULSE 64; O2SAT 98
--- OUTSIDE RECORDS SUMMARY | 2024-12-06 12:25 | XMS_ITS | Patient Health Record ---
Author Organization [facility] Address [address] [place] [address] Care Team Providers Care Parking Enforcement Officer Name Role Phone VERA ZAZUETA Primary Care Provider Darrion Fulton JrSalomon Unavailable [phone] Results Component Value Reference Range Notes Drug Screen Urine Reviewed date:10/20/2024 08:01:53 AM Interpretation: Performing Lab:[facility], [address] [place] [phone] Notes/Report: Opiate Screen Urine Not Detected Not [...] Urine Reviewed date:10/21/2024 07:53:31 AM Interpretation: Performing Lab:[facility], [address] [place] [phone] Notes/Report: Opiate Screen Urine Not Detected Not [...] Pathology Reviewed date:10/26/2024 09:28:34 PM Interpretation: Performing Lab:[facility], [address] [place] [address], [place] [address] Notes/Report: -- ---- Name: Rose Benitez Age/Sex: 39/M : 1985 Unit#: [id number] Attend Dr: Salomon Fulton MD Re10/20/24 Status : [facility] Location: [facility] Disch: -- ---- SPEC : [id number] RECD: 10/21/24 STATUS: CONNER GIBBS NUM: [id number] TERESA: 10/20/24-[address] [facility] [address]: Salomon Fulton MD ENTERED: 10/21/24-05 02 SP TYPE: Surgical OTHR DR: Vera Zazueta [facility] ORDERED: HE Stain/6, Gross Micro L4/3, IHC, [...] Rose Benitez Age/Sex: 39/M : 1985 Unit#: [id number] Attend Dr: Salomon Fulton MD Re10/20/24 Status : [facility] Location: [facility] Disch: -- ---- SPEC : [id number] RECD: 10/21/24 STATUS: CONNER GIBBS NUM: [id number] TERESA: 10/20/24-[address] [facility] [address]: Salomon Fulton MD ENTERED: 10/21/24-05 02 SP TYPE: Surgical OTHR DR: Vera Zazueta [facility] ORDERED: HE Stain/6, Gross Micro L4/3, IHC, Special st. 2/3, H. pylori, AB/PAS/3 Gross Description (Continued) labeled Phan EDWARDS Special studies ordered and performed: Immunostain for H. pylori on A; AB/PAS stains on A, B and C Copies To: Salomon Fulton MD [facility] [address] [place], [place] [id number] Vera Zazueta [facility], [address] [id number] -- ---- Signed (signature on file) Boogie Weinberg MD 10/25/24 1053 -- ---- END OF REPORT Reason For Referral No Information Problems Problem Type SNOMED Code ICD Code Onset Dates Problem Status W/U Status Risk Notes Problem Erosive esophagitis (33811500) Erosive esophagitis (K22.10) Active confirmed Problem 101964112 Gastroesophageal reflux disease, unspecified whether esophagitis present (K21.9) Active confirmed Problem 28904441 Nausea and vomiting, unspecified vomiting type (R11.2) Active confirmed Encounters Encounter Location Date Provider Diagnosis [facility] Out[place] [address] [place], [place] [phone] 10/20/2024 Salomon Fulton Jr Erosive esophagitis K22.10 [facility] [address] [place] [address] 10/14/2024 Salomon Fulton Jr Gastroesophageal reflux disease, unspecified whether esophagitis present K21.9 and Nausea and vomiting, unspecified vomiting type R11.2 [facility] [address] [phone] 10/26/2024 Salomon Fulton Jr Assessments Encounter Date [...] Insured Coverage Start Date Coverage End Date [facility] [employer] [facility] [address] [address] [place], [place] [id number] ROSE PARMAR Self - patient is the insured
--- OUTSIDE RECORDS SUMMARY | 2024-12-06 12:25 | XMS_ITS ---
Author Organization [facility] Address [address] [place] [address] Care Team Providers Care Service Tech/Welder Name Role Phone HALAXEL VERA Primary Care Provider Darrion Fulton Jr, Salomon Reynolds [phone] REASON FOR VISIT path Encounters Encounter Location Date Provider Diagnosis [facility] [address] [place] [address] 10/26/2024 Salomon Fulton Jr Plan Of Treatment No Information Progress Notes * TEVIN BENITEZOB:09/1984 (39 yo M)Acc No.[id number]:10/26/2024 Patient:?PIPER BENITEZ :1985???Age:39 Y???Sex:Male Address:[address] [place] [address] * true * Date:? Generated for Domingo paredes/Kim/eTransmitting on:?12/06/2024 12:24 PM EDT
--- OUTSIDE RECORDS SUMMARY | 2024-12-06 12:25 | XMS_ITS ---
Author Organization [facility] Address [address] [place] [address] Care Team Providers Care Cook Italian Style Food Name Role Phone VERA DOYLE Primary Care Provider Salomon Heredia Jr REASON FOR VISIT GERD Problems Problem Type SNOMED Code ICD Code Onset Dates Problem Status W/U Status Risk Notes Problem Erosive esophagitis (32228941) Erosive esophagitis (K22.10) Active confirmed Encounters Encounter Location Date Provider Diagnosis [facility] Outpatient [address] [place], [place] [phone] 10/20/2024 Salomon Fulton Jr Erosive esophagitis K22.10 Assessments Encounter Date Diagnosis (ICD Code) Assessment Notes Treatment Notes Treatment Clinical Notes Section Notes 10/20/2024 Erosive esophagitis (ICD-10 - K22.10) Plan Of Treatment No Information Progress Notes * TEVIN BENITEZOB:09/1984 (39 yo M)Acc No.[id number]:10/20/2024 EGD/MAC Patient:?GRISELDASURAJJODEEDOMENIC Olivas Provider:?Salomon Fulton MD :1985???Age:39 Y???Sex:Male Everett e:10/20/2024 Address:[address] [place], [place] [phone] Pcp:VERA DOYLE Subjective: * Chief Complaints: * ???1. GERD. * Medical History:? Objective: * Vitals:? Assessment: * Assessment: 1.?Erosive esophagitis - K22 .10 (Primary)??? Plan: * Treatment: * Procedure Codes:?22707 UPPER GI ENDOSCOPY, BIOPSY * * The named appointment provid er may or may not be the originator of this progress note, and it is not deemed complete until electronically signed by the appointment provider. Sign off status: Pending * Provider:?Salomon Fulton MD Date:?0 10/20/2024 Generated for Domingo paredes/Kim/Rhiannon on:?12/06/2024 12:24 PM EDT
--- OUTSIDE RECORDS SUMMARY | 2024-12-06 12:25 | XMS_ITS ---
Author Organization [facility] Address [address] [place] [address] Care Team Providers Care Clerk General Office Name Role Phone VERA DOYLE Primary Care Provider Darrion Fulton Jr, Salomon Reynolds [phone] REASON FOR VISIT GERD Encounters Encounter Location Date Provider Diagnosis [facility] [place] Out[place] [address] [place] [phone] 10/19/2024 Salomon Fulton Jr Plan Of Treatment No Information Progress Notes * TEVIN BENITEZOB:09/1984 (39 yo M)Acc No.[id number]:10/19/2024 EGD/MAC Patient:?PIPER BENITEZ N Provider:?Salomon Fulton MD :1985???Age:39 Y???Sex:Male Everett e:10/19/2024 Address:[address] [place], [place] [phone] Pcp:VERA DOYLE Subjective: * Chief Complaints: * [...] MD Date:?0 10/19/2024 Generated for Domingo paredes/Kim/eTgemasmitting on:?12/06/2024 12:24 PM EDT
== END 2024-12-06 11:40 | disposition home or self-care (01) ==
PROVIDERS: Visit Provider Physician Assistant
DX: S22.42XA Multiple fractures of ribs, left side, initial encounter for closed fracture (principal)

== ENCOUNTER → 2024-12-06 10:32 | Outpatient (BNVA) | payer OTHER, SELFPAY | PROVIDERS: Visit Provider Physician Assistant | DX: S22.42XA Multiple fractures of ribs, left side, initial encounter for closed fracture (principal) | CPT/HCPCS: 99212 ==

== ENCOUNTER 2024-12-15 08:04 | Outpatient (REF) | payer OTHER, SELFPAY ==
--- NOTE | ~2024-12-15 | XR_ITS ---
EXAMINATION: XR SCAPULA, LEFT CLINICAL INFORMATION: M89.8X1 - Other specified disorders of bone, shoulder COMPARISON: None available. TECHNIQUE: AP and scapular Y views of the left scapula. FINDINGS: The bones and soft tissues are normal. No scapular fracture. There is a type III acromion. Glenohumeral and acromioclavicular joints appear normal. XR/XR scapula LT IMPRESSION: Normal left scapula. Electronically signed by: Colt Valera MD 12/16/2024 08:54 AM EDT
--- NOTE | ~2024-12-15 | XR_ITS ---
EXAMINATION: XR CHEST CLINICAL INFORMATION: S22.42XA - Multiple fractures of ribs, left side, initial encounter for ... COMPARISON: December 02, 2024 TECHNIQUE: 2 views of the chest were obtained. FINDINGS: No consolidation, pleural effusion or pneumothorax. Cardiomediastinal silhouette size is normal. There are rib fractures are not visible on this exam. XR/XR chest 2V IMPRESSION: No acute airspace disease. Electronically signed by: Jorden More MD 12/15/2024 11:22 AM EDT
== END 2024-12-15 08:05 | disposition home or self-care (01) ==
LOC: HO.HMGCX 08:04
PROVIDERS: Visit Provider Nurse Practitioner Family
DX: S22.42XA Multiple fractures of ribs, left side, initial encounter for closed fracture (principal); M89.8X1 Other specified disorders of bone, shoulder; V89.0XXA Person injured in unspecified motor-vehicle accident, nontraffic, initial encounter; Y93.9 Activity, unspecified; Y92.89 Other specified places as the place of occurrence of the external cause; Y99.9 Unspecified external cause status; Z13.30 Encounter for screening examination for mental health and behavioral disorders, unspecified
CPT/HCPCS: 71046; 73010; 96127; 99212

== ENCOUNTER 2024-12-15 08:04 | Outpatient (AMB) | payer OTHER, SELFPAY ==
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
[2024-12-15 08:11] VITALS: BP 102/70; PULSE 99; RESP 17; TEMP 36.6; O2SAT 97; BMI 23.7
== END 2024-12-15 08:47 | disposition home or self-care (01) ==
PROVIDERS: PCP Nurse Practitioner Family; Visit Provider Nurse Practitioner Family
DX: S22.42XA Multiple fractures of ribs, left side, initial encounter for closed fracture (principal); M89.8X1 Other specified disorders of bone, shoulder

== ENCOUNTER → 2024-12-15 08:40 | Outpatient (BNV) | payer OTHER, SELFPAY | PROVIDERS: Visit Provider Radiology Diagnostic Radiology | DX: S22.42XA Multiple fractures of ribs, left side, initial encounter for closed fracture (principal) | CPT/HCPCS: 71046; 73010 ==

== ENCOUNTER 2025-02-09 09:38 | Emergency (ER) | payer OTHER, SELFPAY ==
--- NOTE | ~2025-02-09 | XR_ITS ---
EXAMINATION: XR ANKLE 3 OR MORE VIEWS RIGHT, XR FOOT 3 OR MORE VIEWS RIGHT HISTORY: pain after fall COMPARISON: There are no prior studies available for comparison. FINDINGS: Six views of the right foot and ankle are submitted. Osseous mineralization is normal. There is an old healed fracture deformity of the 5th metatarsal. Well-corticated osseous densities adjacent to the tips of the medial and lateral malleoli are likely the result of old trauma. No acute fracture or dislocation is seen. The joint spaces are preserved. The soft tissues are unremarkable. XR/XR foot RT min 3V IMPRESSION: No evidence of acute fracture of the right foot or ankle. Electronically signed by: Bandar Goodwin MD 02/09/2025 10:52 AM EDT
--- NOTE | ~2025-02-09 | XR_ITS ---
EXAMINATION: XR ANKLE 3 OR MORE VIEWS RIGHT, XR FOOT 3 OR MORE VIEWS RIGHT HISTORY: pain after fall COMPARISON: There are no prior studies available for comparison. FINDINGS: Six views of the right foot and ankle are submitted. Osseous mineralization is normal. There is an old healed fracture deformity of the 5th metatarsal. Well-corticated osseous densities adjacent to the tips of the medial and lateral malleoli are likely the result of old trauma. No acute fracture or dislocation is seen. The joint spaces are preserved. The soft tissues are unremarkable. XR/XR ankle RT min 3V IMPRESSION: No evidence of acute fracture of the right foot or ankle. Electronically signed by: Bandar Goodwin MD 02/09/2025 10:52 AM EDT
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
[2025-02-09 10:18] VITALS: BP 112/70; PULSE 112; RESP 20; TEMP 36.8; O2SAT 98; BMI 23.4
[2025-02-09 14:55] VITALS: BP 116/78; PULSE 100; RESP 20; TEMP 36.8; O2SAT 98
== END 2025-02-09 14:55 | disposition home or self-care (01) ==
PROVIDERS: Emergency Provider Emergency Medicine Emergency Medical Services; PCP Nurse Practitioner Family
DX: S93.401A Sprain of unspecified ligament of right ankle, initial encounter (principal); S96.911A Strain of unspecified muscle and tendon at ankle and foot level, right foot, initial encounter; W17.89XA Other fall from one level to another, initial encounter; Y93.39 Activity, other involving climbing, rappelling and jumping off; Y92.812 Truck as the place of occurrence of the external cause; Y99.9 Unspecified external cause status
CPT/HCPCS: 73610; 73630; 99282; 99283

== ENCOUNTER → 2025-02-09 10:20 | Outpatient (BNV) | payer OTHER, SELFPAY | PROVIDERS: PCP Nurse Practitioner Family; Visit Provider Radiology Diagnostic Radiology | DX: M25.571 Pain in right ankle and joints of right foot (principal) | CPT/HCPCS: 73610; 73630 ==

== ENCOUNTER 2025-03-14 06:42 | Outpatient (AMB) | payer OTHER, SELFPAY ==
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
== END 2025-03-14 09:59 | disposition home or self-care (01) ==
LOC: HO.HMCC 06:42
PROVIDERS: PCP Nurse Practitioner Family; Visit Provider Nurse Practitioner Family
DX: S92.901A Unspecified fracture of right foot, initial encounter for closed fracture (principal); M25.571 Pain in right ankle and joints of right foot

== ENCOUNTER 2025-05-05 06:48 | Outpatient (AMB) | payer OTHER, SELFPAY ==
--- OUTSIDE RECORDS SUMMARY | 2025-05-05 06:51 | XMS_ITS | Clinical Summary ---
Author Organization [facility] Address [address] [place] [id number] Phone Care Team Providers Care Dent Remover Name Role Phone Unknown, Unknown Primary Care Provider Ramon avila Allergies No known active allergies Medications No known medications Active Problems No known active problems Immunizations Immunization Administration Dates Next Due Tdap 07/05/2017 Social History Tobacco Use Types Packs/Day Years Used Date Smoking Tobacco: Every Day Smokeless Tobacco: Never Alcohol Use Standard Drinks/Week Comments Yes 0 (1 standard drink = 0.6 oz pur e alcohol) 3x week Education Answer Date Recorded Are you interested in more education? Not on osvaldo e 12/27/2022 Are you concerned about learning? Not on file 12/27/2022 No 12/27/2022 No 12/27/2022 Digital Access Answer Date Recorded No 01/27/2023 No 01/27/2023 No 01/27/2023 Reliable internet access at home? Not on file 01/27/2023 Device with a working camera? Not on file Sex and Gender Information Value Date Recorded Sex Assigned at Male 09/08/2017 9:38 AM EST Legal Sex Male 9:14 PM EDT Gender Identity Male 09/08/2017 9:38 AM EST Sexual Orientation Straight 09/08/2017 9: 38 AM EST Last Filed Vital Signs Vital Sign Reading Time Taken Comments Blood Pressure 138/91 12/08/2017 9:52 PM EDT Pulse 104 12/08/2017 9:52 PM EDT Temperature 36.8 C (98.2 F) 12/08/2017 8:50 PM EDT Respiratory Rate 18 12/08/2017 8:50 PM EDT Oxygen Saturation 98% 12/08/2017 9:52 PM EDT Inhaled Oxygen Concentration - - Weight 89.4 kg (197 lb) 12/08/2017 8:50 PM EDT Height 188 cm (6' 2 ) 12/08/2017 8:50 PM EDT Body Mass Index 25.29 12/08/2017 8:50 PM EDT Plan of Treatment Health Maintenance Due Date Last Done Comments LIPID PANEL 1985 DEPRESSION SCREENING 1997 SMOKING Hx and SMOKELESS TOBACCO SCREENING 1998 HEPATITIS C SCREENING 2003 HIV ONE-TIME SCREENING (18-6 5 YEARS) 2003 PNEUMOCOCCAL VACCINES (0-49 years) (1 of 2 - PCV) 2004 INFLUENZA VACCINE (#1) 2025 COVID-19 VACCINE ( - 2023-2 5 season) 2025 Adult Td,Tdap Booster 12/12/2027 12/11/2017 , 07/05/2017 HEPATITIS A VACCINES Aged Out No long er eligible based on patient's age to complete this topic HIB VACCINES Aged Out No longer eligi ble based on patient's age to complete this topic MENINGOCOCCAL VACCINES (ACWY) Aged Out No longer eligible based on patient's age to complete this topic MENINGOCOCCAL VACCINES (B) Aged Out N o longer eligible based on patient's age to complete this topic Medical Devices Not on file Insurance [address] [address] [place] [address] [place] [address] [place] [address] [place] [address] [place] [address] [address] [place] [address] ACO [facility] ACO [facility] ACO Care Teams Dent Remover Relationship Specialty Start Date End Date Unknown, Unknown, PCP - General 07/05/17 Additional Source Comments The information contained in this document represents components of the legal health record. It is not the complete legal health record.[facility]
--- NOTE | 2025-05-05 07:26 | MHC.PC.OV ---
Intake Visit Reasons: TRT Therapy Review Allergies No Known Allergies (No Known Allergies*) Allergy (Verified 02/09/25 10:19) Medication List - Last Reconciled 05/05/25 by DEVONET Griggs betamethasone dipropionate 0.05% 1 appl topical BID PRN nvmualjv-qfplhr-gbpqpztf acid 500 mg-800 mcg- 50 mg (Collagen 1500 Plus C) 1 cap PO DAILY cyclobenzaprine 10 mg PO BEDTIME fluticasone propionate 50 mcg/actuation (Flonase Allergy Relief) 2 sprays intranasal DAILY meloxicam 15 mg PO DAILY 14 days sx-ced-GU-Ki-Ew-jvmgdbc-lutein 0.4-162-18 mg 1 tab PO DAILY trazodone 150 mg PO BEDTIME Tobacco use date assessed: 12/15/24 Dental Screening Dental Screen Date: 12/15/24 HPI TRT Therapy Review HPI Details History of Present Illness The patient is a 39-year-old male presenting with right foot pain. The pain has been ongoing since January and was initially evaluated in the emergency room where X-rays were negative. An MRI of the ankle was conducted by an residential support specialist, who recommended conservative treatment and therapy. The patient is considering surgery, although there is no documentation available to confirm this. He is also following up with an residential support specialist in [facility] for both his wrist and foot issues. The patient reports worsening pain in the right foot and has requested an X-ray, which okay, though still would appreciate guidance from an residential support specialist. He is taking injectable amino acids, and caution was advised regarding their use. The patient is otherwise doing well, focusing on a high-protein, low-carbohydrate diet to aid muscle development and tissue repair. Review of Systems - Musculoskeletal: Reports right foot pain since January. Denies any other musculoskeletal symptoms. - General: Reports doing well overall with dietary modifications. Plan 1. Right Foot Pain The patient has been experiencing right foot pain since January, initially evaluated with negative X-rays. An MRI was conducted, and conservative treatment was recommended by an residential support specialist. The patient is considering surgery and is following up with an residential support specialist in [facility]. An X-ray has been ordered to assess the worsening pain, with a recommendation to consult an residential support specialist for further evaluation. 2. Wrist Pain The patient is following up with an residential support specialist in [facility] for wrist pain. Discussion Notes I discussed with the patient the ongoing right foot pain and the need for further evaluation with an X-ray. I recommended consulting with an residential support specialist for a comprehensive assessment. We also talked about the use of injectable amino acids, and I advised caution due to limited information on their effects. Patient Instructions - Follow up with an residential support specialist for right foot and wrist evaluation. - Proceed with the X-ray of the right foot as discussed. - Be cautious with the use of injectable amino acids. [facility] Medical History Peroneal tendinitis, right leg Chest wall contusion Back pain ADHD Cocaine use Stimulant use disorder Inguinal hernia Surgical History Hx of cystoscopy H/O hernia repair Status post ligament repair History of appendectomy Family History Other Mental health disorder Substance use disorder Social History Household Members: None Housing: House Do you presently have visiting nurse or other home services: No Alcohol intake: current Alcohol intake frequency: a few times a week Alcohol type: wine and hard liquor Patient Tobacco Use Status: Current everyday Tobacco user Tobacco use type: Cigarette Cigarettes Per Day: 10 Years Smoked: 20 e-Cigarette/Vaping Use: Never Used Second Hand Smoke Exposure: No Substance Use Type: Crack/Cocaine service: No Current occupational status: employed Cognitive needs: No Hearing needs: No Vision needs: Yes Questionnaire Thrive Questionnaire Date Thrive assessed: 12/15/24 I am a: Patient What is your living situation today?: I choose not to answer this question Within the past 12 months, did the food you bought not last and you didn't have the money to get more?: I choose not to answer this question Within the past 12 months, did you worry whether your food would run out before you got money to buy more?: I choose not to answer this question Do you have trouble paying for medicines?: I choose not to answer this question Do you have trouble getting transportation to medical appointments?: I choose not to answer this question Do you have trouble paying your heating and electricity bill?: I choose not to answer this question Do you have trouble taking care of your child, family member or friend?: I choose not to answer this question Do you have trouble with day-to-day activities such as bathing, preparing meals, shopping, managing finances, etc.?: I choose not to answer this question Are you currently unemployed and looking for a job?: I choose not to answer this question Are you interested in more education?: I choose not to answer this question Please select the resources that you would like help with: None Currently or been in a relationship where the following occur: I choose not to answer THRIVE Score: 0 LEX-7 AMB Questionnaire LEX-7 Date LEX - 7 assessed: 02/14/22 Source: Developed by Drs. Bandar Galaviz, Ngozi Leavitt, Tanmay Garcia and colleagues, with an educational fadi from [employer]. Physical exam (Primary Care) Tobacco/Smoking Status: Tobacco use Status Tobacco use date assessed 12/15/24 03/14/25 07:14 Patient Tobacco Use Status Current everyday Tobacco 03/14/25 07:14 Tobacco use type Cigarette 03/14/25 07:14 e-Cigarette/Vaping Use Never Used 03/14/25 07:14 Thrive Assessment: Date of Thrive Assessment Date Thrive assessed 12/15/24 03/14/25 07:14 Currently or been in a relationship where the following occur: I choose not to answer Telehealth Telehealth Telehealth Platform: [facility] Location of provider rendering services: practice address Location of patient: address on file Patient Identification confirmed using: Name, : Yes Telehealth method: video Patient verbally consented to treatment: Yes Patient verbally consented to billing insurance company: Yes Patient informed of any privacy concerns related to visit: Yes Minutes spent on Phone/Video with Pt.: 15 Coding Level of Care Code Tele Est Pt Level 3 (13320) Diagnoses Physical exam Z00.00 Right foot pain M79.671 Assessment & Plan Assessment & Plan (1) Physical exam: Code(s): Z00.00 - Encounter for general adult medical examination without abnormal findings Category: Medical (2) Right foot pain: Code(s): M79.671 - Pain in right foot Category: Medical Plan Physical exam labs will be ordered Orders: Orders XR foot RT 2V Today S92.901A - Unspecified fracture of right foot, initial encounter for closed fracture Complete Blood Count Auto Diff Today Z00.00 - Encounter for general adult medical examination without abnormal findings Comprehensive [place]. Panel Fast Today Z00.00 - Encounter for general adult medical examination without abnormal findings UA CC w/rflx Micro + Cult Today Z00.00 - Encounter for general adult medical examination without abnormal findings TSH reflex Free T4 Today Z00.00 - Encounter for general adult medical examination without abnormal findings Lipid Panel Today Z00.00 - Encounter for general adult medical examination without abnormal findings
== END 2025-05-05 08:57 | disposition home or self-care (01) ==
LOC: HO.HMCC 06:49
PROVIDERS: PCP Nurse Practitioner Family; Visit Provider Nurse Practitioner Family
DX: Z00.00 Encounter for general adult medical examination without abnormal findings (principal); M79.671 Pain in right foot

== ENCOUNTER 2025-05-06 06:31 | Outpatient (REF) | payer OTHER, SELFPAY ==
--- OUTSIDE RECORDS SUMMARY | 2025-05-06 06:34 | XMS_ITS | Clinical Summary ---
Author Organization [facility] Address [address] [place] [address] Phone Care Team Providers Care Channeling Machine Operator Name Role Phone Unknown, Unknown Primary Care [...] topic Medical Devices Not on file [place] [address] [place] [address] [place] [address] [place] [address] [place] [address] [address] [place] [address] [address] [place] [address] [place] [address] [place] [address] ACO [facility] ACO [facility] ACO Care Teams Channeling Machine Operator Relationship Specialty Start Date End Date Unknown, Unknown, PCP - General 07/05/17 Additional Source Comments The information contained in this document represents components of the legal health record. It is not the complete legal health record.[facility]
[2025-05-06 10:34] LABS: MANUAL DIFF FLAG NO
[2025-05-06 10:47] LABS: Appearance Urine Clear; Glucose Urine UA Negative (Negative); PH 5.5 (5.0-9.0); Specific Gravity - Urine 1.025 (1.005-1.025); UMIC TRIGGER UACC YES
[2025-05-06 10:51] LABS: Hematocrit 47.5 % (42.0-52.0); Hemoglobin 15.1 g/dl (14.0-18.0); Imm Gran Abs Auto 0.04 X10*3/uL (0.00-0.03); Imm Gran Pct Auto 0.5 % (0.0-0.4); Lymphocytes Absolute Auto 2.3 X10*3/uL (1.2-4.9); Mean Corpuscular HGB Conc 31.8 g/dl (31.0-36.0); Mean Corpuscular Hemoglobin 28.7 pg (27.0-33.0); Mean Corpuscular Volume 90.3 fL (80.0-98.0); NRBC Abs Auto 0.000 X10*3/uL (0.0-0.012); NRBC Pct Auto 0.0 /100WBC (0.0-0.2); Platelet Count 383 X10*3/uL (160-400); Red Blood Count 5.26 X10*6/uL (4.60-5.80); White Blood Count 8.7 X10*3/uL (4.8-10.8)
[2025-05-06 11:17] LABS: Alanine Aminotransferase 45 U/L (0-40); Albumin Level 4.5 g/dL (3.5-5.0); Alkaline Phosphatase 59 U/L (39-117); Anion Gap 14 (12-20); Aspartate Amino Transferase 45 U/L (5-37); Blood Urea Nitrogen 15 mg/dL (9-16); Calcium 9.1 mg/dL (8.4-10.2); Carbon Dioxide 26 mmol/L (22-29); Chloride 103 mmol/L (96-108); Cholesterol 127 mg/dL (<200); Estimated Glomerular Filt Rate > 60; HDL Cholesterol 34 mg/dL (>40); Potassium 4.7 mmol/L (3.3-5.1); Sodium 138 mmol/L (135-145); Total Protein 7.2 g/dL (6.5-8.0); Triglycerides 52 mg/dL (<150)
== END 2025-05-06 06:32 | disposition home or self-care (01) ==
LOC: HO.HMGCLDS 06:31
PROVIDERS: PCP Nurse Practitioner Family; Visit Provider Nurse Practitioner Family
DX: Z00.00 Encounter for general adult medical examination without abnormal findings (principal); R31.29 Other microscopic hematuria
CPT/HCPCS: 36415; 80053; 80061; 81001; 81003; 84443; 85025

== ENCOUNTER 2025-05-14 10:17 | Outpatient (REF) | payer OTHER, SELFPAY ==
--- NOTE | ~2025-05-14 | XR_ITS ---
EXAMINATION: XR FOOT 3 OR MORE VIEWS RIGHT HISTORY: S92.901A - Unspecified fracture of right foot, initial encounter for ... COMPARISON: Comparison is made with the prior examination 02/09/2025. FINDINGS: Three views of the right foot are submitted. Osseous mineralization is normal. Again seen is an old healed fracture deformity of the 5th metatarsal. No acute fracture is identified. There is no dislocation. There is mild narrowing of the 1st MTP joint. The soft tissues are unremarkable. XR/XR foot RT min 3V IMPRESSION: No acute abnormality. Electronically signed by: Bandar Goodwin MD 05/16/2025 07:16 AM EDT
--- OUTSIDE RECORDS SUMMARY | 2025-05-14 10:20 | XMS_ITS | Clinical Summary ---
Author Organization [facility] Address [address] [place] [id number] Phone Care Team Providers Care Conveyor Technician Name Role Phone Unknown, Unknown Primary Care [...] topic Medical Devices Not on file [place] [address] [place] [address] [place] [address] [place] [address] [place] [address] [place] [address] [address] [address] [place] [address] ACO [facility] ACO [facility] ACO Care Teams Conveyor Technician Relationship Specialty Start Date End Date Unknown, Unknown, PCP - General 07/05/17 Additional Source Comments The information contained in this document represents components of the legal health record. It is not the complete legal health record.[facility]
== END 2025-05-14 10:18 | disposition home or self-care (01) ==
LOC: HO.HMGCX 10:17
PROVIDERS: PCP Nurse Practitioner Family; Visit Provider Nurse Practitioner Family
DX: S92.901D Unspecified fracture of right foot, subsequent encounter for fracture with routine healing (principal)
CPT/HCPCS: 73630

== ENCOUNTER → 2025-05-14 10:22 | Outpatient (BNV) | payer OTHER, SELFPAY | PROVIDERS: PCP Nurse Practitioner Family; Visit Provider Radiology Diagnostic Radiology | DX: S92.901A Unspecified fracture of right foot, initial encounter for closed fracture (principal) | CPT/HCPCS: 73630 ==

== ENCOUNTER 2025-06-13 06:33 | Emergency (ER) | payer OTHER, SELFPAY ==
--- NOTE | ~2025-06-13 | XR_ITS ---
CLINICAL HISTORY: dyspnea on exertion Chest radiographs, 2 views Comparison: CR/TX/SR - XR CHEST 2 VIEWS - 12/15/24 08:50 EDT Findings: The cardiomediastinal silhouette is not enlarged. Pulmonary vascularity is unremarkable. No focal consolidation or effusion. No pneumothorax. IMPRESSION: No acute cardiopulmonary findings. This document has been electronically signed by: Rafael Olson DO on 06/13/2025 10:14:25
[2025-06-13 06:34] VITALS: BP 121/69; PULSE 99; RESP 20; TEMP 36.2; O2SAT 96; BMI 24.4
--- NOTE | 2025-06-13 06:38 | ECG_ITS ---
Test Reason : SOB Blood Pressure : */* mmHG Vent. Rate : 95 BPM Atrial Rate : 95 BPM P-R Int : 130 ms QRS Dur : 84 ms QT Int : 330 ms P-R-T Axes : 80 78 69 degrees QTcB Int : 414 ms Normal sinus rhythm Possible Left atrial enlargement Minimal voltage criteria for LVH, may be normal variant ( Sokolow-Fernandez ) Nonspecific ST and T wave abnormality Abnormal ECG When compared with ECG of 13-Oct-2024 11:31, ST elevation now present in Anterior leads Nonspecific T wave abnormality now evident in Lateral leads QT has shortened Referred By: Generic ED Physician Electronically Signed By: Anand Watters
--- OUTSIDE RECORDS SUMMARY | 2025-06-13 06:46 | XMS_ITS | Clinical Summary ---
Author Organization [facility] Address [address] [place] [id number] Phone Care Team Providers Care Truck Engine Assembler Name Role Phone Unknown, Unknown Primary Care [...] 2004 INFLUENZA VACCINE (#1) 2025 COVID-19 VACCINE (1 - 2024-2 6 season) 2025 Adult Td,Tdap Booster 12/12/2027 12/11/2017 [...] topic Medical Devices Not on file [place] [address] [address] [address] [place] [address] [address] [place] [address] [address] [address] ACO [facility] ACO [facility] ACO Care Teams Truck Engine Assembler Relationship Specialty Start Date End Date Unknown, Unknown, PCP - General 07/05/17 Additional Source Comments The information contained in this document represents components of the legal health record. It is not the complete legal health record.[facility]
[2025-06-13 06:54] LABS: MANUAL DIFF FLAG NO
[2025-06-13 06:55] LABS: Hematocrit 49.4 % (42.0-52.0); Hemoglobin 15.7 g/dl (14.0-18.0); Imm Gran Abs Auto 0.02 X10*3/uL (0.00-0.03); Imm Gran Pct Auto 0.3 % (0.0-0.4); Lymphocytes Absolute Auto 2.1 X10*3/uL (1.2-4.9); Mean Corpuscular HGB Conc 31.8 g/dl (31.0-36.0); Mean Corpuscular Hemoglobin 27.5 pg (27.0-33.0); Mean Corpuscular Volume 86.7 fL (80.0-98.0); NRBC Abs Auto 0.000 X10*3/uL (0.0-0.012); NRBC Pct Auto 0.0 /100WBC (0.0-0.2); Platelet Count 408 X10*3/uL (160-400); Red Blood Count 5.70 X10*6/uL (4.60-5.80); White Blood Count 7.2 X10*3/uL (4.8-10.8)
[2025-06-13 07:09] LABS: Alanine Aminotransferase 51 U/L (0-40); Albumin Level 4.2 g/dL (3.5-5.0); Alkaline Phosphatase 80 U/L (39-117); Anion Gap 13 (12-20); Aspartate Amino Transferase 41 U/L (5-37); Blood Urea Nitrogen 13 mg/dL (9-16); Calcium 8.8 mg/dL (8.4-10.2); Carbon Dioxide 24 mmol/L (22-29); Chloride 106 mmol/L (96-108); Creatinine Clr Calc Pharmacy 167.8; Estimated Glomerular Filt Rate > 60; Potassium 4.1 mmol/L (3.3-5.1); Sodium 139 mmol/L (135-145); Total Protein 6.7 g/dL (6.5-8.0)
--- NOTE | 2025-06-13 08:07 | ED_ITS ---
HPI - General Adult General Chief complaint: General Medical Stated complaint: Not Feeling Well Time Seen by Provider: 06/13/25 08:07 History of Present Illness ED Provider: Andrea VELIZ narrative: The patient is a 40-year-old male who says that he has felt a profound degree of unusual fatigue over the last week. He says that his symptoms began after he returned from [place] last week. He says that he has been in [place] from May 18 until last week. His plane landed here 5 days ago on June 08. He says that since returning he has been profoundly fatigued so that he has been staying in bed much more than he usually does. He has not fevers. He has felt a sense of shortness of breath however. He has had no pain or swelling in his legs. He says that he has ADHD and he is normally extremely active and he says that he always has energy and he is finding this lack of energy extremely unnerving. The patient says that he has a history of significant alcohol and cocaine use but he has cut back to a great deal degree over the last year. He says that over the last few months he has also started using supplements to try to prevent aging. This includes injections of testosterone and injections of NAD/NADH and also an oral androgen steroid medication. He drove himself to the emergency room this morning. He says that while he was waiting to be seen he did some research on his phone about his supplements. He says he recently increased the dose of NAD/NADH. He says that he just read that increasing the dosage of this medication can cause fatigue. He says that he does not get these medications prescribed. He obtains them from the Internet. Additionally he does not speak to any provider about how to take these medications. He says that he goes to forums on the Internet to learn how to use these medications. Related Data Home Medications ?Medication ?Instructions ?Recorded ?Confirmed collagen,hydrolysate 500 mg-biotin 1 cap PO DAILY 11/3005/05/25 800 mcg-ascorbic acid 50 mg capsule (Collagen 1500 Plus C) xxxddbbl-ciy-BL 0.4 mg-calcium 162 1 tab PO DAILY 11/3005/05/25 mg-iron 18 na-rynzoiq-tffprb tablet Previous Rx's ?Medication ?Instructions ?Recorded trazodone 150 mg tablet 150 mg PO BEDTIME #90 tabs 0 11/03/24 meloxicam 15 mg tablet 15 mg PO DAILY 14 days #14 t abs 12/15/24 cyclobenzaprine 10 mg tablet 10 mg PO BEDTIME #20 tabs 12/30/24 fluticasone propionate 50 2 spray intranasal DAILY #16 grams 01/11/25 mcg/actuation nasal spray,suspension (Flonase Allergy Relief) betamethasone dipropionate 0.05 % 1 appl topical BID P RN skin 02/14/25 topical cream irritation #45 grams Allergies Allergy/AdvReac Type Severity Reaction Status Date / Time No Known Allergies (No Known Allergy Verified 06/13/25 06:37 Allergies*) Review of Systems 2 Review of Systems: Yes all other systems are reviewed and are negative REPLACED BY [facility] Past Medical History Medical History Peroneal tendinitis, right leg Chest wall contusion Back pain ADHD Cocaine use Stimulant use disorder Inguinal hernia Surgical History Hx of cystoscopy H/O hernia repair Status post ligament repair History of appendectomy Family History Family History Other Mental health disorder Substance use disorder Social History Social History Household Members: None Housing: House Do you presently have visiting nurse or other home services: No Alcohol intake: current Alcohol intake frequency: a few times a week Alcohol type: wine and hard liquor Patient Tobacco Use Status: Current everyday Tobacco user Tobacco use type: Cigarette Cigarettes Per Day: 10 Years Smoked: 20 e-Cigarette/Vaping Use: Never Used Second Hand Smoke Exposure: No Substance Use Type: Crack/Cocaine Advance Directives: No Advance Directives Information Provided: No Do you have a plan to hurt others: No Plan service: No Current occupational status: employed Cognitive needs: No Hearing needs: No Vision needs: Yes Physical Exam ED Vital Signs: Vital Signs - 24 hr 06/13/25 06:34 06/13/25 10:00 Temperature 97.1 F 97.1 F Pulse Rate 99 99 Respiratory Rate 20 20 Blood Pressure 121/69 121/69 Pulse Oximetry 96 96 Oxygen Delivery Method Room Air Room Air BMI result Body Mass Index 24.4 Const Other: The patient is a 40-year-old man who was awake and alert. He does not appear in any distress. He does not appear obviously ill. Orientation/consciousness: patient oriented x3 [facility] Other: The face is symmetrical. Mucous membranes moist. Eyes Other: Pupils are round equal, conjunctivae are clear, extraocular movements intact Neck Neck: Yes full ROM, Yes no lymphadenopathy and Yes no meningeal signs Resp Effort & Inspection: normal respiratory effort Auscultation: clear to auscultation bilaterally Cardio Rate: regular rate Rhythm: regular rhythm Heart sounds: S1 normal heart sound present and S2 normal heart sound present GI Other: Abdomen is soft and nontender Skin Other: The skin is dry and unremarkable Neuro General: patient oriented x3, gait normal, tone normal, moves all extremities, no meningeal signs, no focal motor deficits and CN's II-XI intact bilaterally Extrem Other: There is no calf swelling or tenderness. No asymmetry. No peripheral edema. Medical Decision Making Medical Decision Making [facility] Narrative: The patient is a 40-year-old male who reports a history of fairly heavy alcohol and cocaine use in his life but which he has moderated recently. Recently he has also started to take testosterone injections and NAD/ NADH injections as well as an oral androgen hormone. He returned from a 3 week trip to [facility] 5 days ago. He presents to the ER because he has been feeling profound fatigue since returning from [place]. The patient has had no fevers. Clinically he does not appear obviously unwell. Physical exam shows no significant abnormalities. He has a an unremarkable EKG and chest x-ray. Labs show an unremarkable white count and differential. CRP is normal. Troponin is normal. D-dimer is normal. My overall suspicion for a significantly acutely dangerous process in his the patient is very low given his bland physical exam, has normal vital signs, in his unremarkable laboratory evaluation. It is possible that his symptoms could be related to the supplemental medications he is using ( medications which he buys through the Internet without prescriptions ). I explained to the patient that I was not finding any acutely dangerous process. I think he should follow up with his PCP. He was discharged to return if worse. Lab Data 06/13/25 06:49 06/13/25 06:49 Labs: Lab Results 06/13/25 06/13/25 Range/Units 06:49 08:42 WBC 7.2 (4.8-10.8) X10*3/uL RBC 5.70 (4.60-5.80) X10*6/uL Hgb 15.7 (14.0-18.0) g/dl Hct 49.4 (42.0-52.0) % MCV 86.7 (80.0-98.0) fL MCH 27.5 (27.0-33.0) pg MCHC 31.8 (31.0-36.0) g/dl RDW 13.2 (11.0-16.0) % Plt Count 408 H (160-400) X10*3/uL MPV 10.6 (9.4-12.4) fL Immature Gran % (Auto) 0.3 (0.0-0.4) % Neut % (Auto) 56.9 (45-73) % Lymph % (Auto) 28.7 (20-40) % Nicholas % (Auto) 9.6 (2-11) % Eos % (Auto) 3.5 (0-4) % Baso % (Auto) 1.0 (0-2) % Lymph # (Auto) 2.1 (1.2-4.9) X10*3/uL Nicholas # (Auto) 0.7 (0.1-1.2) X10*3/uL Eos # (Auto) 0.3 (0.0-0.4) X10*3/uL Baso # (Auto) 0.1 (0.0-0.2) X10*3/uL Abs Immat Gran (auto) 0.02 (0.00-0.03) X10*3/uL Absolute Neuts (auto) 4.1 (2.0-8.3) x10*3/uL Absolute Nucleated RBC 0.000 (0.0-0.012) X10*3/uL Nucleated RBC % (auto) 0.0 (0.0-0.2) /100WBC D-Dimer High Sensitivty < 150 NG/ML Sodium 139 (135-145) mmol/L Potassium 4.1 (3.3-5.1) mmol/L Chloride 106 (96-108) mmol/L Carbon Dioxide 24 (22-29) mmol/L Anion Gap 13 (12-20) BUN 13 (9-16) mg/dL Creatinine 0.68 (0.5-1.4) mg/dL Estim Creat Clear Calc 167.8 Estimated GFR > 60 Random Glucose 163 H (60-115) mg/dL Calcium 8.8 (8.4-10.2) mg/dL Total Bilirubin 0.4 (0.0-1.0) mg/dL AST 41 H (5-37) U/L ALT 51 H (0-40) U/L Alkaline Phosphatase 80 (39-117) U/L Troponin I High Sens < 2.7 (<3.5-35.0) ng/L C-Reactive Protein 0.31 (< or = 0.50) mg/dL Total Protein 6.7 (6.5-8.0) g/dL Albumin 4.2 (3.5-5.0) g/dL Independent Interpretation I performed an independent interpretation of an: EKG Interpretation: EKG at 06:40 shows normal sinus rhythm at 95 beats per minute. No definite acute ischemic changes. Discharge Plan Discharge Clinical Impression: Fatigue Patient Disposition: Home, Self-Care Additional Instructions: Your testing in the emergency room today seems very reassuring. Your symptoms may be a result of the supplements that you has been using. Please contact your primary care doctor for a follow up appointment to discuss these symptoms further. Return to the emergency room if you feel significantly worse, especially if you develop a fever. Prescriptions: No Action trazodone 150 mg tablet 150 mg PO BEDTIME Qty: 90 1RF cyclobenzaprine 10 mg tablet 10 mg PO BEDTIME Qty: 20 0RF fluticasone propionate [Flonase Allergy Relief] 50 mcg/actuation spray,suspension 2 spray intranasal DAILY Qty: 16 2RF Rx Instructions: administer into each nostril betamethasone dipropionate 0.05 % cream 1 appl topical BID PRN (Reason: skin irritation) Qty: 45 0RF cf-epy-IT-Gj-Oh-yepiews-lutein 0.4-162-18 mg Tablet 1 tab PO DAILY Collagen 1500 Plus C 500 mg-800 mcg- 50 mg Capsule 1 cap PO DAILY meloxicam 15 mg tablet 15 mg PO DAILY 14 Days Qty: 14 0RF Interventions: ED Discharge Assessment Last Done: 06/13/25 10:00 Discharge Date/Time: 06/13/25 10:02 Print Language: Swedish
[2025-06-13 08:58] LABS: Troponin-I High Sensitivity < 2.7 ng/L (<3.5-35.0)
[2025-06-13 09:08] LABS: D Dimer High Sensitivity < 150 NG/ML
[2025-06-13 10:00] VITALS: BP 121/69; PULSE 99; RESP 20; TEMP 36.2; O2SAT 96
== END 2025-06-13 10:02 | disposition home or self-care (01) ==
PROVIDERS: Emergency Provider Emergency Medicine; PCP Nurse Practitioner Family
DX: R53.83 Other fatigue (principal); R06.02 Shortness of breath; F90.9 Attention-deficit hyperactivity disorder, unspecified type
CPT/HCPCS: 36415; 71046; 80053; 84484; 85025; 85379; 86140; 93005; 99283; 99284

== ENCOUNTER → 2025-06-13 06:38 | Outpatient (BNV) | payer OTHER, SELFPAY | PROVIDERS: Emergency Provider Emergency Medicine; PCP Nurse Practitioner Family; Visit Provider Internal Medicine Cardiovascular Disease | DX: R94.31 Abnormal electrocardiogram [ECG] [EKG] (principal); R06.02 Shortness of breath | CPT/HCPCS: 93010 ==

== ENCOUNTER → 2025-06-13 08:35 | Outpatient (BNV) | payer OTHER, SELFPAY | PROVIDERS: Emergency Provider Emergency Medicine; PCP Nurse Practitioner Family; Visit Provider Radiology Diagnostic Radiology | DX: R06.09 Other forms of dyspnea (principal) | CPT/HCPCS: 71046 ==

== ENCOUNTER 2025-07-18 08:25 | Outpatient (AMB) | payer OTHER, SELFPAY ==
--- NOTE | 2025-07-18 08:32 | MHC.OFFVIS ---
Intake Visit Reasons: microscopic hematuria Intake Note: New patient presents today for initial visit for microscopic hematuria Urology Medication:None Blood Thinner:None Antibiotic Allergies:None Allergies No Known Allergies (No Known Allergies*) Allergy (Verified 07/18/25 08:32) HPI Comments Details: Iron presents as a new patient for evaluation microscopic hematuria. History of Present Illness The patient is a 40-year-old male presenting with hematuria. He had a CT abdomen and pelvis with IV contrast in October of this year, which showed kidneys within normal limits. The patient has a history of kidney stones, recurrent renal calculi were not detected in the October CT scan. In May, the patient experienced lower back pain and difficulty urinating, with episodes of gross hematuria. He reported frequent urination with small volumes and noted that the urine was appeared orange. Results - CT abdomen and pelvis with IV contrast in October: Kidneys within normal limits - Pending CT scan scheduled for 07/20 Plan 1. Hematuria - follow up with cystoscopy, urine sent for cytology 2. Kidney Stones - Scheduled CT scan to assess for current stones and kidney status. [facility] Medical History Peroneal tendinitis, right leg Chest wall contusion Back pain ADHD Cocaine use Stimulant use disorder Inguinal hernia Surgical History Hx of cystoscopy H/O hernia repair Status post ligament repair History of appendectomy Family History Other Mental health disorder Substance use disorder Social History Household Members: None Housing: House Do you presently have visiting nurse or other home services: No Alcohol intake: current Alcohol intake frequency: a few times a week Alcohol type: wine and hard liquor Patient Tobacco Use Status: Current everyday Tobacco user Tobacco use type: Cigarette Cigarettes Per Day: 10 Years Smoked: 20 e-Cigarette/Vaping Use: Never Used Second Hand Smoke Exposure: No Substance Use Type: Crack/Cocaine service: No Current occupational status: employed Cognitive needs: No Hearing needs: No Vision needs: Yes Results AMB Urinalysis, Automated UA Leukoctes 0 Matty/uL Last Edit by Genesis Modi on 07/18/25 12:16 UA Nitrite Negative Last Edit by Crystal Modi on 07/18/25 12:16 UA Urobilinogen 0.2 mg/dL Last Edit by Crystal Modi on 07/18/25 12:16 UA Protein 0 mg/dL Last Edit by Crystal Modi on 07/18/25 12:16 UA pH 6.0 Last Edit by Crystal Modi on 07/18/25 12:16 UA Blood 10 Wojciech/uL Last Edit by Crystal Modi on 07/18/25 12:16 UA Specific [place] 1.020 Last Edit by Crystal Modi on 07/18/25 12:16 UA Ketone Negative Last Edit by Crystal Modi on 07/18/25 12:16 UA Bilirubin 0 mg/dL Last Edit by Crystal Modi on 07/18/25 12:16 UA Glucose 0 mg/dL Last Edit by Crystal Modi on 07/18/25 12:16 Results Reviewed Results Reviewed: Laboratory Last Values Urine pH (Auto) 6.0 07/18/25 12:01 Specific [place] (Auto) 1.020 07/18/25 12:01 Urine Protein (Auto) 0 mg/dL 07/18/25 12:01 Glucose (UA)(Auto) 0 mg/dL 07/18/25 12:01 Urine Ketones (Auto) Negative 07/18/25 12:01 Urine Blood (Auto) 10 Wojciech/uL 07/18/25 12:01 Urine Nitrite (Auto) Negative 07/18/25 12:01 Urine Bilirubin (Auto) 0 mg/dL 07/18/25 12:01 Urine Urobilinogen (Auto) 0.2 mg/dL 07/18/25 12:01 Leukocyte Esterase (Auto) 0 Matty/uL 07/18/25 12:01 Date of Service: 10/13/24 CT ABDOMEN AND PELVIS WITH CONTRAST CLINICAL INFORMATION: Diarrhea, fever, vomiting, weight loss. COMPARISON: 12/18/2023, 11/06/2021. TECHNIQUE: Multidetector volumetric images were obtained from the superior aspect of the liver through the pubic symphysis following administration 85 mL of Omnipaque 350 intravenous contrast. Sagittal and coronal reformatted images were obtained on the technologist's workstation. Oral contrast: No This CT examination was performed using dose optimization techniques as appropriate, variously including the following: *Automated exposure control *Adjustment of mA and/or kV according to patient size (this includes techniques or standardized protocols for targeted exams where dose is matched to indication/reason for exam; i.e. extremities or head) *Use of iterative reconstruction technique FINDINGS: LUNG BASES: Lung bases are clear. The heart size is normal. There is a small type I hiatus hernia. LIVER, GALLBLADDER, AND BILIARY TREE: Liver is normal in size and shape. Questionable minimal steatosis. No suspicious focal hepatic lesion or biliary ductal dilatation is present. Small 5 mm focus of enhancement in segment 8 medially is consistent with a small flash filling hemangioma. The gallbladder is unremarkable with no evidence of radiopaque gallstones, gallbladder wall thickening, or obvious pericholecystic inflammatory changes. PANCREAS: Unremarkable. SPLEEN: Unremarkable. ADRENAL GLANDS: Unremarkable. KIDNEYS AND URETERS: The kidneys are normal in size, shape, and attenuation. No hydronephrosis, hydroureter, or calculi seen. No perinephric stranding. BLADDER: Decompressed. No gross abnormality. GASTROINTESTINAL TRACT: -Mild wall thickening of the descending and sigmoid colon is present, with apparent rectal sparing. In addition, the remainder of the colon demonstrates submucosal fat deposition, which can coincide with inflammatory bowel disease. There are a few scattered left colonic diverticula. No gross pericolonic inflammation present. -The small bowel is normal in caliber and course. No abnormal dilatation or wall thickening. No definite terminal ileal abnormality. -Small type I hiatus hernia. -The stomach is normal. The duodenum appears normal. -There is no evidence of appendicitis. ABDOMINAL WALL: No significant hernia is appreciated. LYMPH NODES: No enlarged lymph nodes by size criteria. VASCULAR: Unremarkable. PELVIC VISCERA: The prostate and seminal vesicles are unremarkable. OSSEOUS STRUCTURES: Normal without evidence of suspicious lesion. SI joints are normal. There is mild disc degeneration L5-S1. CT/CT abdomen pelvis w IV con IMPRESSION: 1. Mild perceived wall thickening of the distal and sigmoid colon with rectal sparing. In addition, the remainder of the colon demonstrates mild submucosal fat deposition, which can be seen in conjunction with inflammatory bowel disease. Grossly no pericolonic inflammation seen. Would correlate for signs and symptoms of colitis/inflammatory bowel disease. 2. A few scattered colonic diverticula. 3. Small type I hiatus hernia. Assessment & Plan Assessment & Plan Plan Plan 1. Hematuria - follow up with cystoscopy, urine sent for cytology 2. Kidney Stones - Scheduled CT scan to assess for current stones and kidney status. Orders: Orders AMB Urinalysis Automated Today N13.2 - Hydronephrosis with renal and ureteral calculous obstruction, R31.29 - Other microscopic hematuria Urine Cytology Today R31.9 - Hematuria, unspecified, R80.9 - Proteinuria, unspecified Coding
== END 2025-07-18 09:27 | disposition home or self-care (01) ==
PROVIDERS: PCP Nurse Practitioner Family; Visit Provider Urology
DX: R31.29 Other microscopic hematuria (principal); N13.2 Hydronephrosis with renal and ureteral calculous obstruction

== ENCOUNTER 2025-07-18 08:25 | Outpatient (REF) | payer OTHER, SELFPAY | END 2025-07-18 08:26 | disposition home or self-care (01) | LOC: HO.LAB 08:25 | PROVIDERS: PCP Nurse Practitioner Family; Visit Provider Urology | DX: N20.0 Calculus of kidney (principal); R19.7 Diarrhea, unspecified; R50.9 Fever, unspecified; R63.4 Abnormal weight loss; R11.10 Vomiting, unspecified | CPT/HCPCS: 81003; 88112 ==

== ENCOUNTER 2025-07-20 11:21 | Outpatient (REF) | payer OTHER, SELFPAY ==
--- OUTSIDE RECORDS SUMMARY | 2024-10-19 07:30 | XMS_ITS ---
Author Organization [facility] Address [address] [facility] [address] [place] [address] Care Team Providers Care Group Fitness Department Head Name Role Phone VERA DOYLE Primary Care Provider Darrion Fulton Jr, Salomon Reynolds [phone] REASON FOR VISIT GERD Encounters Encounter Location Date Provider Diagnosis [facility] Outpatient [address] [place] [phone] 10/19/2024 Salomon Fulton Jr Plan Of Treatment Next Appt Details Provider Name:Salomon stevens Jr, 08/08/2025 01:55:00 PM, [address] [place] [address], Suite [facility], [place], [address], Progress Notes * TEVIN BENITEZOB:09/1984 (40 yo M)Acc No.[id number]:10/19/2024 EGD/MAC Patient: Fercho ROSE GONZALEZ Provider: Lina Fulton MD :1985 A ge:39 Y S ex:Male Date:10/19/2024 Address:[address] [place], [place] [phone] Pcp:VERA DOYLE Subjective: * Chief Complaints: * G ERD Billing Information: * Procedure Codes: * The named appointment provid er may or may not be the originator of this progress note, and it is not deemed complete until electronically signed by the appointment provider. Sign off status: Pending * Provider: Lina Fulton MD Date: 0 10/19/2024 Generated for Busteri ng/Fashanaeg/eTransmitting on: 1 09/19/2024 10:22 PM EST
--- OUTSIDE RECORDS SUMMARY | 2024-10-20 08:00 | XMS_ITS ---
Author Organization [facility] Address [address] [place] [phone] Care Team Providers Care Composition Roofer Name Role Phone VERA DOYLE Primary Care Provider Salomon Heredia Jr [phone] REASON FOR VISIT GERD Problems Problem Type SNOMED Code ICD Code Onset Dates Problem Status W/U Status Risk Notes Problem Erosive esophagitis (49813647) Erosive esophagitis (K22.10) Active confirmed Encounters Encounter Location Date Provider Diagnosis [facility] Outpatient [address] [place] [phone] 10/20/2024 Salomon Fulton Jr Erosive esophagitis K22.10 Assessments Encounter Date Diagnosis (ICD Code) Assessment Notes Treatment Notes Treatment Clinical Notes Section Notes 10/20/2024 Erosive esophagitis (ICD-10 - K22.10) Plan Of Treatment Next Appt Details Provider Name:Salomon stevens Jr, 08/08/2025 01:55:00 PM, [address] [place] [address], Suite [facility], [place], [phone], Progress Notes * TEVIN BENITEZOB:09/1984 (40 yo M)Acc No.[id number]:10/20/2024 EGD/MAC Patient: Fercho ROSE GONZALEZ Provider: Lina Fulton MD :1985 A ge:39 Y S ex:Male Date:10/20/2024 Address:[address] [place], [place] [phone] Pcp:VERA DOYLE Subjective: * Chief Complaints: * G ERD Assessment: * Assessment: 1. E rosive esophagitis - K22.10 (Primary) Plan: * Procedure Codes: 4 3239 UPPER GI ENDOSCOPY, BIOPSY Billing Information: * Procedure Codes: 99748 UPPER GI ENDOSCOPY, BIOPSY. * The named appointment provid er may or may not be the originator of this progress note, and it is not deemed complete until electronically signed by the appointment provider. Sign off status: Pending * Provider: Lina Fulton MD Date: 0 10/20/2024 Generated for Domingo paredes/Kim/Valerieitting on: 1 09/19/2024 10:23 PM EST
--- NOTE | ~2025-07-20 | CT_ITS ---
EXAMINATION: CT ABDOMEN AND PELVIS WITHOUT AND WITH CONTRAST CLINICAL INFORMATION: Microscopic hematuria COMPARISON: Previous CT of the abdomen and pelvis October 2024 TECHNIQUE: Noncontrast CT of the abdomen and pelvis is performed followed by split bolus contrast-enhanced images using 85 mL Omnipaque 350 contrast. Postcontrast imaging is performed during the combined nephrogram and excretion phase. Sagittal and coronal reformatted images were obtained on the technologist's workstation for both the precontrast and postcontrast phases. This CT examination was performed using dose optimization techniques as appropriate, variously including the following: *Automated exposure control *Adjustment of mA and/or kV according to patient size (this includes techniques or standardized protocols for targeted exams where dose is matched to indication/reason for exam; i.e. extremities or head) *Use of iterative reconstruction technique DLP 728 mgy/cm FINDINGS: LUNG BASES: The visualized lung bases are unremarkable. LIVER, GALLBLADDER, AND BILIARY TREE: The liver is normal in size, shape, and attenuation. No focal hepatic lesion or biliary ductal dilatation is present. The gallbladder is unremarkable with no evidence of radiopaque gallstones, gallbladder wall thickening, or obvious pericholecystic inflammatory changes. PANCREAS: Unremarkable. SPLEEN: Unremarkable. ADRENAL GLANDS: Unremarkable. KIDNEYS AND URETERS: The kidneys are normal in size, shape, and attenuation. No hydronephrosis, hydroureter, or calculi seen. No perinephric stranding. The collecting systems are normal. No filling defects seen. Bilateral distal ureters are not opacified with excreted contrast and not optimally evaluated. The bilateral proximal and mid ureters are normal. No filling defect, stone or dilatation seen. BLADDER: The bladder is normal-appearing. No wall thickening, stone or mass. The prostate gland does not appear enlarged. GASTROINTESTINAL TRACT: Mild diverticulosis of the colon. No evidence of diverticulitis. The small and large bowel are otherwise unremarkable. The appendix is not seen. ABDOMINAL WALL: Small umbilical hernia containing fat. LYMPH NODES: Normal. VASCULAR: Unremarkable. PELVIC VISCERA: Unremarkable. OSSEUS STRUCTURES: Mild degenerative disc disease at L5-S1. CT/CT urogram IMPRESSION: The distal ureters are not optimally opacified with excreted contrast and not evaluated. Otherwise unremarkable CT IVP. No cause of hematuria seen. Mild diverticulosis of the colon. Electronically signed by: Jodi Christensen MD 07/20/2025 01:42 PM EST RP
[2025-07-20] MEDS: iohexoL 350 MG/ML 100 ML INFUS..BTL 85 ML IV (11:56)
--- OUTSIDE RECORDS SUMMARY | 2025-07-20 22:23 | XMS_ITS | Clinical Summary ---
Author Organization [facility] Address [address] [place] [phone] Phone Care Team Providers Care Balance And Hairspring Assembler Name Role Phone Unknown, Unknown Primary [...] topic Medical Devices Not on file [place] [address] [place] [address] [place] [address] [place] [address] [place] [address] [place] [address] [place] [address] [place] [address] [place] [address] [place] [address] [place] [address] [place] [address] [employer] [facility] ACO [facility] ACO Care Teams Balance And Hairspring Assembler Relationship Specialty Start Date End Date Unknown, Unknown, PCP - General 07/05/17 Additional Source Comments The information contained in this document represents components of the legal health record. It is not the complete legal health record.[facility]
--- OUTSIDE RECORDS SUMMARY | 2025-07-20 22:23 | XMS_ITS | Patient Health Record ---
Author Organization [facility] Address [address] [place] [address] Care Team Providers Care Environmental Management Specialist Name Role Phone VERA DOYLE Primary Care Provider Darrion Fulton JrSalomon Unavailable [phone] Results Component Value Reference Range Flag Notes Drug Screen Urine Reviewed date:10/20/2024 08:01:53 AM Interpretation: Performing Lab:[facility], [address] [place] [phone] Notes/Report: Opiate Screen Urine Not Detected Not [...] purposes. Cocaine Screen Urine POSITIVE Not Detect A Cocaine cut-off is 300 ng/mL. Positive results [...] Urine Reviewed date:10/21/2024 07:53:31 AM Interpretation: Performing Lab:[facility], [address] [place] [phone] Notes/Report: Opiate Screen Urine Not Detected Not [...] purposes. Cocaine Screen Urine POSITIVE Not Detect A Cocaine cut-off is 300 ng/mL. Positive results [...] Pathology Reviewed date:10/26/2024 09:28:34 PM Interpretation: Performing Lab:[facility], [address] [place] [phone] Notes/Report: Reason For Referral No Information Problems Problem Type SNOMED Code ICD Code Onset Dates Problem Status W/U Status Risk Notes Problem Erosive esophagitis (60240607) Erosive esophagitis (K22.10) Active confirmed Problem Gastroesophageal reflux disease (458135855) Gastroesophageal reflux disease, unspecified whether esophagitis present (K21.9) Active confirmed Problem Nausea and vomiting (24222744) Nausea and vomiting, unspecified vomiting type (R11.2) Active confirmed Encounters Encounter Location Date Provider Diagnosis [facility] [address] [place] [id number] 10/20/2024 Salomon Fulton Jr Erosive esophagitis K22.10 [facility] [address] [place] [phone] 10/14/2024 Salomon Fulton Jr Gastroesophageal reflux disease, unspecified whether esophagitis present K21.9 and Nausea and vomiting, unspecified vomiting type R11.2 [facility] [address] [place] [phone] 10/26/2024 Salomon Fulton Jr Assessments Encounter Date [...] Provider Name:Salomon stevens Jr, 08/08/2025 01:55:00 PM, [address] [place] [address], Suite [facility], [place], [address], Insurance Providers Payer Name Payer Address Payer Phone Subscriber Number Group Number Insured Name Patient Relationship to Insured Coverage Start Date Coverage End Date [facility] [address] [address] [place], [place] [id number] ROSE PARMAR Self - patient is the insured
== END 2025-07-20 11:22 | disposition home or self-care (01) ==
LOC: HO.CT 11:21
PROVIDERS: PCP Nurse Practitioner Family; Visit Provider Nurse Practitioner Family
DX: R31.29 Other microscopic hematuria (principal)
CPT/HCPCS: 74178; Q9967

== ENCOUNTER → 2025-07-20 11:25 | Outpatient (BNV) | payer OTHER, SELFPAY | PROVIDERS: PCP Nurse Practitioner Family; Visit Provider Radiology Diagnostic Radiology | DX: K57.30 Diverticulosis of large intestine without perforation or abscess without bleeding (principal) | CPT/HCPCS: 74178 ==

== ENCOUNTER 2025-08-09 09:36 | Inpatient (IN) | payer OTHER, SELFPAY ==
--- NOTE | ~2025-08-09 | XR_ITS ---
EXAMINATION: XR CHEST CLINICAL INFORMATION: Chest pain COMPARISON: 06/13/2025. TECHNIQUE: Frontal view of the chest was obtained. FINDINGS: The cardiac, hilar, and mediastinal contours are normal. The lungs are clear bilaterally. No pneumothorax or effusion. No focal osseous or soft tissue abnormality. XR/XR chest 1V IMPRESSION: Normal chest. Electronically signed by: Colt Valera MD 08/09/2025 09:57 AM [facility] [place]
--- NOTE | 2025-08-09 09:39 | ECG_ITS ---
Test Reason : chest pain Blood Pressure : */* mmHG Vent. Rate : 114 BPM Atrial Rate : 114 BPM P-R Int : 114 ms QRS Dur : 84 ms QT Int : 300 ms P-R-T Axes : 74 68 53 degrees QTcB Int : 413 ms Sinus tachycardia Minimal voltage criteria for LVH, may be normal variant ( Sokolow-Fernandez ) Borderline ECG When compared with ECG of 13-Jun-2025 06:40, Nonspecific T wave abnormality, improved in Lateral leads Referred By: Comfort Pedersen Electronically Signed By: PILAR HART MD
[2025-08-09 09:55] LABS: Hematocrit 51.0 % (42.0-52.0); Hemoglobin 17.1 g/dl (14.0-18.0); Imm Gran Abs Auto 0.04 X10*3/uL (0.00-0.03); Imm Gran Pct Auto 0.4 % (0.0-0.4); Lymphocytes Absolute Auto 2.0 X10*3/uL (1.2-4.9); MANUAL DIFF FLAG SCAN; Mean Corpuscular HGB Conc 33.5 g/dl (31.0-36.0); Mean Corpuscular Hemoglobin 27.2 pg (27.0-33.0); Mean Corpuscular Volume 81.1 fL (80.0-98.0); NRBC Abs Auto 0.000 X10*3/uL (0.0-0.012); NRBC Pct Auto 0.0 /100WBC (0.0-0.2); Platelet Count 383 X10*3/uL (160-400); Red Blood Count 6.29 X10*6/uL (4.60-5.80); SCAN SMEAR FLAG 1; White Blood Count 11.3 X10*3/uL (4.8-10.8)
--- NOTE | 2025-08-09 09:57 | ED_ITS ---
HPI - Chest Pain General Chief Complaint: Chest Pain Stated Complaint: chest pain Time Seen by Provider: 08/09/25 12:05 Source: RN notes reviewed and old records reviewed History of Present Illness ED Provider: Jesi Chaves PA-C HPI narrative: 40-year-old male with a past medical history hematuria, rib fractures, Lyme arthritis, ADHD, cocaine use disorder presents to the ED complaining of fluttering/flickering sensation localized to the left lateral chest worsening x3 days s/p three-day cocaine binge (7?8 g total, last use last night). He initially attributed it to heavy weight-lifting and anabolic steroid use & has had similar episodes with prior cocaine binges. Admits to associated insomnia and poor p.o. intake. Admits to drinking EtOH only in conjunction with cocaine, and took 0.5 mg clonazepam last night for sleep. + cigarette smoker. Denies SOB, nausea, vomiting, abdominal pain, cough, fever, chill Related Data Home Medications ?Medication ?Instructions ?Recorded ?Confirmed collagen,hydrolysate 500 mg-biotin 1 cap PO DAILY 11/3005/05/25 800 mcg-ascorbic acid 50 mg capsule (Collagen 1500 Plus C) [id number] 0.4 mg-calcium 162 1 tab PO DAILY 11/3005/05/25 mg-iron 18 hy-kkiwivy-rmdgez tablet Previous Rx's ?Medication ?Instructions ?Recorded trazodone 150 mg tablet 150 mg PO BEDTIME #90 tabs 0 11/03/24 meloxicam 15 mg tablet 15 mg PO DAILY 14 days #14 t abs 12/15/24 cyclobenzaprine 10 mg tablet 10 mg PO BEDTIME #20 tabs 12/30/24 fluticasone propionate 50 2 spray intranasal DAILY #16 grams 01/11/25 mcg/actuation nasal spray,suspension (Flonase Allergy Relief) betamethasone dipropionate 0.05 % 1 appl topical BID P RN skin 07/07/25 topical cream irritation #45 grams Allergies Allergy/AdvReac Type Severity Reaction Status Date / Time No Known Allergies (No Known Allergy Verified 08/09/25 10:00 Allergies*) Review of Systems 2 Review of Systems: Yes all other systems are reviewed and are negative Constitutional: Constitutional: Reports as per HPI [facility] Past Medical History Attestation statement: The following information was validated with the patient. Source: old records reviewed Medical History Peroneal tendinitis, right leg Chest wall contusion Back pain ADHD Cocaine use Stimulant use disorder Inguinal hernia Surgical History Hx of cystoscopy H/O hernia repair Status post ligament repair History of appendectomy Family History Family History Other Mental health disorder Substance use disorder Social History Social History Household Members: None Housing: House Do you presently have visiting nurse or other home services: No Alcohol intake: current Alcohol intake frequency: a few times a week Alcohol type: wine and hard liquor Patient Tobacco Use Status: Current everyday Tobacco user Tobacco use type: Cigarette Cigarettes Per Day: 10 Years Smoked: 20 e-Cigarette/Vaping Use: Never Used Second Hand Smoke Exposure: No Substance Use Type: Crack/Cocaine Advance Directives: No Advance Directives Information Provided: Yes service: No Current occupational status: employed Cognitive needs: No Hearing needs: No Vision needs: Yes Physical Exam 2 Vital Signs: Vital Signs: Last Vital Signs Temp 97.8 F 08/09/25 09:58 Pulse 114 H 08/09/25 09:58 Resp 18 08/09/25 09:58 BP 131/68 08/09/25 09:58 Pulse Ox 96 08/09/25 09:58 O2 Del Method Room Air 08/09/25 09:58 BMI result Body Mass Index 24.6 Const: General: cooperative, healthy appearing and no acute distress O rientation/consciousness: patient oriented x3 Limitations: no limitations HEENT: Head: Yes normal to inspection and Yes atraumatic Ears: hearing grossly normal bilaterally General nose exam: Normal external nose present Face and sinus: Yes normal facial exam Eyes: General: appearance normal, both eyes and all related structures EOM: EOMs intact bilaterally Neck: Neck: Yes normal visual inspection and Yes no meningeal signs Resp: Effort & Inspection: normal respiratory effort and no respiratory distress Auscultation: clear to auscultation bilaterally Cardio: Rate: regular rate and tachycardic Heart sounds: S1 normal heart sound present and S2 normal heart sound present GI: Inspection: Yes normal to inspection Palpation (GI): Soft to palpation, nontender, no guarding and not rigid : General: Yes no CVA tenderness Back/Spine/Pelvis: Back: no CVA tenderness Skin: Rashes: no rashes Wounds: no wounds Neuro: General: patient oriented x3, tone normal, moves all extremities and no meningeal signs Cranial nerves: Yes CN's II-XII intact bilaterally Gait exam (Neuro): Normal gait present Extrem: General: Yes normal to inspection Course Course Course Narrative: 40-year-old male with past medical history of hematuria, rib fractures, Lyme arthritis, ADHD, prior ureteral calculus with hydronephrosis, cocaine use disorder who comes in with complaint of using cocaine for the past 3 days he is snorting it. He now has fluttering in the chest but now the pain is constant on the left side of the chest. He did purchase 7 g and thinks he only used 3-1/2 of it. He has no nausea or trouble breathing. He he denies any coughing, sputum, fevers. He can not sleep over the past 3 days so took half of a blue Klonopin and alcohol but states the pain is still present. He notes he can go a few weeks without it but has been bingeing over the last 2-3 days. Labs, x-ray, EKG ordered this is a RAPID medical screening exam the rest of the history and physical exam is to be done by the main provider. 10:00 AM 08/09/2025 ([facility]): -1230-- D-dimer negative acute on chronically elevated AST/ ALT. CPK elevated to 22,693 >> IVF ordered. Plan to admit for further Medications Administered Discontinued Medications Generic Name Dose Route Start Last Admin Trade Name Freq PRN Reason Stop Dose Admin Sodium Chloride 1,000 mls @ 999 mls/hr 08/09/25 11:29 08/09/25 12:01 Ns IV 08/09/25 12:29 999 mls/hr .Q1H1M ONE Administration Medical Decision Making Medical Decision Making [facility] Narrative: 40-year-old male with a past medical history hematuria, rib fractures, Lyme arthritis, ADHD, cocaine use disorder presents to the ED complaining of fluttering/flickering sensation localized to the left lateral chest worsening x3 days s/p three-day cocaine binge. On exam tachycardic, NAD, nontoxic appearing, chest pain not reproducible, lungs CTA. Abdomen is soft and nontender. Concern for cocaine use disorder and ACS/Arrhythmia vs rhabdomyolysis. Rule out metabolic abnormalities. Lower suspicion for infectious etiology. Plan: EKG, labs, CXR, IVF Please refer to course for remaining clinical decision making, interpretation of labs/imaging results, and discussions with consultants and/or family members. Differential Diagnosis Differential Diagnoses: The differential diagnosis associated with the presentation includes As above Admission/Observation Consideration of admission/observation: Escalation of care including admission/observation considered Consult Healthcare Provider Management of the patient was discussed with: Hospitalist Lab Data MDM Lab Attestation statement: I reviewed the patient's lab results. 08/09/25 09:48 08/09/25 09:48 Labs: Lab Results 08/09/25 08/09/25 Range/Units 09:48 11:03 WBC 11.3 H (4.8-10.8) X10*3/uL RBC 6.29 H (4.60-5.80) X10*6/uL Hgb 17.1 (14.0-18.0) g/dl Hct 51.0 (42.0-52.0) % MCV 81.1 (80.0-98.0) fL MCH 27.2 (27.0-33.0) pg MCHC 33.5 (31.0-36.0) g/dl RDW 14.7 (11.0-16.0) % Plt Count 383 (160-400) X10*3/uL MPV 10.1 (9.4-12.4) fL Immature Gran % (Auto) 0.4 (0.0-0.4) % Neut % (Auto) 62.8 (45-73) % Lymph % (Auto) 17.2 L (20-40) % [place] % (Auto) 14.9 H (2-11) % Eos % (Auto) 4.3 H (0-4) % Baso % (Auto) 0.4 (0-2) % Lymph # (Auto) 2.0 (1.2-4.9) X10*3/uL [place] # (Auto) 1.7 H (0.1-1.2) X10*3/uL Eos # (Auto) 0.5 H (0.0-0.4) X10*3/uL Baso # (Auto) 0.1 (0.0-0.2) X10*3/uL Abs Immat Gran (auto) 0.04 H (0.00-0.03) X10*3/uL Absolute Neuts (auto) 7.1 (2.0-8.3) x10*3/uL Absolute Nucleated RBC 0.000 (0.0-0.012) X10*3/uL Nucleated RBC % (auto) 0.0 (0.0-0.2) /100WBC Smear Tech's Comments VERIFIED D-Dimer High Sensitivty < 150 NG/ML Sodium 139 (135-145) mmol/L Potassium 4.5 (3.3-5.1) mmol/L Chloride 100 (96-108) mmol/L Carbon Dioxide 28 (22-29) mmol/L Anion Gap 16 (12-20) BUN 14 (9-16) mg/dL Creatinine 0.93 (0.5-1.4) mg/dL Estim Creat Clear Calc 122.7 Estimated GFR > 60 Random Glucose 119 H (60-115) mg/dL Calcium 9.6 D (8.4-10.2) mg/dL Magnesium 2.0 (1.6-2.6) mg/dL Total Bilirubin 0.7 (0.0-1.0) mg/dL Direct Bilirubin 0.3 (0.0-0.5) mg/dL AST 328 H (5-37) U/L ALT 121 H (0-40) U/L Alkaline Phosphatase 106 (39-117) U/L Total Creatine Kinase 46057 H (38-174) U/L Troponin I High Sens < 2.7 (<3.5-35.0) ng/L NT-Pro-B Natriuret Pep < 15.8 (<300) pg/mL Total Protein 7.6 (6.5-8.0) g/dL Albumin 4.7 (3.5-5.0) g/dL Ethyl Alcohol < 10 mg/dL Independent Interpretation I performed an independent interpretation of an: EKG Radiology Impression Discussion of test interpretation with radiology: I have reviewed the radiologist's reading. Independent Historian Clinical information obtained from an independent historian. History obtained from or confirmed by: Other External Record Review External record reviewed: Inpatient record, Office record, Outpatient record, Prior outpatient labs, Prior outpatient radiology, Primary care record and Outside ED record Tests considered The following testing was considered but not selected: As above Prescription Management I considered prescription management with: Other Chronic Conditions Patient?s care impacted by: Other Social Determinants Patient?s care significantly limited by Social Determinants of Health including: Alcoholism and drug addiction in family and Other Social Determinant of Health Critical Care Time Critical Care Time Critical Care Time: Yes Total Critical Care Time: 45 Attestation: I have personally provided critical care time exclusive of time spent on separately billable procedures. Time includes review of lab data, radiology results, discussion with consultants, and monitoring for potential decompensation. Intervention performed as documented. Discharge Plan Discharge Clinical Impression: Rhabdomyolysis, Cocaine use disorder Patient Disposition: Admitted As Inpatient Print Language: Angolan
[2025-08-09 09:58] VITALS: BP 131/68; PULSE 114; RESP 18; TEMP 36.6; O2SAT 96; BMI 24.6
[2025-08-09 10:11] LABS: Alanine Aminotransferase 121 U/L (0-40); Albumin Level 4.7 g/dL (3.5-5.0); Alkaline Phosphatase 106 U/L (39-117); Aspartate Amino Transferase 328 U/L (5-37); Magnesium 2.0 mg/dL (1.6-2.6); Total Protein 7.6 g/dL (6.5-8.0)
[2025-08-09 10:26] LABS: NT Pro B Type Natriuretic Pept < 15.8 pg/mL (<300); Troponin-I High Sensitivity < 2.7 ng/L (<3.5-35.0)
[2025-08-09 10:38] LABS: Anion Gap 16 (12-20); Blood Urea Nitrogen 14 mg/dL (9-16); Calcium 9.6 mg/dL (8.4-10.2); Carbon Dioxide 28 mmol/L (22-29); Chloride 100 mmol/L (96-108); Creatinine Clr Calc Pharmacy 122.7; Estimated Glomerular Filt Rate > 60; Potassium 4.5 mmol/L (3.3-5.1); Sodium 139 mmol/L (135-145)
[2025-08-09 11:30] LABS: D Dimer High Sensitivity < 150 NG/ML
--- NOTE | 2025-08-09 12:53 | P.HPHOSP_ITS ---
History of Present Illness Date of Service: 08/09/25 Chief Complaint: Fluttering in chest 40 year old man with hx of hematuria, rib fractures, Lyme arthritis, ADHD and cocaine use. He presented with Chest Fluttering localized to left lateral chest for the last few weeks but over the last 3 days it has gottan worse but no sharp pain or pressure. He was on a three day cocaine binge (7?8 g total, last use last night). He says that lately he tends to binge use cocaine and feels like this is whats making his symptoms worse. He initially attributed it to heavy weight-lifting and anabolic steroid use & has had similar episodes with prior cocaine binges. He also tends to drink alcohol to mellow out the effects of the cocaine. Last night he took a 0.5mg klonopin. [place], [place] [address], ast 328, alt 121, normal chest xray, tachycardia. Ekg with no ischemic changes. Patient placed on observation for rhabdomyolysis. Review of Systems 2 Review of Systems: Denies any recent fever chills or decrease in appetite respiratory denies any shortness of breath or cough cardiovascular See HPI gastrointestinal denies any dysphagia abdominal pain nausea vomiting or diarrhea genitourinary denies any dysuria frequency or hematuria musculoskeletal denies any joint pain or swelling neuropsych denies any weakness or seizures all other systems reviewed are negative [facility] Medical History (Updated 08/09/25 @ 12:57 by Lisa Harris NP) Peroneal tendinitis, right leg Back pain ADHD Cocaine use Stimulant use disorder Inguinal hernia Family History Other Mental health disorder Substance use disorder Surgical History Hx of cystoscopy H/O hernia repair Status post ligament repair History of appendectomy Social History Household Members: None Housing: House Do you presently have visiting nurse or other home services: No Alcohol intake: current Alcohol intake frequency: a few times a week Alcohol type: wine and hard liquor Patient Tobacco Use Status: Current everyday Tobacco user Tobacco use type: Cigarette Cigarettes Per Day: 10 Years Smoked: 20 Smoked in Last 30 Days: Yes e-Cigarette/Vaping Use: Never Used Second Hand Smoke Exposure: No Use of substances other than those prescribed or required for medical reasons: Yes Substance Use Type: Crack/Cocaine Substance Use Frequency: Recent Binge Advance Directives: No Advance Directives Information Provided: Yes service: No Current occupational status: employed Cognitive needs: No Hearing needs: No Vision needs: Yes Meds Allergies Allergy/AdvReac Type Severity Reaction Status Date / Time No Known Allergies (No Known Allergy Verified 08/09/25 10:00 Allergies*) Active Medications: Current Medications Acetaminophen (Acetaminophen 325 Mg Tablet) 650 mg PO Q6H PRN PRN Reason: Pain, Mild 1-3,fever,headache Sodium Chloride (Ns) 1,000 mls @ 999 mls/hr IV .Q1H1M CRICKET Stop: 08/09/25 13:15 Last Admin: 08/09/25 12:42 Dose: 999 mls/hr Melatonin (Melatonin 3 Mg Tablet) 6 mg PO BEDTIME PRN PRN Reason: Insomnia Sodium Chloride (0.9 % Sodium Chloride Flush 3 Ml Syringe) 3 ml IVFLUSH QSHIFT [facility] Home Medications ?Medication ?Instructions ?Recorded ?Confirmed ?Last Taken ?Type collagen,hydrolysate 500 mg-biotin 1 cap PO DAILY 11/3005/05/25 12/17/23 History 800 mcg-ascorbic acid 50 mg capsule (Collagen 1500 Plus C) [id number] 0.4 mg-calcium 162 1 tab PO DAILY 11/3005/05/25 12/17/23 History mg-iron 18 bs-ixoxeiw-crrvhd tablet Physical Exam 2 Vital Signs and Narrative: Vital Signs: Last Vital Signs Temp 97.8 F 08/09/25 09:58 Pulse 114 H 08/09/25 09:58 Resp 18 08/09/25 09:58 BP 131/68 08/09/25 09:58 Pulse Ox 96 08/09/25 09:58 O2 Del Method Room Air 08/09/25 09:58 BMI result Body Mass Index 24.6 Appearing in no acute distress head is normocephalic atraumatic eyes pupils are PERRLA sclera is anicteric mouth throat mucous membranes are intact and moist neck is supple no lymphadenopathy, no JVD noted lung sounds are clear to auscultation heart regular rate rhythm, clear S1, S2 positive bowel sounds, abdomen is soft, nontender neuro patient is alert x3, no focal deficits Results Labs 12/09/25 09:48 08/09/25 09:48 Labs: Laboratory Results - last 24 hr 08/09/25 08/09/25 09:48 11:03 MCV 81.1 MCH 27.2 MCHC 33.5 RDW 14.7 Plt Count 383 MPV 10.1 Immature Gran % (Auto) 0.4 Neut % (Auto) 62.8 Lymph % (Auto) 17.2 L [place] % (Auto) 14.9 H Eos % (Auto) 4.3 H Baso % (Auto) 0.4 Lymph # (Auto) 2.0 [place] # (Auto) 1.7 H Eos # (Auto) 0.5 H Baso # (Auto) 0.1 Abs Immat Gran (auto) 0.04 H Absolute Neuts (auto) 7.1 Absolute Nucleated RBC 0.000 Nucleated RBC % (auto) 0.0 Smear Tech's Comments VERIFIED D-Dimer High Sensitivty < 150 Anion Gap 16 Estim Creat Clear Calc 122.7 Estimated GFR > 60 Random Glucose 119 H Calcium 9.6 D Magnesium 2.0 Total Bilirubin 0.7 Direct Bilirubin 0.3 AST 328 H ALT 121 H Alkaline Phosphatase 106 Total Creatine Kinase 24041 H Troponin I High Sens < 2.7 NT-Pro-B Natriuret Pep < 15.8 Total Protein 7.6 Albumin 4.7 Ethyl Alcohol < 10 Imaging Radiologist's Impressions: Impressions Chest X-Ray 08/09/25 09:54 IMPRESSION: Normal chest. Electronically signed by: Colt Valera MD 08/09/2025 09:57 AM [facility] Assessment and Plan (1) Cocaine use disorder: Status: Acute Plan 40 year old man placed on observation for chest fluttering and found to have rhabdomyolysis Cocaine induced Rhabdomyolysis CPK 22,693 Likely secondary to cocaine use Normal renal function Aggressive IV fluid hydration Monitor BMP and CPK closely Chest fluttering Normal troponin no ischemic chamges noted on EKG could be vasospasms from cocaine use Transaminitis could be some degree of hepatic ischemia from cocaine use monitor LFTs Cocaine use Adiction team consultation Smoker NRT gum Discussed the importance of smoking cessation DVT prophylaxis with heparin Full code Quality Stroke Does the patient have a stroke diagnosis?: No VTE Prior VTE?: No VTE Risk Level:: Medical - moderate - high VTE Device Contraindication: Treatment Not Indicated VTE Drug Contraindication: N/A - Med Ordered
[2025-08-09] MEDS: Lactated Ringers 1,000 ML 125 ML IVCONT ×2 (14:15→21:28)
[2025-08-09 14:26] VITALS: BP 119/72; PULSE 107; RESP 18; TEMP 36.9; O2SAT 96
[2025-08-09 16:13] VITALS: BP 119/72; PULSE 91; RESP 18; TEMP 36.8; O2SAT 97
--- NOTE | 2025-08-09 16:44 | HO.NURTONUR ---
40 yr old male admitted for observation of Rabdomyolysis. Pt comes to ED with c/o chest pain/palpitations on the L side of his chest. A&Ox3, VSS Pt reports recent cocaine and ETOH use. CPK in Ed 22,693 20g LAC LR running @ 125 ml/hr Independent feeds and ambulation.
--- NOTE | 2025-08-09 18:27 | PHA.MEDREC ---
Addendum entered by Sriram Kaur RPh 08/09/25 18:31: med rec reviewed Original Note: Pharmacy Consult ? Medication Reconciliation Pharmacy has completed the medication reconciliation. Spoke with pt and he confirmed his medications. Pt confirmed he is taking Trazodone 150mg tabs once at bedtime as needed for sleep; pt confirmed he was filling at [facility]. Called [facility] and they have not filled Trazodone since 08/2024.
[2025-08-09 18:30] LABS: Cannabinoid Screen Urine POSITIVE (Not Detect)
[2025-08-09 20:00] VITALS: BP 137/79; PULSE 96; RESP 18; TEMP 36.3; O2SAT 96
[2025-08-09 20:01] VITALS: BMI 25.3
[2025-08-10] VITALS (8 sets, daily range): BP systolic 115–136; BP diastolic 60–82; PULSE 66–100; RESP 16–19; TEMP 36.1–36.8; O2SAT 95–98
--- NOTE | 2025-08-10 02:02 | PM.EVENT ---
Event Note Date of Service: 08/10/25 Event Note: Received report from nursing that patient was vaping in his room and was threatening to leave AMA. Security was called. Patient wanted nicotine gum which was ordered. Patient did not leave AMA. Patient's vaping materials were secured by security. Time Spent With Patient Time: Total time managing care of this patient today ____ minutes.
[2025-08-10] MEDS: Lactated Ringers 1,000 ML 125 ML IVCONT ×2 (05:05→12:02)
[2025-08-10 06:45] LABS: Hematocrit 48.7 % (42.0-52.0); Hemoglobin 15.4 g/dl (14.0-18.0); Mean Corpuscular HGB Conc 31.6 g/dl (31.0-36.0); Mean Corpuscular Hemoglobin 26.7 pg (27.0-33.0); Mean Corpuscular Volume 84.4 fL (80.0-98.0); NRBC Abs Auto 0.000 X10*3/uL (0.0-0.012); NRBC Pct Auto 0.0 /100WBC (0.0-0.2); Platelet Count 320 X10*3/uL (160-400); Red Blood Count 5.77 X10*6/uL (4.60-5.80); White Blood Count 7.4 X10*3/uL (4.8-10.8)
[2025-08-10 07:00] LABS: Anion Gap 11 (12-20); Blood Urea Nitrogen 12 mg/dL (9-16); Calcium 9.3 mg/dL (8.4-10.2); Carbon Dioxide 32 mmol/L (22-29); Chloride 105 mmol/L (96-108); Creatinine Clr Calc Pharmacy 184.1; Estimated Glomerular Filt Rate > 60; Potassium 4.2 mmol/L (3.3-5.1); Sodium 144 mmol/L (135-145)
[2025-08-10 08:27] LABS: Alanine Aminotransferase 96 U/L (0-40); Aspartate Amino Transferase 199 U/L (5-37)
--- NOTE | 2025-08-10 12:13 | HO.ADDICT_ITS ---
History of Present Illness Date of Service: 08/10/2025 Chief Complaint: rhabdo Reason for Consult: cocaine use--stimulant overdose Sources of Information: patient interviewed and chart reviewed HPI Narrative: Patient is a 40 year old male with history of StUD, ADHD and AUD. Presented to [facility] with heart fluttering . Reported recent cocaine and alcohol binge. Labs showed rhabdomyolysis, and patient medically admitted. Patient seen in room 377. He is awake, alert, engaged in interview. Well known to t/w via previous outpatient treatment. Several year history of cocaine and alcohol use. Minimized alcohol use, stating he only drinks when he uses cocaine, however he uses cocaine with regularity--btwn 3-4 days per week. He states that he had been abstaining from all alcohol and substance use for over 6 months and recently started using again. In addition to cocaine, he has also been taking anabolic steroids. States his next cycle will begin in a month or two . Denies any other substance use. Denies any history of alcohol withdrawal sx,. Discussed goals related to ongoing substance use. Patient reports he will be flying out to [place] next week, and will be there for 4 months. He travels there often and states that while there he abstains from all alcohol and drug use (with the exception of steroids). Reviewed rhabdo and how substance use has likely contributed to this as well as risks associated with rhabdo He states he normally does not use as much as he used over the weekend. Denies any withdrawal sx, denies fatigue, irritability, lack of appetite. Appearing comfortable overall, walking around the room Medical Evaluation Reviewed: Yes Review of Systems Constitutional: Reports as per HPI and Reports no additional constitutional complaints Diagnostics Vital Signs (24Hr): Vital Signs - 24 hr 08/09/25 14:26 08/09/25 16:13 08/09/25 20:00 Temperature 98.4 F 98.2 F 97.3 F Pulse Rate 107 H 91 96 Respiratory Rate 18 18 18 Blood Pressure 119/72 119/72 137/79 Pulse Oximetry 96 97 96 Oxygen Delivery Method Room Air Room Air Room Air 08/10/25 00:00 08/10/25 04:00 08/10/25 07:36 Temperature 97.6 F 98.2 F 97.4 F Pulse Rate 100 66 74 Respiratory Rate 18 18 16 Blood Pressure 129/69 126/76 115/65 Pulse Oximetry 97 98 97 Oxygen Delivery Method Room Air Room Air Room Air 08/10/25 11:33 Temperature 98.2 F Pulse Rate 90 Respiratory Rate 16 Blood Pressure 136/82 Pulse Oximetry 97 Oxygen Delivery Method Room Air BMI result Body Mass Index 25.3 Labs 08/10/25 06:28 08/10/25 06:28 Labs: Laboratory Results - last 48 hr 08/09/25 08/09/25 08/09/25 09:48 11:03 18:10 WBC 11.3 H RBC 6.29 H Hgb 17.1 Hct 51.0 MCV 81.1 MCH 27.2 MCHC 33.5 RDW 14.7 Plt Count 383 MPV 10.1 Immature Gran % (Auto) 0.4 Neut % (Auto) 62.8 Lymph % (Auto) 17.2 L Gilliam % (Auto) 14.9 H Eos % (Auto) 4.3 H Baso % (Auto) 0.4 Lymph # (Auto) 2.0 Gilliam # (Auto) 1.7 H Eos # (Auto) 0.5 H Baso # (Auto) 0.1 Abs Immat Gran (auto) 0.04 H Absolute Neuts (auto) 7.1 Absolute Nucleated RBC 0.000 Nucleated RBC % (auto) 0.0 Smear Tech's Comments VERIFIED D-Dimer High Sensitivty < 150 Sodium 139 Potassium 4.5 Chloride 100 Carbon Dioxide 28 Anion Gap 16 BUN 14 Creatinine 0.93 Estim Creat Clear Calc 122.7 Estimated GFR > 60 Random Glucose 119 H Calcium 9.6 D Magnesium 2.0 Total Bilirubin 0.7 Direct Bilirubin 0.3 AST 328 H ALT 121 H Alkaline Phosphatase 106 Total Creatine Kinase 60422 H Troponin I High Sens < 2.7 NT-Pro-B Natriuret Pep < 15.8 Total Protein 7.6 Albumin 4.7 Urine Opiates Screen Not Detected Ur Buprenorphine Scrn Not Detected Ur Oxycodone Screen Not Detected Urine Methadone Screen Not Detected Urine Fentanyl Screen Not Detected Ur Barbiturates Screen Not Detected Ur Phencyclidine Scrn Not Detected Ur Amphetamines Screen Not Detected U Benzodiazepines Scrn Not Detected Urine Cocaine Screen POSITIVE H U Marijuana (THC) Screen POSITIVE H Ethyl Alcohol < 10 08/10/25 06:28 WBC 7.4 RBC 5.77 Hgb 15.4 Hct 48.7 MCV 84.4 MCH 26.7 L MCHC 31.6 RDW 14.1 Plt Count 320 MPV 10.1 Immature Gran % (Auto) Neut % (Auto) Lymph % (Auto) Gilliam % (Auto) Eos % (Auto) Baso % (Auto) Lymph # (Auto) Gilliam # (Auto) Eos # (Auto) Baso # (Auto) Abs Immat Gran (auto) Absolute Neuts (auto) Absolute Nucleated RBC 0.000 Nucleated RBC % (auto) 0.0 Smear Tech's Comments D-Dimer High Sensitivty Sodium 144 Potassium 4.2 Chloride 105 Carbon Dioxide 32 H Anion Gap 11 L BUN 12 Creatinine 0.62 Estim Creat Clear Calc 184.1 Estimated GFR > 60 Random Glucose 95 Calcium 9.3 Magnesium Total Bilirubin Direct Bilirubin AST 199 H ALT 96 H Alkaline Phosphatase Total Creatine Kinase 43831 H Troponin I High Sens NT-Pro-B Natriuret Pep Total Protein Albumin Urine Opiates Screen Ur Buprenorphine Scrn Ur Oxycodone Screen Urine Methadone Screen Urine Fentanyl Screen Ur Barbiturates Screen Ur Phencyclidine Scrn Ur Amphetamines Screen U Benzodiazepines Scrn Urine Cocaine Screen U Marijuana (THC) Screen Ethyl Alcohol Imaging Radiology Impressions: ITS Impressions Chest X-Ray 08/09/25 09:54 IMPRESSION: Normal chest. Electronically signed by: Colt Valera MD 08/09/2025 09:57 AM [facility] Mental Status Exam Mental Status Exam Level of Consciousness: Awake, Appropriate and Alert Patient Behavior: Appropriate, Talkative and Cooperative Affect Description: Appropriate and Cheerful Speech Pattern: Clear and Pressured (baseline) Thought Process: Intact Thought Content: positive for Intact Judgement: Fair Medications Medications Current Medications Acetaminophen (Acetaminophen 325 Mg Tablet) 650 mg PO Q6H PRN PRN Reason: Pain, Mild 1-3,fever,headache Calcium Carbonate (Calcium Carbonate 750 Mg Tab.Chew) 750 mg PO Q4H PRN PRN Reason: Heartburn Enoxaparin Sodium (Enoxaparin Sodium 40 Mg/0.4 Ml Syringe) [address] [facility] Last Admin: 08/10/25 12:02 Dose: 40 mg Lactated Ringer's (Lr) 1,000 mls @ 125 mls/hr IVCONT .Q8H CRICKET Last Admin: 08/10/25 12:02 Dose: 125 mls/hr Magnesium Hydroxide (Milk Of Magnesia 30 Ml Oral.Susp) 30 ml PO DAILY PRN PRN Reason: Constipation Melatonin (Melatonin 3 Mg Tablet) 6 mg PO BEDTIME PRN PRN Reason: Insomnia Nicotine Polacrilex (Nicotine Polacrilex 2 Mg Gum) 2 mg BUCCAL Q1H PRN PRN Reason: Nicotine Cravings Last Admin: 08/09/25 21:04 Dose: 2 mg Ondansetron HCl (Ondansetron Hcl 4 Mg/2 Ml Vial) 4 mg IVPUSH Q8H PRN PRN Reason: Nausea and Vomiting Sodium Chloride (0.9 % Sodium Chloride Flush 3 Ml Syringe) [address] [facility] Last Admin: 08/10/25 07:41 Dose: Not Given Sodium Chloride (0.9 % Sodium Chloride Flush 3 Ml Syringe) 3 ml IVFLUSH QSHIFT CRICKET Allergies Allergies Allergy/AdvReac Type Severity Reaction Status Date / Time No Known Allergies (No Known Allergy Verified 08/09/25 10:00 Allergies*) Assessment & Plan Assessment & Plan (1) Cocaine use disorder: Status: Acute Code(s): F14.10 - Cocaine abuse, uncomplicated Assessment and Plan: * Discussed at length risks associated with ongoing cocaine and anabolic steroid use -discussed risk reduction strategies * Declines referral to [facility] or any other [facility] treatment follow up, as he will be leaving the country for 4 months (2) Alcohol use disorder, severe, dependence: Status: Acute Code(s): F10.20 - Alcohol dependence, uncomplicated Assessment and Plan: * Declined SINA or AUD treatment follow up * Risk reduction and health promotion strategies reviewed Total time managing care of this patient today _35___ minutes. PMFSH Past Medical History Medical History (Updated 08/10/25 @ 13:33 by Valentino Gleason MD) Peroneal tendinitis, right leg Back pain ADHD Cocaine use Stimulant use disorder Inguinal hernia Family History Family History Other Mental health disorder Substance use disorder Surgical History Surgical History Hx of cystoscopy H/O hernia repair Status post ligament repair History of appendectomy Social History Social History Household Members: None Housing: House Do you presently have visiting nurse or other home services: No Alcohol intake: current Alcohol intake frequency: a few times a week Alcohol type: wine and hard liquor Patient Tobacco Use Status: Current everyday Tobacco user Tobacco use type: Cigarette Cigarette Packs Per Day: 1 Cigarettes Per Day: 20.0 Years Smoked: 20 Smoked in Last 30 Days: Yes e-Cigarette/Vaping Use: Never Used Patient Interested in Nicotine Replacement: Yes Patient Given Instructions on How to Stop Smoking: No Second Hand Smoke Exposure: No Use of substances other than those prescribed or required for medical reasons: Yes Substance Use Type: Crack/Cocaine Substance Use Frequency: Recent Binge Advance Directives: No Advance Directives Information Provided: Yes service: No Current occupational status: employed Cognitive needs: No Hearing needs: No Vision needs: Yes
--- NOTE | 2025-08-10 12:30 | HO.PM.IMPN ---
Subjective Subjective Date of Service: 08/10/25 Interval History: The patient was seen and evaluated at bedside. At the time of the evaluation he denied symptoms of fluttering in the chest, chest discomfort, SOB, and muscle ache. Physical Exam Vital Signs: Vital Signs: Last Vital Signs Temp 98.2 F 08/10/25 11:33 Pulse 90 08/10/25 11:33 Resp 16 08/10/25 11:33 BP 136/82 08/10/25 11:33 Pulse Ox 97 08/10/25 11:33 O2 Del Method Room Air 08/10/25 11:33 BMI result Body Mass Index 25.3 Resp: Other: CTABL, no use of accessory muscles, no wheezing/rales/rhonci Cardio: Rate: regular rate Rhythm: regular rhythm Heart sounds: S1 normal heart sound present and S2 normal heart sound present GI: Other: +BS, NT, ND, soft Extrem: Other: no edema Objective Data Active Medications Acetaminophen (Acetaminophen 325 Mg Tablet) 650 mg PO Q6H PRN PRN Reason: Pain, Mild 1-3,fever,headache Calcium Carbonate (Calcium Carbonate 750 Mg Tab.Chew) 750 mg PO Q4H PRN PRN Reason: Heartburn Enoxaparin Sodium (Enoxaparin Sodium 40 Mg/0.4 Ml Syringe) 40 mg SUBCUT Q24H [facility] Last Admin: 08/10/25 12:02 Dose: 40 mg Documented By: JACK Lactated Ringer's (Lr) 1,000 mls @ 125 mls/hr IVCONT .Q8H [facility] Last Admin: 08/10/25 12:02 Dose: 125 mls/hr Documented By: JACK Magnesium Hydroxide (Milk Of Magnesia 30 Ml Oral.Susp) 30 ml PO DAILY PRN PRN Reason: Constipation Melatonin (Melatonin 3 Mg Tablet) 6 mg PO BEDTIME PRN PRN Reason: Insomnia Nicotine Polacrilex (Nicotine Polacrilex 2 Mg Gum) 2 mg BUCCAL Q1H PRN PRN Reason: Nicotine Cravings Last Admin: 08/09/25 21:04 Dose: 2 mg Documented By: BLAISE Ondansetron HCl (Ondansetron Hcl 4 Mg/2 Ml Vial) 4 mg IVPUSH Q8H PRN PRN Reason: Nausea and Vomiting Sodium Chloride (0.9 % Sodium Chloride Flush 3 Ml Syringe) [facility] Last Admin: 08/09/25 21:36 Dose: Not Given Documented By: BLAISE Non-Admin Reason: IV Running Sodium Chloride (0.9 % Sodium Chloride Flush 3 Ml Syringe) 3 ml IVFLUSH QSNYFT [facility] Labs 08/10/25 06:28 08/10/25 06:28 Labs: Laboratory Results - last 24 hr 08/09/25 08/10/25 18:10 06:28 MCV 84.4 MCH 26.7 L MCHC 31.6 RDW 14.1 Plt Count 320 MPV 10.1 Absolute Nucleated RBC 0.000 Nucleated RBC % (auto) 0.0 Anion Gap 11 L Estim Creat Clear Calc 184.1 Estimated GFR > 60 Random Glucose 95 Calcium 9.3 AST 199 H ALT 96 H Total Creatine Kinase 55415 H Urine Opiates Screen Not Detected Ur Buprenorphine Scrn Not Detected Ur Oxycodone Screen Not Detected Urine Methadone Screen Not Detected Urine Fentanyl Screen Not Detected Ur Barbiturates Screen Not Detected Ur Phencyclidine Scrn Not Detected Ur Amphetamines Screen Not Detected U Benzodiazepines Scrn Not Detected Urine Cocaine Screen POSITIVE H U Marijuana (THC) Screen POSITIVE H Assessment and Plan (1) Rhabdomyolysis: Status: Acute Assessment and Plan: Rhabdomyolysis likely multifactorial due to cocaine use and strenuous exercise [place] [address] [place] [address] Increase IVF 300cc/hr. Adjust rate as needed to achieve urine output goal and avoid fluid overload. Strict I's and O's monitoring. Goal: Titrate to maintain urine output >=200?300 mL/hour Continue to monitor CPK and BMP closely Substance use cessation discussed Anticipatory guidance provided regarding the use of anabolic steroids (2) Substance use disorder: Status: Chronic Assessment and Plan: Substance use cessation discussed Addition medicine consulted Nicotine transdermal substituted for nicotine gum at the patient's request (3) Elevated liver enzymes: Status: Acute Assessment and Plan: AST and ALT improved 328->199 and 121->96 respectively (06/13/25 AST: 41 and ALT: 51) Continue to avoid hepatoxic agents and monitoring AST and ALT Quality Stroke Does the patient have a stroke diagnosis?: No VTE Prior VTE?: No VTE Risk Level:: Medical - moderate - high VTE Device Contraindication: Treatment Not Indicated VTE Drug Contraindication: N/A - Med Ordered
[2025-08-10] MEDS: Nicotine 21 MG PATCH.TD24 TRANSDERMA (13:12)
--- NOTE | 2025-08-10 13:52 | MHC.CM.PN ---
CM MET WITH PT AT BEDSIDE. PT LIVES ALONE AND IS FUNCTIONALLY INDEPENDENT. NO SERVICES OR DME. PT IS SELF EMPLOYED. NO HCP, PT DECLINES. PCP VERA DOYLE DP: HOME, NO SERVICES IS ANTICIPATED. PT HAS OWN [facility]. CM WILL CONTINUE TO FOLLOW FOR ANY CHANGE TO DC PLAN/NEEDS.
[2025-08-10] MEDS: Lactated Ringers 1,000 ML 300 ML IVCONT ×2 (17:24→21:06)
[2025-08-11] VITALS: PULSE 88
[2025-08-11] MEDS: Lactated Ringers 1,000 ML 300 ML IVCONT ×3 (00:31→07:07)
[2025-08-11 03:42] VITALS: BP 122/75; PULSE 64; RESP 19; TEMP 36; O2SAT 95
[2025-08-11 06:54] VITALS: BP 141/87; PULSE 86; RESP 16; TEMP 36.6; O2SAT 97
[2025-08-11 07:07] LABS: Alanine Aminotransferase 112 U/L (0-40); Anion Gap 12 (12-20); Aspartate Amino Transferase 158 U/L (5-37); Blood Urea Nitrogen 10 mg/dL (9-16); Calcium 9.1 mg/dL (8.4-10.2); Carbon Dioxide 29 mmol/L (22-29); Chloride 104 mmol/L (96-108); Creatinine Clr Calc Pharmacy 181.2; Estimated Glomerular Filt Rate > 60; Potassium 4.4 mmol/L (3.3-5.1); Sodium 141 mmol/L (135-145)
[2025-08-11 08:00] VITALS: PULSE 86
--- NOTE | 2025-08-11 09:35 | MHC.CM.PN ---
DP: PT HAS BEEN MEDICALLY CLEARED FOR DC HOME, NO SERVICES. PT HAS OWN [facility] HOME.
[2025-08-11] MEDS: Nicotine 21 MG PATCH.TD24 TRANSDERMA (09:52)
[2025-08-11 11:56] VITALS: BP 129/68; PULSE 91; RESP 16; TEMP 36.6; O2SAT 98
--- NOTE | 2025-08-11 12:27 | PM.DS ---
DS: Providers Provider Date of admission: 08/10/25 09:54 Date of discharge: 08/11/25 Primary care physician: DEVONTE Hernandez Consults: 08/09/25 13:12 Addiction Medicine Provider Routine Consulting Provider: Addiction Covering Reason for consultation: cocaine use DS: Diagnosis Discharge Diagnosis (1) Rhabdomyolysis: Status: Acute (2) Substance use disorder: Status: Chronic (3) Elevated liver enzymes: Status: Acute DS: Summary Hospital Course Hospital Course: Chief Complaint: Fluttering in chest 40 year old man with hx of hematuria, rib fractures, Lyme arthritis, ADHD and cocaine use. He presented with Chest Fluttering localized to left lateral chest for the last few weeks but over the last 3 days it has gottan worse but no sharp pain or pressure. He was on a three day cocaine binge (7?8 g total, last use last night). He says that lately he tends to binge use cocaine and feels like this is whats making his symptoms worse. He initially attributed it to heavy weight-lifting and anabolic steroid use & has had similar episodes with prior cocaine binges. He also tends to drink alcohol to mellow out the effects of the cocaine. Last night he took a 0.5mg klonopin. In the ED, [place] was [address]131, ast 328, alt 121, normal chest xray, tachycardia. Ekg with no ischemic changes. Patient placed on observation for rhabdomyolysis. Hospital course: The patient is a 40-year-old male with a history of stimulant use disorder (StUD), attention deficit hyperactivity disorder (ADHD), and alcohol use disorder (AUD), who presented to the emergency department with complaints of ?heart fluttering? following a recent cocaine and alcohol binge. Initial evaluation revealed significant rhabdomyolysis, likely multifactorial due to recent cocaine use, strenuous exercise, and anabolic steroid use. He was admitted for medical management, during which his creatine phosphokinase (CPK) levels improved significantly with aggressive intravenous fluid resuscitation, and urine output was closely monitored to prevent renal complications. Liver enzymes, which were initially elevated, also improved steadily with supportive care and avoidance of hepatotoxic agents. The patient remained alert, engaged, and cooperative throughout his hospitalization. He reported a several-year history of regular cocaine use (3?4 days per week), typically accompanied by alcohol consumption, though he minimized the extent of his alcohol use. He endorsed a recent relapse after over six months of abstinence and disclosed ongoing anabolic steroid use, with plans to begin another cycle in the coming months. He denied any other substance use or history of alcohol withdrawal symptoms. Addiction medicine was consulted, and substance use cessation was discussed at length. Nicotine replacement therapy was transitioned from gum to a transdermal patch per the patient?s preference. The patient received anticipatory guidance regarding the risks of anabolic steroid use and the contribution of substance use to his current medical condition. He expressed plans to travel to [place] for four months, where he reports he typically abstains from alcohol and drug use, except for steroids. At discharge, the patient?s CPK and liver enzymes had improved, he denied any withdrawal symptoms, and he appeared comfortable and stable. Close outpatient follow-up was recommended for continued monitoring and support. Time spent discussing smoking cessation with patient: more than 10 minutes Status at Discharge Functional status at discharge: independent ambulation Overall status at discharge: patient is back to baseline Time Attestation Discharge Coordination Time (in mins): 65 Quality: Safe Use of Opioids Does Pt have an Active Cancer Diagnosis on the Problem List?: No Quality: Stroke Does the patient have a stroke diagnosis?: No Physical Exam Exam: Exam: General: AOx3, no acute distress Resp: CTA bilaterally CVS: S1, S2, RRR GI: +BS, NT, no distention Vital Signs: Vital Signs: Last Vital Signs Temp 98 F 08/11/25 11:56 Pulse 91 08/11/25 11:56 Resp 16 08/11/25 11:56 BP 129/68 08/11/25 11:56 Pulse Ox 98 08/11/25 11:56 O2 Del Method Room Air 08/11/25 11:56 BMI result Body Mass Index 25.3 DS: Data Data Completed and Pending Completed studies during hospitalization [Text1]: Procedures Dilation of Right Ureter with Intraluminal Device, Via Natural or Artificial Opening Endoscopic (12/18/23) Fluoroscopy of Right Kidney, Ureter and Bladder (12/18/23) Labs on day of discharge: Laboratory Results - last 24 hr 08/11/25 06:05 Sodium 141 Potassium 4.4 Chloride 104 Carbon Dioxide 29 Anion Gap 12 BUN 10 Creatinine 0.63 Estim Creat Clear Calc 181.2 Estimated GFR > 60 Random Glucose 105 Calcium 9.1 AST 158 H ALT 112 H Total Creatine Kinase 4090 H Discharge Plan Discharge Anticipated Discharge Date/Time: 08/11/25 09:15 Patient Disposition: Home, Self-Care Discharge Diagnosis: Rhabdomyolysis due to cocaine binge Referrals: Sanya Zazueta FNP-BC [Primary Care Provider, Internal Medicine] - 1 Week Lara Patel CNP [Nurse Practitioner, Addiction Medicine] - 1 Week Discharge Medications: Continued betamethasone dipropionate 0.05 % cream 1 appl topical BID PRN (Reason: skin irritation) Qty: 45 0RF fluticasone propionate [Flonase Allergy Relief] 50 mcg/actuation spray,suspension 2 spray intranasal DAILY Qty: 16 2RF Rx Instructions: administer into each nostril trazodone 150 mg tablet 150 mg PO BEDTIME PRN (Reason: Sleep) Collagen 1500 Plus C 500 mg-800 mcg- 50 mg Capsule 1 cap PO DAILY Discharge Orders: Discharge Order (Routine); Ordered 08/11/25 Ordered By: Judy Sherwood Diet: Advance to usual diet Activity on Discharge: As tolerated Stand Alone Forms: Patient Portal Discharge page, Work/School Release Print Language: Yakut Activity Restrictions/Additional Instructions: Certainly! Here are appropriate healthcare goals for this patient at the time of discharge: Healthcare Goals at Discharge: 1. Sustain Abstinence from Cocaine and Alcohol: Maintain sobriety from cocaine and alcohol to prevent recurrence of rhabdomyolysis and reduce risk of other substance-related complications. 2. Avoid Anabolic Steroid Use: Refrain from initiating further cycles of anabolic steroids due to associated health risks, including potential contribution to rhabdomyolysis and liver dysfunction. 3. Adhere to Outpatient Follow-Up: Attend scheduled follow-up appointments with primary care, addiction medicine, and any other relevant specialists for ongoing monitoring and support. 4. Monitor Renal and Hepatic Function: Continue periodic laboratory monitoring of creatine phosphokinase (CPK), renal function, and liver enzymes to ensure continued recovery and early detection of complications. 5. Engage in Supportive Therapies: Participate in substance use counseling, behavioral therapy, or support groups as recommended to support long-term recovery. 6. Maintain Adequate Hydration: Ensure adequate oral fluid intake to support renal function and prevent recurrence of rhabdomyolysis. 7. Utilize Nicotine Replacement Therapy as Prescribed: Use nicotine transdermal patch as directed to support smoking cessation efforts. 8. Practice Harm Reduction: Implement harm reduction strategies and avoid high-risk behaviors that could compromise health. Care Plan Goals: See above Health Concerns: See above Plan of Treatment: See above Assessment: See above
[2025-08-11 13:30] VITALS: BP 139/73; PULSE 94; RESP 16; TEMP 36.6; O2SAT 97
== END 2025-08-11 13:33 | disposition home or self-care (01) | DRG 816 ==
LOC: HO.ED 12:33 → HO.EDOVER 12:55 → HO.S3 19:12
PROVIDERS: Family Medicine; Admitting Provider Nurse Practitioner Acute Care; Emergency Provider Emergency Medicine; PCP Nurse Practitioner Family; Visit Provider Student in an Organized Health Care Education/Training Program
DX: T40.5X1A Poisoning by cocaine, accidental (unintentional), initial encounter (principal); M62.82 Rhabdomyolysis; F17.210 Nicotine dependence, cigarettes, uncomplicated; F14.10 Cocaine abuse, uncomplicated; F10.20 Alcohol dependence, uncomplicated; F15.90 Other stimulant use, unspecified, uncomplicated; F90.9 Attention-deficit hyperactivity disorder, unspecified type; Z71.6 Tobacco abuse counseling
CPT/HCPCS: 36415; 71045; 80048; 80076; 80307; 82550; 83735; 83880; 84450; 84460; 84484; 85025; 85027; 85379; 93005; 99285; J1650; J7120

== ENCOUNTER → 2025-08-09 09:39 | Outpatient (BNV) | payer OTHER, SELFPAY | PROVIDERS: PCP Nurse Practitioner Family; Visit Provider Internal Medicine Cardiovascular Disease | DX: R00.0 Tachycardia, unspecified (principal) | CPT/HCPCS: 93010 ==

== ENCOUNTER → 2025-08-09 09:41 | Outpatient (BNV) | payer OTHER, SELFPAY | PROVIDERS: PCP Nurse Practitioner Family; Visit Provider Radiology Diagnostic Radiology | DX: R07.9 Chest pain, unspecified (principal) | CPT/HCPCS: 71045 ==

== ENCOUNTER → 2025-08-09 12:49 | Outpatient (BNV) | payer OTHER, SELFPAY | PROVIDERS: Admitting Provider Nurse Practitioner Acute Care; Emergency Provider Emergency Medicine; PCP Nurse Practitioner Family; Visit Provider Nurse Practitioner Family | DX: M62.82 Rhabdomyolysis (principal); F19.90 Other psychoactive substance use, unspecified, uncomplicated; R74.8 Abnormal levels of other serum enzymes | CPT/HCPCS: 99233; 99499 ==

== ENCOUNTER → 2025-08-10 09:54 | Outpatient (BNV) | payer OTHER, SELFPAY | PROVIDERS: Admitting Provider Nurse Practitioner Acute Care; Emergency Provider Emergency Medicine; PCP Nurse Practitioner Family; Visit Provider Nurse Practitioner Psychiatric/Mental Health | DX: F14.10 Cocaine abuse, uncomplicated (principal); F10.20 Alcohol dependence, uncomplicated | CPT/HCPCS: 99222 ==